=== PATIENT | female | born 1980 | race Caucasian/White ===

== ENCOUNTER 2016-07-02 14:26 | Emergency (ER) | payer OTHER ==
[~2016-07-02] VITALS: Ht 180.3 cm; Wt 61.8 kg
[~2016-07-02 14:26] MED LIST: DRV65 PO
[2016-07-02 14:28] VITALS: TEMP 36.8; Ht 180.3 cm; Wt 61.8 kg
--- NOTE | 2016-07-02 14:54 | EMERGENCY ROOM VISIT NOTE ---
ED Visit Note First contact with patient: 14:38 CHIEF COMPLAINT: Right foot laceration HISTORY OF PRESENT ILLNESS: This 35-year-old female patient presents to the emergency department ambulatory after cutting the bottom of the right foot around 2:30 AM on a broken wine glass. The bleeding has stopped. Denies weakness or numbness of the foot or toes. The patient rates her discomfort a 5/ 10. The patient denies any other injuries. The patient's Tetanus shot is up to date. REVIEW OF SYSTEMS: A 6 system review of systems was completed with positives and pertinent negatives listed in the HPI. ALLERGIES: No known drug allergies MEDICATIONS: See nursing notes PMH: Patient denies SOCIAL HISTORY: The patient is a smoker. She lives locally PHYSICAL EXAM: Vital Signs: Reviewed Nurse's notes, vital signs stable. GENERAL : This a 35-year-old female, in no acute distress, well-developed, well- nourished. SKIN: There is a 2 cm long laceration on the plantar aspect of the right foot. The edges gape apart with traction. There is no foreign material in the wound and it looks clean. There is minimal bleeding. No deep structures such as tendons, bones, or nerves are seen in the base of the wound. Normal strength and movement of the foot and toes. Capillary refill less than 2 seconds. Normal sensation to light and sharp touch. EMERGENCY DEPARTMENT COURSE: I examined the patient. An x-ray was obtained and was negative for obvious foreign body. Using sterile technique the wound was cleaned with Betadine. The area was sterilely draped. 3 ml of 1% buffered lidocaine was used to anesthetize the laceration on the foot. Once the patient was numb, the wound was copiously irrigated under pressure with sterile saline. The wound was explored and was as described above. The laceration was repaired using simple interrupted 5-0 nylon sutures with the wound edges being well approximated. The patient tolerated the procedure well. The bleeding stopped. The area was cleaned with sterile saline and dressed with bacitracin ointment and bandage.. The patient was discharged home in good condition. [~ rep ct add3]] RIGHT FOOT MIN 3 VIEWS ROUTINE CLINICAL HISTORY: Right foot pain. Stepped on glass. COMPARISON: None. DISCUSSION: No acute fractures are visualized. No radiopaque foreign bodies are delineated. There is calcaneal thickening in the region of the Achilles insertion. IMPRESSION: No fractures or foreign bodies are visualized. DIAGNOSIS: Foot laceration DISCHARGE INSTRUCTIONS & TREATMENT: Keep wound clean and dry. Do not allow any crusting or dried blood to accumulate on sutures. If this occurs, use a 1:1 solution of hydrogen peroxide/water on a Q-tip to clean the wound. Use an antibiotic ointment for 3-4 days, then let wound dry. Suture removal in 7-10 days. Return sooner for any signs of infection (increasing redness, swelling, drainage). Ice and elevate for swelling and pain. Ibuprofen 600 mg and Tylenol 1000 mg every 6 hrs for pain. Keep covered when in sun until sutures removed then SPF 50 or higher for one year. Vitamin E oil if desired two weeks after suture removal for reduction of scar. Wear the postop shoe when up and about Keflex every 8 hours for 5 days to help prevent infection Current/Historical Medications Scheduled Cephalexin Monohydrate (Keflex), 500 MG PO TID Cyanocobalamin (Vitamin B12), 1,000 MCG PO DAILY Multivitamin (Multivitamin), 1 TAB PO DAILY Sertraline (Zoloft), 100 MG PO DAILY Vortioxetine HBr (Trintellix), 5 MG PO DAILY Allergies Coded Allergies: No Known Allergies (Unverified Allergy, Mild, 09/02/07) Vital Signs Date Time Temp Pulse Resp B/P Pulse Ox O2 Delivery O2 Flow Rate FiO2 07/02/16 17:07 95 18 121/78 97 07/02/16 14:28 36.8 106 20 135/84 97 Room Air Departure Information Impression Primary Impression: Foot laceration Dispostion Home / Self-Care Condition GOOD Prescriptions Cephalexin Monohydrate (Keflex) 500 Mg Cap 500 MG PO TID for 5 Days, #15 CAP Prov: Mandie Ervin PA-C 07/02/16 Referrals No Doctor, Assigned (PCP) Patient Instructions [facility] Additional Instructions Keep wound clean and dry. Do not allow any crusting or dried blood to accumulate on sutures. If this occurs, use a 1:1 solution of hydrogen peroxide/ water on a Q-tip to clean the wound. Use an antibiotic ointment for 3-4 days, then let wound dry. Suture removal in 7-10 days. Return sooner for any signs of infection (increasing redness, swelling, drainage). Ice and elevate for swelling and pain. Ibuprofen 600 mg and Tylenol 1000 mg every 6 hrs for pain. Keep covered when in sun until sutures removed then SPF 50 or higher for one year. Vitamin E oil if desired two weeks after suture removal for reduction of scar. Wear the postop shoe when up and about Keflex every 8 hours for 5 days to help prevent infection
[2016-07-02] MEDS ORDERED: XYLOCAINE 1%/SOD BICARB 20 ML VIAL INFIL ONE (15:00)
[2016-07-02] MEDS ORDERED: VORT1TAB PO (15:24)
[2016-07-02] MEDS ORDERED: SERT-234 PO (15:24)
[2016-07-02] MEDS ORDERED: MULT-506 PO (15:24)
[2016-07-02] MEDS ORDERED: CYAN100020 PO (15:24)
--- NOTE | 2016-07-02 15:59 | DIAGNOSTIC IMAGING REPORT ---
RIGHT FOOT MIN 3 VIEWS ROUTINE CLINICAL HISTORY: Right foot pain. Stepped on glass. COMPARISON: None. DISCUSSION: No acute fractures are visualized. No radiopaque foreign bodies are delineated. There is calcaneal thickening in the region of the Achilles insertion. IMPRESSION: No fractures or foreign bodies are visualized. Electronically signed by: Don Beasley M.D. 07/02/2016 3:57 PM Dictated Date/Time: 07/02/2016 3:56 PM
[2016-07-02 17:07] VITALS: BP 121/78; PULSE 95; O2SAT 97
[2016-07-02] MEDS ORDERED: CEPH500C PO (17:10)
== END 2016-07-02 17:08 | disposition home or self-care (01) ==
LOC: C.EDB 14:27 → C.EDD 17:08
DX: S91.311A Laceration without foreign body, right foot, initial encounter (principal); W25.XXXA Contact with sharp glass, initial encounter; F17.210 Nicotine dependence, cigarettes, uncomplicated; Z79.899 Other long term (current) drug therapy

== ENCOUNTER 2016-12-07 12:03 | Emergency (ER) | payer OTHER ==
[~2016-12-07] VITALS: Ht 180.3 cm; Wt 67.0 kg
[~2016-12-07 12:03] MED LIST changes: +CYAN100020 PO; -DRV65 PO; +MULT-506 PO; +SERT-234 PO; +VORT1TAB PO
[2016-12-07 12:07] VITALS: TEMP 37.3; O2SAT 98; Ht 180.3 cm; Wt 67.0 kg
[2016-12-07] MEDS ORDERED: PROPARACAINE HCL 0.5% OP SOLN 15 ML BTL ONE (12:31)
[2016-12-07] MEDS ORDERED: ERYOPO OPR (13:45)
[2016-12-07] MEDS ORDERED: ARTIOIN OP (13:45)
[2016-12-07] MEDS ORDERED: OXYC1TAB3 PO (13:45)
[2016-12-07] MEDS ORDERED: QUET1TAB32 PO (13:53)
[2016-12-07 13:57] VITALS: BP 126/78; PULSE 82
--- NOTE | 2016-12-07 21:17 | EMERGENCY ROOM VISIT NOTE ---
History First contact with patient: 13:26 Chief Complaint: EYE PAIN Stated Complaint: SCRATCHED EYE,SWOLLEN CLOSED,PAIN IN EYE History of Present Illness The patient is a 36 year old female who presents to the Emergency Room with complaints of right eye irritation, swelling, white sensitivity and pain rated a 5 out of 10. The patient reports that she just moved, and reports tripping over a box last night and fell. She does not know how her eye was injured, but thinks that she scratched it. The patient does not wear contacts. Tetanus immunization is up-to-date. Review of Systems 10 system review was performed and was negative except for pertinent positives and negatives as indicated in history of present illness Past Medical/Surgical History Medical Problems: (1) Depression (2) Personal History Of Urinary Calculi (3) Tobacco Use Disorder Family History Unremarkable Social History Smoking Status: Current Every Day Smoker Alcohol Use: occasionally Marital Status: single Occupation Status: employed Current/Historical Medications Scheduled Erythromycin Opth (Erythromycin Opth), 1 CM OPR Q4 Multivitamin (Multivitamin), 1 TAB PO DAILY Quetiapine Fumarate (Seroquel), 50 MG PO DAILY Scheduled PRN Artificial Tears Oph Oint (Lacri-Lube Sop Oph Oint), 0.25-0.5 INCH OP QID PRN for eye irritation Oxycodone Ir (Roxicodone Ir), 1 TAB PO Q4H PRN for Pain Physical Exam Vital Signs Date Time Temp Pulse Resp B/P (MAP) Pulse Ox O2 Delivery O2 Flow Rate FiO2 12/07/16 13:57 82 126/78 12/07/16 12:07 37.3 87 16 129/84 98 Room Air Right Eye Acuity: 20/70 Left Eye Acuity: 20/20 Physical Exam CONSTITUTIONAL: Healthy and well nourished. Alert and oriented X 3 with positive affect. Patient is exhibiting notable photophobia, keeping her eyes closed. HEENT: Normocephalic, atraumatic. Pupils equal, round and reactive. Patient is photophobic, precluding funduscopic exam of the right eye. No mucopurulent or bloody drainage noted from the eye. NECK: Full active range of motion without discomfort. RESPIRATORY: Clear to auscultation bilaterally with no wheezing, crackles, rhonchi or stridor. CARDIOVASCULAR: Regular rate and rhythm with no murmurs, rubs or gallops. MUSCULOSKELETAL: Full range of motion of all joints without discomfort. INTEGUMENTARY: No rash or other significant dermatologic conditions noted. NEUROLOGIC: No focal neurologic deficits noted. Medical Decision & Procedures Medications Administered Medications (Trade) Dose Ordered Sig/[place]ana Route Start Time Stop Time Status Last Admin Dose Admin Proparacaine HCl (Alcaine 0.5% Oph Soln) 225 drops STK-MED ONCE .ROUTE 12/07/16 12:31 12/07/16 12:32 DC 12/07/16 12:31 2 DROPS Procedure Slit lamp and fluorescein exam were performed. 2 drops of Alcaine were instilled into the right eye with complete resolution of the patient's discomfort. Slit lamp exam does not show any obvious hyphema or foreign debris within the eye. Fluorescein exam shows an inferior corneal abrasion at 6:00. Negative Kim test. ED Course Patient history and physical exam were performed. Nurse's notes were reviewed. Vital signs were reviewed and were normal. Visual acuity was also performed, showing a 20/70 in the right eye, 20/20 in the left eye. Alcaine drops complete resolved the patient's discomfort. Slit lamp and fluorescein exam shows evidence for a corneal abrasion. The patient was provided prescriptions for erythromycin ophthalmic ointment, Lacri-Lube and OxyIR 5 mg. The patient was encouraged also intermittently apply a cool compress, and wear sunglasses as needed for additional relief. She may also alternate ibuprofen and Tylenol for baseline pain relief. She was provided contact information for ophthalmology should her symptoms not improve over the next 48 hours. She is also welcome to return to the emergency department as needed. The patient was happy with plan of care, voiced understanding of all discharge instructions, and denied any pain at the conclusion of my exam. Medical Decision [place] Drug Monitoring Program Search Results: patient reviewed within database, no issues identified Medication Reconcilliation Current Medication List: was personally reviewed by me Blood Pressure Screening Patient's blood pressure: Normal blood pressure Impression Primary Impression: Right corneal abrasion Departure Information Dispostion Home / Self-Care Prescriptions Artificial Tears Oph Oint (Lacri-Lube Sop Oph Oint) Oint 0.25-0.5 INCH OP QID Y for eye irritation, #1 TUBE TO THE AFFECTED EYE UP TO QID PRN Prov: Abdi Alvarado PA 12/07/16 Oxycodone Ir (Roxicodone Ir) 5 Mg Tab 1 TAB PO Q4H Y for Pain, #10 TAB For Initial Treatment Prov: Abdi Alvarado PA 12/07/16 Erythromycin Opth (ERYTHROMYCIN OPTH) 12 Appln/3.5 Gm Oint 1 CM OPR Q4 for 7 Days, #1 TUBE Apply 1 cm strip in lower conjunctival sac every 4 hrs (while awake) for 7 days. Prov: Abdi Alvarado PA 12/07/16 Referrals David Carpenter M.D. Forms HOME CARE DOCUMENTATION FORM, IMPORTANT VISIT INFORMATION Patient Instructions [facility], ED Eye Injury Corneal Abrasion Additional Instructions Apply erythromycin antibiotic ointment every 4-6 hrs (while awake) for 7 days. You may also use Lacri-Lube ointment for additional relief between times of antibiotic ointment use. Ibuprofen 800 mg and/or Tylenol 1000 mg every 8 hours. You may also alternate these medications for more effective pain relief: Ibuprofen --4 HRS--> Tylenol --4 HRS--> ibuprofen --4 HRS--> Tylenol .... OxyIR if needed for worse pain. Do not drink alcohol or drive while taking OxyIR. You may also intermittently apply a cool compress and wear sunglasses for additional relief. Follow-up with an motorcycle maker (Dr. Carpenter) if no improvement within 48 hrs, or if symptoms worsen. Problem Qualifiers Primary Impression: Right corneal abrasion Encounter type: initial encounter Qualified Codes: S05.01XA - Injury of conjunctiva and corneal abrasion without foreign body, right eye, initial encounter
== END 2016-12-07 13:58 | disposition home or self-care (01) ==
LOC: C.EDB 12:05 → C.EDD 13:58
DX: S05.01XA Injury of conjunctiva and corneal abrasion without foreign body, right eye, initial encounter (principal); W18.09XA Striking against other object with subsequent fall, initial encounter; F32.9 Major depressive disorder, single episode, unspecified; Z87.442 Personal history of urinary calculi; F17.210 Nicotine dependence, cigarettes, uncomplicated; Z79.899 Other long term (current) drug therapy

== ENCOUNTER → 2017-06-27 | Outpatient (CLI) | payer OTHER ==
[~2017-06-27] MED LIST changes: -CYAN100020 PO; +ERYOPO OPR; +QUET1TAB32 PO; -SERT-234 PO; -VORT1TAB PO
== END | disposition home or self-care (01) ==
LOC: C.LAB 23:42
DX: Z02.83 Encounter for blood-alcohol and blood-drug test (principal)

== ENCOUNTER 2022-06-05 00:27 | Inpatient (IN) ==
[2022-06-05] MEDS ORDERED: cefTRIAXone SODIUM 2,000 MG/70 ML BAG IV STA (01:05)
[2022-06-05] MEDS ORDERED: ACETAMINOPHEN 1,000 MG/100 ML VIAL IV STA (01:06)
--- NOTE | 2022-06-05 01:16 | Emergency Department Note ---
History of Present Illness General Chief complaint: Back Injury/Pain Stated complaint: PAIN IN BACK AND STOMACH,NAUSEA,VOMITING Time Seen by Provider: 06/05/22 01:02 History of Present Illness This 41-year-old female presents to the ER complaining of fever, chills, urinary symptoms, nausea, vomiting and flank pain for the past day. Patient denies chest pain, dyspnea, cough, congestion, diarrhea. She is concerned she has a urine infection. Home Medications Medication Instructions Recorded Confirmed Type trazodone 100 mg tablet 100 mg PO HS PRN Sleep 06/05/22 06/05/22 History Allergies Allergy/AdvReac Type Severity Reaction Status Date / Time No Known Allergies Allergy Mild Verified 06/05/22 00:52 Past Med/Surg History Social History Smoking Status: Current every day smoker Tobacco Type: Cigarettes Preferred Language: Czech Feels Safe at Home: Yes Review of Systems A total of 10 systems reviewed and were otherwise negative Physical Exam Vital Signs Vital Signs - 24 hr 06/05/22 00:34 06/05/22 02:33 06/05/22 02:32 Temperature 36.7 C 37.6 C H Temperature Source Oral Oral Pulse Rate 149 H 105 H Pulse Rate [Left Radial] 110 H Pulse Rhythm Pulse Rhythm [Left Radial] Regular Pulse Strength [Left Radial] Normal Respiratory Rate 20 15 Respiratory Effort / Characteristics Non-Labored Spontaneous Respiratory Depth Normal Respiratory Pattern Regular Blood Pressure 147/105 H Blood Pressure [Left Arm] 123/79 Blood Pressure Mean 119 Blood Pressure Mean [Left Arm] 93 Blood Pressure Position [Left Arm] Pulse Oximetry 98 95 Oxygen Delivery Method Room Air Room Air Sepsis Recent Fever Within 48 Hours No Sepsis New/Unexplained Change in Mental Status No Sepsis Action Taken by Nursing No Action Required 06/05/22 03:46 06/05/22 03:46 06/05/22 03:46 Temperature 36.7 C 36.7 C Temperature Source Oral Oral Pulse Rate 108 H Pulse Rate [Left Radial] 108 H Pulse Rhythm Regular Pulse Rhythm [Left Radial] Regular Pulse Strength [Left Radial] Normal Respiratory Rate 17 17 Respiratory Effort / Characteristics Non-Labored Respiratory Depth Normal Respiratory Pattern Regular Blood Pressure Blood Pressure [Left Arm] 127/91 Blood Pressure Mean Blood Pressure Mean [Left Arm] 103 Blood Pressure Position [Left Arm] Lying Pulse Oximetry 97 97 Oxygen Delivery Method Room Air Room Air Sepsis Recent Fever Within 48 Hours Sepsis New/Unexplained Change in Mental Status Sepsis Action Taken by Nursing VITALS: Vitals are noted on the nurse's note and reviewed by myself. Vital signs tachycardic. GENERAL: Pleasant female, in no acute distress, nondiaphoretic, well-developed well-nourished. SKIN: The skin was without rashes, erythema, edema, or bruising. There is no tenting of the skin. Capillary reflex less than 2 seconds. HEAD: Normocephalic atraumatic. EARS: External auditory canals clear, tympanic membranes pearly jensen without erythema or effusion bilaterally. EYES: Pupils equal round and reactive to light and accommodation. Conjunctivae without injection, sclerae without icterus. Extraocular movements intact. NOSE: Patent, turbinates without inflammation or discharge. MOUTH: Mucous membranes moist. Pharynx without erythema or exudate. Uvula midline. Airway patent. Tongue does not deviate. NECK: Supple without nuchal rigidity. No lymphadenopathy. No thyromegaly. Cervical spine is nontender. No JVD. HEART: Tachycardic rate and rhythm LUNGS: Clear to auscultation bilaterally without wheezes, rales or rhonchi. No retractions or accessory muscle use. ABDOMEN: Positive bowel sounds x 4. Normal tympanic percussion. Soft, lower abdomen tender to palpation, without masses or organomegaly. Barrientos sign negative. No guarding or rebound tenderness. Right CVA tenderness MUSCULOSKELETAL: No muscle atrophy, erythema, or edema noted. NEURO: Patient was alert and oriented to person place and time. Normal sensation to light and sharp touch. No focal neurological deficits. Course Administered Medications Magnesium Sulfate/Dextrose (Magnesium Sulfate / D5w) 1 gm in 100 mls @ 100 mls/hr IV Q1H OSMIN Stop: 06/05/22 04:19 Last Admin: 06/05/22 03:43 Dose: 100 mls/hr Documented By: JANELLE Potassium Chloride (K Charles / Wtr) 10 meq in 100 mls @ 100 mls/hr IV Q1H OSMIN; Protocol Stop: 06/05/22 04:29 Last Admin: 06/05/22 02:43 Dose: 100 mls/hr Documented By: SHARYN Discontinued Medications Sodium Chloride (Nss 1000ml) 1,000 mls @ 999 mls/hr IV .Q1H1M OSMIN Stop: 06/05/22 03:15 Last Admin: 06/05/22 03:37 Dose: 999 mls/hr Documented By: Infusion: 06/05/22 03:11 Dose: 0 mls/hr Documented By: Admin: 06/05/22 01:35 Dose: 999 mls/hr Documented By: SHARYN Ceftriaxone Sodium (Rocephin) 2,000 mg in 70 mls @ 140 mls/hr IV NOW STA Stop: 06/05/22 01:34 Last Infusion: 06/05/22 02:35 Dose: 140 mls/hr Documented By: Admin: 06/05/22 01:57 Dose: 140 mls/hr Documented By: SHARYN Acetaminophen (Ofirmev) 1,000 mg in 100 mls @ 400 mls/hr IV NOW STA Stop: 06/05/22 01:20 Last Infusion: 06/05/22 01:56 Dose: 400 mls/hr Documented By: Admin: 06/05/22 01:35 Dose: 400 mls/hr Documented By: SHARYN Ioversol (Optiray 350 100ml) 100 ml IV ONCE ONE Stop: 06/05/22 03:06 Last Admin: 06/05/22 03:05 Dose: 85 ml Documented By: BIMAL Potassium Chloride (Potassium Chloride 10 Meq Tabcr) 40 meq PO NOW STA Stop: 06/05/22 02:20 Last Admin: 06/05/22 02:43 Dose: 40 meq Documented By: SHARYN Critical Care Time Critical Care Time: Yes Total Critical Care Time: 35 I have personally spent 35 minutes of critical care time in the direct management of this patient. This includes bedside care, interpretation of diagnostic studies, and testing, discussion with consultants, patient, and family members, and other required patient management activities. This 35 minutes is in excess of all separately billable procedures. Medical Decision Making Medical Records Attestation: I reviewed the patient's medical records. Home Medications Current Medication List: was personally reviewed by me Laboratory Data Attestation: I reviewed the patient's lab results. 06/05/22 01:20 06/05/22 01:20 Lab Results 06/05/22 06/05/22 06/05/22 Range/Units 01:20 01:20 01:20 WBC 11.67 H (4.8-10.8) K/ul RBC 3.78 L (4.20-5.40) M/uL Hgb 14.4 (12.0-16.0) g/dl Hct 38.5 (37.0-47.0) % MCV 101.9 H (80.0-100.0) fL MCH 38.1 H (25.0-34.0) pg MCHC 37.4 H (32.0-36.0) g/dL RDW Std Deviation 48.3 H (36.4-46.3) fL RDW Coeff of Ralph 13.0 (11.5-14.5) % Plt Count 134 (130-400) K/uL MPV 11.7 (9.4-12.4) fL Immature Gran % (Auto) 0.6 % Neut % (Auto) 88.0 % Lymph % (Auto) 5.8 % [place] % (Auto) 4.7 % Eos % (Auto) 0.4 % Baso % (Auto) 0.5 % Neut # (Auto) 10.26 H (1.40-6.50) K/uL Lymph # (Auto) 0.68 L (1.2-3.4) K/uL [place] # (Auto) 0.55 (0.11-0.59) K/uL Eos # (Auto) 0.05 (0-0.50) K/uL Baso # (Auto) 0.06 (0-0.2) K/uL Immature Gran # (Auto) 0.07 (0.01-0.20) K/uL Sodium 133 L (136-145) mmol/L Potassium 2.4 L* (3.5-5.1) mmol/L Chloride 90 L (98-107) mmol/L Carbon Dioxide 21 (21-32) mmol/L Anion Gap 22 H (3-11) BUN 6 (6-23) mg/dl Creatinine 0.56 L (0.6-1.2) mg/dl Est Cr Clr Drug Dosing 146.3 ml/min Est GFR ( Amer) 133.3 ml/min Est GFR (Non-Af Amer) 115.0 ml/min BUN/Creatinine Ratio 10.7 (10-20) Glucose 114 H (70-99(Fasting)) mg/dl Lactate (0.4-2.0) mmol/L Calcium 8.2 L (8.6-10.3) mg/dl Magnesium 0.8 L* (1.7-2.4) mg/dl Total Bilirubin 1.3 H (0.2-1.0) mg/dl Direct Bilirubin 0.4 H (0-0.2) mg/dl AST 46 H (13-39) U/L ALT 25 (7-52) U/L Alkaline Phosphatase 107 H (34-104) U/L Troponin I High Sens 14.2 H (0-14) pg/ml Total Protein 8.1 (6.0-8.3) gm/dl Albumin 4.4 (3.4-5.0) gm/dl Procalcitonin 1.63 H (0-0.5) ng/ml HCG, Qual (Negative) Urine Color Urine Appearance (Clear) Urine pH (4.5-7.5) Ur Specific [place] (1.000-1.030) Urine Protein (Negative) Urine Glucose (UA) (Negative) Urine Ketones (Negative) Urine Blood (Negative) Urine Nitrite (Negative) Urine Bilirubin (Negative) Urine Urobilinogen (Negative) Ur Leukocyte Esterase (Negative) Urine WBC (Auto) (0-5) /hpf Urine RBC (Auto) (0-4) /hpf U Hyaline Cast (Auto) (0-5) /lpf U Epithel Cells (Auto) (0-5) /lpf Urine Bacteria (Auto) (Negative) 06/05/22 06/05/22 06/05/22 Range/Units 01:20 01:30 02:06 WBC (4.8-10.8) K/ul RBC (4.20-5.40) M/uL Hgb (12.0-16.0) g/dl Hct (37.0-47.0) % MCV (80.0-100.0) fL MCH (25.0-34.0) pg MCHC (32.0-36.0) g/dL RDW Std Deviation (36.4-46.3) fL RDW Coeff of Ralph (11.5-14.5) % Plt Count (130-400) K/uL MPV (9.4-12.4) fL Immature Gran % (Auto) % Neut % (Auto) % Lymph % (Auto) % [place] % (Auto) % Eos % (Auto) % Baso % (Auto) % Neut # (Auto) (1.40-6.50) K/uL Lymph # (Auto) (1.2-3.4) K/uL [place] # (Auto) (0.11-0.59) K/uL Eos # (Auto) (0-0.50) K/uL Baso # (Auto) (0-0.2) K/uL Immature Gran # (Auto) (0.01-0.20) K/uL Sodium (136-145) mmol/L Potassium (3.5-5.1) mmol/L Chloride (98-107) mmol/L Carbon Dioxide (21-32) mmol/L Anion Gap (3-11) BUN (6-23) mg/dl Creatinine (0.6-1.2) mg/dl Est Cr Clr Drug Dosing ml/min Est GFR ( Amer) ml/min Est GFR (Non-Af Amer) ml/min BUN/Creatinine Ratio (10-20) Glucose (70-99(Fasting)) mg/dl Lactate 4.4 H* (0.4-2.0) mmol/L Calcium (8.6-10.3) mg/dl Magnesium (1.7-2.4) mg/dl Total Bilirubin (0.2-1.0) mg/dl Direct Bilirubin (0-0.2) mg/dl AST (13-39) U/L ALT (7-52) U/L Alkaline Phosphatase (34-104) U/L Troponin I High Sens (0-14) pg/ml Total Protein (6.0-8.3) gm/dl Albumin (3.4-5.0) gm/dl Procalcitonin (0-0.5) ng/ml HCG, Qual Negative (Negative) Urine Color Yellow Urine Appearance Cloudy A (Clear) Urine pH 6.0 (4.5-7.5) Ur Specific [place] 1.005 (1.000-1.030) Urine Protein 1+ H (Negative) Urine Glucose (UA) Negative (Negative) Urine Ketones 1+ H (Negative) Urine Blood 2+ H (Negative) Urine Nitrite Positive A (Negative) Urine Bilirubin Negative (Negative) Urine Urobilinogen Negative (Negative) Ur Leukocyte Esterase 3+ H (Negative) Urine WBC (Auto) >30 H (0-5) /hpf Urine RBC (Auto) 0-4 (0-4) /hpf U Hyaline Cast (Auto) 1-5 (0-5) /lpf U Epithel Cells (Auto) >30 H (0-5) /lpf Urine Bacteria (Auto) 1+ H (Negative) Imaging Data Attestation: I personally reviewed and interpreted this imaging study as follows: Radiologist's Impression: Abdomen/Pelvis CT 06/05/22 01:01 Exam(s): CT ABDOMEN + PELVIS With Contrast IV Amt: 85 ML OPTIRAY 350 EXAM: CT Abdomen and Pelvis With Intravenous Contrast CLINICAL HISTORY: Abscess. TECHNIQUE: Axial computed tomography images of the abdomen and pelvis with intravenous contrast. CTDI is 6.01 mGy and DLP is 346.44 mGy-cm. Automated exposure control was utilized for the study. A dose lowering technique was utilized adhering to the principles of ALARA. CONTRAST: Patient received 85 ML OPTIRAY 350 of IV contrast COMPARISON: CT abdomen and pelvis 02/10/2021. FINDINGS: Lung bases: Unremarkable. No mass. No consolidation. ABDOMEN: Liver: Fatty infiltration of the liver. Gallbladder and bile ducts: Unremarkable. No calcified stones. No ductal dilation. Pancreas: Unremarkable. No mass. No ductal dilation. Spleen: Unremarkable. No splenomegaly. Adrenals: Unremarkable. No mass. Kidneys and ureters: Striated nephrograms of the right kidney in mild hydronephrosis are concerning for acute pyelonephritis. Question mild left hydronephrosis. No definitive left nephrograms. Stomach and bowel: Unremarkable. No obstruction. No mucosal thickening. PELVIS: Appendix: No findings to suggest acute appendicitis. Bladder: Unremarkable. No mass. Reproductive: Unremarkable as visualized. ABDOMEN and PELVIS: Intraperitoneal space: Unremarkable. No free air. No significant fluid collection. Bones/joints: No acute fracture. No dislocation. Soft tissues: Unremarkable. Vasculature: Unremarkable. No abdominal aortic aneurysm. Lymph nodes: Unremarkable. No enlarged lymph nodes. IMPRESSION: 1. Striated nephrograms of the right kidney in mild hydronephrosis are concerning for acute pyelonephritis. 2. Question mild left hydronephrosis. No definitive left nephrograms. 3. Fatty infiltration of the liver. Electronically signed by: Yolanda Marie MD 06/05/22 03:26 AM MDM Narrative Prior records/ancillary studies reviewed. Triage Nursing notes reviewed. Additional history obtained from nursing. The patient's history was concerning for abdominal pain. Differential diagnosis: Etiologies such as appendicitis, diverticulitis, PUD, biliary pathology, UTI, pancreatitis, obstruction, mesenteric ischemia, aortic pathology, infections, inflammatory bowel disease, renal colic, as well as others were entertained. Physical examination findings: As above. ER treatment provided: An order was placed for continuous cardiac monitoring. The monitor shows a rate of 60-1 60 with a sinus rhythm per my Independent interpretation. IV fluids, Rocephin, Tylenol were ordered On reassessment the patient felt better. Diagnostics interpreted by me: ECG: Ordered for tachycardia EKG: Normal sinus, poor baseline, normal intervals. Impression sinus tachycardia poor baseline interpreted by myself I think arrhythmia is unlikely. EKG shows normal sinus rhythm with no interval abnormalities such as QT prolongation or WPW. There are no findings to suggest Brugada syndrome. Cardiac monitoring in the emergency department reveals no tachycardic or bradycardic dysrhythmia. Hypertrophic cardiomyopathy was considered but there are no clear historical elements pointing toward this. EKG is not suggestive. The QRS voltage is not extremely large and there are no suggestive Q waves. The labs Independently Interpreted by myself revealed leukocytosis, low magnesium, low potassium, elevated infection markers Blood cultures pending Urine concerning for infection and prior urine culture was reviewed. Imaging studies: Chest x-ray with no acute consolidation, pneumothorax or free air per my independent interpretation Consultation: A consultation was placed with the hospitalist. The case was discussed and diagnostics were reviewed. The patient was evaluated in the ER for further treatment. Exam and history seem consistent with sepsis from pyelonephritis. Septic protocol was immediately initiated when I initially saw the patient. Antibiotics were written for prior urine culture was reviewed. Electrolyte abnormalities were noted and these were replaced. Patient was reassessed multiple times. CT was reviewed and concerning for pyelonephritis. Patient is agreeable to treatment plan of admission. Medicine was consulted and the case was discussed. Patient was admitted to the medical service. Vital signs did improve. By the evaluation outlined above emergent etiologies such as appendicitis, diverticulitis, PUD, biliary pathology, pancreatitis, obstruction, mesenteric ischemia, aortic pathology, inflammatory bowel disease, renal colic, as well as others were deemed relatively unlikely. The pt informed about the findings as listed above. All questions were answered and pleased with the treatment. The chart was completed utilizing [employer] Speech voice recognition software. Grammatical errors, random word insertions, pronoun errors, and incomplete sentences are an occassional consequence of this system due to software limitat ions, ambient noise, and hardware issues. Any formal questions or concerns about the content, text, or information contained within the body of this dictation should be directly addressed to the physician publisher assistant for clarification. Impression & Plan Sepsis, Pyelonephritis Discharge Plan Visit Data Chief Complaint: Back Injury/Pain Stated Complaint: PAIN IN BACK AND STOMACH,NAUSEA,VOMITING ED Provider: Pop Allison ED Midlevel Provider: Juju Munoz Discharge Problem: Sepsis, Pyelonephritis Patient Disposition: Admitted As Inpatient Condition: Fair Forms Stand Alone Forms: My [facility] [employer] Prescriptions Prescriptions: No Action trazodone 100 mg tablet 100 mg PO HS PRN (Reason: Sleep) Rx Instructions: PER PT "HAVEN'T REALLY USED IT YET". Referrals Referrals: PCP,NO [Primary Care Provider] -
[2022-06-05] MEDS: SODIUM CHLORIDE 0.9% 1000ML 1,000 ML IV SCH ×2 (01:35→03:37)
[2022-06-05 01:39] LABS: Basophils # (auto) 0.06 K/uL (0-0.2); Basophils % (auto) 0.5 %; Eosinophils # (auto) 0.05 K/uL (0-0.50); Eosinophils % (auto) 0.4 %; Hematocrit (blood only) 38.5 % (37.0-47.0); Hemoglobin 14.4 g/dl (12.0-16.0); Immature Granulocytes # (auto) 0.07 K/uL (0.01-0.20); Immature Granulocytes % (auto) 0.6 %; Lymphocytes # (auto) 0.68 K/uL (1.2-3.4); Lymphocytes % (auto) 5.8 %; Mean Corpuscular Hemoglobin 38.1 pg (25.0-34.0); Mean Corpuscular Hgb Conc 37.4 g/dL (32.0-36.0); Mean Corpuscular Volume 101.9 fL (80.0-100.0); Mean Platelet Volume 11.7 fL (9.4-12.4); Monocytes # (auto) 0.55 K/uL (0.11-0.59); Monocytes % (auto) 4.7 %; Neutrophils # (auto) 10.26 K/uL (1.40-6.50); Platelet Count 134 K/uL (130-400); RDW Standard Deviation 48.3 fL (36.4-46.3); Red Blood Count 3.78 M/uL (4.20-5.40); White Blood Count 11.67 K/ul (4.8-10.8)
[2022-06-05 01:53] LABS: Pregnancy Test, Serum Negative (Negative)
[2022-06-05 02:16] LABS: Albumin Level 4.4 gm/dl (3.4-5.0); BUN Creatinine Ratio 10.7 (10-20); Bilirubin Direct 0.4 mg/dl (0-0.2); Bilirubin,Total 1.3 mg/dl (0.2-1.0); Calcium 8.2 mg/dl (8.6-10.3); Creatinine Clr Calc Pharmacy 146.3 ml/min; Est GFR (African American) 133.3 ml/min; Magnesium 0.8 mg/dl (1.7-2.4); Potassium 2.4 mmol/L (3.5-5.1); Total Protein 8.1 gm/dl (6.0-8.3); Troponin I High Sensitivity 14.2 pg/ml (0-14)
[2022-06-05] MEDS ORDERED: POTASSIUM CHLORIDE 10 MEQ TABCR PO STA (02:19)
[2022-06-05 02:30] LABS: Appearance Urine Cloudy (Clear); Bacteria Urine Automated 1+ (Negative); Bilirubin Urine Negative (Negative); Blood Urine 2+ (Negative); Color Urine Yellow; Epithelial Cell Urine Auto >30 /lpf (0-5); Glucose Urine UA Negative (Negative); Ketones Urine 1+ (Negative); Leukocyte Esterase Urine 3+ (Negative); Nitrite Urine Positive (Negative); Protein Urine 1+ (Negative); RBC Urine Automated 0-4 /hpf (0-4); Specific Gravity Urine 1.005 (1.000-1.030); Urobilinogen Urine Negative (Negative); WBC Urine Automated >30 /hpf (0-5)
[2022-06-05] MEDS: POTASSIUM CHLORIDE / WTR 10 MEQ/100 ML PLCT IV SCH ×6 (02:43→09:34)
[2022-06-05] MEDS ORDERED: SODIUM CHLORIDE 0.9% 1000ML 1,000 ML IV SCH (03:00)
[2022-06-05] MEDS ORDERED: OPTIRAY 350 100ml IV ONE (03:05)
--- NOTE | 2022-06-05 03:27 | CT Scan Report ---
Exam(s): CT ABDOMEN + PELVIS With Contrast IV Amt: 85 ML OPTIRAY 350 EXAM: CT Abdomen and Pelvis With Intravenous Contrast CLINICAL HISTORY: Abscess. TECHNIQUE: Axial computed tomography images of the abdomen and pelvis with intravenous contrast. CTDI is 6.01 mGy and DLP is 346.44 mGy-cm. Automated exposure control was utilized for the study. A dose lowering technique was utilized adhering to the principles of ALARA. CONTRAST: Patient received 85 ML OPTIRAY 350 of IV contrast COMPARISON: CT abdomen and pelvis 02/10/2021. FINDINGS: Lung bases: Unremarkable. No mass. No consolidation. ABDOMEN: Liver: Fatty infiltration of the liver. Gallbladder and bile ducts: Unremarkable. No calcified stones. No ductal dilation. Pancreas: Unremarkable. No mass. No ductal dilation. Spleen: Unremarkable. No splenomegaly. Adrenals: Unremarkable. No mass. Kidneys and ureters: Striated nephrograms of the right kidney in mild hydronephrosis are concerning for acute pyelonephritis. Question mild left hydronephrosis. No definitive left nephrograms. Stomach and bowel: Unremarkable. No obstruction. No mucosal thickening. PELVIS: Appendix: No findings to suggest acute appendicitis. Bladder: Unremarkable. No mass. Reproductive: Unremarkable as visualized. ABDOMEN and PELVIS: Intraperitoneal space: Unremarkable. No free air. No significant fluid collection. Bones/joints: No acute fracture. No dislocation. Soft tissues: Unremarkable. Vasculature: Unremarkable. No abdominal aortic aneurysm. Lymph nodes: Unremarkable. No enlarged lymph nodes. IMPRESSION: 1. Striated nephrograms of the right kidney in mild hydronephrosis are concerning for acute pyelonephritis. 2. Question mild left hydronephrosis. No definitive left nephrograms. 3. Fatty infiltration of the liver. Electronically signed by: Yolanda Marie MD 06/05/22 03:26 AM
[2022-06-05] MEDS: MAGNESIUM SULFATE / D5W 1 GM/100 ML BAG IV SCH ×4 (03:43→08:41)
--- NOTE | 2022-06-05 05:40 | History and Physical Report ---
DATE OF ADMISSION: 06/05/2022. CHIEF COMPLAINT: Pyelonephritis, sepsis. HISTORY OF PRESENT ILLNESS: This is a 41-year-old female with no significant past medical history who presents with back pain radiating to the flank going on since last couple of days. She is also nauseous and had an episode of vomiting yesterday morning. Also has some frequent urination. Denies any burning micturition or hematuria. Denies any history of kidney stones in the past. She was having mild temperature spike in the ER. Her white count was 11. Lactic acid was 4.4, repeat is 1.6. Potassium is 2.4, sodium 133, magnesium 0.8, total bilirubin 1.3, procalcitonin 1.6, urine was positive for nitrite and leukocyte esterase, and +[address] abdomen and pelvis is showing bilateral pyelonephritis. The patient says the pain is in the back, both the flanks and more on the right side. Denies any chest pain, no shortness of breath, no cough, no headache, no blurred visions, no runny nose, no sore throat. Appetite is okay. No rash. Currently, resting comfortably and hemodynamically stable. ALLERGIES: No known drug allergies. PAST MEDICAL HISTORY: None. PAST SURGICAL HISTORY: Denies any surgical history. MEDICATIONS: Takes trazodone 100mg po as needed for insomnia. FAMILY HISTORY: Says mother had endometrial and colon cancer; sister has colon cancer. SOCIAL HISTORY: Smokes 10 cigarettes daily. Alcohol on the weekends. Denies any drug use. REVIEW OF SYSTEMS: As per HPI. Rest of the review of systems is negative. PHYSICAL EXAMINATION: GENERAL: The patient is of moderate build, not in acute distress. VITAL SIGNS: Temperature T-max 37.6, pulse 108, respiratory rate 17, blood pressure 127/91, oxygen 97% on room air. HEENT: Pupils equal, round and reactive to light. Oral mucosa moist. NECK: No JVD, no neck masses. CARDIOVASCULAR: S1 and S2 heard. Tachycardia. No murmurs. RESPIRATORY SYSTEM: Normal AP diameter. No accessory muscle use. No wheezing or crackles. ABDOMEN: Soft, bowel sounds present. Bilateral CVA tenderness present. No guarding, no rigidity, no distention. CENTRAL NERVOUS SYSTEM: Cranial nerves II-XII grossly intact, nonfocal. EXTREMITIES: No edema, no erythema. LABORATORY DATA: WBC 11.6, hemoglobin 14.4, hematocrit 38.5, platelets 134. Sodium 133, potassium 2.4, chloride 90, CO2 of 21, BUN 6, creatinine 0.5, serum glucose 114, lactate 4.4, repeat is 1.6, calcium 8.2, magnesium 0.8, total bilirubin 1.3, direct bilirubin 0.4, AST 46, ALT 25, alkaline phosphatase 107. Troponin I high sensitivity 14.2. Procalcitonin 1.6. HCG qualitative negative. Urinalysis positive for nitrite, +3 leukocyte esterase, +1 bacteria. SARS-CoV-2 PCR pending. IMAGING DATA: Chest x-ray, no acute findings. CT of the abdomen and pelvis with IV contrast: 1. Striated nephrograms of the right kidney in mild hydronephrosis are concerning for acute pyelonephritis. 2. Question mild left hydronephrosis. No definitive left nephrograms. 3. Fatty infiltration of the liver. EKG: Sinus tachycardia at a rate of 129. , nonspecific ST abnormalities, prolonged QTc of 588. ASSESSMENT AND PLAN: This is a 41-year-old female who presents with pyelonephritis and sepsis. 1. Pyelonephritis with sepsis: Bilateral pyelonephritis, more on the right side, urinary tract infection, sepsis with elevated lactic acid, elevated white count, temperature spike and elevated procalcitonin. Lactic acid improved to 1.6 currently. Currently, hemodynamically stable. ER gave her Rocephin, which will be continued. CT abdomen and pelvis with IV contrast is showing bilateral mild hydronephrosis with pyelonephritis. Will get an ultrasound to rule out any kidney stones. Continue fluids with IV normal saline with 20 of KCl at 125 mL per hour. Monitor the hemodynamics. Follow the cultures. Closely monitor in the tele floor. 2. Hypokalemia and hypomagnesemia: Potassium of 2.4, magnesium of 0.8, getting replaced. Will follow the repeat labs. 3.Prolonged QTc, most from electrolyte abnormalities. To avoid qt prolonging drugs. Will follow the repeat EKG. 4. Mild elevation of troponin, mostly likely from demand ischemia from sepsis. Will follow serial cardiac enzymes. 5 Mild elevation of LFTs, will follow the repeat labs, mostly from sepsis. If any concern, will get a hepatitis panel. 6. Deep venous thrombosis prophylaxis: Placed on Lovenox. DISPOSITION: Closely monitor in the tele floor. Level 1 full code. Expect to discharge home and follow with family doctor. Job ID: [id number] [facility] HOSPITALManpreet
[2022-06-05] MEDS ORDERED: KETOROLAC TROMETHAMINE 15 MG/ML VIAL IV ONE (05:58)
[2022-06-05] MEDS ORDERED: POTASSIUM CHLORIDE CRTAB 20 MEQ TABCR PO STA (06:21)
[2022-06-05] MEDS ORDERED: NITROGLYCERIN SL 0.4 MG/TAB TAB SL PRN (06:21)
[2022-06-05] MEDS ORDERED: POLYETHYLENE (MIRALAX) 17 GM PACK PO PRN (06:21)
--- NOTE | 2022-06-05 06:33 | Ultrasound Report ---
Exam(s): US RENAL EXAM: US Retroperitoneal Limited, Renal CLINICAL HISTORY: Flank pain. TECHNIQUE: Real-time limited ultrasound of the retroperitoneum with image documentation. COMPARISON: CT abdomen and pelvis from same day. FINDINGS: Right kidney: The right kidney measures 12.8 cm. No mass. No visualized nephrolithiasis. Mild hydronephrosis. There is mild right perinephric free fluid. Left kidney: The left kidney measures 12.9 cm. No mass or visualized nephrolithiasis. Mild hydronephrosis. IMPRESSION: 1. Mild bilateral hydronephrosis. 2. There is mild right perinephric free fluid. Electronically signed by: Yolanda Marie MD 06/05/22 06:31 AM
[2022-06-05] MEDS ORDERED: PROMETHAZINE HCL 12.5 MG in SODIUM CHLORIDE 0.9% 50 ML IV PRN (06:39)
[2022-06-05] MEDS: NSS + 20MEQ KCL 20 MEQ/1,000 ML BAG IV SCH ×2 (06:42→16:14)
[2022-06-05] MEDS: ACETAMINOPHEN 325 MG TAB PO PRN ×3 (06:42→23:17)
--- NOTE | 2022-06-05 08:02 | XRay Report ---
XR chest 1V portable HISTORY: 41 years-old Female Sepsis acute sepsis with nausea and vomiting COMPARISON: CT abdomen and pelvis of same day TECHNIQUE: AP view of the chest FINDINGS: Breast implants with nipple jewelry. Mild right hemidiaphragmatic elevation. Cardiomediastinal and hi lar silhouettes are within normal limits. No pneumothorax, pleural effusion, airspace consolidation o r pulmonary edema. Bones appear grossly intact. IMPRESSION: No acute process. ACT 112: Negative or not required by law. The above report was generated using voice recognition software. It may contain grammatical, syntax o r spelling errors. Electronically signed by: Master Caldera M.D. 06/05/2022 8:01 AM
[2022-06-05] MEDS: CEFEPIME 2,000 MG in SYRINGE 0 ML IV SCH ×2 (08:42→16:14)
[2022-06-05] MEDS: ENOXAPARIN INJ 40 MG/0.4 ML SYR SQ SCH (08:42)
[2022-06-05] MEDS: MoRPHine SULFATE 2 MG/ML CARP IV PRN ×4 (08:49→23:22)
--- NOTE | 2022-06-05 10:09 | Communication Note ---
Date of Service: June 05, 2022 Patient seen and examined at bedside. She continues to complain of right back pain and lower abdominal pain. She was febrile to 38.6 C, tachycardic. On examination Alert oriented x3, in moderate distress due to pain Chestbilateral vesicular breath sound CVSS1-S2, no murmur Abdomenright costovertebral angle tender on superficial palpation, lower a bdominal tender. Soft Neurogrossly intact Assessment/plan Sepsis secondary to right-sided pyelonephritis Complicated UTI Continue on antibiotic Continue supportive care with IV fluid Continue pain control. Severe hypokalemia Severe hypomagnesemia -Continue IV replacement. Repeat labs at 11 AM. Continue cardiac monitoring
[2022-06-05 12:07] LABS: BUN Creatinine Ratio 12.1 (10-20); Calcium 7.7 mg/dl (8.6-10.3); Creatinine Clr Calc Pharmacy 141.2 ml/min; Est GFR (African American) 131.8 ml/min; Est GFR (Non-African American) 113.7 ml/min; Magnesium 2.5 mg/dl (1.7-2.4); Phosphorus 2.5 mg/dl (2.5-4.9); Potassium 4.1 mmol/L (3.5-5.1); Troponin I High Sensitivity 8.7 pg/ml (0-14)
--- NOTE | 2022-06-05 14:43 | Electrocardiogram Report ---
Test Reason : Blood Pressure : / mmHG Vent. Rate : 129 BPM Atrial Rate : 129 BPM P-R Int : 112 ms QRS Dur : 118 ms QT Int : 402 ms P-R-T Axes : 000 076 038 degrees QTc Int : 588 ms Sinus tachycardia Non-specific intra-ventricular conduction delay Long QTc Nonspecific ST and T wave abnormality Abnormal ECG When compared with ECG of 11-FEB-2021 00:14, Vent. rate has increased BY 44 BPM QRS duration has increased ST no longer elevated in Inferior leads ST no longer depressed in Lateral leads Confirmed by Robert Haque ([id number]) on 06/05/2022 2:43:41 PM Referred By: REFERRED SELF Confirmed By:Robert Haque
--- NOTE | 2022-06-05 14:48 | Electrocardiogram Report ---
Test Reason : Blood Pressure : / mmHG Vent. Rate : 116 BPM Atrial Rate : 116 BPM P-R Int : 184 ms QRS Dur : 108 ms QT Int : 320 ms P-R-T Axes : 053 072 023 degrees QTc Int : 444 ms Sinus tachycardia Incomplete right bundle branch block Nonspecific T wave abnormality Abnormal ECG When compared with ECG of 05-JUN-2022 01:09, (unconfirmed) Incomplete right bundle branch block has replaced Non-specific intra-ventricular conduction delay Confirmed by Robert Haque ([id number]) on 06/05/2022 2:48:16 PM Referred By: REFERRED SELF Confirmed By:Robert Haque
--- NOTE | 2022-06-05 14:56 | Electrocardiogram Report ---
Test Reason : Blood Pressure : / mmHG Vent. Rate : 101 BPM Atrial Rate : 101 BPM P-R Int : 206 ms QRS Dur : 108 ms QT Int : 360 ms P-R-T Axes : 055 054 040 degrees QTc Int : 466 ms Sinus tachycardia Possible Left atrial enlargement Borderline ECG When compared with ECG of 05-JUN-2022 06:08, (unconfirmed) Incomplete right bundle branch block is no longer Present Confirmed by Robert Haque ([id number]) on 06/05/2022 2:56:23 PM Referred By: REFERRED SELF Confirmed By:Robert Haque
[2022-06-05 18:57] LABS: A calco-baum cmplx NotReported Not Detected (NotDetected); Bact fragilis Not Reported Not Detected (NotDetected); C auris Not Reported Not Detected (NotDetected); CTX-M Resistant Gene Not Detected (NotDetected); Calbicans Not Reported Not Detected (NotDetected); Candida glabrata Not Reported Not Detected (NotDetected); Candida krusei Not Reported Not Detected (NotDetected); Cneoformans/gatti Not Reported Not Detected (NotDetected); Cparapsilosis Not Reported Not Detected (NotDetected); Ctropicalis Not Reported Not Detected (NotDetected); E cloacae compx Not Reported Not Detected (NotDetected); Efaecalis Not Reported Not Detected (NotDetected); Efaecium Not Reported Not Detected (NotDetected); Enterobacterales DETECTED (NotDetected); Enterobacterales Not Reported DETECTED (NotDetected); Escherichia coli Not Reported DETECTED (NotDetected); H influenzae Not Reported Not Detected (NotDetected); IMP Resistant Gene Not Detected (NotDetected); K aerogenes Not Reported Not Detected (NotDetected); KPC Resistant Gene Not Detected (NotDetected); Koxytoca Not Reported Not Detected (NotDetected); Kpneumoniae grp Not Reported Not Detected (NotDetected); Lmonocyt Not Reported Not Detected (NotDetected); N meningitidis Not Reported Not Detected (NotDetected); NDM Resistant Gene Not Detected (NotDetected); OXA 48 Like Resistant Gene Not Detected (NotDetected); P aeruginosa Not Reported Not Detected (NotDetected); Proteus spp Not Reported Not Detected (NotDetected); Salmonella spp Not Reported Not Detected (NotDetected); Smarcescens Not Reported Not Detected (NotDetected); Staph lugdunensis Not Reported Not Detected (NotDetected); Staph spp. Not Reported Not Detected (NotDetected); Staphaureus Not Reported Not Detected (NotDetected); Staphepi Not Reported Not Detected (NotDetected); Stenmaltophilia Not Reported Not Detected (NotDetected); Strep agal(GrpB) Not Reported Not Detected (NotDetected); Strep pneum Not Reported Not Detected (NotDetected); Strep pyog (GrpA) Not Reported Not Detected (NotDetected); Strep spp Not Reported Not Detected (NotDetected); VIM Resistant Gene Not Detected (NotDetected); mcr-1 Colistin Resistant Gene Not Detected (NotDetected)
[2022-06-06] MEDS ORDERED: cefTRIAXone SODIUM 2,000 MG in DEXTROSE 5% 50 ML IV SCH
[2022-06-06] MEDS: NSS + 20MEQ KCL 20 MEQ/1,000 ML BAG IV SCH ×2 (00:24→08:41)
[2022-06-06] MEDS: CEFEPIME 2,000 MG in SYRINGE 0 ML IV SCH ×3 (02:05→17:47)
[2022-06-06] MEDS: MoRPHine SULFATE 2 MG/ML CARP IV PRN ×5 (03:25→21:51)
[2022-06-06 06:59] LABS: Hematocrit (blood only) 30.9 % (37.0-47.0); Hemoglobin 11.2 g/dl (12.0-16.0); Mean Corpuscular Hemoglobin 37.6 pg (25.0-34.0); Mean Corpuscular Hgb Conc 36.2 g/dL (32.0-36.0); Mean Corpuscular Volume 103.7 fL (80.0-100.0); Mean Platelet Volume 12.3 fL (9.4-12.4); Platelet Count 78 K/uL (130-400); RDW Coefficient of Variation 12.5 % (11.5-14.5); RDW Standard Deviation 47.3 fL (36.4-46.3); Red Blood Count 2.98 M/uL (4.20-5.40); White Blood Count 2.97 K/ul (4.8-10.8)
[2022-06-06 07:19] LABS: Albumin Level 3.2 gm/dl (3.4-5.0); BUN Creatinine Ratio 8.7 (10-20); Bilirubin Direct 0.2 mg/dl (0-0.2); Bilirubin,Total 0.7 mg/dl (0.2-1.0); Calcium 7.4 mg/dl (8.6-10.3); Creatinine Clr Calc Pharmacy 178.1 ml/min; Est GFR (African American) 142.2 ml/min; Est GFR (Non-African American) 122.7 ml/min; Magnesium 1.9 mg/dl (1.7-2.4); Phosphorus 1.5 mg/dl (2.5-4.9); Potassium 3.6 mmol/L (3.5-5.1); Total Protein 5.9 gm/dl (6.0-8.3)
[2022-06-06] MEDS ORDERED: POTASSIUM PHOS 3 MMOL/1 ML INFUSION IV STA (07:23)
[2022-06-06 07:32] LABS: Basophils # (auto) 0.02 K/uL (0-0.2); Basophils % (auto) 0.7 %; Eosinophils % (auto) 3.4 %; Immature Granulocytes # (auto) 0.02 K/uL (0.01-0.20); Immature Granulocytes % (auto) 0.7 %; Lymphocytes # (auto) 0.37 K/uL (1.2-3.4); Lymphocytes % (auto) 12.5 %; Monocytes % (auto) 6.7 %; Neutrophils # (auto) 2.26 K/uL (1.40-6.50); RBC Morphology Unremarkable
[2022-06-06] MEDS ORDERED: POTASSIUM PHOSPHATE 40 MMOL in SODIUM CHLORIDE 0.9% 1000ML 1,000 ML IV ONE (07:45)
[2022-06-06] MEDS: ENOXAPARIN INJ 40 MG/0.4 ML SYR SQ SCH (08:03)
[2022-06-06] MEDS: ACETAMINOPHEN 325 MG TAB PO PRN ×2 (08:06→17:58)
[2022-06-06 10:42] LABS: HBSAG NON-REACTIVE (NON-REACTIVE); Hepatitis A Antibody IgM NON-REACTIVE (NON-REACTIVE); Hepatitis B Core Antibody IgM NON-REACTIVE (NON-REACTIVE)
--- NOTE | 2022-06-06 11:28 | Hospitalist Progress Note ---
Date of Service June 06, 2022 Assessment & Plan (1) Pyelonephritis: (2) Gram negative sepsis: Plan: 41-year-old female with no significant past medical history presented to the ED with back pain radiating to flank for [address] abdomen personally reviewed; striated nephrograms of right kidney concerning for acute pyelonephritis Urinalysis suggestive of infection. Urine culture shows gram-negative bacilli Blood culture admission shows gram-negative bacilli. Continue on cefepime; continue IV fluids and supportive care. Await final culture results Tylenol and morphine for pain control. (3) Pancytopenia: Plan: Labs reviewed today; WBC of 2.97, hemoglobin of 11.2 and platelet count of 78 Likely secondary to sepsis Will monitor daily CBC (4) Hypomagnesemia: Plan: Admitting magnesium of 0.8; repleted (5) Hypokalemia: Plan: Admitting potassium of 2.4; repleted Plan Full code DVT prophylaxis Lovenox Dispocontinues to be hospitalized due to urosepsis requiring IV antibiotics. Admission and Anticipated Discharge Date Admission Date: June 05, 2022 Subjective Patient seen and examined at bedside. She reports generalized fatigue and chills. She continues to have significant back pain. Febrile overnight; other vital stable. Review of Systems Review of Systems: All systems reviewed & are unremarkable except as noted in Subjective Physical Exam Physical Exam: Constitutional: Awake, alert orient x3; appears tired. Respiratory: normal respiratory effort, lungs clear to auscultation, no wheeze, rales, rhonchi. Normal insp/exp effort, no accessory muscle use Cardiovascular: RRR, no murmur, no edema Vessels: no JVD or carotid bruit Chest: normal inspection of chest Abdomen: Tenderness present in the right costovertebral angle Musculoskeletal: no cyanosis or clubbing, extremities motor strength 5/5 Skin: no rashes, warm and dry normal turgor Neurologic: PERRL, EOMI, accommodation nl, no face palsy, no dysarthria CN's II- XI intact bilaterally and moves all extremities Psychiatric: A+Ox3, euthymic affect Lymphatic: no cervical or axillary lymphadenopathy : deferred Results & Data Results & Data Vital Signs (Past 12 Hours) Vital Signs Temp Pulse Pulse Resp BP Pulse Ox O2 Del Method 06/06/22 07:53 39.0 C H 111 H 18 151/97 H 99 Room Air 06/06/22 02:18 88 06/06/22 01:53 37.2 C 91 H 18 130/85 95 Room Air 06/06/22 00:29 37.8 C H 120/77 06/05/22 23:44 93 H 06/05/22 23:26 38.9 C H 98 H 18 142/100 H 96 Room Air Laboratory Results Laboratory Results WBC 2.97 K/ul (4.8-10.8) L 06/06/22 06:05 RBC 2.98 M/uL (4.20-5.40) L 06/06/22 06:05 Hgb 11.2 g/dl (12.0-16.0) L D 06/06/22 06:05 Hct 30.9 % (37.0-47.0) L 06/06/22 06:05 MCV 103.7 fL (80.0-100.0) H 06/06/22 06:05 MCH 37.6 pg (25.0-34.0) H 06/06/22 06:05 MCHC 36.2 g/dL (32.0-36.0) H 06/06/22 06:05 RDW Std Deviation 47.3 fL (36.4-46.3) H 06/06/22 06:05 RDW Coeff of Ralph 12.5 % (11.5-14.5) 06/06/22 06:05 Plt Count 78 K/uL (130-400) L 06/06/22 06:05 MPV 12.3 fL (9.4-12.4) 06/06/22 06:05 Immature Gran % (Auto) 0.7 % 06/06/22 06:05 Neut % (Auto) 76.0 % 06/06/22 06:05 Lymph % (Auto) 12.5 % 06/06/22 06:05 [place] % (Auto) 6.7 % 06/06/22 06:05 Eos % (Auto) 3.4 % 06/06/22 06:05 Baso % (Auto) 0.7 % 06/06/22 06:05 Neut # (Auto) 2.26 K/uL (1.40-6.50) 06/06/22 06:05 Lymph # (Auto) 0.37 K/uL (1.2-3.4) L 06/06/22 06:05 [place] # (Auto) 0.20 K/uL (0.11-0.59) 06/06/22 06:05 Eos # (Auto) 0.10 K/uL (0-0.50) 06/06/22 06:05 Baso # (Auto) 0.02 K/uL (0-0.2) 06/06/22 06:05 Immature Gran # (Auto) 0.02 K/uL (0.01-0.20) 06/06/22 06:05 RBC Morphology Unremarkable 06/06/22 06:05 Sodium 134 mmol/L (136-145) L 06/06/22 06:05 Potassium 3.6 mmol/L (3.5-5.1) 06/06/22 06:05 Chloride 102 mmol/L (98-107) 06/06/22 06:05 Carbon Dioxide 25 mmol/L (21-32) 06/06/22 06:05 Anion Gap 7 (3-11) 06/06/22 06:05 BUN 4 mg/dl (6-23) L 06/06/22 06:05 Creatinine 0.46 mg/dl (0.6-1.2) L 06/06/22 06:05 Est Cr Clr Drug Dosing 178.1 ml/min 06/06/22 06:05 Est GFR ( Amer) 142.2 ml/min 06/06/22 06:05 Est GFR (Non-Af Amer) 122.7 ml/min 06/06/22 06:05 BUN/Creatinine Ratio 8.7 (10-20) L 06/06/22 06:05 Glucose 92 mg/dl (70-99(Fasting)) 06/06/22 06:05 Lactate 1.6 mmol/L (0.4-2.0) 06/05/22 04:17 Calcium 7.4 mg/dl (8.6-10.3) L 06/06/22 06:05 Phosphorus 1.5 mg/dl (2.5-4.9) L* D 06/06/22 06:05 Magnesium 1.9 mg/dl (1.7-2.4) 06/06/22 06:05 Total Bilirubin 0.7 mg/dl (0.2-1.0) D 06/06/22 06:05 Direct Bilirubin 0.2 mg/dl (0-0.2) 06/06/22 06:05 AST 49 U/L (13-39) H 06/06/22 06:05 ALT 20 U/L (7-52) 06/06/22 06:05 Alkaline Phosphatase 75 U/L (34-104) 06/06/22 06:05 Troponin I High Sens 7.9 pg/ml (0-14) 06/05/22 16:29 Total Protein 5.9 gm/dl (6.0-8.3) L D 06/06/22 06:05 Albumin 3.2 gm/dl (3.4-5.0) L 06/06/22 06:05 Procalcitonin 1.63 ng/ml (0-0.5) H 06/05/22 01:20 HCG, Qual Negative (Negative) 06/05/22 01:20 Urine Color Yellow 06/05/22 01:30 Urine Appearance Cloudy (Clear) A 06/05/22 01:30 Urine pH 6.0 (4.5-7.5) 06/05/22 01:30 Ur Specific [place] 1.005 (1.000-1.030) 06/05/22 01:30 Urine Protein 1+ (Negative) H 06/05/22 01:30 Urine Glucose (UA) Negative (Negative) 06/05/22 01:30 Urine Ketones 1+ (Negative) H 06/05/22 01:30 Urine Blood 2+ (Negative) H 06/05/22 01:30 Urine Nitrite Positive (Negative) A 06/05/22 01:30 Urine Bilirubin Negative (Negative) 06/05/22 01:30 Urine Urobilinogen Negative (Negative) 06/05/22 01:30 Ur Leukocyte Esterase 3+ (Negative) H 06/05/22 01:30 Urine WBC (Auto) >30 /hpf (0-5) H 06/05/22 01:30 Urine RBC (Auto) 0-4 /hpf (0-4) 06/05/22 01:30 U Hyaline Cast (Auto) 1-5 /lpf (0-5) 06/05/22 01:30 U Epithel Cells (Auto) >30 /lpf (0-5) H 06/05/22 01:30 Urine Bacteria (Auto) 1+ (Negative) H 06/05/22 01:30 Nasal Screen MRSA (PCR) Negative (Negative) 06/05/22 06:25 SARS-CoV-2 (PCR) NEGATIVE (Negative) 06/05/22 03:53 Enterobacterales (PCR) DETECTED (NotDetected) A 06/05/22 01:20 E. coli (PCR) DETECTED (NotDetected) A 06/05/22 01:20 Hepatitis A IgM Ab NON-REACTIVE (NON-REACTIVE) 06/05/22 11:15 Hep Bs Antigen NON-REACTIVE (NON-REACTIVE) 06/05/22 11:15 Hep Bs Ag Confirmation TNP 06/05/22 11:15 Hep B Core IgM Ab NON-REACTIVE (NON-REACTIVE) 06/05/22 11:15 Hepatitis C Ab (EIA) NON-REACTIVE (NON-REACTIVE) 06/05/22 11:15 Hep C Ab Signal/Cutoff <0.02 (<1.00) 06/05/22 11:15 mcr-1 Colistin Res Gene PCR Not Detected (NotDetected) 06/05/22 01:20 blaIMP Car res Gene PCR Not Detected (NotDetected) 06/05/22 01:20 KPC-Carbap Res Gene PCR Not Detected (NotDetected) 06/05/22 01:20 blaNDM Car Res Gene PCR Not Detected (NotDetected) 06/05/22 01:20 OXA-48 Carbapenem Resis Gene (PCR) Not Detected (NotDetected) 06/05/22 01:20 blaVIM Car Res Gene PCR Not Detected (NotDetected) 06/05/22 01:20 CTX-M Gene Resistance (PCR) Not Detected (NotDetected) 06/05/22 01:20 Bld Cult ID Panel PCR See PCR Comment (NotDetected) 06/05/22 01:20 Impressions Abdomen/Pelvis CT 06/05/22 01:01 Exam(s): CT ABDOMEN + PELVIS With Contrast IV Amt: 85 ML OPTIRAY 350 EXAM: CT Abdomen and Pelvis With Intravenous Contrast CLINICAL HISTORY: Abscess. TECHNIQUE: Axial computed tomography images of the abdomen and pelvis with intravenous contrast. CTDI is 6.01 mGy and DLP is 346.44 mGy-cm. Automated exposure control was utilized for the study. A dose lowering technique was utilized adhering to the principles of ALARA. CONTRAST: Patient received 85 ML OPTIRAY 350 of IV contrast COMPARISON: CT abdomen and pelvis 02/10/2021. FINDINGS: Lung bases: Unremarkable. No mass. No consolidation. ABDOMEN: Liver: Fatty infiltration of the liver. Gallbladder and bile ducts: Unremarkable. No calcified stones. No ductal dilation. Pancreas: Unremarkable. No mass. No ductal dilation. Spleen: Unremarkable. No splenomegaly. Adrenals: Unremarkable. No mass. Kidneys and ureters: Striated nephrograms of the right kidney in mild hydronephrosis are concerning for acute pyelonephritis. Question mild left hydronephrosis. No definitive left nephrograms. Stomach and bowel: Unremarkable. No obstruction. No mucosal thickening. PELVIS: Appendix: No findings to suggest acute appendicitis. Bladder: Unremarkable. No mass. Reproductive: Unremarkable as visualized. ABDOMEN and PELVIS: Intraperitoneal space: Unremarkable. No free air. No significant fluid collection. Bones/joints: No acute fracture. No dislocation. Soft tissues: Unremarkable. Vasculature: Unremarkable. No abdominal aortic aneurysm. Lymph nodes: Unremarkable. No enlarged lymph nodes. IMPRESSION: 1. Striated nephrograms of the right kidney in mild hydronephrosis are concerning for acute pyelonephritis. 2. Question mild left hydronephrosis. No definitive left nephrograms. 3. Fatty infiltration of the liver. Electronically signed by: Yolanda Marie MD 06/05/22 03:26 AM Chest X-Ray 06/05/22 01:01 XR chest 1V portable HISTORY: 41 years-old Female Sepsis acute sepsis with nausea and vomiting COMPARISON: CT abdomen and pelvis of same day TECHNIQUE: AP view of the chest FINDINGS: Breast implants with nipple jewelry. Mild right hemidiaphragmatic elevation. Cardiomediastinal and hilar silhouettes are within normal limits. No pneumothorax, pleural effusion, airspace consolidation or pulmonary edema. Bones appear grossly intact. IMPRESSION: No acute process. ACT 112: Negative or not required by law. The above report was generated using voice recognition software. It may contain grammatical, syntax or spelling errors. Electronically signed by: Master Caldera M.D. 06/05/2022 8:01 AM Renal Ultrasound 06/05/22 04:19 Exam(s): US RENAL EXAM: US Retroperitoneal Limited, Renal CLINICAL HISTORY: Flank pain. TECHNIQUE: Real-time limited ultrasound of the retroperitoneum with image documentation. COMPARISON: CT abdomen and pelvis from same day. FINDINGS: Right kidney: The right kidney measures 12.8 cm. No mass. No visualized nephrolithiasis. Mild hydronephrosis. There is mild right perinephric free fluid. Left kidney: The left kidney measures 12.9 cm. No mass or visualized nephrolithiasis. Mild hydronephrosis. IMPRESSION: 1. Mild bilateral hydronephrosis. 2. There is mild right perinephric free fluid. Electronically signed by: Yolanda Marie MD 06/05/22 06:31 AM
[2022-06-06] MEDS: metroNIDAZOLE 500 MG/100 ML BAG IV SCH ×2 (15:48→21:51)
[2022-06-07] MEDS: CEFEPIME 2,000 MG in SYRINGE 0 ML IV SCH ×3 (02:02→17:30)
[2022-06-07] MEDS: MoRPHine SULFATE 2 MG/ML CARP IV PRN ×6 (02:02→22:54)
[2022-06-07] MEDS: metroNIDAZOLE 500 MG/100 ML BAG IV SCH ×3 (06:08→22:30)
[2022-06-07 08:05] LABS: Basophils # (auto) 0.03 K/uL (0-0.2); Basophils % (auto) 0.9 %; Eosinophils # (auto) 0.16 K/uL (0-0.50); Eosinophils % (auto) 4.8 %; Hematocrit (blood only) 33.4 % (37.0-47.0); Hemoglobin 12.1 g/dl (12.0-16.0); Immature Granulocytes # (auto) 0.01 K/uL (0.01-0.20); Immature Granulocytes % (auto) 0.3 %; Lymphocytes # (auto) 0.74 K/uL (1.2-3.4); Lymphocytes % (auto) 22.1 %; Mean Corpuscular Hemoglobin 37.6 pg (25.0-34.0); Mean Corpuscular Hgb Conc 36.2 g/dL (32.0-36.0); Mean Corpuscular Volume 103.7 fL (80.0-100.0); Mean Platelet Volume 11.6 fL (9.4-12.4); Monocytes # (auto) 0.32 K/uL (0.11-0.59); Monocytes % (auto) 9.6 %; Neutrophils # (auto) 2.09 K/uL (1.40-6.50); Neutrophils % (auto) 62.3 %; Platelet Count 116 K/uL (130-400); RDW Coefficient of Variation 12.5 % (11.5-14.5); RDW Standard Deviation 46.8 fL (36.4-46.3); Red Blood Count 3.22 M/uL (4.20-5.40); White Blood Count 3.35 K/ul (4.8-10.8)
[2022-06-07 08:10] LABS: Albumin Globulin Ratio 1.1 (0.9-2); Albumin Level 3.5 gm/dl (3.4-5.0); BUN Creatinine Ratio 6.7 (10-20); Bilirubin,Total 0.7 mg/dl (0.2-1.0); Calcium 8.1 mg/dl (8.6-10.3); Est GFR (African American) 143.2 ml/min; Est GFR (Non-African American) 123.6 ml/min; Globulin 3.2 gm/dl (2.5-4.0); Potassium 3.3 mmol/L (3.5-5.1); Total Protein 6.7 gm/dl (6.0-8.3)
[2022-06-07] MEDS: ENOXAPARIN INJ 40 MG/0.4 ML SYR SQ SCH (08:23)
[2022-06-07] MEDS ORDERED: POTASSIUM CHLORIDE CRTAB 20 MEQ TABCR PO STA (09:21)
--- NOTE | 2022-06-07 14:06 | Hospitalist Progress Note ---
Date of Service June 07, 2022 Assessment & Plan (1) Pyelonephritis: (2) Gram negative sepsis: Plan: 41-year-old female with no significant past medical history presented to the ED with back pain radiating to flank for [address] abdomen personally reviewed; striated nephrograms of right kidney concerning for acute pyelonephritis Urinalysis suggestive of infection. Urine culture shows Enterobacter cloacae; sensitive to ceftriaxone, cefepime and Cipro. It also grew Gardnerella like bacilli. Blood culture admission shows E. coli; sensitive to ceftriaxone, ciprofloxacin and cefepime. Repeat blood culture negative so far Plan to continue cefepime for now. She will need 14 days of antibiotics in total for urosepsis. Also started on Flagyl for Gardnerella like bacilli; provide 7-day course. Will need to be afebrile for at least 24 hours before considering discharge. (3) Pancytopenia: Plan: Labs reviewed today; WBC of 3.35. Platelets improved 216. Hemoglobin improved to 12.1. Likely secondary to sepsis Will obtain vitamin B12 level and folate level tomorrow AM. (4) Hypomagnesemia: Plan: Admitting magnesium of 0.8; repleted (5) Hypokalemia: Plan: Admitting potassium of 2.4; repleted Plan Full code DVT prophylaxis Lovenox Dispocontinues to be hospitalized due to urosepsis requiring IV antibiotics. Awaiting repeat blood culture results. Admission and Anticipated Discharge Date Admission Date: June 05, 2022 Subjective Patient seen and examined at bedside. She reports improvement in her fever. Reports that her back pain has slightly improved compared to admission. She is voiding well without any issues. Review of Systems Review of Systems: All systems reviewed & are unremarkable except as noted in Subjective Physical Exam Physical Exam: Constitutional: Awake, alert orient x3; appears tired. Respiratory: normal respiratory effort, lungs clear to auscultation, no wheeze, rales, rhonchi. Normal insp/exp effort, no accessory muscle use Cardiovascular: RRR, no murmur, no edema Vessels: no JVD or carotid bruit Chest: normal inspection of chest Abdomen: Tenderness present in the right costovertebral angle Musculoskeletal: no cyanosis or clubbing, extremities motor strength 5/5 Skin: no rashes, warm and dry normal turgor Neurologic: PERRL, EOMI, accommodation nl, no face palsy, no dysarthria CN's II- XI intact bilaterally and moves all extremities Psychiatric: A+Ox3, euthymic affect Lymphatic: no cervical or axillary lymphadenopathy : deferred Results & Data Results & Data Vital Signs (Past 12 Hours) Vital Signs Temp Pulse Pulse Resp BP Pulse Ox O2 Del Method 06/07/22 12:28 37.5 C 88 17 128/82 97 Room Air 06/07/22 07:56 37.9 C H 85 17 131/84 98 Room Air 06/07/22 07:07 74 06/07/22 02:03 37.5 C 81 20 137/95 98 Room Air Laboratory Results Laboratory Results WBC 3.35 K/ul (4.8-10.8) L 06/07/22 07:30 RBC 3.22 M/uL (4.20-5.40) L 06/07/22 07:30 Hgb 12.1 g/dl (12.0-16.0) 06/07/22 07:30 Hct 33.4 % (37.0-47.0) L 06/07/22 07:30 MCV 103.7 fL (80.0-100.0) H 06/07/22 07:30 MCH 37.6 pg (25.0-34.0) H 06/07/22 07:30 MCHC 36.2 g/dL (32.0-36.0) H 06/07/22 07:30 RDW Std Deviation 46.8 fL (36.4-46.3) H 06/07/22 07:30 RDW Coeff of Ralph 12.5 % (11.5-14.5) 06/07/22 07:30 Plt Count 116 K/uL (130-400) L 06/07/22 07:30 MPV 11.6 fL (9.4-12.4) 06/07/22 07:30 Immature Gran % (Auto) 0.3 % 06/07/22 07:30 Neut % (Auto) 62.3 % 06/07/22 07:30 Lymph % (Auto) 22.1 % 06/07/22 07:30 [place] % (Auto) 9.6 % 06/07/22 07:30 Eos % (Auto) 4.8 % 06/07/22 07:30 Baso % (Auto) 0.9 % 06/07/22 07:30 Neut # (Auto) 2.09 K/uL (1.40-6.50) 06/07/22 07:30 Lymph # (Auto) 0.74 K/uL (1.2-3.4) L 06/07/22 07:30 [place] # (Auto) 0.32 K/uL (0.11-0.59) 06/07/22 07:30 Eos # (Auto) 0.16 K/uL (0-0.50) 06/07/22 07:30 Baso # (Auto) 0.03 K/uL (0-0.2) 06/07/22 07:30 Immature Gran # (Auto) 0.01 K/uL (0.01-0.20) 06/07/22 07:30 RBC Morphology Unremarkable 06/06/22 06:05 Sodium 135 mmol/L (136-145) L 06/07/22 07:30 Potassium 3.3 mmol/L (3.5-5.1) L 06/07/22 07:30 Chloride 101 mmol/L (98-107) 06/07/22 07:30 Carbon Dioxide 26 mmol/L (21-32) 06/07/22 07:30 Anion Gap 8 (3-11) 06/07/22 07:30 BUN 3 mg/dl (6-23) L 06/07/22 07:30 Creatinine 0.45 mg/dl (0.6-1.2) L 06/07/22 07:30 Est Cr Clr Drug Dosing 182.0 ml/min 06/07/22 07:30 Est GFR ( Amer) 143.2 ml/min 06/07/22 07:30 Est GFR (Non-Af Amer) 123.6 ml/min 06/07/22 07:30 BUN/Creatinine Ratio 6.7 (10-20) L 06/07/22 07:30 Glucose 97 mg/dl (70-99(Fasting)) 06/07/22 07:30 Lactate 1.6 mmol/L (0.4-2.0) 06/05/22 04:17 Calcium 8.1 mg/dl (8.6-10.3) L 06/07/22 07:30 Phosphorus 1.5 mg/dl (2.5-4.9) L* D 06/06/22 06:05 Magnesium 1.9 mg/dl (1.7-2.4) 06/06/22 06:05 Total Bilirubin 0.7 mg/dl (0.2-1.0) 06/07/22 07:30 Direct Bilirubin 0.2 mg/dl (0-0.2) 06/06/22 06:05 AST 63 U/L (13-39) H 06/07/22 07:30 ALT 25 U/L (7-52) 06/07/22 07:30 Alkaline Phosphatase 107 U/L (34-104) H 06/07/22 07:30 Troponin I High Sens 7.9 pg/ml (0-14) 06/05/22 16:29 Total Protein 6.7 gm/dl (6.0-8.3) 06/07/22 07:30 Albumin 3.5 gm/dl (3.4-5.0) 06/07/22 07:30 Globulin 3.2 gm/dl (2.5-4.0) 06/07/22 07:30 Albumin/Globulin Ratio 1.1 (0.9-2) 06/07/22 07:30 Procalcitonin 1.63 ng/ml (0-0.5) H 06/05/22 01:20 HCG, Qual Negative (Negative) 06/05/22 01:20 Urine Color Yellow 06/05/22 01:30 Urine Appearance Cloudy (Clear) A 06/05/22 01:30 Urine pH 6.0 (4.5-7.5) 06/05/22 01:30 Ur Specific [place] 1.005 (1.000-1.030) 06/05/22 01:30 Urine Protein 1+ (Negative) H 06/05/22 01:30 Urine Glucose (UA) Negative (Negative) 06/05/22 01:30 Urine Ketones 1+ (Negative) H 06/05/22 01:30 Urine Blood 2+ (Negative) H 06/05/22 01:30 Urine Nitrite Positive (Negative) A 06/05/22 01:30 Urine Bilirubin Negative (Negative) 06/05/22 01:30 Urine Urobilinogen Negative (Negative) 06/05/22 01:30 Ur Leukocyte Esterase 3+ (Negative) H 06/05/22 01:30 Urine WBC (Auto) >30 /hpf (0-5) H 06/05/22 01:30 Urine RBC (Auto) 0-4 /hpf (0-4) 06/05/22 01:30 U Hyaline Cast (Auto) 1-5 /lpf (0-5) 06/05/22 01:30 U Epithel Cells (Auto) >30 /lpf (0-5) H 06/05/22 01:30 Urine Bacteria (Auto) 1+ (Negative) H 06/05/22 01:30 Nasal Screen MRSA (PCR) Negative (Negative) 06/05/22 06:25 SARS-CoV-2 (PCR) NEGATIVE (Negative) 06/05/22 03:53 Enterobacterales (PCR) DETECTED (NotDetected) A 06/05/22 01:20 E. coli (PCR) DETECTED (NotDetected) A 06/05/22 01:20 Hepatitis A IgM Ab NON-REACTIVE (NON-REACTIVE) 06/05/22 11:15 Hep Bs Antigen NON-REACTIVE (NON-REACTIVE) 06/05/22 11:15 Hep Bs Ag Confirmation TNP 06/05/22 11:15 Hep B Core IgM Ab NON-REACTIVE (NON-REACTIVE) 06/05/22 11:15 Hepatitis C Ab (EIA) NON-REACTIVE (NON-REACTIVE) 06/05/22 11:15 Hep C Ab Signal/Cutoff <0.02 (<1.00) 06/05/22 11:15 mcr-1 Colistin Res Gene PCR Not Detected (NotDetected) 06/05/22 01:20 blaIMP Car res Gene PCR Not Detected (NotDetected) 06/05/22 01:20 KPC-Carbap Res Gene PCR Not Detected (NotDetected) 06/05/22 01:20 blaNDM Car Res Gene PCR Not Detected (NotDetected) 06/05/22 01:20 OXA-48 Carbapenem Resis Gene (PCR) Not Detected (NotDetected) 06/05/22 01:20 blaVIM Car Res Gene PCR Not Detected (NotDetected) 06/05/22 01:20 CTX-M Gene Resistance (PCR) Not Detected (NotDetected) 06/05/22 01:20 Bld Cult ID Panel PCR See PCR Comment (NotDetected) 06/05/22 01:20 Impressions Abdomen/Pelvis CT 06/05/22 01:01 Exam(s): CT ABDOMEN + PELVIS With Contrast IV Amt: 85 ML OPTIRAY 350 EXAM: CT Abdomen and Pelvis With Intravenous Contrast CLINICAL HISTORY: Abscess. TECHNIQUE: Axial computed tomography images of the abdomen and pelvis with intravenous contrast. CTDI is 6.01 mGy and DLP is 346.44 mGy-cm. Automated exposure control was utilized for the study. A dose lowering technique was utilized adhering to the principles of ALARA. CONTRAST: Patient received 85 ML OPTIRAY 350 of IV contrast COMPARISON: CT abdomen and pelvis 02/10/2021. FINDINGS: Lung bases: Unremarkable. No mass. No consolidation. ABDOMEN: Liver: Fatty infiltration of the liver. Gallbladder and bile ducts: Unremarkable. No calcified stones. No ductal dilation. Pancreas: Unremarkable. No mass. No ductal dilation. Spleen: Unremarkable. No splenomegaly. Adrenals: Unremarkable. No mass. Kidneys and ureters: Striated nephrograms of the right kidney in mild hydronephrosis are concerning for acute pyelonephritis. Question mild left hydronephrosis. No definitive left nephrograms. Stomach and bowel: Unremarkable. No obstruction. No mucosal thickening. PELVIS: Appendix: No findings to suggest acute appendicitis. Bladder: Unremarkable. No mass. Reproductive: Unremarkable as visualized. ABDOMEN and PELVIS: Intraperitoneal space: Unremarkable. No free air. No significant fluid collection. Bones/joints: No acute fracture. No dislocation. Soft tissues: Unremarkable. Vasculature: Unremarkable. No abdominal aortic aneurysm. Lymph nodes: Unremarkable. No enlarged lymph nodes. IMPRESSION: 1. Striated nephrograms of the right kidney in mild hydronephrosis are concerning for acute pyelonephritis. 2. Question mild left hydronephrosis. No definitive left nephrograms. 3. Fatty infiltration of the liver. Electronically signed by: Yolanda Marie MD 06/05/22 03:26 AM Chest X-Ray 06/05/22 01:01 XR chest 1V portable HISTORY: 41 years-old Female Sepsis acute sepsis with nausea and vomiting COMPARISON: CT abdomen and pelvis of same day TECHNIQUE: AP view of the chest FINDINGS: Breast implants with nipple jewelry. Mild right hemidiaphragmatic elevation. Cardiomediastinal and hilar silhouettes are within normal limits. No pneumothorax, pleural effusion, airspace consolidation or pulmonary edema. Bones appear grossly intact. IMPRESSION: No acute process. ACT 112: Negative or not required by law. The above report was generated using voice recognition software. It may contain grammatical, syntax or spelling errors. Electronically signed by: Master Caldera M.D. 06/05/2022 8:01 AM Renal Ultrasound 06/05/22 04:19 Exam(s): US RENAL EXAM: US Retroperitoneal Limited, Renal CLINICAL HISTORY: Flank pain. TECHNIQUE: Real-time limited ultrasound of the retroperitoneum with image documentation. COMPARISON: CT abdomen and pelvis from same day. FINDINGS: Right kidney: The right kidney measures 12.8 cm. No mass. No visualized nephrolithiasis. Mild hydronephrosis. There is mild right perinephric free fluid. Left kidney: The left kidney measures 12.9 cm. No mass or visualized nephrolithiasis. Mild hydronephrosis. IMPRESSION: 1. Mild bilateral hydronephrosis. 2. There is mild right perinephric free fluid. Electronically signed by: Yolanda Marie MD 06/05/22 06:31 AM
[2022-06-08] MEDS: MoRPHine SULFATE 2 MG/ML CARP IV PRN ×5 (03:06→22:09)
[2022-06-08] MEDS: CEFEPIME 2,000 MG in SYRINGE 0 ML IV SCH ×3 (03:06→18:14)
[2022-06-08] MEDS: metroNIDAZOLE 500 MG/100 ML BAG IV SCH ×3 (06:29→22:05)
[2022-06-08 07:36] LABS: Basophils # (auto) 0.02 K/uL (0-0.2); Basophils % (auto) 0.6 %; Eosinophils # (auto) 0.18 K/uL (0-0.50); Eosinophils % (auto) 5.8 %; Hematocrit (blood only) 33.4 % (37.0-47.0); Hemoglobin 11.9 g/dl (12.0-16.0); Immature Granulocytes # (auto) 0.01 K/uL (0.01-0.20); Immature Granulocytes % (auto) 0.3 %; Lymphocytes # (auto) 0.83 K/uL (1.2-3.4); Lymphocytes % (auto) 26.5 %; Mean Corpuscular Hemoglobin 37.3 pg (25.0-34.0); Mean Corpuscular Hgb Conc 35.6 g/dL (32.0-36.0); Mean Corpuscular Volume 104.7 fL (80.0-100.0); Mean Platelet Volume 11.1 fL (9.4-12.4); Monocytes # (auto) 0.37 K/uL (0.11-0.59); Monocytes % (auto) 11.8 %; Neutrophils # (auto) 1.72 K/uL (1.40-6.50); Platelet Count 149 K/uL (130-400); RDW Coefficient of Variation 12.7 % (11.5-14.5); RDW Standard Deviation 49.1 fL (36.4-46.3); Red Blood Count 3.19 M/uL (4.20-5.40); White Blood Count 3.13 K/ul (4.8-10.8)
[2022-06-08] MEDS: ACETAMINOPHEN 325 MG TAB PO PRN (08:21)
[2022-06-08] MEDS: ENOXAPARIN INJ 40 MG/0.4 ML SYR SQ SCH (08:21)
[2022-06-08 09:06] LABS: Albumin Globulin Ratio 1.2 (0.9-2); Albumin Level 3.5 gm/dl (3.4-5.0); BUN Creatinine Ratio 6.3 (10-20); Bilirubin,Total 0.6 mg/dl (0.2-1.0); Calcium 8.4 mg/dl (8.6-10.3); Creatinine Clr Calc Pharmacy 170.6 ml/min; Est GFR (African American) 140.2 ml/min; Potassium 3.3 mmol/L (3.5-5.1); Total Protein 6.5 gm/dl (6.0-8.3)
[2022-06-08] MEDS: CYANOCOBALAMIN (B-12) 500 MCG TABLET PO SCH (09:36)
[2022-06-08] MEDS ORDERED: POTASSIUM CHLORIDE CRTAB 20 MEQ TABCR PO STA (13:32)
--- NOTE | 2022-06-08 13:33 | Hospitalist Progress Note ---
Date of Service June 08, 2022 Assessment & Plan (1) Pyelonephritis: (2) Gram negative sepsis: Plan: 41-year-old female with no significant past medical history presented to the ED with back pain radiating to flank for [address] abdomen personally reviewed; striated nephrograms of right kidney concerning for acute pyelonephritis Urinalysis suggestive of infection. Urine culture shows E.coli sensitive to ceftriaxone, cefepime and Cipro. It also grew Gardnerella like bacilli. Blood culture admission shows E. coli; sensitive to ceftriaxone, ciprofloxacin and cefepime. Repeat blood culture negative so far Plan to continue cefepime for now. She will need 14 days of antibiotics in total for urosepsis. Also started on Flagyl for Gardnerella like bacilli; provide 7-day course. Will need to be afebrile for at least 24 hours before considering discharge. (3) Vitamin B12 deficiency: (4) Pancytopenia: Plan: Labs reviewed today; WBC of 3.13. Platelets improved 149 Hemoglobin improved to 11.9 Likely secondary to sepsis Vitamin B12 found to be low. We will start vitamin B12 supplement (5) Hypomagnesemia: Plan: Admitting magnesium of 0.8; repleted (6) Hypokalemia: Plan: Labs reviewed today; potassium of 3.3 repleted Plan Full code DVT prophylaxis Lovenox Dispocontinues to be hospitalized due to urosepsis requiring IV antibiotics. Plan to discharge tomorrow a.m. if patient continues to be afebrile. Admission and Anticipated Discharge Date Admission Date: June 05, 2022 Subjective Patient continues to complain of tiredness and fatigue. Report continues back pain. Review of Systems Review of Systems: All systems reviewed & are unremarkable except as noted in Subjective Physical Exam Physical Exam: Constitutional: Awake, alert orient x3; appears tired. Respiratory: normal respiratory effort, lungs clear to auscultation, no wheeze, rales, rhonchi. Normal insp/exp effort, no accessory muscle use Cardiovascular: RRR, no murmur, no edema Vessels: no JVD or carotid bruit Chest: normal inspection of chest Abdomen: Tenderness present in the right costovertebral angle Musculoskeletal: no cyanosis or clubbing, extremities motor strength 5/5 Skin: no rashes, warm and dry normal turgor Neurologic: PERRL, EOMI, accommodation nl, no face palsy, no dysarthria CN's II- XI intact bilaterally and moves all extremities Psychiatric: A+Ox3, euthymic affect Lymphatic: no cervical or axillary lymphadenopathy : deferred Results & Data Results & Data Vital Signs (Past 12 Hours) Vital Signs Temp Pulse Pulse Resp BP Pulse Ox O2 Del Method 06/08/22 11:35 36.9 C 75 18 134/88 97 Room Air 06/08/22 08:33 70 06/08/22 07:51 36.7 C 73 18 135/86 95 Room Air 06/08/22 02:54 36.6 C 83 18 126/89 95 Room Air Laboratory Results Laboratory Results WBC 3.13 K/ul (4.8-10.8) L 06/08/22 06:56 RBC 3.19 M/uL (4.20-5.40) L 06/08/22 06:56 Hgb 11.9 g/dl (12.0-16.0) L 06/08/22 06:56 Hct 33.4 % (37.0-47.0) L 06/08/22 06:56 MCV 104.7 fL (80.0-100.0) H 06/08/22 06:56 MCH 37.3 pg (25.0-34.0) H 06/08/22 06:56 MCHC 35.6 g/dL (32.0-36.0) 06/08/22 06:56 RDW Std Deviation 49.1 fL (36.4-46.3) H 06/08/22 06:56 RDW Coeff of Ralph 12.7 % (11.5-14.5) 06/08/22 06:56 Plt Count 149 K/uL (130-400) 06/08/22 06:56 MPV 11.1 fL (9.4-12.4) 06/08/22 06:56 Immature Gran % (Auto) 0.3 % 06/08/22 06:56 Neut % (Auto) 55.0 % 06/08/22 06:56 Lymph % (Auto) 26.5 % 06/08/22 06:56 [place] % (Auto) 11.8 % 06/08/22 06:56 Eos % (Auto) 5.8 % 06/08/22 06:56 Baso % (Auto) 0.6 % 06/08/22 06:56 Neut # (Auto) 1.72 K/uL (1.40-6.50) 06/08/22 06:56 Lymph # (Auto) 0.83 K/uL (1.2-3.4) L 06/08/22 06:56 [place] # (Auto) 0.37 K/uL (0.11-0.59) 06/08/22 06:56 Eos # (Auto) 0.18 K/uL (0-0.50) 06/08/22 06:56 Baso # (Auto) 0.02 K/uL (0-0.2) 06/08/22 06:56 Immature Gran # (Auto) 0.01 K/uL (0.01-0.20) 06/08/22 06:56 RBC Morphology Unremarkable 06/06/22 06:05 Sodium 137 mmol/L (136-145) 06/08/22 06:56 Potassium 3.3 mmol/L (3.5-5.1) L 06/08/22 06:56 Chloride 101 mmol/L (98-107) 06/08/22 06:56 Carbon Dioxide 28 mmol/L (21-32) 06/08/22 06:56 Anion Gap 8 (3-11) 06/08/22 06:56 BUN 3 mg/dl (6-23) L 06/08/22 06:56 Creatinine 0.48 mg/dl (0.6-1.2) L 06/08/22 06:56 Est Cr Clr Drug Dosing 170.6 ml/min 06/08/22 06:56 Est GFR ( Amer) 140.2 ml/min 06/08/22 06:56 Est GFR (Non-Af Amer) 121.0 ml/min 06/08/22 06:56 BUN/Creatinine Ratio 6.3 (10-20) L 06/08/22 06:56 Glucose 96 mg/dl (70-99(Fasting)) 06/08/22 06:56 Lactate 1.6 mmol/L (0.4-2.0) 06/05/22 04:17 Calcium 8.4 mg/dl (8.6-10.3) L 06/08/22 06:56 Phosphorus 1.5 mg/dl (2.5-4.9) L* D 06/06/22 06:05 Magnesium 1.9 mg/dl (1.7-2.4) 06/06/22 06:05 Total Bilirubin 0.6 mg/dl (0.2-1.0) 06/08/22 06:56 Direct Bilirubin 0.2 mg/dl (0-0.2) 06/06/22 06:05 AST 65 U/L (13-39) H 06/08/22 06:56 ALT 26 U/L (7-52) 06/08/22 06:56 Alkaline Phosphatase 145 U/L (34-104) H 06/08/22 06:56 Troponin I High Sens 7.9 pg/ml (0-14) 06/05/22 16:29 Total Protein 6.5 gm/dl (6.0-8.3) 06/08/22 06:56 Albumin 3.5 gm/dl (3.4-5.0) 06/08/22 06:56 Globulin 3.0 gm/dl (2.5-4.0) 06/08/22 06:56 Albumin/Globulin Ratio 1.2 (0.9-2) 06/08/22 06:56 Vitamin B12 163 pg/ml (180-914) L 06/08/22 06:56 Folate 8.46 ng/ml (>5.38) 06/08/22 06:56 Procalcitonin 1.63 ng/ml (0-0.5) H 06/05/22 01:20 HCG, Qual Negative (Negative) 06/05/22 01:20 Urine Color Yellow 06/05/22 01:30 Urine Appearance Cloudy (Clear) A 06/05/22 01:30 Urine pH 6.0 (4.5-7.5) 06/05/22 01:30 Ur Specific [place] 1.005 (1.000-1.030) 06/05/22 01:30 Urine Protein 1+ (Negative) H 06/05/22 01:30 Urine Glucose (UA) Negative (Negative) 06/05/22 01:30 Urine Ketones 1+ (Negative) H 06/05/22 01:30 Urine Blood 2+ (Negative) H 06/05/22 01:30 Urine Nitrite Positive (Negative) A 06/05/22 01:30 Urine Bilirubin Negative (Negative) 06/05/22 01:30 Urine Urobilinogen Negative (Negative) 06/05/22 01:30 Ur Leukocyte Esterase 3+ (Negative) H 06/05/22 01:30 Urine WBC (Auto) >30 /hpf (0-5) H 06/05/22 01:30 Urine RBC (Auto) 0-4 /hpf (0-4) 06/05/22 01:30 U Hyaline Cast (Auto) 1-5 /lpf (0-5) 06/05/22 01:30 U Epithel Cells (Auto) >30 /lpf (0-5) H 06/05/22 01:30 Urine Bacteria (Auto) 1+ (Negative) H 06/05/22 01:30 Nasal Screen MRSA (PCR) Negative (Negative) 06/05/22 06:25 SARS-CoV-2 (PCR) NEGATIVE (Negative) 06/05/22 03:53 Enterobacterales (PCR) DETECTED (NotDetected) A 06/05/22 01:20 E. coli (PCR) DETECTED (NotDetected) A 06/05/22 01:20 Hepatitis A IgM Ab NON-REACTIVE (NON-REACTIVE) 06/05/22 11:15 Hep Bs Antigen NON-REACTIVE (NON-REACTIVE) 06/05/22 11:15 Hep Bs Ag Confirmation TNP 06/05/22 11:15 Hep B Core IgM Ab NON-REACTIVE (NON-REACTIVE) 06/05/22 11:15 Hepatitis C Ab (EIA) NON-REACTIVE (NON-REACTIVE) 06/05/22 11:15 Hep C Ab Signal/Cutoff <0.02 (<1.00) 06/05/22 11:15 mcr-1 [place] Res Gene PCR Not Detected (NotDetected) 06/05/22 01:20 blaIMP Car res Gene PCR Not Detected (NotDetected) 06/05/22 01:20 KPC-Carbap Res Gene PCR Not Detected (NotDetected) 06/05/22 01:20 blaNDM Car Res Gene PCR Not Detected (NotDetected) 06/05/22 01:20 OXA-48 Carbapenem Resis Gene (PCR) Not Detected (NotDetected) 06/05/22 01:20 blaVIM Car Res Gene PCR Not Detected (NotDetected) 03/31/23 01:20 CTX-M Gene Resistance (PCR) Not Detected (NotDetected) 06/05/22 01:20 Bld Cult ID Panel PCR See PCR Comment (NotDetected) 06/05/22 01:20 Impressions Abdomen/Pelvis CT 06/05/22 01:01 Exam(s): CT ABDOMEN + PELVIS With Contrast IV Amt: 85 ML OPTIRAY 350 EXAM: CT Abdomen and Pelvis With Intravenous Contrast CLINICAL HISTORY: Abscess. TECHNIQUE: Axial computed tomography images of the abdomen and pelvis with intravenous contrast. CTDI is 6.01 mGy and DLP is 346.44 mGy-cm. Automated exposure control was utilized for the study. A dose lowering technique was utilized adhering to the principles of ALARA. CONTRAST: Patient received 85 ML OPTIRAY 350 of IV contrast COMPARISON: CT abdomen and pelvis 02/10/2021. FINDINGS: Lung bases: Unremarkable. No mass. No consolidation. ABDOMEN: Liver: Fatty infiltration of the liver. Gallbladder and bile ducts: Unremarkable. No calcified stones. No ductal dilation. Pancreas: Unremarkable. No mass. No ductal dilation. Spleen: Unremarkable. No splenomegaly. Adrenals: Unremarkable. No mass. Kidneys and ureters: Striated nephrograms of the right kidney in mild hydronephrosis are concerning for acute pyelonephritis. Question mild left hydronephrosis. No definitive left nephrograms. Stomach and bowel: Unremarkable. No obstruction. No mucosal thickening. PELVIS: Appendix: No findings to suggest acute appendicitis. Bladder: Unremarkable. No mass. Reproductive: Unremarkable as visualized. ABDOMEN and PELVIS: Intraperitoneal space: Unremarkable. No free air. No significant fluid collection. Bones/joints: No acute fracture. No dislocation. Soft tissues: Unremarkable. Vasculature: Unremarkable. No abdominal aortic aneurysm. Lymph nodes: Unremarkable. No enlarged lymph nodes. IMPRESSION: 1. Striated nephrograms of the right kidney in mild hydronephrosis are concerning for acute pyelonephritis. 2. Question mild left hydronephrosis. No definitive left nephrograms. 3. Fatty infiltration of the liver. Electronically signed by: Yolanda Marie MD 06/05/22 03:26 AM Chest X-Ray 06/05/22 01:01 XR chest 1V portable HISTORY: 41 years-old Female Sepsis acute sepsis with nausea and vomiting COMPARISON: CT abdomen and pelvis of same day TECHNIQUE: AP view of the chest FINDINGS: Breast implants with nipple jewelry. Mild right hemidiaphragmatic elevation. Cardiomediastinal and hilar silhouettes are within normal limits. No pneumothorax, pleural effusion, airspace consolidation or pulmonary edema. Bones appear grossly intact. IMPRESSION: No acute process. ACT 112: Negative or not required by law. The above report was generated using voice recognition software. It may contain grammatical, syntax or spelling errors. Electronically signed by: Master Caldera M.D. 06/05/2022 8:01 AM Renal Ultrasound 06/05/22 04:19 Exam(s): US RENAL EXAM: US Retroperitoneal Limited, Renal CLINICAL HISTORY: Flank pain. TECHNIQUE: Real-time limited ultrasound of the retroperitoneum with image documentation. COMPARISON: CT abdomen and pelvis from same day. FINDINGS: Right kidney: The right kidney measures 12.8 cm. No mass. No visualized nephrolithiasis. Mild hydronephrosis. There is mild right perinephric free fluid. Left kidney: The left kidney measures 12.9 cm. No mass or visualized nephrolithiasis. Mild hydronephrosis. IMPRESSION: 1. Mild bilateral hydronephrosis. 2. There is mild right perinephric free fluid. Electronically signed by: Yolanda Marie MD 06/05/22 06:31 AM
[2022-06-09] MEDS: CEFEPIME 2,000 MG in SYRINGE 0 ML IV SCH ×2 (01:48→10:17)
[2022-06-09] MEDS: MoRPHine SULFATE 2 MG/ML CARP IV PRN ×2 (02:52→08:03)
[2022-06-09] MEDS: metroNIDAZOLE 500 MG/100 ML BAG IV SCH (05:39)
[2022-06-09 07:24] LABS: Basophils # (auto) 0.03 K/uL (0-0.2); Basophils % (auto) 0.8 %; Eosinophils % (auto) 8.5 %; Hematocrit (blood only) 34.8 % (37.0-47.0); Hemoglobin 12.7 g/dl (12.0-16.0); Immature Granulocytes # (auto) 0.02 K/uL (0.01-0.20); Immature Granulocytes % (auto) 0.6 %; Lymphocytes # (auto) 1.14 K/uL (1.2-3.4); Lymphocytes % (auto) 32.3 %; Mean Corpuscular Hemoglobin 37.7 pg (25.0-34.0); Mean Corpuscular Hgb Conc 36.5 g/dL (32.0-36.0); Mean Corpuscular Volume 103.3 fL (80.0-100.0); Mean Platelet Volume 11.6 fL (9.4-12.4); Monocytes # (auto) 0.39 K/uL (0.11-0.59); Neutrophils # (auto) 1.65 K/uL (1.40-6.50); Neutrophils % (auto) 46.8 %; Platelet Count 206 K/uL (130-400); RDW Coefficient of Variation 12.8 % (11.5-14.5); RDW Standard Deviation 48.9 fL (36.4-46.3); Red Blood Count 3.37 M/uL (4.20-5.40); White Blood Count 3.53 K/ul (4.8-10.8)
[2022-06-09 07:52] LABS: Albumin Globulin Ratio 1.1 (0.9-2); Albumin Level 3.6 gm/dl (3.4-5.0); BUN Creatinine Ratio 12.5 (10-20); Bilirubin,Total 0.5 mg/dl (0.2-1.0); Calcium 8.3 mg/dl (8.6-10.3); Creatinine Clr Calc Pharmacy 204.8 ml/min; Est GFR (African American) 148.9 ml/min; Est GFR (Non-African American) 128.5 ml/min; Globulin 3.2 gm/dl (2.5-4.0); Potassium 3.9 mmol/L (3.5-5.1); Total Protein 6.8 gm/dl (6.0-8.3)
[2022-06-09] MEDS: ENOXAPARIN INJ 40 MG/0.4 ML SYR SQ SCH (08:03)
[2022-06-09] MEDS: CYANOCOBALAMIN (B-12) 500 MCG TABLET PO SCH (08:03)
--- NOTE | 2022-06-09 15:18 | Discharge Summary ---
Date of Service June 09, 2022 Admission HPI Per Admitting Provider This is a 41-year-old female with no significant past medical history who presents with back pain radiating to the flank going on since last couple of days. She is also nauseous and had an episode of vomiting yesterday morning. Also has some frequent urination. Denies any burning micturition or hematuria. Denies any history of kidney stones in the past. She was having mild temperature spike in the ER. Her white count was 11. Lactic acid was 4.4, repeat is 1.6. Potassium is 2.4, sodium 133, magnesium 0.8, total bilirubin 1.3, procalcitonin 1.6, urine was positive for nitrite and leukocyte esterase, and +[address] abdomen and pelvis is showing bilateral pyelonephritis. The patient says the pain is in the back, both the flanks and more on the right side. Denies any chest pain, no shortness of breath, no cough, no headache, no blurred visions, no runny nose, no sore throat. Appetite is okay. No rash. Currently, resting comfortably and hemodynamically stable. Admission Exam Per Admitting Provider GENERAL: The patient is of moderate build, not in acute distress. VITAL SIGNS: Temperature T-max 37.6, pulse 108, respiratory rate 17, blood pressure 127/91, oxygen 97% on room air. HEENT: Pupils equal, round and reactive to light. Oral mucosa moist. NECK: No JVD, no neck masses. CARDIOVASCULAR: S1 and S2 heard. Tachycardia. No murmurs. RESPIRATORY SYSTEM: Normal AP diameter. No accessory muscle use. No wheezing or crackles. ABDOMEN: Soft, bowel sounds present. Bilateral CVA tenderness present. No guarding, no rigidity, no distention. CENTRAL NERVOUS SYSTEM: Cranial nerves II-XII grossly intact, nonfocal. EXTREMITIES: No edema, no erythema. Principal Diagnosis Acute pyelonephritis Gram-negative bacteremia Vitamin B12 deficiency Discharge Exam Constitutional: Awake, alert orient x3; appears tired. Respiratory: normal respiratory effort, lungs clear to auscultation, no wheeze, rales, rhonchi. Normal insp/exp effort, no accessory muscle use Cardiovascular: RRR, no murmur, no edema Vessels: no JVD or carotid bruit Chest: normal inspection of chest Abdomen: Tenderness present in the right costovertebral angle; improved from previous day. Musculoskeletal: no cyanosis or clubbing, extremities motor strength 5/5 Skin: no rashes, warm and dry normal turgor Neurologic: PERRL, EOMI, accommodation nl, no face palsy, no dysarthria CN's II- XI intact bilaterally and moves all extremities Psychiatric: A+Ox3, euthymic affect Lymphatic: no cervical or axillary lymphadenopathy : deferred Discharge Data Allergies Allergy/AdvReac Type Severity Reaction Status Date / Time No Known Allergies Allergy Mild Verified 06/05/22 00:52 Consultations 06/05/22 03:42 ED Decision to Admit Stat Ordered Studies 06/05/22 01:01 CT Abd and Pelvis [CT abd pelvis IV con only] Stat 06/05/22 04:19 US Renal Bladder [US renal/blad retro comp] Urgent Hospital Course (1) Pyelonephritis: (2) Gram negative sepsis: 41-year-old female with no significant past medical history presented to the ED with back pain radiating to flank for [address] abdomen personally reviewed; striated nephrograms of right kidney concerning for acute pyelonephritis Urinalysis suggestive of infection. Urine culture shows E.coli sensitive to ceftriaxone, cefepime and Cipro. It also grew Gardnerella like bacilli. Blood culture admission shows E. coli; sensitive to ceftriaxone, ciprofloxacin and cefepime. Repeat blood culture negative was negative. During the hospitalization, patient was treated with cefepime for urosepsis. Her repeat blood culture was found to be negative. Patient reported symptomatic improvement in her back pain. She was afebrile in last 48 hours of the hospitalization. She was discharged on 10 more days of Levaquin with in struction to follow-up with her primary care doctor. She was also given Tylenol and oxycodone for pain. (3) Vitamin B12 deficiency: (4) Pancytopenia: Patient developed pancytopenia during the hospitalization. Her blood count started to improve in last 2 days. Likely cause was thought secondary to sepsis. Vitamin B12 level was checked which was found to be 160 Patient was placed on vitamin B12 supplement at discharge Total Time Total Time Spent Total Time Spent (In Minutes): 40 Total Time Includes: Examination of the Patient, Discharge Planning, Medication Reconciliation, Communication With Other Providers and Other Discharge Plan Discharge Items Patient Disposition: Home - Self-Care Reason For Visit: BACK PAIN, SEPSIS Discharge Diagnosis: Acute pyelonephritis E. coli bacteremia Vitamin B12 deficiency Condition on Discharge: Fair Activity: Resume your previous activity Non-emergency contact: Primary Care Provider Call non-emergency contact if: you have any medication questions Follow-up/Referrals: Alyx Sosa MD [Outside Practitioners] - (Date & Time 06/12/2022 10:20 AM Provider Alyx Sosa MD Department General Internal Medicine [facility] ) Diet: Regular Addtl Attending Provider Instructions: You were admitted to to the hospital with acute right-sided pyelonephritis (infection in right kidney) and gram-negative sepsis. You were treated with IV antibiotics while you were here. You will be discharged on levofloxacin 750 mg once daily to be taken for 10 days. For the back pain, take Tylenol as needed every 6 hours. You are also prescribed oxycodone to be taken as needed for severe back pain. You were also found to have low vitamin B12 level. Vitamin B-12 supplement is prescribed to you as well. An appointment with a primary care doctor will be set up for you. Pending Studies at Discharge: No Stand-Alone Forms: [facility], Work/School Release, Smoking Cessation Medications and DC Order Prescriptions: New acetaminophen 325 mg Tablet 650 mg PO Q6H PRN (Reason: pain) Qty: 30 0RF cyanocobalamin (vitamin B-12) 500 mcg Tablet 1,000 mcg PO QAM Qty: 60 0RF levofloxacin 750 mg tablet 750 mg PO DAILY 10 Days Qty: 10 0RF oxycodone 5 mg tablet 5 mg PO BID PRN (Reason: pain) Qty: 10 0RF Continued trazodone 100 mg tablet 100 mg PO HS PRN (Reason: Sleep) Rx Instructions: PER PT "HAVEN'T REALLY USED IT YET". Discharge Orders: Discharge Order (Routine); Ordered 06/09/22 Ordered By: Hermelindo Gilbert Admission Data Admit Date/Time: 06/05/22 04:17 Attending Provider: Hermelindo Gilbert Admit Provider: Jack Gerber Primary Care Provider: PCP,NO Other Providers: Jack Gerber Other Interventions: Discharge Summary Assessment (RN) Last Done: 06/09/22 11:06
== END 2022-06-09 12:16 | disposition home or self-care (01) | DRG 872 ==
LOC: ED 00:27 → 1E 04:17 → 2S 06-06 01:27

== ENCOUNTER 2022-08-13 12:39 | Inpatient (IN) ==
[2022-08-13] MEDS ORDERED: SODIUM CHLORIDE 0.9% 1000ML 1,000 ML IV ONE (13:23)
[2022-08-13] MEDS ORDERED: KETOROLAC TROMETHAMINE 15 MG/ML VIAL IV STA (13:23)
[2022-08-13] MEDS ORDERED: ONDANSETRON INJ 2 MG/ML 2 ML VIAL IV STA (13:23)
[2022-08-13] MEDS ORDERED: SODIUM CHLORIDE 0.9% 1000ML 500 ML IV ONE (13:23)
[2022-08-13 13:24] LABS: Basophils # (auto) 0.04 K/uL (0-0.2); Basophils % (auto) 0.4 %; Eosinophils % (auto) 1.9 %; Hematocrit (blood only) 43.8 % (37.0-47.0); Hemoglobin 16.1 g/dl (12.0-16.0); Immature Granulocytes # (auto) 0.02 K/uL (0.01-0.20); Immature Granulocytes % (auto) 0.2 %; Lymphocytes # (auto) 1.24 K/uL (1.2-3.4); Mean Corpuscular Hemoglobin 36.3 pg (25.0-34.0); Mean Corpuscular Hgb Conc 36.8 g/dL (32.0-36.0); Mean Corpuscular Volume 98.9 fL (80.0-100.0); Mean Platelet Volume 11.1 fL (9.4-12.4); Monocytes # (auto) 0.33 K/uL (0.11-0.59); Monocytes % (auto) 3.2 %; Neutrophils # (auto) 8.48 K/uL (1.40-6.50); Neutrophils % (auto) 82.3 %; Platelet Count 217 K/uL (130-400); RDW Coefficient of Variation 13.6 % (11.5-14.5); RDW Standard Deviation 49.7 fL (36.4-46.3); Red Blood Count 4.43 M/uL (4.20-5.40); White Blood Count 10.31 K/ul (4.8-10.8)
[2022-08-13 13:37] LABS: Appearance Urine Cloudy (Clear); Bacteria Urine Automated 1+ (Negative); Bilirubin Urine 2+ (Negative); Blood Urine 1+ (Negative); Color Urine Orange; Epithelial Cell Urine Auto >30 /lpf (0-5); Glucose Urine UA Negative (Negative); Ketones Urine 4+ (Negative); Leukocyte Esterase Urine Trace (Negative); Nitrite Urine Positive (Negative); Protein Urine 3+ (Negative); Specific Gravity Urine 1.024 (1.000-1.030); Urobilinogen Urine Negative (Negative)
--- NOTE | 2022-08-13 13:41 | XRay Report ---
XR chest 1V portable HISTORY: 41 years-old Female Sepsis acute sepsis COMPARISON: 06/05/2022 TECHNIQUE: AP view the chest FINDINGS: Bilateral nipple jewelry with saline breast implants. Mild right hemidiaphragmatic elevation. There i s no pneumothorax, pleural effusion, airspace consolidation or pulmonary edema. Bones of the chest ap pear grossly intact. IMPRESSION: No acute process. ACT 112: Negative or not required by law. The above report was generated using voice recognition software. It may contain grammatical, syntax o r spelling errors. Electronically signed by: Master Caldera M.D. 08/13/2022 1:40 PM
[2022-08-13 13:42] LABS: INR 0.9 (0.9-1.1); Partial Thromboplastin Time 26.8 Seconds (21.0-31.0); Prothrombin Time 10.3 Seconds (9.0-12.0)
[2022-08-13 13:51] LABS: Mucus Urine Present (None Prsent)
[2022-08-13 13:54] LABS: iSTAT Blood Urea Nitrogen < 3 mg/dl (7-18); iSTAT Carbon Dioxide 18 mmol/L (24-31); iSTAT Chloride 99 mmol/L (101-112); iSTAT Creatinine 0.3 mg/dl (0.6-1.3); iSTAT Glucose 103 mg/dl (70-99); iSTAT Hematocrit 43 % (37-47); iSTAT Hemoglobin 14.6 g/dl (12.0-16.0); iSTAT Ionized Calcium 1.08 mmol/l (1.12-1.32); iSTAT Potassium 3.4 mmol/L (3.3-5.0); iSTAT Sodium 134 mmol/L (135-144)
[2022-08-13] MEDS ORDERED: OPTIRAY 320 100ml IV ONE (14:03)
[2022-08-13] MEDS ORDERED: cefTRIAXone SODIUM 1,000 MG in DEXTROSE 5% AD-VAN 50 ML IV STA (14:27)
--- NOTE | 2022-08-13 14:32 | CT Scan Report ---
CT SCAN OF THE ABDOMEN AND PELVIS WITH IV CONTRAST CLINICAL HISTORY: Epigastric pain. Left flank pain. COMPARISON STUDY: Abdominal CT dated 06/05/2022. TECHNIQUE: Following the IV administration of 95 cc of Optiray 320, CT scan of the abdomen and pelvi s is performed from the lung bases to the proximal femora. Images are reviewed in the axial, sagittal , and coronal planes. IV contrast was administered without complication. A dose lowering technique wa s utilized adhering to the principles of ALARA. CT DOSE: 792.21 mGy.cm FINDINGS: Lung bases: The heart is normal in size and without pericardial effusion. The lung bases are clear. B ilateral breast implants are partially imaged. Bilateral nipple piercings are noted on the editor daniel gram. Liver: The contrast-enhanced liver is enlarged, measuring 22 cm in length. The liver demonstrates dif fusely diminished attenuation indicating steatosis. Fatty sparing is seen adjacent to the gallbladder fossa. There is no intrahepatic biliary ductal dilatation. The hepatic veins and portal veins are pa tent. Gallbladder: The gallbladder is mildly distended but otherwise normal in appearance. Spleen: Normal in size and attenuation. Pancreas: There is peripancreatic inflammation and fluid. The pancreas is edematous, and the appearan ce is consistent with acute pancreatitis. The gland enhances throughout. The duct is normal in calibe r. The splenic vein is patent. No organized peripancreatic fluid collection is seen. Adrenal glands: Unremarkable. Kidneys: The contrast enhanced kidneys are normal in size and without hydronephrosis. The kidneys enh ance symmetrically. Abdominal vasculature: The abdominal aorta is normal in course and caliber. Bowel: There is no bowel obstruction. Mild wall thickening is seen throughout the colon with mild fuentes rounding infiltration. The appearance suggests a nonspecific colitis. The appendix is well-visualize d and normal. Peritoneum: There is no intraperitoneal free air or abdominal ascites. There is a fat-containing umbi lical hernia. A navel piercing is in place. Lymphadenopathy: None. Pelvic viscera: The bladder is decompressed and not well assessed. The uterus and adnexa are normal a s visualized noted small ovarian follicles. Skeletal structures: No lytic or blastic lesions are seen. IMPRESSION: 1. Acute pancreatitis. Correlate with clinical and laboratory findings. 2. The gland enhances throughout. No organized peripancreatic fluid collection is identified. 3. Hepatomegaly and severe hepatic steatosis. 4. Findings suggest a mild nonspecific colitis. Correlate clinically. 5. Additional findings as above. ACT 112: Negative or not required by law. Electronically signed by: Michael Jeffrey M.D. 08/13/2022 2:31 PM
[2022-08-13] MEDS ORDERED: MoRPHine SULFATE 4 MG/ML 1 ML CARP\\VIAL IV STA ×2 (14:40→16:58)
[2022-08-13 15:05] LABS: Albumin Level 5.3 gm/dl (3.4-5.0); Bilirubin,Total 1.5 mg/dl (0.2-1.0); Magnesium 1.6 mg/dl (1.7-2.4); Potassium 3.3 mmol/L (3.5-5.1)
[2022-08-13 15:11] LABS: Albumin Globulin Ratio 1.3 (0.9-2); BUN Creatinine Ratio 7.7 (10-20); Creatinine Clr Calc Pharmacy 118.7 ml/min; Est GFR (African American) 126.9 ml/min; Est GFR (Non-African American) 109.5 ml/min; Total Protein 9.3 gm/dl (6.0-8.3)
--- NOTE | 2022-08-13 15:13 | History & Physical Report ---
Date of Service August 13, 2022 Assessment & Plan (1) Pancreatitis: (2) Hypokalemia: (3) Hypomagnesemia: Plan: -Admit to [facility] tele -CT of the abdomen pelvis reviewed showing acute pancreatitis, lipase is pending, hepatomegaly also - results were explained to the patient at bedside -Continue NSS at 125 mL x 2 more liters -N.p.o. for acute pancreatitis, allow sips and chips of ice, advance diet pending pain improvement -Replaced magnesium for mag level of 1.6 on admission, hypokalemia with K = 3.2 -Lactic acid was initially elevated at 3.0, improved to 1.5 on recheck -Tachycardic with HF in 100s, continue fluids, afebrile here, - Cr. 0.65 (4) UTI (urinary tract infection): Plan: -Trend urine culture, blood cultures x2-continue IV ceftriaxone -Good hygiene practices discussed at bedside including urinating after sexual intercourse, wiping from front to back, frequent changes of pads/pantiliner when in use, breathable underware like cotton vs nylon, etc, staying well hydrated with water. (5) Alcohol abuse: Plan: -History of alcohol use, patient reports drinking all day the day prior to her symptoms of epigastric abdominal pain, nausea, vomiting and diarrhea -CIWA's protocol for alcohol withdrawal ordered, thiamine, folic acid, MVI ordered daily-discussion regarding alcohol reduction was held at bedside -Check urine tox and test -will check Hepatitis panel w/ hx of drug use and multiple tattoos (6) Tobacco use: Plan: -Cessation encouraged at bedside, nicotine patch 14 mcg ordered DVT PPx: - teds, scds CODE: Full code Dispo: From home, likely to remain in the hospital x 1-2 days A total of 77 minutes were spent with greater than 50% of that time face to face with the patient, personally reviewing all current laboratories, imaging studies, past medication reconciliation, outpatient chart review, and discussion with specialists to collaborate care for the patient with attending. Please see attending documentation for corrections and/or additions. History of Present Illness Chief Complaint: Abdominal pain Primary Care Provider: NO PCP This is a 41 yo F with PMHx of remote drug abuse, current tobacco abuse smoking half pack cigarette per day for past 20 years. She had a recent hospitalization from 06/05-06/09 2022 for UTI, sepsis, hypomagnesemia, hypokalemia who presents with worsening abdominal pain over the past 2 days and states that this feels similar. She notes that she had been drinking fairly heavily all day long 3 days ago, sitting out by the pool. Since then she developed epigastric pain which radiates into her back. Patient has not been able to tolerate p.o. intake, has only been able to drink a few sips of water due to abdominal pain a nd nausea. Denies vomiting. Reports 1 day of diarrhea. Patient denies any urinary symptoms including dysuria, hematuria, increased frequency. She is sexually active and reports that she does urinate after sexual intercourse, wipes from front to back, and utilizes mechanisms to help prevent UTI since this past hospital stay except she admits to not staying well-hydrated. Patient is employed at [employer] and reports that she has a cocktail whenever her shift is over at the end of the night most days. She reports previously drinking much higher quantities of alcohol in her 20s. She admits to drug abuse 20 years ago but denies any intravenous drug use, only used mechanisms such as snorting cocaine. Smoking hx with ~7-8 cigs daily and more on the weekends when she is out drinking with friends. Patient lives at home by herself, she is single, previously without children. Allergies Allergy/AdvReac Type Severity Reaction Status Date / Time No Known Allergies Allergy Mild Verified 06/05/22 00:52 Home Medications Medication Instructions Recorded Confirmed Type cyanocobalamin (vitamin B-12) 500 1,000 mcg PO QAM #60 tabs 06/09/22 08/13/22 Rx mcg tablet lactobacillus combination no.4 3 0 mmu cells PO DAILY 08/13/22 08/13/22 History billion cell capsule (Probiotic) omeprazole 40 mg capsule,delayed 40 mg PO DAILY PRN Heartburn 08/13/22 08/13/22 History release Past Med/Surg History Medical History (Updated 08/13/22 @ 16:01 by Randi Maldonado PA-C) Depression Hx of drug abuse Hypokalemia Hypomagnesemia Pyelonephritis Sepsis Surgical History (Updated 08/13/22 @ 15:48 by Randi Maldonado PA-C) No pertinent past surgical history Family History (Updated 08/13/22 @ 15:25 by Randi Maldonado PA-C) Mother Hypertension Cancer Sister Cancer Social History (Updated 08/13/22 @ 15:32 by Darien Chacko MD) Smoking Status: Current every day smoker Tobacco Type: Cigarettes Cigarettes Per Day: 10; Hx Alcohol Use: Yes Alcohol Intake Frequency Comment: 2-3 drinks/day Hx Substance Use: No Preferred Language: Portuguese Communication Ability: Effective Bench Loom Weaver Required: No Beliefs That Will Affect Care: None Current Living Situation: Alone Feels Safe at Home: Yes Assistive Devices: None Review of Systems Review of Systems: Constitutional: No fever, + sweats or chills Eyes: No diplopia, no worsening or blurred vision ENT: normal hearing, no trouble swallowing Respiratory: No cough, sputum, dyspnea at rest or on exertion Cardiovascular: No chest pain, tightness or palpitations Abdomen: As per HPI. + epigastric pain radiating to back, +nausea, + vomiting, + diarrhea or constipation : denies dysuria, hematuria, increased frequency Musculoskeletal: No joint pain, calf pain, swelling Neurologic: No weakness, numbness/tingling, or balance problems Psychiatric: No anxiety or depression Skin: No rash or itch Physical Exam Physical Exam: General: awake, alert, no apparent distress, + anxious Head: Normocephalic, atraumatic ENT: PERRL, EOMI, no pharyngeal exudate, mucous membranes moist Chest: Clear to auscultation, on room air, no adventitious breath sounds Cardiac: Regular rate and rhythm, no murmur, no JVD, normal peripheral pulses, good capillary refill Abdominal: NABS x 4 quadrants, soft, nondistended, + diffusely tender to palpation but increased tenderness in the epigastric region, no rebound or guarding Extremities: Normal inspection, no peripheral edema or erythema, calfs nontender to palpation Psych: Normal mood and affect Skin: multiple tattoos Neuro: AAO x 3, strength intact bilaterally and rated 5/5, no motor deficits, speech is clear, no peripheral sensory deficits Results & Data Results & Data Vital Signs (Past 12 Hours) Vital Signs Temp Pulse Resp BP Pulse Ox O2 Del Method 08/13/22 14:49 154/102 H 08/13/22 14:49 119 H 13 98 08/13/22 14:48 119 H 14 97 08/13/22 13:30 129 H 17 97 08/13/22 13:30 135/100 08/13/22 13:19 121 H 18 96 08/13/22 13:19 134/106 H 08/13/22 13:06 133 H 19 99 08/13/22 13:00 130 H 18 99 08/13/22 12:59 133 H 17 99 08/13/22 13:12 98 Room Air 08/13/22 13:10 141 H 08/13/22 12:43 37.1 C 152 H 18 149/92 H 99 Room Air Laboratory Results 08/13/22 12:58 Urine Culture - Pending Urine,Clean Catch 08/13/22 13:02 Aerobic Blood Culture - Pending Blood Anaerobic Blood Culture - Pending 08/13/22 12:58 Aerobic Blood Culture - Pending Blood Anaerobic Blood Culture - Pending 08/13/22 08/13/22 08/13/22 14:52 13:42 12:58 WBC RBC Hgb POC Hgb 14.6 Hct POC Hct 43 MCV MCH MCHC RDW Std Deviation RDW Coeff of Ralph Plt Count MPV Immature Gran % (Auto) Neut % (Auto) Lymph % (Auto) Bartholomew % (Auto) Eos % (Auto) Baso % (Auto) Neut # (Auto) Lymph # (Auto) Bartholomew # (Auto) Eos # (Auto) Baso # (Auto) Immature Gran # (Auto) PT INR APTT PTT Ratio POC Sodium 134 L Sodium POC Potassium 3.4 Potassium POC Chloride 99 L Chloride Carbon Dioxide POC Total CO2 18 L Anion Gap POC Anion Gap 21.0 POC BUN < 3 L BUN Creatinine POC Creatinine 0.3 L Est Cr Clr Drug Dosing Est GFR ( Amer) Est GFR (Non-Af Amer) BUN/Creatinine Ratio Glucose POC Glucose (other) 103 H Lactate Calcium POC Ioniz Calcium Sabi 1.08 L Magnesium Total Bilirubin AST ALT Alkaline Phosphatase Total Protein Albumin Globulin Albumin/Globulin Ratio Procalcitonin Urine Color [place] Urine Appearance Cloudy A Urine pH 6.0 Ur Specific Muir 1.024 Urine Protein 3+ H Urine Glucose (UA) Negative Urine Ketones 4+ H Urine Blood 1+ H Urine Nitrite Positive A Urine Bilirubin 2+ H Urine Urobilinogen Negative Ur Leukocyte Esterase Trace H Urine WBC (Auto) 1-5 Urine RBC (Auto) 5-10 H U Hyaline Cast (Auto) 5-10 H U Epithel Cells (Auto) >30 H Urine Bacteria (Auto) 1+ H Ur Renal Epithelial Cell Not Reportable Urine Mucus Present A SARS-CoV-2, RNA, NAAT NEGATIVE 08/13/22 08/13/22 08/13/22 12:58 12:58 12:58 WBC RBC Hgb POC Hgb Hct POC Hct MCV MCH MCHC RDW Std Deviation RDW Coeff of Ralph Plt Count MPV Immature Gran % (Auto) Neut % (Auto) Lymph % (Auto) Bartholomew % (Auto) Eos % (Auto) Baso % (Auto) Neut # (Auto) Lymph # (Auto) Bartholomew # (Auto) Eos # (Auto) Baso # (Auto) Immature Gran # (Auto) PT 10.3 INR 0.9 APTT 26.8 PTT Ratio 1.0 POC Sodium Sodium 133 L POC Potassium Potassium 3.3 L POC Chloride Chloride 96 L Carbon Dioxide 18 L POC Total CO2 Anion Gap 19 H POC Anion Gap POC BUN BUN 5 L Creatinine 0.65 POC Creatinine Est Cr Clr Drug Dosing 118.7 Est GFR ( Amer) 126.9 Est GFR (Non-Af Amer) 109.5 BUN/Creatinine Ratio 7.7 L Glucose 135 H POC Glucose (other) Lactate Calcium 10.0 POC Ioniz Calcium Sabi Magnesium 1.6 L Total Bilirubin 1.5 H AST 94 H ALT 36 Alkaline Phosphatase 165 H Total Protein 9.3 H Albumin 5.3 H Globulin 4.0 Albumin/Globulin Ratio 1.3 Procalcitonin 0.08 Urine Color Urine Appearance Urine pH Ur Specific Muir Urine Protein Urine Glucose (UA) Urine Ketones Urine Blood Urine Nitrite Urine Bilirubin Urine Urobilinogen Ur Leukocyte Esterase Urine WBC (Auto) Urine RBC (Auto) U Hyaline Cast (Auto) U Epithel Cells (Auto) Urine Bacteria (Auto) Ur Renal Epithelial Cell Urine Mucus SARS-CoV-2, RNA, NAAT 08/13/22 08/13/22 12:58 12:38 WBC 10.31 RBC 4.43 Hgb 16.1 H POC Hgb Hct 43.8 POC Hct MCV 98.9 MCH 36.3 H MCHC 36.8 H RDW Std Deviation 49.7 H RDW Coeff of Ralph 13.6 Plt Count 217 MPV 11.1 Immature Gran % (Auto) 0.2 Neut % (Auto) 82.3 Lymph % (Auto) 12.0 Bartholomew % (Auto) 3.2 Eos % (Auto) 1.9 Baso % (Auto) 0.4 Neut # (Auto) 8.48 H Lymph # (Auto) 1.24 Bartholomew # (Auto) 0.33 Eos # (Auto) 0.20 Baso # (Auto) 0.04 Immature Gran # (Auto) 0.02 PT INR APTT PTT Ratio POC Sodium Sodium POC Potassium Potassium POC Chloride Chloride Carbon Dioxide POC Total CO2 Anion Gap POC Anion Gap POC BUN BUN Creatinine POC Creatinine Est Cr Clr Drug Dosing Est GFR ( Amer) Est GFR (Non-Af Amer) BUN/Creatinine Ratio Glucose POC Glucose (other) Lactate 3.0 H* Calcium POC Ioniz Calcium Sabi Magnesium Total Bilirubin AST ALT Alkaline Phosphatase Total Protein Albumin Globulin Albumin/Globulin Ratio Procalcitonin Urine Color Urine Appearance Urine pH Ur Specific Muir Urine Protein Urine Glucose (UA) Urine Ketones Urine Blood Urine Nitrite Urine Bilirubin Urine Urobilinogen Ur Leukocyte Esterase Urine WBC (Auto) Urine RBC (Auto) U Hyaline Cast (Auto) U Epithel Cells (Auto) Urine Bacteria (Auto) Ur Renal Epithelial Cell Urine Mucus SARS-CoV-2, RNA, NAAT Diagnostic Findings Chest X-Ray 08/13/22 13:10 XR chest 1V portable HISTORY: 41 years-old Female Sepsis acute sepsis COMPARISON: 06/05/2022 TECHNIQUE: AP view the chest FINDINGS: Bilateral nipple jewelry with saline breast implants. Mild right hemidiaphragmatic elevation. There is no pneumothorax, pleural effusion, airspace consolidation or pulmonary edema. Bones of the chest appear grossly intact. IMPRESSION: No acute process. ACT 112: Negative or not required by law. The above report was generated using voice recognition software. It may contain grammatical, syntax or spelling errors. Electronically signed by: Master Caldera M.D. 08/13/2022 1:40 PM Abdomen/Pelvis CT 08/13/22 13:23 CT SCAN OF THE ABDOMEN AND PELVIS WITH IV CONTRAST CLINICAL HISTORY: Epigastric pain. Left flank pain. COMPARISON STUDY: Abdominal CT dated 06/05/2022. TECHNIQUE: Following the IV administration of 95 cc of Optiray 320, CT scan of the abdomen and pelvis is performed from the lung bases to the proximal femora. Images are reviewed in the axial, sagittal, and coronal planes. IV contrast was administered without complication. A dose lowering technique was utilized adhering to the principles of ALARA. CT DOSE: 792.21 mGy.cm FINDINGS: Lung bases: The heart is normal in size and without pericardial effusion. The lung bases are clear. Bilateral breast implants are partially imaged. Bilateral nipple piercings are noted on the oxide furnace tender tomogram. Liver: The contrast-enhanced liver is enlarged, measuring 22 cm in length. The liver demonstrates diffusely diminished attenuation indicating steatosis. Fatty sparing is seen adjacent to the gallbladder fossa. There is no intrahepatic biliary ductal dilatation. The hepatic veins and portal veins are patent. Gallbladder: The gallbladder is mildly distended but otherwise normal in appearance. Spleen: Normal in size and attenuation. Pancreas: There is peripancreatic inflammation and fluid. The pancreas is edematous, and the appearance is consistent with acute pancreatitis. The gland enhances throughout. The duct is normal in caliber. The splenic vein is patent. No organized peripancreatic fluid collection is seen. Adrenal glands: Unremarkable. Kidneys: The contrast enhanced kidneys are normal in size and without hydronephrosis. The kidneys enhance symmetrically. Abdominal vasculature: The abdominal aorta is normal in course and caliber. Bowel: There is no bowel obstruction. Mild wall thickening is seen throughout the colon with mild surrounding infiltration. The appearance suggests a nonspecific colitis. The appendix is well-visualized and normal. Peritoneum: There is no intraperitoneal free air or abdominal ascites. There is a fat-containing umbilical hernia. A navel piercing is in place. Lymphadenopathy: None. Pelvic viscera: The bladder is decompressed and not well assessed. The uterus and adnexa are normal as visualized noted small ovarian follicles. Skeletal structures: No lytic or blastic lesions are seen. IMPRESSION: 1. Acute pancreatitis. Correlate with clinical and laboratory findings. 2. The gland enhances throughout. No organized peripancreatic fluid collection is identified. 3. Hepatomegaly and severe hepatic steatosis. 4. Findings suggest a mild nonspecific colitis. Correlate clinically. 5. Additional findings as above. ACT 112: Negative or not required by law. Electronically signed by: Michael Jeffrey M.D. 08/13/2022 2:31 PM ECG Additional Comments: 13-AUG-2022 13:04:01 [facility]-EDSTAT ROUTINE RETRIEVAL Sinus tachycardia Otherwise normal ECG When compared with ECG of 05-JUN-2022 13:00, No significant change was found 25mm/s10mm/[id number] 243CID: 23Unconfirmed Vent. rate 127 BPM AK interval 136 ms QRS duration 104 ms QT/QTc 392/569 ms Code Status & VTE Plan Code Status Full code - discussed with the patient at bedside Supervising Physician Co-Signing Physician Notes HEENT:No JVD , Normocephalic , atraumatic CV: S1/S2+ , no murmurs Resp: Air entry present bilaterally.no crackles, no wheeze . GI: tenderness + in the epigastric area . Musculoskeletal: examined for joint tenderness. Skin: no rashes Psych: Normal affect Neuro: Patient is awake alert not in distress , No focal neuro deficits noted Ext: no edema. 41 yo F with PMHx of remote drug abuse, current tobacco abuse smoking half pack cigarette per day for past 20 years. She had a recent hospitalization from 06/05-06/09 2022 for UTI, sepsis, hypomagnesemia, hypokalemia who presents with wor sening abdominal pain over the past 2 days and states that this feels similar. She notes that she had been drinking fairly heavily all day long 3 days ago, sitting out by the pool. Since then she developed epigastric pain which radiates into her back. Reviewed labs recommend npo for now wa protocol for risk of dvts Toradol, tylenol prn for pain thiamine folic acid and nicoderm patch Continue ceftriaxone for uti (1) Pancreatitis Acute pancreatitis complication: unspecified Chronicity: acute Pancreatitis type: unspecified pancreatitis type Qualified Code(s): K85.90 - Acute pancreatitis without necrosis or infection, unspecified (4) UTI (urinary tract infection) Hematuria presence: without hematuria Urinary tract infection type: site unspecified Qualified Code(s): N39.0 - Urinary tract infection, site not specified
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
[2022-08-13 16:25] LABS: Pregnancy Test, Urine Negative (Negative)
[2022-08-13 17:06] LABS: Amphetamines+Metham, Urine Neg (Neg); Barbiturates, Urine Neg (Neg); Benzodiazepine, Urine Neg (Neg); Cocaine, Urine Neg (Neg); MDMA (Ecstacy), Urine Neg (Neg); Methadone, Urine Neg (Neg); Opiate, Urine Neg (Neg); Phencyclidine, Urine Neg (Neg)
[2022-08-13] MEDS ORDERED: MoRPHine SULFATE 4 MG/ML 1 ML CARP\\VIAL IV PRN (18:39)
[2022-08-13] MEDS ORDERED: PANTOprazole 40 MG TAB PO PRN (18:49)
[2022-08-13] MEDS ORDERED: MAGNESIUM SULFATE / D5W 1 GM/100 ML BAG IV ONE (19:00)
[2022-08-13] MEDS: SODIUM CHLORIDE 0.9% 1000ML 1,000 ML IV SCH (19:22)
[2022-08-13] MEDS: POTASSIUM CHLORIDE / WTR 10 MEQ/100 ML PLCT IV SCH ×2 (19:25→20:59)
[2022-08-13] MEDS ORDERED: Ativan IV Alcohol Withdrawal--Active Protocol IV PRN (20:54)
[2022-08-13] MEDS ORDERED: GABAPENTIN 1200MG ALCOHOL WITHDRAWAL LOAD PO STA (20:54)
[2022-08-13] MEDS ORDERED: LORazepam 2 MG/1 ML VIAL IV PRN (20:54)
[2022-08-13] MEDS ORDERED: GABAPENTIN 600 MG TAB PO ONE (20:54)
[2022-08-13] MEDS: KETOROLAC TROMETHAMINE 15 MG/ML VIAL IV PRN (20:56)
[2022-08-13] MEDS: ONDANSETRON INJ 2 MG/ML 2 ML VIAL IV PRN (20:56)
[2022-08-13] MEDS: NICOTINE 14 MG/24 HR PATCH TD SCH (21:17)
[2022-08-13] MEDS: FOLIC ACID 400 MCG TAB PO SCH (21:18)
[2022-08-13] MEDS: LORazepam 2 MG/1 ML VIAL IV PRN (21:18)
[2022-08-13] MEDS: THIAMINE HCL 100 MG TAB PO SCH (21:19)
[2022-08-13] MEDS: MULTIVITAMIN TAB PO SCH (21:19)
[2022-08-14] MEDS: ONDANSETRON INJ 2 MG/ML 2 ML VIAL IV PRN ×2 (02:15→06:15)
[2022-08-14] MEDS: SODIUM CHLORIDE 0.9% 1000ML 1,000 ML IV SCH ×3 (02:15→19:24)
[2022-08-14] MEDS: LORazepam 2 MG/1 ML VIAL IV PRN ×3 (02:29→20:19)
[2022-08-14] MEDS ORDERED: GABAPENTIN 600 MG TAB PO SCH ×2 (06:00→22:00)
[2022-08-14] MEDS: KETOROLAC TROMETHAMINE 15 MG/ML VIAL IV PRN ×2 (06:12→16:33)
[2022-08-14 08:17] LABS: Anion Gap 12 (3-11); BUN Creatinine Ratio 11.1 (10-20); Blood Urea Nitrogen 4 mg/dl (6-23); Calcium 8.2 mg/dl (8.6-10.3); Carbon Dioxide 20 mmol/L (21-32); Chloride 103 mmol/L (98-107); Creatinine Clr Calc Pharmacy 214.4 ml/min; Est GFR (African American) > 150.0 ml/min; Glucose 72 mg/dl (70-99(Fasting)); Magnesium 1.5 mg/dl (1.7-2.4); Potassium 2.8 mmol/L (3.5-5.1); Sodium 135 mmol/L (136-145)
[2022-08-14 08:25] LABS: Albumin Level 3.7 gm/dl (3.4-5.0); Bilirubin Direct 0.3 mg/dl (0-0.2); Hematocrit (blood only) 29.3 % (37.0-47.0); Hemoglobin 10.6 g/dl (12.0-16.0); Mean Corpuscular Hemoglobin 36.2 pg (25.0-34.0); Mean Corpuscular Hgb Conc 36.2 g/dL (32.0-36.0); Mean Platelet Volume 11.1 fL (9.4-12.4); Phosphorus 1.5 mg/dl (2.5-4.9); Platelet Count 108 K/uL (130-400); RDW Coefficient of Variation 13.6 % (11.5-14.5); RDW Standard Deviation 49.8 fL (36.4-46.3); Red Blood Count 2.93 M/uL (4.20-5.40); Total Protein 6.2 gm/dl (6.0-8.3); White Blood Count 4.53 K/ul (4.8-10.8)
[2022-08-14] MEDS: FOLIC ACID 400 MCG TAB PO SCH (08:27)
[2022-08-14] MEDS: THIAMINE HCL 100 MG TAB PO SCH (08:27)
[2022-08-14] MEDS: MULTIVITAMIN TAB PO SCH (08:28)
[2022-08-14] MEDS ORDERED: POTASSIUM PHOS 3 MMOL/1 ML INFUSION IV STA (08:55)
[2022-08-14] MEDS ORDERED: diazePAM 5 MG TABLET PO SCH (09:00)
[2022-08-14] MEDS: MoRPHine SULFATE 2 MG/ML CARP IV PRN ×3 (09:24→23:04)
[2022-08-14] MEDS ORDERED: POTASSIUM PHOSPHATE 30 MMOL in SODIUM CHLORIDE 0.9% 500 ML IV ONE (09:30)
[2022-08-14] MEDS: MAGNESIUM SULFATE / D5W 1 GM/100 ML BAG IV SCH ×4 (09:31→16:32)
--- NOTE | 2022-08-14 13:26 | Hospitalist Progress Note ---
Date of Service August 14, 2022 Assessment & Plan (1) Alcoholic pancreatitis: (2) Hypokalemia: (3) Hypomagnesemia: Plan: Patient is a 41-year-old female with history of alcohol use disorder presents to the hospital with nausea vomiting and epigastric pain CT of the abdomen pelvis from admission reviewed;acute pancreatitis, hepatomegaly Lipase elevated Lactate elevated to 3; down trended to 1.5 after fluid resuscitation Labs reviewed from today; decrease in hematocrit and platelet count Potassium of 2.8, phosphorus of 1.5 and magnesium of 1.5. EKG reviewed personally; sinus tachycardia; QTc elevated. Continue IV fluids with normal saline Start clear liquid diet and advance as tolerated Ordered electrolytes replacement Pain control Input and output monitoring (4) UTI (urinary tract infection): Plan: History of E. coli sepsis in May - June 2022 Urinalysis suggestive of infection Currently on empiric treatment. will follow-up on urine culture and blood culture results (5) Alcohol withdrawal: Plan: History of alcohol use disorder. Reports tremors and occasional hallucination Currently on alcohol withdrawal protocol. Will start scheduled Valium 5 mg every 6 hours. Needs to be held if patient is lethargic. (6) Tobacco use: Plan: -Cessation encouraged at bedside, nicotine patch 14 mcg ordered DVT PPx: - teds, scds CODE: Full code Dispo: Continues to be hospitalized due to acute pancreatitis and ongoing alcohol withdrawal Time spent evaluating patient, direct bedside care, chart review, placing orders, interpretation of diagnostic studies, discussion with consultants, patient, and family members, as well as other required patient management activities is 60 minutes Please note the above document was generated using voice recognition software. It may contain grammatical, syntax or spelling errors. Any formal questions or concerns about the content, text or information contained within the body of this dictation should be directly addressed to the provider for clarification Admission and Anticipated Discharge Date Admission Date: August 13, 2022 Subjective Patient seen and examined at bedside. She continues to report severe epigastric pain. Also reports tremors and hallucinations. Review of Systems Review of Systems: All systems reviewed & are unremarkable except as noted in Subjective Physical Exam Physical Exam: Constitutional: Awake, alert orient x3. Appears lethargic Respiratory: normal respiratory effort, lungs clear to auscultation, no wheeze, rales, rhonchi. Normal insp/exp effort, no accessory muscle use Cardiovascular: RRR, no murmur, no edema Vessels: no JVD or carotid bruit Chest: normal inspection of chest Abdomen: Tenderness present in epigastric region. Musculoskeletal: no cyanosis or clubbing, extremities motor strength 5/5 Skin: no rashes, warm and dry normal turgor Neurologic: PERRL, EOMI, accommodation nl, no face palsy, no dysarthria CN's II- XI intact bilaterally and moves all extremities Psychiatric: A+Ox3, euthymic affect Results & Data Results & Data Vital Signs (Past 12 Hours) Vital Signs Temp Pulse Pulse Resp BP BP Pulse Ox 08/14/22 12:01 37.1 C 102 H 16 118/84 93 08/14/22 07:00 120 H 08/14/22 09:50 36.7 C 124 H 18 134/90 96 08/14/22 07:50 37.6 C H 107 H 20 121/86 96 08/14/22 03:05 36.5 C 110 H 18 136/94 97 O2 Del Method 08/14/22 12:01 Room Air 08/14/22 07:00 08/14/22 09:50 Room Air 08/14/22 07:50 Room Air 08/14/22 03:05 Room Air Laboratory Results Laboratory Results WBC 4.53 K/ul (4.8-10.8) L D 08/14/22 07:32 RBC 2.93 M/uL (4.20-5.40) L 08/14/22 07:32 Hgb 10.6 g/dl (12.0-16.0) L D 08/14/22 07:32 POC Hgb 14.6 g/dl (12.0-16.0) 08/13/22 13:42 Hct 29.3 % (37.0-47.0) L 08/14/22 07:32 POC Hct 43 % (37-47) 08/13/22 13:42 MCV 100.0 fL (80.0-100.0) 08/14/22 07:32 MCH 36.2 pg (25.0-34.0) H 08/14/22 07:32 MCHC 36.2 g/dL (32.0-36.0) H 08/14/22 07:32 RDW Std Deviation 49.8 fL (36.4-46.3) H 08/14/22 07:32 RDW Coeff of Ralph 13.6 % (11.5-14.5) 08/14/22 07:32 Plt Count 108 K/uL (130-400) L D 08/14/22 07:32 MPV 11.1 fL (9.4-12.4) 08/14/22 07:32 Immature Gran % (Auto) 0.2 % 08/13/22 12:58 Neut % (Auto) 82.3 % 08/13/22 12:58 Lymph % (Auto) 12.0 % 08/13/22 12:58 [place] % (Auto) 3.2 % 08/13/22 12:58 Eos % (Auto) 1.9 % 08/13/22 12:58 Baso % (Auto) 0.4 % 08/13/22 12:58 Neut # (Auto) 8.48 K/uL (1.40-6.50) H 08/13/22 12:58 Lymph # (Auto) 1.24 K/uL (1.2-3.4) 08/13/22 12:58 [place] # (Auto) 0.33 K/uL (0.11-0.59) 08/13/22 12:58 Eos # (Auto) 0.20 K/uL (0-0.50) 08/13/22 12:58 Baso # (Auto) 0.04 K/uL (0-0.2) 08/13/22 12:58 Immature Gran # (Auto) 0.02 K/uL (0.01-0.20) 08/13/22 12:58 PT 10.3 Seconds (9.0-12.0) 08/13/22 12:58 INR 0.9 (0.9-1.1) 08/13/22 12:58 APTT 26.8 Seconds (21.0-31.0) 08/13/22 12:58 PTT Ratio 1.0 08/13/22 12:58 POC Sodium 134 mmol/L (135-144) L 08/13/22 13:42 Sodium 135 mmol/L (136-145) L 08/14/22 07:32 POC Potassium 3.4 mmol/L (3.3-5.0) 08/13/22 13:42 Potassium 2.8 mmol/L (3.5-5.1) L 08/14/22 07:32 POC Chloride 99 mmol/L (101-112) L 08/13/22 13:42 Chloride 103 mmol/L (98-107) 08/14/22 07:32 Carbon Dioxide 20 mmol/L (21-32) L 08/14/22 07:32 POC Total CO2 18 mmol/L (24-31) L 08/13/22 13:42 Anion Gap 12 (3-11) H 08/14/22 07:32 POC Anion Gap 21.0 mmol/L (16-25) 08/13/22 13:42 POC BUN < 3 mg/dl (7-18) L 08/13/22 13:42 BUN 4 mg/dl (6-23) L 08/14/22 07:32 Creatinine 0.36 mg/dl (0.6-1.2) L 08/14/22 07:32 POC Creatinine 0.3 mg/dl (0.6-1.3) L 08/13/22 13:42 Est Cr Clr Drug Dosing 214.4 ml/min 08/14/22 07:32 Est GFR ( Amer) > 150.0 ml/min 08/14/22 07:32 Est GFR (Non-Af Amer) 133.0 ml/min 08/14/22 07:32 BUN/Creatinine Ratio 11.1 (10-20) 08/14/22 07:32 Glucose 72 mg/dl (70-99(Fasting)) 08/14/22 07:32 POC Glucose (other) 103 mg/dl (70-99) H 08/13/22 13:42 Lactate 1.5 mmol/L (0.4-2.0) 08/13/22 15:23 Calcium 8.2 mg/dl (8.6-10.3) L 08/14/22 07:32 POC Ioniz Calcium [place] 1.08 mmol/l (1.12-1.32) L 08/13/22 13:42 Phosphorus 1.5 mg/dl (2.5-4.9) L* 08/14/22 07:32 Magnesium 1.5 mg/dl (1.7-2.4) L 08/14/22 07:32 Total Bilirubin 1.0 mg/dl (0.2-1.0) D 08/14/22 07:32 Direct Bilirubin 0.3 mg/dl (0-0.2) H 08/14/22 07:32 AST 65 U/L (13-39) H 08/14/22 07:32 ALT 22 U/L (7-52) 08/14/22 07:32 Alkaline Phosphatase 110 U/L (34-104) H 08/14/22 07:32 Total Protein 6.2 gm/dl (6.0-8.3) D 08/14/22 07:32 Albumin 3.7 gm/dl (3.4-5.0) 08/14/22 07:32 Globulin 4.0 gm/dl (2.5-4.0) 08/13/22 12:58 Albumin/Globulin Ratio 1.3 (0.9-2) 08/13/22 12:58 Lipase 1189 U/L (11-82) H 08/13/22 12:58 Procalcitonin 0.08 ng/ml (0-0.5) 08/13/22 12:58 Urine Color [place] 08/13/22 12:58 Urine Appearance Cloudy (Clear) A 08/13/22 12:58 Urine pH 6.0 (4.5-7.5) 08/13/22 12:58 Ur Specific [place] 1.024 (1.000-1.030) 08/13/22 12:58 Urine Protein 3+ (Negative) H 08/13/22 12:58 Urine Glucose (UA) Negative (Negative) 08/13/22 12:58 Urine Ketones 4+ (Negative) H 08/13/22 12:58 Urine Blood 1+ (Negative) H 08/13/22 12:58 Urine Nitrite Positive (Negative) A 08/13/22 12:58 Urine Bilirubin 2+ (Negative) H 08/13/22 12:58 Urine Urobilinogen Negative (Negative) 08/13/22 12:58 Ur Leukocyte Esterase Trace (Negative) H 08/13/22 12:58 Urine WBC (Auto) 1-5 /hpf (0-5) 08/13/22 12:58 Urine RBC (Auto) 5-10 /hpf (0-4) H 08/13/22 12:58 U Hyaline Cast (Auto) 5-10 /lpf (0-5) H 08/13/22 12:58 U Epithel Cells (Auto) >30 /lpf (0-5) H 08/13/22 12:58 Urine Bacteria (Auto) 1+ (Negative) H 08/13/22 12:58 Ur Renal Epithelial Cell Not Reportable 08/13/22 12:58 Urine Mucus Present (None Prsent) A 08/13/22 12:58 Urine Test Negative (Negative) 08/13/22 12:58 Urine Opiates Screen Neg (Neg) 08/13/22 12:58 Ur Methadone, Qual Neg (Neg) 08/13/22 12:58 Urine Barbiturates Neg (Neg) 08/13/22 12:58 Ur Phencyclidine (PCP) Neg (Neg) 08/13/22 12:58 U Amphetamin/Meth Scrn Neg (Neg) 08/13/22 12:58 MDMA (Ecstasy) Screen Neg (Neg) 08/13/22 12:58 U Benzodiazepines Scrn Neg (Neg) 08/13/22 12:58 Ur Cocaine Metabolite Neg (Neg) 08/13/22 12:58 U Marijuana (THC) Screen Pos (Neg) H 08/13/22 12:58 SARS-CoV-2, RNA, NAAT NEGATIVE (NEGATIVE) 08/13/22 14:52 Impressions Chest X-Ray 08/13/22 13:10 XR chest 1V portable HISTORY: 41 years-old Female Sepsis acute sepsis COMPARISON: 06/05/2022 TECHNIQUE: AP view the chest FINDINGS: Bilateral nipple jewelry with saline breast implants. Mild right hemidiaphragmatic elevation. There is no pneumothorax, pleural effusion, airspace consolidation or pulmonary edema. Bones of the chest appear grossly intact. IMPRESSION: No acute process. ACT 112: Negative or not required by law. The above report was generated using voice recognition software. It may contain grammatical, syntax or spelling errors. Electronically signed by: Master Caldera M.D. 08/13/2022 1:40 PM Abdomen/Pelvis CT 08/13/22 13:23 CT SCAN OF THE ABDOMEN AND PELVIS WITH IV CONTRAST CLINICAL HISTORY: Epigastric pain. Left flank pain. COMPARISON STUDY: Abdominal CT dated 06/05/2022. TECHNIQUE: Following the IV administration of 95 cc of Optiray 320, CT scan of the abdomen and pelvis is performed from the lung bases to the proximal femora. Images are reviewed in the axial, sagittal, and coronal planes. IV contrast was administered without complication. A dose lowering technique was utilized adhering to the principles of ALARA. CT DOSE: 792.21 mGy.cm FINDINGS: Lung bases: The heart is normal in size and without pericardial effusion. The lung bases are clear. Bilateral breast implants are partially imaged. Bilateral nipple piercings are noted on the pan washer tomogram. Liver: The contrast-enhanced liver is enlarged, measuring 22 cm in length. The liver demonstrates diffusely diminished attenuation indicating steatosis. Fatty sparing is seen adjacent to the gallbladder fossa. There is no intrahepatic biliary ductal dilatation. The hepatic veins and portal veins are patent. Gallbladder: The gallbladder is mildly distended but otherwise normal in appearance. Spleen: Normal in size and attenuation. Pancreas: There is peripancreatic inflammation and fluid. The pancreas is edematous, and the appearance is consistent with acute pancreatitis. The gland enhances throughout. The duct is normal in caliber. The splenic vein is patent. No organized peripancreatic fluid collection is seen. Adrenal glands: Unremarkable. Kidneys: The contrast enhanced kidneys are normal in size and without hydronephrosis. The kidneys enhance symmetrically. Abdominal vasculature: The abdominal aorta is normal in course and caliber. Bowel: There is no bowel obstruction. Mild wall thickening is seen throughout the colon with mild surrounding infiltration. The appearance suggests a nonspecific colitis. The appendix is well-visualized and normal. Peritoneum: There is no intraperitoneal free air or abdominal ascites. There is a fat-containing umbilical hernia. A navel piercing is in place. Lymphadenopathy: None. Pelvic viscera: The bladder is decompressed and not well assessed. The uterus and adnexa are normal as visualized noted small ovarian follicles. Skeletal structures: No lytic or blastic lesions are seen. IMPRESSION: 1. Acute pancreatitis. Correlate with clinical and laboratory findings. 2. The gland enhances throughout. No organized peripancreatic fluid collection is identified. 3. Hepatomegaly and severe hepatic steatosis. 4. Findings suggest a mild nonspecific colitis. Correlate clinically. 5. Additional findings as above. ACT 112: Negative or not required by law. Electronically signed by: Michael Jeffrey M.D. 08/13/2022 2:31 PM (4) UTI (urinary tract infection) Hematuria presence: without hematuria Urinary tract infection type: site unspecified Qualified Code(s): N39.0 - Urinary tract infection, site not specified
[2022-08-14] MEDS: oxyCODONE HCL IR 5 MG TAB (IMMEDIATE RELEASE) PO PRN ×2 (13:27→20:19)
[2022-08-14] MEDS ORDERED: Nursing to Pharmacy Communication SCH (13:45)
[2022-08-14] MEDS: cefTRIAXone SODIUM 1,000 MG in DEXTROSE 5% AD-VAN 50 ML IV SCH (14:26)
[2022-08-14] MEDS ORDERED: POTASSIUM CHLORIDE CRTAB 20 MEQ TABCR PO ONE (15:00)
[2022-08-14] MEDS: diazePAM 5 MG TABLET PO SCH ×2 (18:35→23:04)
[2022-08-14] MEDS: NICOTINE 14 MG/24 HR PATCH TD SCH (18:37)
[2022-08-15] MEDS: LORazepam 2 MG/1 ML VIAL IV PRN ×6 (00:02→18:11)
[2022-08-15] MEDS: ACETAMINOPHEN 325 MG TAB PO PRN ×4 (00:02→13:54)
[2022-08-15] MEDS: SODIUM CHLORIDE 0.9% 1000ML 1,000 ML IV SCH ×3 (02:47→19:19)
[2022-08-15] MEDS: KETOROLAC TROMETHAMINE 15 MG/ML VIAL IV PRN ×3 (02:47→17:39)
[2022-08-15] MEDS: diazePAM 5 MG TABLET PO SCH ×5 (05:19→23:01)
[2022-08-15 06:58] LABS: Anion Gap 6 (3-11); BUN Creatinine Ratio 5.6 (10-20); Blood Urea Nitrogen 2 mg/dl (6-23); Calcium 7.9 mg/dl (8.6-10.3); Carbon Dioxide 25 mmol/L (21-32); Chloride 108 mmol/L (98-107); Creatinine Clr Calc Pharmacy 214.4 ml/min; Est GFR (African American) > 150.0 ml/min; Glucose 111 mg/dl (70-99(Fasting)); Magnesium 1.8 mg/dl (1.7-2.4); Phosphorus 2.5 mg/dl (2.5-4.9); Sodium 139 mmol/L (136-145)
[2022-08-15 07:02] LABS: Basophils # (auto) 0.02 K/uL (0-0.2); Basophils % (auto) 0.6 %; Eosinophils # (auto) 0.36 K/uL (0-0.50); Eosinophils % (auto) 10.5 %; Hematocrit (blood only) 28.7 % (37.0-47.0); Hemoglobin 10.4 g/dl (12.0-16.0); Immature Granulocytes # (auto) 0.01 K/uL (0.01-0.20); Immature Granulocytes % (auto) 0.3 %; Lymphocytes # (auto) 1.07 K/uL (1.2-3.4); Lymphocytes % (auto) 31.2 %; Mean Corpuscular Hemoglobin 36.6 pg (25.0-34.0); Mean Corpuscular Hgb Conc 36.2 g/dL (32.0-36.0); Mean Corpuscular Volume 101.1 fL (80.0-100.0); Mean Platelet Volume 11.3 fL (9.4-12.4); Monocytes # (auto) 0.16 K/uL (0.11-0.59); Monocytes % (auto) 4.7 %; Neutrophils # (auto) 1.81 K/uL (1.40-6.50); Neutrophils % (auto) 52.7 %; Platelet Count 119 K/uL (130-400); RDW Standard Deviation 51.1 fL (36.4-46.3); Red Blood Count 2.84 M/uL (4.20-5.40); White Blood Count 3.43 K/ul (4.8-10.8)
[2022-08-15] MEDS: POTASSIUM CHLORIDE / WTR 10 MEQ/100 ML PLCT IV SCH ×4 (07:52→11:28)
[2022-08-15] MEDS: oxyCODONE HCL IR 5 MG TAB (IMMEDIATE RELEASE) PO PRN ×3 (07:56→22:27)
[2022-08-15] MEDS: MoRPHine SULFATE 2 MG/ML CARP IV PRN ×3 (08:45→19:25)
[2022-08-15] MEDS: THIAMINE HCL 100 MG TAB PO SCH (10:04)
[2022-08-15] MEDS: FOLIC ACID 400 MCG TAB PO SCH (10:04)
[2022-08-15] MEDS: MULTIVITAMIN TAB PO SCH (10:04)
--- NOTE | 2022-08-15 11:31 | Hospitalist Progress Note ---
Date of Service August 15, 2022 Assessment & Plan (1) Alcoholic pancreatitis: (2) Hypokalemia: (3) Hypomagnesemia: Plan: Patient is a 41-year-old female with history of alcohol use disorder presents to the hospital with nausea vomiting and epigastric pain CT of the abdomen pelvis from admission reviewed;acute pancreatitis, hepatomegaly Lipase elevated Lactate elevated to 3; down trended to 1.5 after fluid resuscitation Labs reviewed from today; hemoglobin is stabilized after initial drop. Potassium of 3.0. Phosphorus and magnesium within normal limits. EKG reviewed personally; sinus tachycardia; QTc elevated. Continue IV fluids with normal saline Advance diet as tolerated Ordered electrolytes replacement Pain control Input and output monitoring (4) UTI (urinary tract infection): Plan: History of E. coli sepsis in May - June 2022 Urinalysis suggestive of infection Currently on empiric treatment. Blood culture no growth till date Urine culture to be repeated again (5) Alcohol withdrawal: Plan: History of alcohol use disorder. Reports tremors and occasional hallucination Currently on alcohol withdrawal protocol. Continue on scheduled Valium 5 mg every 6 hours. Needs to be held if patient is lethargic. (6) Tobacco use: Plan: -Cessation encouraged at bedside, nicotine patch 14 mcg ordered DVT PPx: Lovenox CODE: Full code Dispo: Continues to be hospitalized due to acute pancreatitis and ongoing alcohol withdrawal Time spent evaluating patient, direct bedside care, chart review, placing orders, interpretation of diagnostic studies, discussion with consultants, patient, and family members, as well as other required patient management activities is 60 minutes Please note the above document was generated using voice recognition software. It may contain grammatical, syntax or spelling errors. Any formal questions or concerns about the content, text or information contained within the body of this dictation should be directly addressed to the provider for clarification Admission and Anticipated Discharge Date Admission Date: August 13, 2022 Subjective Patient seen and examined at bedside. She is lying in the bed comfortably; reports abdominal pain. Reports symptoms of withdrawal with tremors and increased sweating. Reports that Valium and Ativan is helping her. Review of Systems Review of Systems: All systems reviewed & are unremarkable except as noted in Subjective Physical Exam Physical Exam: Constitutional: Awake, alert orient x3. Appears lethargic Respiratory: normal respiratory effort, lungs clear to auscultation, no wheeze, rales, rhonchi. Normal insp/exp effort, no accessory muscle use Cardiovascular: RRR, no murmur, no edema Vessels: no JVD or carotid bruit Chest: normal inspection of chest Abdomen: Tenderness present in epigastric region. Musculoskeletal: no cyanosis or clubbing, extremities motor strength 5/5 Skin: no rashes, warm and dry normal turgor Neurologic: PERRL, EOMI, accommodation nl, no face palsy, no dysarthria CN's II- XI intact bilaterally and moves all extremities Psychiatric: A+Ox3, euthymic affect Results & Data Results & Data Vital Signs (Past 12 Hours) Vital Signs Temp Pulse Pulse Resp BP Pulse Ox O2 Del Method 08/15/22 11:15 37.5 C 99 H 18 124/89 97 Room Air 08/15/22 06:00 109 H 08/15/22 07:27 37.3 C 97 H 20 116/81 97 Room Air 08/15/22 03:00 38 C H 103 H 18 123/83 96 Room Air 08/15/22 00:56 37.0 C 111 H 18 137/87 95 Room Air Laboratory Results Laboratory Results WBC 3.43 K/ul (4.8-10.8) L 08/15/22 06: RBC 2.84 M/uL (4.20-5.40) L 08/15/22 06: Hgb 10.4 g/dl (12.0-16.0) L 08/15/22: POC Hgb 14.6 g/dl (12.0-16.0) 08/13/22 13:42 Hct 28.7 % (37.0-47.0) L 08/15/22: POC Hct 43 % (37-47) 08/13/22 13:42 MCV 101.1 fL (80.0-100.0) H 08/15/22: MCH 36.6 pg (25.0-34.0) H 08/15/22: MCHC 36.2 g/dL (32.0-36.0) H 08/15/22: RDW Std Deviation 51.1 fL (36.4-46.3) H 08/15/22: RDW Coeff of Ralph 14.0 % (11.5-14.5) 08/15/22: Plt Count 119 K/uL (130-400) L 08/15/22 06: MPV 11.3 fL (9.4-12.4) 08/15/22 06: Immature Gran % (Auto) 0.3 % 08/15/22: Neut % (Auto) 52.7 % 08/15/22 06: Lymph % (Auto) 31.2 % 08/15/22: [place] % (Auto) 4.7 % 08/15/22: Eos % (Auto) 10.5 % 08/15/22: Baso % (Auto) 0.6 % 08/15/22: Neut # (Auto) 1.81 K/uL (1.40-6.50) 08/15/22: Lymph # (Auto) 1.07 K/uL (1.2-3.4) L 08/15/22: [place] # (Auto) 0.16 K/uL (0.11-0.59) 08/15/22: Eos # (Auto) 0.36 K/uL (0-0.50) 08/15/22: Baso # (Auto) 0.02 K/uL (0-0.2) 08/15/22: Immature Gran # (Auto) 0.01 K/uL (0.01-0.20) 08/15/22: PT 10.3 Seconds (9.0-12.0) 08/13/22 12:58 INR 0.9 (0.9-1.1) 08/13/22 12:58 APTT 26.8 Seconds (21.0-31.0) 08/13/22 12:58 PTT Ratio 1.0 08/13/22 12:58 POC Sodium 134 mmol/L (135-144) L 08/13/22 13:42 Sodium 139 mmol/L (136-145) 08/15/22 06: POC Potassium 3.4 mmol/L (3.3-5.0) 08/13/22 13:42 Potassium 3.0 mmol/L (3.5-5.1) L 08/15/22 06: POC Chloride 99 mmol/L (101-112) L 08/13/22 13:42 Chloride 108 mmol/L (98-107) H 08/15/22 06:23 Carbon Dioxide 25 mmol/L (21-32) 08/15/22 06:23 POC Total CO2 18 mmol/L (24-31) L 08/13/22 13:42 Anion Gap 6 (3-11) 08/15/22 06:23 POC Anion Gap 21.0 mmol/L (16-25) 08/13/22 13:42 POC BUN < 3 mg/dl (7-18) L 08/13/22 13:42 BUN 2 mg/dl (6-23) L 08/15/22 06:23 Creatinine 0.36 mg/dl (0.6-1.2) L 08/15/22 06: POC Creatinine 0.3 mg/dl (0.6-1.3) L 08/13/22 13:42 Est Cr Clr Drug Dosing 214.4 ml/min 08/15/22 06:23 Est GFR ( Amer) > 150.0 ml/min 08/15/22 06:23 Est GFR (Non-Af Amer) 133.0 ml/min 08/15/22 06:23 BUN/Creatinine Ratio 5.6 (10-20) L 08/15/22 06:23 Glucose 111 mg/dl (70-99(Fasting)) H 08/15/22 06:23 POC Glucose (other) 103 mg/dl (70-99) H 08/13/22 13:42 Lactate 1.5 mmol/L (0.4-2.0) 08/13/22 15:23 Calcium 7.9 mg/dl (8.6-10.3) L 08/15/22 06:23 POC Ioniz Calcium [place]i 1.08 mmol/l (1.12-1.32) L 08/13/22 13:42 Phosphorus 2.5 mg/dl (2.5-4.9) D 08/15/22 06:23 Magnesium 1.8 mg/dl (1.7-2.4) 08/15/22 06:23 Total Bilirubin 1.0 mg/dl (0.2-1.0) D 08/14/22 07:32 Direct Bilirubin 0.3 mg/dl (0-0.2) H 08/14/22 07:32 AST 65 U/L (13-39) H 08/14/22 07:32 ALT 22 U/L (7-52) 08/14/22 07:32 Alkaline Phosphatase 110 U/L (34-104) H 08/14/22 07:32 Total Protein 6.2 gm/dl (6.0-8.3) D 08/14/22 07:32 Albumin 3.7 gm/dl (3.4-5.0) 08/14/22 07:32 Globulin 4.0 gm/dl (2.5-4.0) 08/13/22 12:58 Albumin/Globulin Ratio 1.3 (0.9-2) 08/13/22 12:58 Lipase 1189 U/L (11-82) H 08/13/22 12:58 Procalcitonin 0.08 ng/ml (0-0.5) 08/13/22 12:58 Urine Color [place] 08/13/22 12:58 Urine Appearance Cloudy (Clear) A 08/13/22 12:58 Urine pH 6.0 (4.5-7.5) 08/13/22 12:58 Ur Specific [place] 1.024 (1.000-1.030) 08/13/22 12:58 Urine Protein 3+ (Negative) H 08/13/22 12:58 Urine Glucose (UA) Negative (Negative) 08/13/22 12:58 Urine Ketones 4+ (Negative) H 08/13/22 12:58 Urine Blood 1+ (Negative) H 08/13/22 12:58 Urine Nitrite Positive (Negative) A 08/13/22 12:58 Urine Bilirubin 2+ (Negative) H 08/13/22 12:58 Urine Urobilinogen Negative (Negative) 08/13/22 12:58 Ur Leukocyte Esterase Trace (Negative) H 08/13/22 12:58 Urine WBC (Auto) 1-5 /hpf (0-5) 08/13/22 12:58 Urine RBC (Auto) 5-10 /hpf (0-4) H 08/13/22 12:58 U Hyaline Cast (Auto) 5-10 /lpf (0-5) H 08/13/22 12:58 U Epithel Cells (Auto) >30 /lpf (0-5) H 08/13/22 12:58 Urine Bacteria (Auto) 1+ (Negative) H 08/13/22 12:58 Ur Renal Epithelial Cell Not Reportable 08/13/22 12:58 Urine Mucus Present (None Prsent) A 08/13/22 12:58 Urine Test Negative (Negative) 08/13/22 12:58 Urine Opiates Screen Neg (Neg) 08/13/22 12:58 Ur Methadone, Qual Neg (Neg) 08/13/22 12:58 Urine Barbiturates Neg (Neg) 08/13/22 12:58 Ur Phencyclidine (PCP) Neg (Neg) 08/13/22 12:58 U Amphetamin/Meth Scrn Neg (Neg) 08/13/22 12:58 MDMA (Ecstasy) Screen Neg (Neg) 08/13/22 12:58 U Benzodiazepines Scrn Neg (Neg) 08/13/22 12:58 Ur Cocaine Metabolite Neg (Neg) 08/13/22 12:58 U Marijuana (THC) Screen Pos (Neg) H 08/13/22 12:58 SARS-CoV-2, RNA, NAAT NEGATIVE (NEGATIVE) 08/13/22 14:52 Impressions Chest X-Ray 08/13/22 13:10 XR chest 1V portable HISTORY: 41 years-old Female Sepsis acute sepsis COMPARISON: 06/05/2022 TECHNIQUE: AP view the chest FINDINGS: Bilateral nipple jewelry with saline breast implants. Mild right hemidiaphragmatic elevation. There is no pneumothorax, pleural effusion, airspace consolidation or pulmonary edema. Bones of the chest appear grossly intact. IMPRESSION: No acute process. ACT 112: Negative or not required by law. The above report was generated using voice recognition software. It may contain grammatical, syntax or spelling errors. Electronically signed by: Master Caldera M.D. 08/13/2022 1:40 PM Abdomen/Pelvis CT 08/13/22 13:23 CT SCAN OF THE ABDOMEN AND PELVIS WITH IV CONTRAST CLINICAL HISTORY: Epigastric pain. Left flank pain. COMPARISON STUDY: Abdominal CT dated 06/05/2022. TECHNIQUE: Following the IV administration of 95 cc of Optiray 320, CT scan of the abdomen and pelvis is performed from the lung bases to the proximal femora. Images are reviewed in the axial, sagittal, and coronal planes. IV contrast was administered without complication. A dose lowering technique was utilized adhering to the principles of ALARA. CT DOSE: 792.21 mGy.cm FINDINGS: Lung bases: The heart is normal in size and without pericardial effusion. The lung bases are clear. Bilateral breast implants are partially imaged. Bilateral nipple piercings are noted on the immigration case manager tomogram. Liver: The contrast-enhanced liver is enlarged, measuring 22 cm in length. The liver demonstrates diffusely diminished attenuation indicating steatosis. Fatty sparing is seen adjacent to the gallbladder fossa. There is no intrahepatic biliary ductal dilatation. The hepatic veins and portal veins are patent. Gallbladder: The gallbladder is mildly distended but otherwise normal in appearance. Spleen: Normal in size and attenuation. Pancreas: There is peripancreatic inflammation and fluid. The pancreas is edematous, and the appearance is consistent with acute pancreatitis. The gland enhances throughout. The duct is normal in caliber. The splenic vein is patent. No organized peripancreatic fluid collection is seen. Adrenal glands: Unremarkable. Kidneys: The contrast enhanced kidneys are normal in size and without hydronephrosis. The kidneys enhance symmetrically. Abdominal vasculature: The abdominal aorta is normal in course and caliber. Bowel: There is no bowel obstruction. Mild wall thickening is seen throughout the colon with mild surrounding infiltration. The appearance suggests a nonspecific colitis. The appendix is well-visualized and normal. Peritoneum: There is no intraperitoneal free air or abdominal ascites. There is a fat-containing umbilical hernia. A navel piercing is in place. Lymphadenopathy: None. Pelvic viscera: The bladder is decompressed and not well assessed. The uterus and adnexa are normal as visualized noted small ovarian follicles. Skeletal structures: No lytic or blastic lesions are seen. IMPRESSION: 1. Acute pancreatitis. Correlate with clinical and laboratory findings. 2. The gland enhances throughout. No organized peripancreatic fluid collection is identified. 3. Hepatomegaly and severe hepatic steatosis. 4. Findings suggest a mild nonspecific colitis. Correlate clinically. 5. Additional findings as above. ACT 112: Negative or not required by law. Electronically signed by: Michael Jeffrey M.D. 08/13/2022 2:31 PM (4) UTI (urinary tract infection) Hematuria presence: without hematuria Urinary tract infection type: site unspecified Qualified Code(s): N39.0 - Urinary tract infection, site not specified
[2022-08-15 12:23] LABS: HBSAG NON-REACTIVE (NON-REACTIVE); Hepatitis A Antibody IgM NON-REACTIVE (NON-REACTIVE); Hepatitis B Core Antibody IgM NON-REACTIVE (NON-REACTIVE)
[2022-08-15] MEDS: ENOXAPARIN INJ 40 MG/0.4 ML SYR SQ SCH (12:24)
[2022-08-15] MEDS: cefTRIAXone SODIUM 1,000 MG in DEXTROSE 5% AD-VAN 50 ML IV SCH (13:57)
[2022-08-15] MEDS: NICOTINE 14 MG/24 HR PATCH TD SCH (19:16)
--- NOTE | 2022-08-15 22:12 | Electrocardiogram Report ---
Test Reason : Blood Pressure : / mmHG Vent. Rate : 127 BPM Atrial Rate : 127 BPM P-R Int : 136 ms QRS Dur : 104 ms QT Int : 314 ms P-R-T Axes : 000 076 062 degrees QTc Int : 457 ms Sinus tachycardia T wave abnormality, consider anterior ischemia When compared with ECG of 05-JUN-2022 13:00, T wave inversion now evident in Anterior leads Confirmed by Victor Manuel Amaya ([id number]) on 08/15/2022 10:11:53 PM Referred By: Confirmed By:Victor Manuel Amaya
[2022-08-16] MEDS ORDERED: GABAPENTIN 600 MG TAB PO SCH
[2022-08-16] MEDS: LORazepam 2 MG/1 ML VIAL IV PRN ×3 (00:05→20:34)
[2022-08-16] MEDS: MoRPHine SULFATE 2 MG/ML CARP IV PRN ×4 (00:10→19:10)
[2022-08-16] MEDS: SODIUM CHLORIDE 0.9% 1000ML 1,000 ML IV SCH ×2 (02:17→11:29)
[2022-08-16] MEDS: KETOROLAC TROMETHAMINE 15 MG/ML VIAL IV PRN ×3 (03:57→22:56)
[2022-08-16] MEDS: diazePAM 5 MG TABLET PO SCH ×4 (05:28→23:01)
[2022-08-16 07:17] LABS: Hematocrit (blood only) 28.5 % (37.0-47.0); Hemoglobin 10.3 g/dl (12.0-16.0); Mean Corpuscular Hemoglobin 36.4 pg (25.0-34.0); Mean Corpuscular Hgb Conc 36.1 g/dL (32.0-36.0); Mean Corpuscular Volume 100.7 fL (80.0-100.0); Mean Platelet Volume 10.6 fL (9.4-12.4); Platelet Count 132 K/uL (130-400); RDW Coefficient of Variation 14.1 % (11.5-14.5); RDW Standard Deviation 51.5 fL (36.4-46.3); Red Blood Count 2.83 M/uL (4.20-5.40); White Blood Count 2.35 K/ul (4.8-10.8)
[2022-08-16 07:34] LABS: Anion Gap 6 (3-11); Blood Urea Nitrogen < 2 mg/dl (6-23); Calcium 7.8 mg/dl (8.6-10.3); Carbon Dioxide 27 mmol/L (21-32); Chloride 108 mmol/L (98-107); Creatinine Clr Calc Pharmacy 257.2 ml/min; Est GFR (African American) > 150.0 ml/min; Est GFR (Non-African American) 141.2 ml/min; Glucose 96 mg/dl (70-99(Fasting)); Magnesium 1.5 mg/dl (1.7-2.4); Phosphorus 3.9 mg/dl (2.5-4.9); Potassium 2.7 mmol/L (3.5-5.1); Sodium 141 mmol/L (136-145)
[2022-08-16 07:43] LABS: Anisocytosis Present; Hypochromasia Present
[2022-08-16 07:57] LABS: Basophils # (auto) 0.01 K/uL (0-0.2); Basophils % (auto) 0.4 %; Eosinophils # (auto) 0.24 K/uL (0-0.50); Eosinophils % (auto) 10.2 %; Lymphocytes # (auto) 0.99 K/uL (1.2-3.4); Lymphocytes % (auto) 42.1 %; Monocytes # (auto) 0.12 K/uL (0.11-0.59); Monocytes % (auto) 5.1 %; Neutrophils # (auto) 0.99 K/uL (1.40-6.50); Neutrophils % (auto) 42.2 %
[2022-08-16] MEDS ORDERED: POTASSIUM CHLORIDE 20 MEQ/15 ML UDC PO ONE (08:53)
[2022-08-16] MEDS: PROMETHAZINE HCL 6.25 MG in SODIUM CHLORIDE 0.9% 50 ML IV PRN (09:08)
[2022-08-16] MEDS: ENOXAPARIN INJ 40 MG/0.4 ML SYR SQ SCH (09:43)
[2022-08-16] MEDS: FOLIC ACID 400 MCG TAB PO SCH (09:44)
[2022-08-16] MEDS: MULTIVITAMIN TAB PO SCH (09:45)
[2022-08-16] MEDS: THIAMINE HCL 100 MG TAB PO SCH (09:45)
[2022-08-16] MEDS: oxyCODONE HCL IR 5 MG TAB (IMMEDIATE RELEASE) PO PRN ×2 (09:45→17:16)
[2022-08-16] MEDS: MAGNESIUM SULFATE / D5W 1 GM/100 ML BAG IV SCH ×2 (09:51→11:30)
[2022-08-16] MEDS: POTASSIUM CHLORIDE / WTR 10 MEQ/100 ML PLCT IV SCH ×4 (09:51→14:17)
--- NOTE | 2022-08-16 11:06 | Hospitalist Progress Note ---
Date of Service August 16, 2022 Assessment & Plan (1) Alcoholic pancreatitis: (2) Hypokalemia: (3) Hypomagnesemia: Plan: Patient is a 41-year-old female with history of alcohol use disorder presents to the hospital with nausea vomiting and epigastric pain CT of the abdomen pelvis from admission reviewed;acute pancreatitis, hepatomegaly Lipase elevated Lactate elevated to 3; down trended to 1.5 after fluid resuscitation Labs reviewed from today; hemoglobin is stabilized after initial drop. Potassium of 2.7 phosphorus and magnesium within normal limits. EKG reviewed personally; sinus tachycardia; QTc elevated. Continue IV fluids with normal saline Unable to tolerate normal diet; changed to full liquid. Ordered electrolytes replacement Pain control Input and output monitoring (4) UTI (urinary tract infection): Plan: History of E. coli sepsis in May - June 2022 Urinalysis suggestive of infection Currently on empiric treatment. Blood culture no growth till date Urine culture repeated again (5) Alcohol withdrawal: Plan: History of alcohol use disorder. Reports tremors and occasional hallucination Currently on alcohol withdrawal protocol. Continue on scheduled Valium 5 mg every 6 hours. Needs to be held if patient is lethargic. Will taper down after patient shows signs of improvement. (6) Pancytopenia: Plan: Labs reviewed; consistent with pancytopenia. History of vitamin B12 deficiency. Was given supplement last admission. Repeat vitamin B12 levels Monitor counts daily (7) Tobacco use: Plan: -Cessation encouraged at bedside, nicotine patch 14 mcg ordered DVT PPx: Lovenox CODE: Full code Dispo: Continues to be hospitalized due to acute pancreatitis and ongoing alcohol withdrawal Time spent evaluating patient, direct bedside care, chart review, placing orders, interpretation of diagnostic studies, discussion with consultants, patient, and family members, as well as other required patient management activities is 60 minutes Please note the above document was generated using voice recognition software. It may contain grammatical, syntax or spelling errors. Any formal questions or concerns about the content, text or information contained within the body of this dictation should be directly addressed to the provider for clarification Admission and Anticipated Discharge Date Admission Date: August 13, 2022 Subjective Patient seen and examined at bedside. She reports that her abdominal pain has improved compared to previous days. Reports that her hallucination has improved as well and has no longer tremors. Review of Systems Review of Systems: All systems reviewed & are unremarkable except as noted in Subjective Physical Exam Physical Exam: Constitutional: Awake, alert orient x3. Comfortable. Not in distress. Respiratory: normal respiratory effort, lungs clear to auscultation, no wheeze, rales, rhonchi. Normal insp/exp effort, no accessory muscle use Cardiovascular: RRR, no murmur, no edema Vessels: no JVD or carotid bruit Chest: normal inspection of chest Abdomen: Tenderness present in epigastric region. Musculoskeletal: no cyanosis or clubbing, extremities motor strength 5/5 Skin: no rashes, warm and dry normal turgor Neurologic: PERRL, EOMI, accommodation nl, no face palsy, no dysarthria CN's II- XI intact bilaterally and moves all extremities Psychiatric: A+Ox3, euthymic affect Results & Data Results & Data Vital Signs (Past 12 Hours) Vital Signs Temp Pulse Pulse Resp BP Pulse Ox O2 Del Method 08/16/22 10:58 36.7 C 78 18 124/88 97 Room Air 08/16/22 07:21 36.6 C 73 18 132/92 98 Room Air 08/16/22 06:00 75 08/16/22 05:56 36.9 C 79 16 130/91 99 Room Air 08/16/22 04:00 37.1 C 114 H 18 147/88 H 95 Room Air 08/16/22 03:00 37 C 84 18 133/84 98 Room Air Laboratory Results Laboratory Results WBC 2.35 K/ul (4.8-10.8) L 08/16/22 06:59 RBC 2.83 M/uL (4.20-5.40) L 08/16/22 06:59 Hgb 10.3 g/dl (12.0-16.0) L 08/16/22 06:59 POC Hgb 14.6 g/dl (12.0-16.0) 08/13/22 13:42 Hct 28.5 % (37.0-47.0) L 08/16/22 06:59 POC Hct 43 % (37-47) 08/13/22 13:42 MCV 100.7 fL (80.0-100.0) H 08/16/22 06:59 MCH 36.4 pg (25.0-34.0) H 08/16/22 06:59 MCHC 36.1 g/dL (32.0-36.0) H 08/16/22 06:59 RDW Std Deviation 51.5 fL (36.4-46.3) H 08/16/22 06:59 RDW Coeff of Ralph 14.1 % (11.5-14.5) 08/16/22 06:59 Plt Count 132 K/uL (130-400) 08/16/22 06:59 MPV 10.6 fL (9.4-12.4) 08/16/22 06:59 Immature Gran % (Auto) 0.0 % 08/16/22 06:59 Neut % (Auto) 42.2 % 08/16/22 06:59 Lymph % (Auto) 42.1 % 08/16/22 06:59 Mcnairy % (Auto) 5.1 % 08/16/22 06:59 Eos % (Auto) 10.2 % 08/16/22 06:59 Baso % (Auto) 0.4 % 08/16/22 06:59 Neut # (Auto) 0.99 K/uL (1.40-6.50) L* 08/16/22 06:59 Lymph # (Auto) 0.99 K/uL (1.2-3.4) L 08/16/22 06:59 Mcnairy # (Auto) 0.12 K/uL (0.11-0.59) 08/16/22 06:59 Eos # (Auto) 0.24 K/uL (0-0.50) 08/16/22 06:59 Baso # (Auto) 0.01 K/uL (0-0.2) 08/16/22 06:59 Immature Gran # (Auto) 0.00 K/uL (0.01-0.20) L 08/16/22 06:59 Hypochromasia Present 08/16/22 06:59 Anisocytosis Present 08/16/22 06:59 PT 10.3 Seconds (9.0-12.0) 08/13/22 12:58 INR 0.9 (0.9-1.1) 08/13/22 12:58 APTT 26.8 Seconds (21.0-31.0) 08/13/22 12:58 PTT Ratio 1.0 08/13/22 12:58 POC Sodium 134 mmol/L (135-144) L 08/13/22 13:42 Sodium 141 mmol/L (136-145) 08/16/22 06:59 POC Potassium 3.4 mmol/L (3.3-5.0) 08/13/22 13:42 Potassium 2.7 mmol/L (3.5-5.1) L 08/16/22 06:59 POC Chloride 99 mmol/L (101-112) L 08/13/22 13:42 Chloride 108 mmol/L (98-107) H 08/16/22 06:59 Carbon Dioxide 27 mmol/L (21-32) 08/16/22 06:59 POC Total CO2 18 mmol/L (24-31) L 08/13/22 13:42 Anion Gap 6 (3-11) 08/16/22 06:59 POC Anion Gap 21.0 mmol/L (16-25) 08/13/22 13:42 POC BUN < 3 mg/dl (7-18) L 08/13/22 13:42 BUN < 2 mg/dl (6-23) L 08/16/22 06:59 Creatinine 0.30 mg/dl (0.6-1.2) L 08/16/22 06:59 POC Creatinine 0.3 mg/dl (0.6-1.3) L 08/13/22 13:42 Est Cr Clr Drug Dosing 257.2 ml/min 08/16/22 06:59 Est GFR ( Amer) > 150.0 ml/min 08/16/22 06:59 Est GFR (Non-Af Amer) 141.2 ml/min 08/16/22 06:59 BUN/Creatinine Ratio TNP 08/16/22 06:59 Glucose 96 mg/dl (70-99(Fasting)) 08/16/22 06:59 POC Glucose (other) 103 mg/dl (70-99) H 08/13/22 13:42 Lactate 1.5 mmol/L (0.4-2.0) 08/13/22 15:23 Calcium 7.8 mg/dl (8.6-10.3) L 08/16/22 06:59 POC Ioniz Calcium Sabi 1.08 mmol/l (1.12-1.32) L 08/13/22 13:42 Phosphorus 3.9 mg/dl (2.5-4.9) D 08/16/22 06:59 Magnesium 1.5 mg/dl (1.7-2.4) L 08/16/22 06:59 Total Bilirubin 1.0 mg/dl (0.2-1.0) D 08/14/22 07:32 Direct Bilirubin 0.3 mg/dl (0-0.2) H 08/14/22 07:32 AST 65 U/L (13-39) H 08/14/22 07:32 ALT 22 U/L (7-52) 08/14/22 07:32 Alkaline Phosphatase 110 U/L (34-104) H 08/14/22 07:32 Total Protein 6.2 gm/dl (6.0-8.3) D 08/14/22 07:32 Albumin 3.7 gm/dl (3.4-5.0) 08/14/22 07:32 Globulin 4.0 gm/dl (2.5-4.0) 08/13/22 12:58 Albumin/Globulin Ratio 1.3 (0.9-2) 08/13/22 12:58 Lipase 1189 U/L (11-82) H 08/13/22 12:58 Procalcitonin 0.08 ng/ml (0-0.5) 08/13/22 12:58 Urine Color [place] 08/13/22 12:58 Urine Appearance Cloudy (Clear) A 08/13/22 12:58 Urine pH 6.0 (4.5-7.5) 08/13/22 12:58 Ur Specific Greene 1.024 (1.000-1.030) 08/13/22 12:58 Urine Protein 3+ (Negative) H 08/13/22 12:58 Urine Glucose (UA) Negative (Negative) 08/13/22 12:58 Urine Ketones 4+ (Negative) H 08/13/22 12:58 Urine Blood 1+ (Negative) H 08/13/22 12:58 Urine Nitrite Positive (Negative) A 08/13/22 12:58 Urine Bilirubin 2+ (Negative) H 08/13/22 12:58 Urine Urobilinogen Negative (Negative) 08/13/22 12:58 Ur Leukocyte Esterase Trace (Negative) H 08/13/22 12:58 Urine WBC (Auto) 1-5 /hpf (0-5) 08/13/22 12:58 Urine RBC (Auto) 5-10 /hpf (0-4) H 08/13/22 12:58 U Hyaline Cast (Auto) 5-10 /lpf (0-5) H 08/13/22 12:58 U Epithel Cells (Auto) >30 /lpf (0-5) H 08/13/22 12:58 Urine Bacteria (Auto) 1+ (Negative) H 08/13/22 12:58 Ur Renal Epithelial Cell Not Reportable 08/13/22 12:58 Urine Mucus Present (None Prsent) A 08/13/22 12:58 Urine Test Negative (Negative) 08/13/22 12:58 Urine Opiates Screen Neg (Neg) 08/13/22 12:58 Ur Methadone, Qual Neg (Neg) 08/13/22 12:58 Urine Barbiturates Neg (Neg) 08/13/22 12:58 Ur Phencyclidine (PCP) Neg (Neg) 08/13/22 12:58 U Amphetamin/Meth Scrn Neg (Neg) 08/13/22 12:58 MDMA (Ecstasy) Screen Neg (Neg) 08/13/22 12:58 U Benzodiazepines Scrn Neg (Neg) 08/13/22 12:58 Ur Cocaine Metabolite Neg (Neg) 08/13/22 12:58 U Marijuana (THC) Screen Pos (Neg) H 08/13/22 12:58 Hepatitis A IgM Ab NON-REACTIVE (NON-REACTIVE) 08/13/22 19:46 Hep Bs Antigen NON-REACTIVE (NON-REACTIVE) 08/13/22 19:46 Hep Bs Ag Confirmation TNP 08/13/22 19:46 Hep B Core IgM Ab NON-REACTIVE (NON-REACTIVE) 08/13/22 19:46 Hepatitis C Ab (EIA) NON-REACTIVE (NON-REACTIVE) 08/13/22 19:46 Hep C Ab Signal/Cutoff <0.02 (<1.00) 08/13/22 19:46 SARS-CoV-2, RNA, NAAT NEGATIVE (NEGATIVE) 08/13/22 14:52 Impressions Chest X-Ray 08/13/22 13:10 XR chest 1V portable HISTORY: 41 years-old Female Sepsis acute sepsis COMPARISON: 06/05/2022 TECHNIQUE: AP view the chest FINDINGS: Bilateral nipple jewelry with saline breast implants. Mild right hemidiaphragmatic elevation. There is no pneumothorax, pleural effusion, airspace consolidation or pulmonary edema. Bones of the chest appear grossly intact. IMPRESSION: No acute process. ACT 112: Negative or not required by law. The above report was generated using voice recognition software. It may contain grammatical, syntax or spelling errors. Electronically signed by: Master Caldera M.D. 08/13/2022 1:40 PM Abdomen/Pelvis CT 08/13/22 13:23 CT SCAN OF THE ABDOMEN AND PELVIS WITH IV CONTRAST CLINICAL HISTORY: Epigastric pain. Left flank pain. COMPARISON STUDY: Abdominal CT dated 06/05/2022. TECHNIQUE: Following the IV administration of 95 cc of Optiray 320, CT scan of the abdomen and pelvis is performed from the lung bases to the proximal femora. Images are reviewed in the axial, sagittal, and coronal planes. IV contrast was administered without complication. A dose lowering technique was utilized adhering to the principles of ALARA. CT DOSE: 792.21 mGy.cm FINDINGS: Lung bases: The heart is normal in size and without pericardial effusion. The lung bases are clear. Bilateral breast implants are partially imaged. Bilateral nipple piercings are noted on the public accountant tomogram. Liver: The contrast-enhanced liver is enlarged, measuring 22 cm in length. The liver demonstrates diffusely diminished attenuation indicating steatosis. Fatty sparing is seen adjacent to the gallbladder fossa. There is no intrahepatic biliary ductal dilatation. The hepatic veins and portal veins are patent. Gallbladder: The gallbladder is mildly distended but otherwise normal in appearance. Spleen: Normal in size and attenuation. Pancreas: There is peripancreatic inflammation and fluid. The pancreas is edematous, and the appearance is consistent with acute pancreatitis. The gland enhances throughout. The duct is normal in caliber. The splenic vein is patent. No organized peripancreatic fluid collection is seen. Adrenal glands: Unremarkable. Kidneys: The contrast enhanced kidneys are normal in size and without hydronephrosis. The kidneys enhance symmetrically. Abdominal vasculature: The abdominal aorta is normal in course and caliber. Bowel: There is no bowel obstruction. Mild wall thickening is seen throughout the colon with mild surrounding infiltration. The appearance suggests a nonspecific colitis. The appendix is well-visualized and normal. Peritoneum: There is no intraperitoneal free air or abdominal ascites. There is a fat-containing umbilical hernia. A navel piercing is in place. Lymphadenopathy: None. Pelvic viscera: The bladder is decompressed and not well assessed. The uterus and adnexa are normal as visualized noted small ovarian follicles. Skeletal structures: No lytic or blastic lesions are seen. IMPRESSION: 1. Acute pancreatitis. Correlate with clinical and laboratory findings. 2. The gland enhances throughout. No organized peripancreatic fluid collection is identified. 3. Hepatomegaly and severe hepatic steatosis. 4. Findings suggest a mild nonspecific colitis. Correlate clinically. 5. Additional findings as above. ACT 112: Negative or not required by law. Electronically signed by: Michael Jeffrey M.D. 08/13/2022 2:31 PM (4) UTI (urinary tract infection) Hematuria presence: without hematuria Urinary tract infection type: site unspecified Qualified Code(s): N39.0 - Urinary tract infection, site not specified
[2022-08-16] MEDS: cefTRIAXone SODIUM 1,000 MG in DEXTROSE 5% AD-VAN 50 ML IV SCH (14:53)
[2022-08-16] MEDS: NICOTINE 14 MG/24 HR PATCH TD SCH (19:30)
[2022-08-16] MEDS: ACETAMINOPHEN 325 MG TAB PO PRN (23:01)
[2022-08-17] MEDS: oxyCODONE HCL IR 5 MG TAB (IMMEDIATE RELEASE) PO PRN ×2 (01:40→08:46)
[2022-08-17] MEDS: LORazepam 2 MG/1 ML VIAL IV PRN (03:10)
[2022-08-17] MEDS: MoRPHine SULFATE 2 MG/ML CARP IV PRN ×3 (03:12→14:15)
[2022-08-17] MEDS: diazePAM 5 MG TABLET PO SCH (05:34)
[2022-08-17 06:58] LABS: Basophils # (auto) 0.02 K/uL (0-0.2); Basophils % (auto) 0.7 %; Eosinophils # (auto) 0.22 K/uL (0-0.50); Hematocrit (blood only) 31.6 % (37.0-47.0); Hemoglobin 11.4 g/dl (12.0-16.0); Lymphocytes # (auto) 1.02 K/uL (1.2-3.4); Lymphocytes % (auto) 37.1 %; Mean Corpuscular Hgb Conc 36.1 g/dL (32.0-36.0); Mean Corpuscular Volume 99.7 fL (80.0-100.0); Mean Platelet Volume 11.4 fL (9.4-12.4); Monocytes # (auto) 0.19 K/uL (0.11-0.59); Monocytes % (auto) 6.9 %; Neutrophils % (auto) 47.3 %; Platelet Count 178 K/uL (130-400); RDW Coefficient of Variation 14.1 % (11.5-14.5); RDW Standard Deviation 51.3 fL (36.4-46.3); Red Blood Count 3.17 M/uL (4.20-5.40); White Blood Count 2.75 K/ul (4.8-10.8)
[2022-08-17 07:26] LABS: Anion Gap 6 (3-11); BUN Creatinine Ratio 5.1 (10-20); Blood Urea Nitrogen 2 mg/dl (6-23); Calcium 8.4 mg/dl (8.6-10.3); Carbon Dioxide 29 mmol/L (21-32); Chloride 104 mmol/L (98-107); Creatinine Clr Calc Pharmacy 197.9 ml/min; Est GFR (African American) > 150.0 ml/min; Est GFR (Non-African American) 129.5 ml/min; Glucose 103 mg/dl (70-99(Fasting)); Magnesium 1.6 mg/dl (1.7-2.4); Phosphorus 4.2 mg/dl (2.5-4.9); Potassium 3.3 mmol/L (3.5-5.1); Sodium 139 mmol/L (136-145)
[2022-08-17] MEDS: PROMETHAZINE HCL 6.25 MG in SODIUM CHLORIDE 0.9% 50 ML IV PRN (08:39)
[2022-08-17] MEDS: FOLIC ACID 400 MCG TAB PO SCH (08:46)
[2022-08-17] MEDS: MULTIVITAMIN TAB PO SCH (08:46)
[2022-08-17] MEDS: ENOXAPARIN INJ 40 MG/0.4 ML SYR SQ SCH (08:47)
[2022-08-17] MEDS: THIAMINE HCL 100 MG TAB PO SCH (08:47)
[2022-08-17] MEDS: KETOROLAC TROMETHAMINE 15 MG/ML VIAL IV PRN (11:15)
--- NOTE | 2022-08-17 11:55 | Discharge Summary ---
Date of Service August 17, 2022 Admission HPI Per Admitting Provider This is a 41 yo F with PMHx of remote drug abuse, current tobacco abuse smoking half pack cigarette per day for past 20 years. She had a recent hospitalization from 06/05-06/09 2022 for UTI, sepsis, hypomagnesemia, hypokalemia who presents with worsening abdominal pain over the past 2 days and states that this feels similar. She notes that she had been drinking fairly heavily all day long 3 days ago, sitting out by the pool. Since then she developed epigastric pain which radiates into her back. Patient has not been able to tolerate p.o. intake, has only been able to drink a few sips of water due to abdominal pain and nausea. Denies vomiting. Reports 1 day of diarrhea. Patient denies any urinary symptoms including dysuria, hematuria, increased frequency. She is sexually active and reports that she does urinate after sexual intercourse, wipes from front to back, and utilizes mechanisms to help prevent UTI since this past hospital stay except she admits to not staying well-hydrated. Patient is employed at [employer] and reports that she has a cocktail whenever her shift is over at the end of the night most days. She reports previously drinking much higher quantities of alcohol in her 20s. She admits to drug abuse 20 years ago but denies any intravenous drug use, only used mechanisms such as snorting cocaine. Smoking hx with ~7-8 cigs daily and more on the weekends when she is out drinking with friends. Patient lives at home by herself, she is single, previously without children. Admission Exam Per Admitting Provider General: awake, alert, no apparent distress, + anxious Head: Normocephalic, atraumatic ENT: PERRL, EOMI, no pharyngeal exudate, mucous membranes moist Chest: Clear to auscultation, on room air, no adventitious breath sounds Cardiac: Regular rate and rhythm, no murmur, no JVD, normal peripheral pulses, good capillary refill Abdominal: NABS x 4 quadrants, soft, nondistended, + diffusely tender to palpation but increased tenderness in the epigastric region, no rebound or guarding Extremities: Normal inspection, no peripheral edema or erythema, calfs nontender to palpation Psych: Normal mood and affect Skin: multiple tattoos Neuro: AAO x 3, strength intact bilaterally and rated 5/5, no motor deficits, speech is clear, no peripheral sensory deficits Principal Diagnosis Alcoholic pancreatitis Alcohol withdrawal Discharge Exam Constitutional: Awake, alert orient x3; appears tired. Respiratory: normal respiratory effort, lungs clear to auscultation, no wheeze, rales, rhonchi. Normal insp/exp effort, no accessory muscle use Cardiovascular: RRR, no murmur, no edema Vessels: no JVD or carotid bruit Chest: normal inspection of chest Abdomen:tenderness in epigastric region Musculoskeletal: no cyanosis or clubbing, extremities motor strength 5/5 Skin: no rashes, warm and dry normal turgor Neurologic: PERRL, EOMI, accommodation nl, no face palsy, no dysarthria CN's II- XI intact bilaterally and moves all extremities Psychiatric: A+Ox3, euthymic affect Lymphatic: no cervical or axillary lymphadenopathy : deferred Discharge Data Allergies Allergy/AdvReac Type Severity Reaction Status Date / Time No Known Allergies Allergy Mild Verified 06/05/22 00:52 Consultations 08/13/22 14:41 ED Decision to Admit Stat Ordered Studies 08/13/22 13:23 CT abd pelvis IV con only Stat Hospital Course (1) Alcoholic pancreatitis: (2) Hypokalemia: (3) Hypomagnesemia: Patient is a 41-year-old female with history of alcohol use disorder presents to the hospital with nausea vomiting and epigastric pain CT of the abdomen pelvis from admission reviewed;acute pancreatitis, hepatomegaly Lipase elevated Lactate elevated to 3; down trended to 1.5 after fluid resuscitation Labs reviewed from today; hemoglobin is stabilized after initial drop. EKG reviewed personally; sinus tachycardia; QTc elevated. During the hospitalization, patient was treated with IV hydration, analgesics and supportive care. Patient gradually improved throughout the course of the hospitalization. At the day of the discharge, patient reported significant improvement in her epigastric pain. She was discharged home on oral analgesics. Extensive discussion was done with her regarding maintaining abstinence from alcohol use. (4) UTI (urinary tract infection): History of E. coli sepsis in May - June 2022 Urinalysis suggestive of infection Currently on empiric treatment. Blood culture no growth till date Urine culture repeated again, no growth. Antibiotic was later stopped (5) Alcohol withdrawal: History of alcohol use disorder. Reports tremors and occasional hallucination Currently on alcohol withdrawal protocol. During the hospitalization, patient was treated with alcohol withdrawal protocol. Was placed on Valium as well as Ativan as needed. At discharge, patient's Valium was tapered down gradually. (6) Pancytopenia: Labs reviewed; consistent with pancytopenia. History of vitamin B12 deficiency. Was given supplement last admission. Repeat vitamin B12 levels Her counts improved at the day of the discharge. (7) Tobacco use: Please note the above document was generated using voice recognition software. It may contain grammatical, syntax or spelling errors. Any formal questions or concerns about the content, text or information contained within the body of this dictation should be directly addressed to the provider for clarification Total Time Total Time Spent Total Time Spent (In Minutes): 45 Total Time Includes: Examination of the Patient, Discharge Planning, Medication Reconciliation, Communication With Other Providers and Other Discharge Plan Discharge Items Patient Disposition: Home - Self-Care Reason For Visit: PANCREATITIS, UTI Discharge Diagnosis: Acute alcoholic pancreatitis Alcohol withdrawal Activity: Resume your previous activity Non-emergency contact: Primary Care Provider Call non-emergency contact if: you have any medication questions and your symptoms worsen Follow-up/Referrals: Alyx Sosa MD [Outside Practitioners] - (Date & Time 08/19/2022 4:00 PM Provider Alyx Sosa MD Department General Internal Medicine [facility] ) Diet: Low Fat Addtl Attending Provider Instructions: You were admitted to the hospital with acute pancreatitis. You are prescribed Tylenol and naproxen as needed for pain control. If pain is very severe, take oxycodone as needed. For nausea, you are prescribed Zofran as needed. Please eat low-fat diet. For alcohol withdrawal; you are prescribed Valium 5 mg. Please take 5 mg every 8 hours for 1 day, take 5 mg twice daily on day 2 and 5 mg once a day on Day 3. Please do not combine Valium with any alcohol. You are prescribed vitamin supplement thiamine and folic acid. Please continue to take that along with vitamin B12 supplement. Follow-up with your primary care doctor as scheduled. Pending Studies at Discharge: No Stand-Alone Forms: [employer], Smoking Cessation Medications and DC Order Prescriptions: New acetaminophen 325 mg Tablet 650 mg PO Q6H PRN (Reason: fever or pain) Qty: 30 0RF diazepam 5 mg tablet See Taper PO Q8 Qty: 6 0RF Taper: Taper, Blank 5 mg Q8H for 1 Day 5 mg EVERY TWELVE HOURS for 1 Day 5 mg DAILY for 1 Day thiamine HCl (vitamin B1) 100 mg Tablet 100 mg PO QAM 30 Days Qty: 30 0RF folic acid 400 mcg Tablet 400 mcg PO QAM 30 Days Qty: 30 0RF oxycodone 5 mg Tablet 5 mg PO Q6H PRN (Reason: pain) Qty: 10 0RF naproxen 500 mg tablet 500 mg PO BID PRN (Reason: pain) Qty: 20 0RF ondansetron 4 mg tablet,disintegrating 4 mg PO Q8H PRN (Reason: nausea and vomiting) 4 Days Qty: 14 0RF Continued cyanocobalamin (vitamin B-12) 500 mcg Tablet 1,000 mcg PO QAM Qty: 60 0RF omeprazole 40 mg capsule,delayed release(DR/EC) 40 mg PO DAILY PRN (Reason: Heartburn) Probiotic 3 billion cell Capsule 0 mmu cells PO DAILY Rx Instructions: Pt unsure of stregnth administer with a meal Discharge Orders: Discharge Order (Routine); Ordered 08/17/22 Ordered By: Hermelindo Gilbert Admission Data Admit Date/Time: 08/13/22 15:24 Attending Provider: Hermelindo Gilbert Admit Provider: Darien Granda Primary Care Provider: PCP,NO Other Providers: Darien Granda ; Arianne Kaba I. Other Interventions: Discharge Summary Assessment (RN) Last Done: 08/17/22 12:36
[2022-08-17] MEDS ORDERED: GABAPENTIN 600 MG TAB PO SCH (12:00)
[2022-08-17 12:11] LABS: Marijuana Quant, GCMS Urine 34 ng/mL (<5)
[2022-08-17] MEDS ORDERED: diazePAM 5 MG TABLET PO SCH (14:00)
== END 2022-08-17 14:50 | disposition home or self-care (01) | DRG 439 ==
LOC: ED 12:39 → SUATTDRO 15:24 → EDINP 15:24 → 2N 18:39

== ENCOUNTER 2023-05-09 19:57 | Inpatient (IN) ==
--- OUTSIDE RECORDS SUMMARY | 2023-05-09 20:02 | External Medical Summary | Summary of Care ---
Author Name Unknown Organization [facility] Address [address] [place] [address] Phone [phone] Care Team Providers Care Automatic Print Developer Name Role Phone Alyx Sosa MD Primary Care Provider [phone] Reason for Visit * Reason Comments Breast Lump left Encounter Details Date Type Department Care Team ([facility] st Contact Info) Description 04/01/2023 9:40 AM EST Office Visit Family Practice [facility] [address] [place] [address] Kathryn Nuñez MD [address] [place] [address] Mass of left breast, unspecified quadrant*; Pain of left breast; History of bilateral breast implants; Capsular contracture of breast implant, sequela; Family history of colon cancer Allergies No known active allergiesdocumented as of this encounter (statuses as of 04/01/2023) Medications Medication Sig Dispensed Refills Start Date End Date Status Buprenorphine HCl-Naloxone HCl 8-2 MG Sublingual Tablet Sublingual (Suboxone) Place 1 Tablet under the tongue in the morning. 0 3 Active Gabapentin 600 MG Oral Tablet (Neurontin) Take 1 Tablet by mouth 4 times a day. 0 3 Active hydrOXYzine HCl 50 MG Oral Tablet Take 1 Tablet by mouth 2 times a day as needed for Anxiety. 0 4 Active LORazepam 0.5 MG Oral Tablet (Ativan) Take 1 Tablet by mouth 2 times a day as needed for Anxiety. 0 4 Active Desvenlafaxine Succinate ER 50 MG Oral Tablet Extended Release 24 Hour (Pristiq) Take 1 Tablet by mouth in the morning. 0 4 Active Omeprazole 40 MG Oral Capsule Delayed Release (PriLOSEC) Take 1 Capsule by mouth in the morning. 0 3 Active oxyCODONE HCl 5 MG Oral Tablet (Oxy IR) 1 Tablet. 0 3 04/01/19 24 Discontinued(Med ication List Clean Up) traZODone HCl 100 MG Oral Tablet (Desyrel) 1 Tablet. 0 3 04/01/19 24 Discontinued(Med ication List Clean Up) levoFLOXacin 750 MG Oral Tablet (Levaquin)Indicatio ns:Acute pyelonephritis due to bacteria,History of gram negative sepsis,Hospital discharge follow-up Take 1 Tablet by mouth in the morning. At [facility] 06/09/22. 10 Tablet 0 3 04/01/19 24 Discontinued(Med ication List Clean Up) B-12 1000 MCG Oral TabletIndications:M acrocytic anemia with vitamin B12 deficiency,B12 deficiency,Hospital discharge follow-up 1 tab daily, start 06/12/2022 1 Tablet 0 3 04/01/19 24 Discontinued(Med ication List Clean Up) Acetaminophen 325 MG Oral Tablet (Tylenol)Indication s:History of gram negative sepsis Take 2 Tablets by mouth every 6 hours as needed for Fever >38C(100.5F) . 100 Tablet 1 3 04/01/19 24 Discontinued documented as of this encounter (statuses as of 04/01/2023) Active Problems Problem Noted Date Diagnosed Date Alcohol ingestion of more than 4 drinks/week 09/2022 Tobacco use disorder 06/12/2022 Macrocytic anemia with vitamin B12 deficiency Abnormal LFTs 06/12/2022 Alcoholic fatty liver 06/12/2022 Odynophagia 11/23/2017 documented as of this encounter (statuses as of 04/01/2023) Social History Tobacco Use Types Packs/Day Years Used Date Smoking Tobacco: Every Day Cigarettes 0.5 17 Smokeless Tobacco: Never Tobacco Cessation:Ready to Q uit: Not Asked; Counseling Given: Not Answered Comments:1/2 ppd now Alcohol Use Standard Drinks/Week Comments Yes 4 (1 standard drink = 0.6 oz pur e alcohol) Sex and Gender Information Value Date Recorded Sex Assigned at Not on file Gender Identity Not on file Sexual Orientation Not on file Job Start Date Occupation Industry Not on file Not on file Not on file documented as of this encounter Last Filed Vital Signs Vital Sign Reading Time Taken Comments Blood Pressure 116/90 04/01/2023 9:54 AM EST Pulse 114 04/01/2023 9:54 AM EST Temperature 35.6 C (96.1 F) 04/01/2023 9:54 AM ES T Respiratory Rate 20 04/01/2023 9:54 AM EST Oxygen Saturation 96% 04/01/2023 9:54 AM EST Inhaled Oxygen Concentration - - Weight 73.5 kg (162 lb) 04/01/2023 9:54 AM EST Height - - Body Mass Index 23.24 06/12/2022 10:32 AM EDT documented in this encounter Progress Notes * Kathryn Nuñez MD - 04/01/2023 9:53 AM EST Subjective Chief Complaint Patient presents with Breast Lump left HPI: Tangela Juan is a 42 year old female. The following issues were addressed today: Patient has had area of left breast pain for several months. Feels a hard lump. Pain has progressively been getting worse. Has silicone breast implants, done at age 26 by surgeon in [place]. Had capsular contracture in left breast and needed a revision surgery. States she has not had feeling in her left nipple since revision. Has never had breast imaging. She denies skin changes or nipple discharge. Denies family history of breast cancer but sister had colon cancer diagnosed at age 15 and mom had endometrial and colon cancer diagnosed in her 70s. She states she has had colon cancer screenings inthe past for her family history. Review of Systems: See HPI Objective BP 116/90 | Pulse 114 | Temp 35.6 C (96.1 F) (Tympanic) | Resp 20 | Wt 73.5 kg (162 lb) | SpO2 96% | BMI 23.24 kg/m | BSA 1.91 m Wt Readings from Last 3 Encounters: 04/01/23 73.5 kg (162 lb) 06/12/22 71.3 kg (157 lb 1.6 oz) 11/23/17 65.7 kg (144 lb 14.4 oz) BP Readings from Last 3 Encounters: 04/01/23 116/90 06/12/22 106/88 11/23/17 118/82 General: Well-appearing, no acute distress Psychiatric: Appropriate mood and affect Breasts: Symmetrical, no axillary or chest wall lymphadenopathy, no skin changes, erythema, rash, or nipple discharge bilaterally, no right-sided tenderness or mass, firm mass tender to palpation at 6:00 position adjacent to areola on left breast Assessment & Plan 1. Mass of left breast, unspecified quadrant 2. Pain of left breast 3. History of bilateral breast implants 4. Capsular contracture of breast implant, sequela - MAMMOGRAM DIAGNOSTIC LEFT; Future - US BREAST LIMITED LEFT; Future Will check diagnostic mammogram and breast ultrasound. Plan pending results. Ensured imaging scheduled, has appointment on 04/15/23. 5. Family history of colon cancer Will follow-up with PCP to determine when repeat screening needed. No previous records of colonoscopy. Follow-up: Return if symptoms worsen or fail to improve. | Check-out note: Mammogram and ultrasoundordered This note was electronically signed by Kathryn Nuñez MD documented in this encounter Nursing Notes * Radha Retana LPN - 04/01/2023 9:53 AM EST Patient states she felt a hard spot in her left breast. She has breast implants that she's had since she was 26. The spot in her left breast is painful to the touch, and painful when she coughs and even moves. She first noted it a few months ago. Hasn't really changed size or shape but it is becoming more painful. documented in this encounter Plan of Treatment Upcoming Encounters Date Type Department Care Team (Late st Contact Info) Description 04/15/2023 1:00 PM EST Imaging Radiology [facility] [address] [place] [address] 04/15/2023 1:30 PM EST Imaging Radiology [address] [place] [address] Scheduled Orders Name Type Priority Associated Diagnoses Orde r Schedule MAMMOGRAM DIAGNOSTIC LEFT Medical Imaging Routine Mass of left breast, unspecified quadrant Pain of left breast Expected: 04/01/2023, Expires: 05/02/2024 US BREAST LIMITED LEFT Medical Imaging Routine Mass of left breast, unspecified quadrant Pain of left breast Expected: 04/01/2023, Expires: 05/02/2024 Health Maintenance Due Date Last Done Comments Hepatitis B (1 of 3 - 3-dose series) 1979 Lipid Panel 1979 COVID-19 Vaccine (#1) 05/20/1980 Pneumococcal Vaccine: Pediat rics (0 to 5 Years) and At-Risk Patients (6 to 64 Years) (1 - PCV) 11/20/1985 Depression Screening 1991 HIV Screening 11/20/1994 Hepatitis C Screening 11/20/1997 DTaP,Tdap,and Td Vaccines (1 - Tdap) 11/20/1998 Pap Smear 11/20/2000 Cervical Cancer Screening 11/20/2009 HPV/Co-Test 11/20/2009 Mammogram 2019 Influenza Vaccine (FLU shot) (#1) 2022 GARDASIL-HPV IMMUNIZATION SERIES Aged Out No longer eligible based on patient's age to complete this topic MENINGOCOCCAL (MENACTRA/MENVEO) Aged Out No longer eligible based on patient's age to complete this topic documented as of this encounter Medical Devices Not on filedocumented as of this encounter Visit Diagnoses Diagnosis Mass of left breast, unspecified quadrant- Primary Pain of left breast Mastodynia History of bilateral breast implants Breast replaced by other means Capsular contracture of breast implant, sequela Family history of colon cancer Family history of malignant neoplasm of gastrointestinal tract documented in this encounter Care Teams Automatic Print Developer Relationship Specialty Start Date End Date Alyx Sosa MD [address] [facility] [place] [address] PCP - General Internal Medicine 06/12/22 documented as of this encounter"
--- OUTSIDE RECORDS SUMMARY | 2023-05-09 20:02 | External Medical Summary | Summary of Care ---
Author Name Unknown Organization [facility] Address [address] [place] [address] Phone [phone] Care Team Providers Care Filter Press Tender Name Role Phone Alyx Sosa MD Primary Care Provider [phone] Encounter Details Date Type Department Care Team ([facility] Contact Info) Description 01/26/2023 Population Health External Data Unspecified Department Allergies No known active allergiesdocumented as of this encounter (statuses as of 01/26/2023) Medications Medication Sig Dispensed Refills Start Date End Date Status oxyCODONE HCl 5 MG Oral Tablet (Oxy IR) 1 Tablet. 0 06/09/2022 Acti ve traZODone HCl 100 MG Oral Tablet (Desyrel) 1 Tablet. 0 06/05/2022 Act sugar levoFLOXacin 750 MG Oral Tablet (Levaquin)Indications: Acute pyelonephritis due to bacteria,History of gram negative sepsis,Hospital discharge follow-up Take 1 Tablet by mouth in the morning. At [facility] 06/09/22. 10 Tablet 0 06/12/2022 Active B-12 1000 MCG Oral TabletIndications:Macr ocytic anemia with vitamin B12 deficiency,B12 deficiency,Hospital discharge follow-up 1 tab daily, start 06/12/2022 1 Tablet 0 06/12/2022 Active Acetaminophen 325 MG Oral Tablet (Tylenol)Indications:H istory of gram negative sepsis Take 2 Tablets by mouth every 6 hours as needed for Fever >38C(100.5F). 100 Tablet 1 06/12/2022 Active documented as of this encounter (statuses as of 01/26/2023) Active Problems Problem Noted Date Diagnosed Date Alcohol ingestion of more than 4 drinks/week 09/2022 Tobacco use disorder 06/12/2022 Macrocytic anemia with vitamin B12 deficiency Abnormal LFTs 06/12/2022 Alcoholic fatty liver 06/12/2022 Odynophagia 11/23/2017 documented as of this encounter (statuses as of 01/26/2023) Social History Tobacco Use Types Packs/Day Years Used Date Smoking Tobacco: Every Day Cigarettes 1 17 Smokeless Tobacco: Never Comments:1/2 ppd now Alcohol Use Standard Drinks/Week Comments Yes 4 (1 standard drink = 0.6 oz pur e alcohol) Sex and Gender Information Value Date Recorded Sex Assigned at Not on file Gender Identity Not on file Sexual Orientation Not on file Job Start Date Occupation Industry Not on file Not on file Not on file documented as of this encounter Plan of Treatment Health Maintenance Due Date Last Done Comments [...] Not on filedocumented as of this encounter Care Teams Filter Press Tender Relationship Specialty Start Date End Date Alyx Sosa MD [address] [place] [address] PCP - General Internal Medicine 06/12/22 documented as of this encounter
--- OUTSIDE RECORDS SUMMARY | 2023-05-09 20:02 | External Medical Summary | Summary of Care ---
Author Name Unknown Organization [facility] Address [address] [place] [address] Phone [phone] Care Team Providers Care Computer Support Specialist Name Role Phone Alyx Sosa MD Primary Care Provider [phone] Reason for Visit * Reason Onset Date Comments Health Maintenance 12/18/2022 Encounter Details Date Type Department Care Team Description 12/18/2022 Telephone General Internal Medicine [facility] [address] [place], [place] [id number] Alyx Sosa MD [address] [place] [address] Health Maintenance Allergies No known active allergiesdocumented as of this encounter (statuses as of 12/18/2022) Medications Medication Sig Dispensed Refills Start Date End Date Status oxyCODONE HCl 5 MG Oral Tablet (Oxy IR) 1 Tablet. 0 06/09/2022 Acti ve traZODone HCl 100 MG Oral Tablet (Desyrel) 1 Tablet. 0 06/05/2022 Act sugar levoFLOXacin 750 MG Oral Tablet (Levaquin)Indications: Acute pyelonephritis due to bacteria,History of gram negative sepsis,Hospital discharge follow-up Take 1 Tablet by mouth in the morning. At [facility] 06/09/22. 10 Tablet 0 06/12/2022 Active B-12 [...] as of this encounter (statuses as of 12/18/2022) Active Problems Problem Noted Date Alcohol ingestion of more than 4 drinks/ week 06/12/2022 Tobacco use disorder 06/12/2022 Macrocytic anemia with vitamin B12 defic iency 06/12/2022 Abnormal LFTs 06/12/2022 Alcoholic fatty liver 06/12/2022 Odynophagia 11/23/2017 documented as of this encounter (statuses as of 12/18/2022) Social History Tobacco Use Types Packs/Day Years Used Date Smoking Tobacco: Every Day Cigarettes 1 17 Smokeless Tobacco: Never Comments:1/ ppd now Alcohol Use Standard Drinks/Week Comments Yes 4 (1 standard drink = 0.6 oz pur e alcohol) Sex Assigned at Date Recorded Not on file Job Start Date Occupation Industry Not on file Not on file Not on file documented as of this encounter Miscellaneous Notes * Telephone Encounter - Linn Medina LPN - 12/18/2022 10:52 AM EDT Care Gaps Comprehensive Care Outreach Last Office/Telemedicine Visit: 06/12/2022 (in office), Visit date not found (telemedicine) Next Office Visit: Visit date not found Hemoglobin AIC Results: No results found for: HEMOGLOBIN A1C Reviewed Health Maintenance below: Health Maintenance Topic Date Due Hepatitis B (1 of 3 - 3-dose series) Never done Lipid Panel Never done COVID-19 Vaccine (1) Never done Pneumococcal Vaccine: Pediatrics (0 to 5 Years) and At-Risk Patients (6 to 64 Years) (1 - PCV) Never done Depression Screening Never done HIV Screening Never done Hepatitis C Screening Never done DTaP,Tdap,and Td Vaccines (1 - Tdap) Never done Cervical Cancer Screening Never done Mammogram Never done Ov Pap Mamm labs Care Gap Outreach Action Taken: Left message documented in this encounter Plan of Treatment Health Maintenance [...] filedocumented as of this encounter Care Teams Computer Support Specialist Relationship Specialty Start Date End Date Alyx Sosa MD [address] [facility] [place] [address] PCP - General Internal Medicine 06/12/22 documented as of this encounter
--- OUTSIDE RECORDS SUMMARY | 2023-05-09 20:02 | External Medical Summary | Summary of Care ---
Author Name Unknown Organization [facility] Address [address] [place] [address] Phone [phone] Care Team Providers Care Unit Educator Name Role Phone Alyx Sosa MD Primary Care Provider [phone] Reason for Visit * Reason Comments Breast Lump left Encounter Details Date Type Department Care Team ([facility] st Contact Info) Description 04/01/2023 9:40 AM EST Office Visit Family Practice [facility] [address] [place] [address] Kathryn Nuñez MD [address] [place] [address] Mass of left breast, unspecified quadrant*; Pain [...] Tablet by mouth in the morning. At [facility] 06/09/22. 10 Tablet 0 3 04/01/19 24 [...] done at age 26 by surgeon in [place]. Had capsular contracture in left breast and [...] Description 04/15/2023 1:00 PM EST Imaging Radiology [facility] [address] [place] [address] 04/15/2023 1:30 PM EST Imaging Radiology [address] [place] [address] Scheduled Orders Name Type Priority Associated Diagnoses [...] tract documented in this encounter Care Teams Unit Educator Relationship Specialty Start Date End Date Alyx Sosa MD [address] [facility] [place] [address] PCP - General Internal Medicine 06/12/22 documented as of this encounter"
[2023-05-09] MEDS: SODIUM CHLORIDE 0.9% 1,000 ML IV STA (20:23)
[2023-05-09] MEDS: ONDANSETRON INJ 2 MG/ML 2 ML VIAL IV STA (20:24)
[2023-05-09 20:36] LABS: Basophils # (auto) 0.04 K/uL (0.00-0.20); Basophils % (auto) 0.8 %; Eosinophils # (auto) 0.18 K/uL (0.00-0.50); Eosinophils % (auto) 3.4 %; Hematocrit (blood only) 37.7 % (37.0-47.0); Hemoglobin 13.2 g/dl (12.0-16.0); Immature Granulocytes # (auto) 0.02 K/uL (0.01-0.20); Immature Granulocytes % (auto) 0.4 %; Lymphocytes # (auto) 1.45 K/uL (1.20-3.40); Lymphocytes % (auto) 27.4 %; Mean Corpuscular Hemoglobin 35.9 pg (25.0-34.0); Mean Corpuscular Volume 102.4 fL (80.0-100.0); Mean Platelet Volume 10.7 fL (9.4-12.4); Monocytes # (auto) 0.29 K/uL (0.11-0.59); Monocytes % (auto) 5.5 %; Neutrophils # (auto) 3.31 K/uL (1.40-6.50); Neutrophils % (auto) 62.5 %; Platelet Count 143 K/uL (130-400); RDW Coefficient of Variation 10.7 % (11.5-14.5); RDW Standard Deviation 40.6 fL (36.4-46.3); Red Blood Count 3.68 M/uL (4.20-5.40); White Blood Count 5.29 K/ul (4.8-10.8)
[2023-05-09] MEDS: KETOROLAC TROMETHAMINE 15 MG/ML VIAL IV ONE (20:45)
[2023-05-09 20:48] LABS: Pregnancy Test, Serum Negative (Negative)
[2023-05-09 20:52] LABS: Albumin Globulin Ratio 1.4 (0.9-2); Albumin Level 4.6 gm/dl (3.4-5.0); BUN Creatinine Ratio 11.5 (10-20); Bilirubin,Total 1.6 mg/dl (0.2-1.0); Calcium 9.2 mg/dl (8.6-10.3); Creatinine Clr Calc Pharmacy 149.3 ml/min; Est GFR (African American) 135.6 ml/min; Globulin 3.4 gm/dl (2.5-4.0); Potassium 3.4 mmol/L (3.5-5.1)
[2023-05-09] MEDS: SODIUM CHLORIDE 0.9% 1,000 ML IV ONE ×2 (20:58→23:09)
[2023-05-09 20:59] LABS: Troponin I High Sensitivity 3.2 pg/ml (0-14)
[2023-05-09 21:24] LABS: Appearance Urine Clear (Clear); Bacteria Urine Automated Negative (Negative); Bilirubin Urine Negative (Negative); Blood Urine Negative (Negative); Color Urine Yellow; Epithelial Cell Urine Auto >30 /lpf (0-5); Glucose Urine UA Negative (Negative); Ketones Urine 3+ (Negative); Leukocyte Esterase Urine Negative (Negative); Nitrite Urine Negative (Negative); Protein Urine Trace (Negative); RBC Urine Automated 0-4 /hpf (0-4); Specific Gravity Urine 1.011 (1.000-1.030); Urobilinogen Urine Negative (Negative)
[2023-05-09] MEDS: HYDROmorphone INJ 0.5 MG/0.5 ML SYR IV STA (21:51)
--- NOTE | 2023-05-09 22:00 | Emergency Department Note ---
Impression & Plan Acute pancreatitis ED Provider Note NAME: ROSALIND JULES AGE: 42 SEX: F : 1980 ARRIVES VIA: Walk-In INFORMANT: Patient, ED PROVIDER(S): Radha Lemons MD CHIEF COMPLAINT: Abdominal pain HPI: This is a 42-year-old female presenting for midepigastric abdominal pain. Patient states that she was here last summer with pancreatitis and this feels very similar. Patient does mention that last year she had not been taking injury excessively causing her pancreatitis. This year given doing better but over the weekend she did have a binge episode with alcohol. She drank 5-6 alcoholic drinks per night for 3+ days. She states that when she woke up on the fourth day she began having epigastric abdominal pain. The pain progressively worsened in her mid epigastrium similar to her previous pancreatitis episode. She states that it is a increasing sharp pain in her midepigastrium, she is unable to eat or drink because of the pain is worse when eating. She notes feels dehydrated. Otherwise she notes no other illicit drug use such as marijuana. ROS: See above HPI for pertinent positives & negatives. A total of 10 systems reviewed and were otherwise negative. PAST MEDICAL HISTORY: See Below PAST SURGICAL HISTORY: See Below FAMILY HISTORY: See Below SOCIAL HISTORY: See Below HOME MEDICATIONS: See Below ALLERGIES: See Below VITALS: See Below PHYSICAL EXAMINATION: General: resting comfortably in no acute distress Head: Normocephalic and atraumatic Eyes: Normal inspection, extraocular muscles intact Ear, nose, throat: Normal external exam Neck: Normal range of motion Respiratory: lungs clear to auscultation bilaterally Cardiovascular: Regular rate/rhythm, no murmur GI: Soft, midepigastric tenderness, negative Barrientos, hepatomegaly Extremities: nontender, moves all extremities Neuro: The patient awake and alert, appropriately conversive, no focal deficits, symmetric faces Skin: Warm, dry, and intact MEDICAL DECISION MAKING: A 42-year-old female presenting for med gastric abdominal pain. Patient had blood work in a triage which does reveal elevated lipase up to 274. Otherwise patient has a transaminitis with increase in AST over ALT, bilirubin is 1.6. Patient electrolytes are slightly abnormal concerning for dehydration versus alcoholic ketosis. Will give fluids at this time for resuscitation. -Will do right upper quadrant ultrasound to rule out cholecystitis/choledocholithiasis however this is unlikely the patient's current symptoms. -Will give Toradol and further pain control as necessary -Patient minimal improvement Toradol, will give Dilaudid -Patient ultrasound reveals no cholecystitis but does reveal a slightly dilated CBD. Clinically patient does not fit choledocholithiasis as patient has no leukocytosis, fever. However patient will require admission for MRCP, further workup and treatment of abnormal pancreatitis. Discussed this with inpatient hospitalist who accepts the patient to his service. Differential diagnosis: Cholecystitis, pancreatitis, alcoholic hepatitis, choledocholithiasis ER treatment provided: See below Diagnostics interpreted by me: ECG: ECG independently interpreted by me with normal sinus rhythm, rate of 89, normal axis, normal NV, normal QRS, normal QTc, no ST segment elevations consistent with STEMI criteria Cardiac Monitoring: An order was placed for continuous cardiac monitoring. The monitor shows a rate of 80 with sinus rhythm. Laboratory studies: As stated above and show below. Imaging studies: See below. Past Med/Surg History Medical History (Updated 05/10/23 @ 00:05 by Radha Lemons MD) Alcohol withdrawal Hx of drug abuse Sepsis Hypokalemia Hypomagnesemia Pyelonephritis Depression Surgical History (Updated 08/13/22 @ 15:48 by Randi Maldonado PA-C) No pertinent past surgical history Family History (Updated 08/13/22 @ 15:25 by Randi Maldonado PA-C) Mother Hypertension Cancer Sister Cancer Social History (Updated 08/13/22 @ 15:32 by Darien Chacko MD) Smoking Status: Current every day smoker Tobacco Type: Cigarettes Cigarettes Per Day: pack a day; Hx Alcohol Use: Yes Alcohol type: beer, wine and hard liquor Alcohol Intake Frequency Comment: 2-3 drinks/day Hx Substance Use: No (denies) Preferred Language: Mohawk Communication Ability: Effective 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 Beliefs That Will Affect Care: None Current Living Situation: Alone Feels Safe at Home: Yes Assistive Devices: None Allergies Allergies Allergy/AdvReac Type Severity Reaction Status Date / Time No Known Allergies Allergy Mild Verified 05/09/23 20:34 Home Meds Home Medications Medication Instructions Recorded Confirmed omeprazole 40 mg capsule,delayed 80 mg PO HS 08/13/22 05/09/23 release buprenorphine 8 mg-naloxone 2 mg 2.5 tab sublingual DAILY 05/09/23 05/09/23 sublingual tablet desvenlafaxine succinate 25 mg 25 mg PO QAM 05/09/23 05/09/23 tablet,extended release 24 hr desvenlafaxine succinate 50 mg 50 mg PO QAM 05/09/23 05/09/23 tablet,extended release 24 hr gabapentin 600 mg tablet 600 mg PO QID 05/09/23 05/09/23 hydroxyzine HCl 50 mg tablet 50 mg PO BID PRN ANXIETY OR SLEEP 05/09/23 05/09/23 lorazepam 0.5 mg tablet 0.5 mg PO BID PRN Anxiety 05/09/23 05/09/23 Previous Rx's Medication Instructions Recorded naproxen 500 mg tablet 500 mg PO BID PRN pain #20 tabs 08/17/22 Results & Data (ED) Vital Signs Vital Signs - 24 hr 05/09/23 20:01 05/09/23 22:00 05/09/23 23:00 Temperature 36.3 C L Temperature Source Temporal Artery Scan Pulse Rate 129 H 80 Pulse Rate [Apical] 83 Pulse Rhythm [Apical] Regular Pulse Strength [Apical] Normal Respiratory Rate 18 13 Respiratory Effort / Characteristics Non-Labored Spontaneous Respiratory Depth Normal Respiratory Pattern Regular Blood Pressure 140/81 Blood Pressure [Right Arm] 114/79 Blood Pressure Mean 100 Blood Pressure Mean [Right Arm] 90 Blood Pressure Position [Right Arm] Lying Pulse Oximetry 100 97 Oxygen Delivery Method Room Air Room Air Sepsis Recent Fever Within 48 Hours No Sepsis New/Unexplained Change in Mental Status No Sepsis Action Taken by Nursing No Action Required Laboratory Data 05/09/23 20:20 05/09/23 20:20 Lab Results 05/09/23 05/09/23 Range/Units 20:20 21:13 WBC 5.29 (4.8-10.8) K/ul RBC 3.68 L (4.20-5.40) M/uL Hgb 13.2 (12.0-16.0) g/dl Hct 37.7 (37.0-47.0) % MCV 102.4 H (80.0-100.0) fL MCH 35.9 H (25.0-34.0) pg MCHC 35.0 (32.0-36.0) g/dL RDW Std Deviation 40.6 (36.4-46.3) fL RDW Coeff of Ralph 10.7 L (11.5-14.5) % Plt Count 143 (130-400) K/uL MPV 10.7 (9.4-12.4) fL Immature Gran % (Auto) 0.4 % Neut % (Auto) 62.5 % Lymph % (Auto) 27.4 % [place] % (Auto) 5.5 % Eos % (Auto) 3.4 % Baso % (Auto) 0.8 % Neut # (Auto) 3.31 (1.40-6.50) K/uL Lymph # (Auto) 1.45 (1.20-3.40) K/uL [place] # (Auto) 0.29 (0.11-0.59) K/uL Eos # (Auto) 0.18 (0.00-0.50) K/uL Baso # (Auto) 0.04 (0.00-0.20) K/uL Immature Gran # (Auto) 0.02 (0.01-0.20) K/uL Sodium 130 L (136-145) mmol/L Potassium 3.4 L (3.5-5.1) mmol/L Chloride 97 L (98-107) mmol/L Carbon Dioxide 18 L (21-32) mmol/L Anion Gap 15 H (3-11) BUN 6 (6-23) mg/dl Creatinine 0.52 L (0.6-1.2) mg/dl Est Cr Clr Drug Dosing 149.3 ml/min Est GFR ( Amer) 135.6 ml/min Est GFR (Non-Af Amer) 117.0 ml/min BUN/Creatinine Ratio 11.5 (10-20) Glucose 137 H (70-99(Fasting)) mg/dl Calcium 9.2 (8.6-10.3) mg/dl Total Bilirubin 1.6 H (0.2-1.0) mg/dl AST 91 H (13-39) U/L ALT 59 H (7-52) U/L Alkaline Phosphatase 157 H (34-104) U/L Troponin I High Sens 3.2 (0-14) pg/ml Total Protein 8.0 (6.0-8.3) gm/dl Albumin 4.6 (3.4-5.0) gm/dl Globulin 3.4 (2.5-4.0) gm/dl Albumin/Globulin Ratio 1.4 (0.9-2) Lipase 274 H (11-82) U/L HCG, Qual Negative (Negative) Urine Color Yellow Urine Appearance Clear (Clear) Urine pH 6.0 (4.5-7.5) Ur Specific [place] 1.011 (1.000-1.030) Urine Protein Trace H (Negative) Urine Glucose (UA) Negative (Negative) Urine Ketones 3+ H (Negative) Urine Blood Negative (Negative) Urine Nitrite Negative (Negative) Urine Bilirubin Negative (Negative) Urine Urobilinogen Negative (Negative) Ur Leukocyte Esterase Negative (Negative) Urine WBC (Auto) 1-5 (0-5) /hpf Urine RBC (Auto) 0-4 (0-4) /hpf U Hyaline Cast (Auto) 1-5 (0-5) /lpf U Epithel Cells (Auto) >30 H (0-5) /lpf Urine Bacteria (Auto) Negative (Negative) Administered Medications Sodium Chloride (Nss) 1,000 mls @ 999 mls/hr IV .Q1H1M ONE Stop: 05/10/23 00:01 Last Admin: 05/09/23 23:09 Dose: 999 mls/hr Documented By: PRITI Discontinued Medications Hydromorphone HCl (Hydromorphone Inj 0.5 Mg/0.5 Ml Syr) 0.5 mg IV NOW STA Stop: 05/09/23 21:49 Last Admin: 05/09/23 21:51 Dose: 0.5 mg Documented By: KEITH Sodium Chloride (Nss) 1,000 mls @ 999 mls/hr IV .Q1H1M STA Stop: 05/09/23 21:07 Last Infusion: 05/09/23 21:24 Dose: Infused Documented By: Admin: 05/09/23 20:23 Dose: 999 mls/hr Documented By: KEITH Sodium Chloride (Nss) 1,000 mls @ 999 mls/hr IV .Q1H1M ONE Stop: 05/09/23 21:41 Last Admin: 05/09/23 20:58 Dose: Not Given Documented By: KEITH Ketorolac Tromethamine (Ketorolac Tromethamine 15 Mg/Ml Vial) 15 mg IV NOW ONE Stop: 05/09/23 20:42 Last Admin: 05/09/23 20:45 Dose: 15 mg Documented By: KEITH Ondansetron HCl (Ondansetron Inj 2 Mg/Ml 2 Ml Vial) 4 mg IV NOW STA Stop: 05/09/23 20:08 Last Admin: 05/09/23 20:24 Dose: 4 mg Documented By: KEITH Imaging Data Radiologist's Impression: Liver Ultrasound 05/09/23 21:27 Exam(s): US LIVER EXAM: US Abdomen Limited CLINICAL HISTORY: Reason for exam: Cholecystitis?. TECHNIQUE: Real-time ultrasound of the abdomen with image documentation. COMPARISON: No relevant prior studies available. FINDINGS: Liver: Echogenic liver measures 17 cm. No focal lesion. Patent, normally directed portal vein. Gallbladder: Unremarkable. No cholelithiasis, gallbladder wall thickening, or pericholecystic fluid. Common bile duct: Enlarged common bile duct measuring 9 mm. Pancreas: Pancreas suboptimally characterized. Kidneys: Right kidney measures 11.4 cm. Mild pelviectasis without gera hydronephrosis. IMPRESSION: 1. No cholelithiasis. No evidence of cholecystitis. 2. Dilated common bile duct measuring 9 mm. If there is laboratory evidence of biliary obstruction, consider MRCP to exclude choledocholithiasis. 3. Echogenic liver suggesting steatosis. 4. Mild pelviectasis of the right kidney without gera hydronephrosis. Electronically signed by: Chaitanya Putnam M.D. 05/09/23 22:46 PM Discharge Plan Visit Data Chief Complaint: Abdominal Pain Stated Complaint: PANCREATITIS, ABDOMINAL PAIN ED Provider: Radha Lemons Discharge Problem: Acute pancreatitis Forms Stand Alone Forms: [facility] Prescriptions Prescriptions: No Action omeprazole 40 mg capsule,delayed release(DR/EC) 80 mg PO HS naproxen 500 mg tablet 500 mg PO BID PRN (Reason: pain) Qty: 20 0RF lorazepam 0.5 mg tablet 0.5 mg PO BID PRN (Reason: Anxiety) buprenorphine-naloxone 8-2 mg tablet, sublingual 2.5 tab SUBLINGUAL DAILY gabapentin 600 mg tablet 600 mg PO QID hydroxyzine HCl 50 mg tablet 50 mg PO BID PRN (Reason: ANXIETY OR SLEEP) desvenlafaxine succinate 50 mg tablet extended release 24 hr 50 mg PO QAM desvenlafaxine succinate 25 mg tablet extended release 24 hr 25 mg PO QAM Referrals Referrals: PCP,NO [Primary Care Provider] -
--- NOTE | 2023-05-09 22:47 | Ultrasound Report ---
Exam(s): US LIVER EXAM: US Abdomen Limited CLINICAL HISTORY: Reason for exam: Cholecystitis?. TECHNIQUE: Real-time ultrasound of the abdomen with image documentation. COMPARISON: No relevant prior studies available. FINDINGS: Liver: Echogenic liver measures 17 cm. No focal lesion. Patent, normally directed portal vein. Gallbladder: Unremarkable. No cholelithiasis, gallbladder wall thickening, or pericholecystic fluid. Common bile duct: Enlarged common bile duct measuring 9 mm. Pancreas: Pancreas suboptimally characterized. Kidneys: Right kidney measures 11.4 cm. Mild pelviectasis without gera hydronephrosis. IMPRESSION: 1. No cholelithiasis. No evidence of cholecystitis. 2. Dilated common bile duct measuring 9 mm. If there is laboratory evidence of biliary obstruction, consider MRCP to exclude choledocholithiasis. 3. Echogenic liver suggesting steatosis. 4. Mild pelviectasis of the right kidney without gera hydronephrosis. Electronically signed by: Chaitanya Putnam M.D. 05/09/23 22:46 PM
--- NOTE | 2023-05-09 23:54 | History & Physical Report ---
Date of Service May 09, 2023 Assessment & Plan (1) Alcoholic pancreatitis: Plan: 42-year-old female with past medical history significant for pancreatitis, sepsis from UTI as per patient comes with abdominal pain going on for last 2 3 days. Patient states she drinks on and off alcohol and she does binge drinking. Last few days she has been binge drinking and she noticed abdominal pain last couple of days and it has been progressively worsened. Since today morning pain was very severe associate with nausea and dry heaving. Denies any diarrhea or constipation.. Normal micturition. No fevers. When pain is severe she feeling short of breath. No chest pains. Pain is located in the epigastric region radiating to the right side. No headaches. No blurred vision. Some runny nose. Has some cough. Mild sore throat. Could not able to eat anything for last couple of days because of nausea. Hemodynamics okay Abdominal pain Lipase mildly elevated Binge drinking of alcohol Mostly alcoholic pancreatitis Will keep her n.p.o. IV LR@of 200 mill per hour IV Dilaudid as needed IV Protonix 40 mg twice daily CBD dilatation on ultrasound will do MRCP GI consult in a.m. Elevated LFTs Mostly alcoholic hepatitis Will follow MRCP Follow repeat labs Alcoholism Patient likes to be on withdrawal medication Will do banana bag IV thiamine and IV folic acid Will continue home gabapentin Will place on Librium protocol with IV Ativan as needed Close monitor Anion gap metabolic acidosis Could be from alcoholism and starvation ketosis Follow repeat labs Abnormal EKG Will follow echo DVT prophylaxis Lovenox Disposition Medical floor History of Present Illness Chief Complaint: Abdominal pain Primary Care Provider: NO PCP 42-year-old female with past medical history significant for pancreatitis, sepsis from UTI as per patient comes with abdominal pain going on for last 2 3 days. Patient states she drinks on and off alcohol and she does binge drinking. Last few days she has been binge drinking and she noticed abdominal pain last couple of days and it has been progressively worsened. Since today morning pain was very severe associate with nausea and dry heaving. Denies any diarrhea or constipation.. Normal micturition. No fevers. When pain is severe she feeling short of breath. No chest pains. Pain is located in the epigastric region radiating to the right side. No headaches. No blurred vision. Some runny nose. Has some cough. Mild sore throat. Could not able to eat anything for last couple of days because of nausea. Hemodynamics okay Past medical history. As mentioned above Past surgical history none Social history. Smokes half pack to 1 pack a day for last 15 years on and off. Alcohol states does not drink regularly but she does do binge drinking. Used to do drugs in her 20s Family history. Mother had endometrial cancer and colon cancer. Sister had colon cancer. Allergies Allergy/AdvReac Type Severity Reaction Status Date / Time No Known Allergies Allergy Mild Verified 05/09/23 20:34 Home Medications Medication Instructions Recorded Confirmed Type omeprazole 40 mg capsule,delayed 80 mg PO HS 08/13/22 05/09/23 History release naproxen 500 mg tablet 500 mg PO BID PRN pain #20 tabs 08/17/22 05/09/23 Rx buprenorphine 8 mg-naloxone 2 mg 2.5 tab sublingual DAILY 05/09/23 05/09/23 History sublingual tablet desvenlafaxine succinate 25 mg 25 mg PO QAM 05/09/23 05/09/23 History tablet,extended release 24 hr desvenlafaxine succinate 50 mg 50 mg PO QAM 05/09/23 05/09/23 History tablet,extended release 24 hr gabapentin 600 mg tablet 600 mg PO QID 05/09/23 05/09/23 History hydroxyzine HCl 50 mg tablet 50 mg PO BID PRN ANXIETY OR SLEEP 05/09/23 05/09/23 History lorazepam 0.5 mg tablet 0.5 mg PO BID PRN Anxiety 05/09/23 05/09/23 History Past Med/Surg History Medical History (Updated 05/10/23 @ 00:05 by Radha Lemons MD) Alcohol withdrawal Hx of drug abuse Sepsis Hypokalemia Hypomagnesemia Pyelonephritis Depression Surgical History (Updated 08/13/22 @ 15:48 by Randi Maldonado PA-C) No pertinent past surgical history Family History (Updated 08/13/22 @ 15:25 by Randi Maldonado PA-C) Mother Hypertension Cancer Sister Cancer Social History (Updated 08/13/22 @ 15:32 by Darien Chacko MD) Smoking Status: Current every day smoker Tobacco Type: Cigarettes Cigarettes Per Day: 1/2 PPD; Second Hand Exposure: Yes; Do You Dip or Chew Tobacco: No; Tobacco Cessation Education Requested by Patient: No Hx Alcohol Use: Yes Alcohol type: wine and hard liquor Alcohol Intake Frequency Comment: 2-3 drinks/day Hx Substance Use: Yes (history, not currently using) Last Used Substance: Unknown Last Used Substance Other:: "its been years" Preferred Language: Divehi Communication Ability: Effective 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 ENT- oropharynx clear Neck- supple, no JVD. Lungs- clear to auscultation no wheezing or crackles Heart- regular rhythm; no murmur, no gallop. Abdomen- normal bowel sounds, soft, tenderness in epigastric region, guarding present no distension. Extremities- no pretibial edema, no erythema seen. Neuro- alert, oriented PERRL, no facial palsy; no dysarthria; moves extremities Results & Data Results & Data Vital Signs (Past 12 Hours) Vital Signs Temp Pulse Pulse Resp BP BP Pulse Ox 05/09/23 23:00 80 05/09/23 22:00 83 13 114/79 97 05/09/23 20:01 36.3 C L 129 H 18 140/81 100 O2 Del Method 05/09/23 23:00 05/09/23 22:00 Room Air 05/09/23 20:01 Room Air Diagnostic Findings Laboratory Results WBC 5.29 K/ul (4.8-10.8) 05/09/23 20:20 RBC 3.68 M/uL (4.20-5.40) L 05/09/23 20:20 Hgb 13.2 g/dl (12.0-16.0) 05/09/23 20:20 Hct 37.7 % (37.0-47.0) 05/09/23 20:20 MCV 102.4 fL (80.0-100.0) H 05/09/23 20:20 MCH 35.9 pg (25.0-34.0) H 05/09/23 20:20 MCHC 35.0 g/dL (32.0-36.0) 05/09/23 20:20 RDW Std Deviation 40.6 fL (36.4-46.3) 05/09/23 20:20 RDW Coeff of [place] 10.7 % (11.5-14.5) L 05/09/23 20:20 Plt Count 143 K/uL (130-400) 05/09/23 20:20 MPV 10.7 fL (9.4-12.4) 05/09/23 20:20 Immature Gran % (Auto) 0.4 % 05/09/23 20:20 Neut % (Auto) 62.5 % 05/09/23 20:20 Lymph % (Auto) 27.4 % 05/09/23 20:20 [place] % (Auto) 5.5 % 05/09/23 20:20 Eos % (Auto) 3.4 % 05/09/23 20:20 Baso % (Auto) 0.8 % 05/09/23 20:20 Neut # (Auto) 3.31 K/uL (1.40-6.50) 05/09/23 20:20 Lymph # (Auto) 1.45 K/uL (1.20-3.40) 05/09/23 20:20 [place] # (Auto) 0.29 K/uL (0.11-0.59) 05/09/23 20:20 Eos # (Auto) 0.18 K/uL (0.00-0.50) 05/09/23 20:20 Baso # (Auto) 0.04 K/uL (0.00-0.20) 05/09/23 20:20 Immature Gran # (Auto) 0.02 K/uL (0.01-0.20) 05/09/23 20:20 Sodium 130 mmol/L (136-145) L 05/09/23 20:20 Potassium 3.4 mmol/L (3.5-5.1) L 05/09/23 20:20 Chloride 97 mmol/L (98-107) L 05/09/23 20:20 Carbon Dioxide 18 mmol/L (21-32) L 05/09/23 20:20 Anion Gap 15 (3-11) H 05/09/23 20:20 BUN 6 mg/dl (6-23) 05/09/23 20:20 Creatinine 0.52 mg/dl (0.6-1.2) L 05/09/23 20:20 Est Cr Clr Drug Dosing 149.3 ml/min 05/09/23 20:20 Est GFR ( Amer) 135.6 ml/min 05/09/23 20:20 Est GFR (Non-Af Amer) 117.0 ml/min 05/09/23 20:20 BUN/Creatinine Ratio 11.5 (10-20) 05/09/23 20:20 Glucose 137 mg/dl (70-99(Fasting)) H 05/09/23 20:20 Calcium 9.2 mg/dl (8.6-10.3) 05/09/23 20:20 Total Bilirubin 1.6 mg/dl (0.2-1.0) H 05/09/23 20:20 AST 91 U/L (13-39) H 05/09/23 20:20 ALT 59 U/L (7-52) H 05/09/23 20:20 Alkaline Phosphatase 157 U/L (34-104) H 05/09/23 20:20 Troponin I High Sens 3.2 pg/ml (0-14) 05/09/23 20:20 Total Protein 8.0 gm/dl (6.0-8.3) 05/09/23 20:20 Albumin 4.6 gm/dl (3.4-5.0) 05/09/23 20:20 Globulin 3.4 gm/dl (2.5-4.0) 05/09/23 20:20 Albumin/Globulin Ratio 1.4 (0.9-2) 05/09/23 20:20 Lipase 274 U/L (11-82) H 05/09/23 20:20 HCG, Qual Negative (Negative) 05/09/23 20:20 Urine Color Yellow 05/09/23 21:13 Urine Appearance Clear (Clear) 05/09/23 21:13 Urine pH 6.0 (4.5-7.5) 05/09/23 21:13 Ur Specific [place] 1.011 (1.000-1.030) 05/09/23 21:13 Urine Protein Trace (Negative) H 05/09/23 21:13 Urine Glucose (UA) Negative (Negative) 05/09/23 21:13 Urine Ketones 3+ (Negative) H 05/09/23 21:13 Urine Blood Negative (Negative) 05/09/23 21:13 Urine Nitrite Negative (Negative) 05/09/23 21:13 Urine Bilirubin Negative (Negative) 05/09/23 21:13 Urine Urobilinogen Negative (Negative) 05/09/23 21:13 Ur Leukocyte Esterase Negative (Negative) 05/09/23 21:13 Urine WBC (Auto) 1-5 /hpf (0-5) 05/09/23 21:13 Urine RBC (Auto) 0-4 /hpf (0-4) 05/09/23 21:13 U Hyaline Cast (Auto) 1-5 /lpf (0-5) 05/09/23 21:13 U Epithel Cells (Auto) >30 /lpf (0-5) H 05/09/23 21:13 Urine Bacteria (Auto) Negative (Negative) 05/09/23 21:13 Impressions Liver Ultrasound 05/09/23 21:27 Exam(s): US LIVER EXAM: US Abdomen Limited CLINICAL HISTORY: Reason for exam: Cholecystitis?. TECHNIQUE: Real-time ultrasound of the abdomen with image documentation. COMPARISON: No relevant prior studies available. FINDINGS: Liver: Echogenic liver measures 17 cm. No focal lesion. Patent, normally directed portal vein. Gallbladder: Unremarkable. No cholelithiasis, gallbladder wall thickening, or pericholecystic fluid. Common bile duct: Enlarged common bile duct measuring 9 mm. Pancreas: Pancreas suboptimally characterized. Kidneys: Right kidney measures 11.4 cm. Mild pelviectasis without gera hydronephrosis. IMPRESSION: 1. No cholelithiasis. No evidence of cholecystitis. 2. Dilated common bile duct measuring 9 mm. If there is laboratory evidence of biliary obstruction, consider MRCP to exclude choledocholithiasis. 3. Echogenic liver suggesting steatosis. 4. Mild pelviectasis of the right kidney without gera hydronephrosis. Electronically signed by: Chaitanya Putnam M.D. 05/09/23 22:46 PM ECG Additional Comments: ECG. Sinus rhythm with fusion complexes rate of 89. Nonspecific intra ventricular conduction delay. Code Status & VTE Plan VTE Prophylaxis Plan VTE Prophylaxis will be ordered: Yes
[2023-05-10] MEDS ORDERED: LORazepam 3 MG in SYRINGE 1.5 ML IV PRN (01:25)
[2023-05-10] MEDS ORDERED: LORazepam 2 MG in SYRINGE 1 ML IV PRN (01:25)
[2023-05-10] MEDS ORDERED: chlordiazePOXIDE ALCOHOL WITHDRAWL 25MG PO STA (01:25)
[2023-05-10] MEDS ORDERED: LORazepam 1 MG in SYRINGE 0.5 ML IV PRN (01:25)
[2023-05-10] MEDS ORDERED: Ativan IV Alcohol Withdrawal--Active Protocol IV PRN (01:25)
[2023-05-10] MEDS: LACTATED RINGER'S 1,000 ML IV SCH ×2 (01:33→04:47)
[2023-05-10] MEDS: HYDROmorphone INJ 0.5 MG/0.5 ML SYR IV PRN (01:45)
[2023-05-10] MEDS: chlordiazePOXIDE HCl 25 MG CAP PO SCH (02:39)
[2023-05-10] MEDS: LORazepam 0.5 MG TAB PO PRN (02:39)
[2023-05-10] MEDS: MULTI-VITAMIN INFUSION 10 ML, THIAMINE HCL 100 MG, FOLIC ACID 1 MG in SODIUM CHLORIDE 0... IV ONE (02:41)
--- NOTE | 2023-05-10 02:50 | Magnetic Resonance Report ---
Exam(s): MRI MRCP EXAM: MR Abdomen Without Intravenous Contrast, MRCP Protocol CLINICAL HISTORY: Reason for exam: dilated common bile duct, abd pain, elevated lft. TECHNIQUE: Multiplanar magnetic resonance images of the abdomen without intravenous contrast using MRCP protocol. COMPARISON: CT examination 08/13/22 FINDINGS: Bile ducts: There is mild, fusiform, bile duct dilatation measuring up to 10 mm in width, however, no evidence for anatomically obstructing mass or choledocholithiasis. Findings likely represent sequela from prior inflammation. Gallbladder: Unremarkable. No stones. Liver: Unremarkable. Pancreas: Mild acute pancreatitis from prior examination has resolved. No ductal dilation. Spleen: Unremarkable. No splenomegaly. Adrenals: Unremarkable. No mass. Kidneys and ureters: Unremarkable. No hydronephrosis. Stomach and bowel: Unremarkable. No obstruction. IMPRESSION: 1. Mild acute pancreatitis from prior examination has resolved. 2. There is mild, fusiform, bile duct dilatation measuring up to 10 mm in width, however, no evidence for anatomically obstructing mass or choledocholithiasis. Findings likely represent sequela from prior inflammation. Electronically signed by: Isaiah Jones MD 05/10/23 02:49 AM
[2023-05-10 06:16] LABS: Basophils # (auto) 0.02 K/uL (0.00-0.20); Basophils % (auto) 0.6 %; Eosinophils # (auto) 0.16 K/uL (0.00-0.50); Eosinophils % (auto) 4.6 %; Hematocrit (blood only) 30.7 % (37.0-47.0); Hemoglobin 10.5 g/dl (12.0-16.0); Immature Granulocytes # (auto) 0.01 K/uL (0.01-0.20); Immature Granulocytes % (auto) 0.3 %; Lymphocytes # (auto) 1.15 K/uL (1.20-3.40); Lymphocytes % (auto) 32.8 %; Mean Corpuscular Hemoglobin 35.2 pg (25.0-34.0); Mean Corpuscular Hgb Conc 34.2 g/dL (32.0-36.0); Mean Platelet Volume 11.1 fL (9.4-12.4); Monocytes # (auto) 0.19 K/uL (0.11-0.59); Monocytes % (auto) 5.4 %; Neutrophils # (auto) 1.98 K/uL (1.40-6.50); Neutrophils % (auto) 56.3 %; Platelet Count 95 K/uL (130-400); RDW Coefficient of Variation 10.6 % (11.5-14.5); RDW Standard Deviation 39.5 fL (36.4-46.3); Red Blood Count 2.98 M/uL (4.20-5.40); White Blood Count 3.51 K/ul (4.8-10.8)
[2023-05-10 06:33] LABS: Albumin Level 3.4 gm/dl (3.4-5.0); BUN Creatinine Ratio 12.8 (10-20); Bilirubin Direct 0.4 mg/dl (0-0.2); Calcium 7.7 mg/dl (8.6-10.3); Creatinine Clr Calc Pharmacy 205.2 ml/min; Est GFR (African American) 149.1 ml/min; Est GFR (Non-African American) 128.6 ml/min; Magnesium 1.3 mg/dl (1.7-2.4); Potassium 3.2 mmol/L (3.5-5.1); Total Protein 5.7 gm/dl (6.0-8.3)
[2023-05-10] MEDS: POTASSIUM CHLORIDE CRTAB 20 MEQ TABCR PO STA (07:36)
[2023-05-10] MEDS: MAGNESIUM SULFATE / D5W 1 GM/100 ML BAG IV SCH (07:36)
[2023-05-10] MEDS: POTASSIUM CHLORIDE / WTR 10 MEQ/100 ML PLCT IV SCH (07:37)
[2023-05-10] MEDS: DESVENLAFAXINE~ORDER AWAITING ACTION SCH ×2 (07:50)
[2023-05-10 08:04] LABS: Troponin I High Sensitivity 3.6 pg/ml (0-14)
--- NOTE | 2023-05-10 08:10 | Electrocardiogram Report ---
Test Reason : Blood Pressure : / mmHG Vent. Rate : 089 BPM Atrial Rate : 089 BPM P-R Int : 200 ms QRS Dur : 122 ms QT Int : 404 ms P-R-T Axes : 045 070 054 degrees QTc Int : 491 ms Sinus rhythm Incomplete right bundle branch block Borderline ECG When compared with ECG of 13-AUG-2022 13:04, T-wave inversion in Anterior leads no longer present HR has decreased by 38 bpm Confirmed by Michael Rae ([id number]) on 05/10/2023 8:09:50 AM Referred By: REFERRED SELF Confirmed By:Michael Rae
[2023-05-10] MEDS: GABAPENTIN 600 MG TAB PO SCH (09:11)
[2023-05-10] MEDS: PANTOprazole 40 MG in SYRINGE 0 ML IV SCH (09:11)
[2023-05-10] MEDS: FOLIC ACID 1 MG in SYRINGE 9.8 ML IV SCH (09:11)
[2023-05-10] MEDS: THIAMINE HCL 100 MG in SYRINGE 9 ML IV SCH (09:11)
[2023-05-10] MEDS: ENOXAPARIN INJ 40 MG/0.4 ML SYR SQ SCH (09:12)
[2023-05-10] MEDS: BUPRENORPHINE/NALOXONE 8/2 MG TAB SL SCH (09:18)
[2023-05-10 10:14] LABS: Phosphorus 2.7 mg/dl (2.5-4.9)
[2023-05-10] MEDS ORDERED: POTASSIUM CHLORIDE / WTR 10 MEQ/100 ML PLCT IV SCH (11:15)
--- NOTE | 2023-05-10 12:45 | Gastrointestinal Consultation ---
Date of Consultation May 10, 2023 Assessment & Plan (1) Alcoholic pancreatitis: (2) Alcohol abuse: Plan 42-year-old female with history of alcohol use, previous history of pancreatitis in 2022, presents with abdominal pain, nausea vomiting, after episode of binge alcohol drinking, found to have elevated lipase and imaging suggestive of acute pancreatitis, this appears to be mild. Though she does have a mildly dilated CBD, there is no evidence for choledocholithiasis, and her LFTs do not show a significantly obstructed pattern. Her abdominal pain is somewhat improved though discontinue today. - Continue supportive care with IVF Analgesia PRN. Antiemetics PRN. - OOB as tolerated Can try to chew on some ice chips if tolerated Would not advance diet past this as she is still having abdominal pain Watch for alcohol withdrawal Would recommend strict EtOH abstention and referral to alcohol counseling if not already done Recommended tobacco cessation as well Recommend outpatient EUS in approximately 6 to 8 weeks to further evaluate her pancreas after this acute episode resolves and we will arrange this When ready for diet advancement, would advance to low-fat Thank you for allowing us to participate in the care of this patient. Please call with any acute changes, questions or concerns. Please see addendum below with additional recommendation from my supervising physician. Supervising Physician Co-Signing Physician Notes I agree with pe and plan as documented. Suspect alcohohlic pancreatitis. thought slightly dilated cbd on imaging - no obstruction noted on imaging and tb over 1. Would continue supportive care for pancreatitis. Likely outpt eus would be recommended for evaluation of cbd dilation. History of Present Illness Reason for Consultation: alcoholism. pancreatitis Requesting Physician: Dr. Gerber Attending Physician: Clayton Simons MD History of Present Illness This a 42-year-old female with history of drug abuse, opiate abuse, tobacco use, alcohol use, anemia, intermittent thrombocytopenia, previous history of pancreatitis in 2022, admitted with abdominal pain that began after a period of binge drinking. Associated symptoms including nausea and vomiting Upon arrival, workup revealed elevated lipase, 274, transaminitis with AST greater than ALT, bilirubin of 1.6, along with hyponatremia, hypokalemia. US ABD shows slightly dilated CBD of 9 mm. MRCP w/ mild acute pancreatitis, CBD 10 mm, no evidence for obstructing mass or choledocholithiasis. Today patient feels somewhat improved, though does continue with abdominal pain. She states she does want to try some ice chips if she could. No further vomiting. Has not moved her bowels but is passing gas. Denies fever or chills, jaundice, icterus, melena, dark urine or jensen stools, diarrhea, melena or hematochezia. VSS. She is afebrile. HGB diminished appropriately with IVF. She states she does not drink ETOH daily, but does have episodes of drinking several drinks per day for several days in a row, every now and then, the last time was this last weekend. She does use tobacco. Allergies Allergy/AdvReac Type Severity Reaction Status Date / Time No Known Allergies Allergy Mild Verified 05/09/23 20:34 Home Medications Medication Instructions Recorded Confirmed Type omeprazole 40 mg capsule,delayed 80 mg PO HS 08/13/22 05/09/23 History release naproxen 500 mg tablet 500 mg PO BID PRN pain #20 tabs 08/17/22 05/09/23 Rx buprenorphine 8 mg-naloxone 2 mg 2.5 tab sublingual DAILY 05/09/23 05/09/23 History sublingual tablet desvenlafaxine succinate 25 mg 25 mg PO QAM 05/09/23 05/09/23 History tablet,extended release 24 hr desvenlafaxine succinate 50 mg 50 mg PO QAM 05/09/23 05/09/23 History tablet,extended release 24 hr gabapentin 600 mg tablet 600 mg PO QID 05/09/23 05/09/23 History hydroxyzine HCl 50 mg tablet 50 mg PO BID PRN ANXIETY OR SLEEP 05/09/23 05/09/23 History lorazepam 0.5 mg tablet 0.5 mg PO BID PRN Anxiety 05/09/23 05/09/23 History Patient History Medical History (Updated 05/10/23 @ 00:05 by Radha Lemons MD) Alcohol withdrawal Hx of drug abuse Sepsis Hypokalemia Hypomagnesemia Pyelonephritis Depression Surgical History (Updated 08/13/22 @ 15:48 by Randi Maldonado PA-C) No pertinent past surgical history Family History (Updated 08/13/22 @ 15:25 by Randi Maldonado PA-C) Mother Hypertension Cancer Sister Cancer Social History (Updated 08/13/22 @ 15:32 by Darien Chacko MD) Smoking Status: Current every day smoker Tobacco Type: Cigarettes Cigarettes Per Day: 1/2 PPD; Second Hand Exposure: Yes; Do You Dip or Chew Tobacco: No; Tobacco Cessation Education Requested by Patient: No Hx Alcohol Use: Yes Alcohol type: wine and hard liquor Alcohol Intake Frequency Comment: 2-3 drinks/day Hx Substance Use: Yes (history, not currently using) Last Used Substance: Unknown Last Used Substance Other:: "its been years" Preferred Language: French Communication Ability: Effective Automatic Glove Turner And Former Required: No Beliefs That Will Affect Care: None Current Living Situation: Alone Current Living Situation Comment: lives in an apartment, alone Other Information That Helps Us Care for You: No Feels Safe at Home: Yes Safety Concerns: Feels Safe At This Time Assistive Devices: None Review of Systems Review of Systems: All systems reviewed & are unremarkable except as noted in HPI & below Physical Exam Constitutional: well developed, well nourished and comfortable; no acute distress Eyes: Sclera anicteric, no conjunctival injection ENMT: moist mucous membranes, no pallor Neck: trachea midline supple Respiratory: normal respiratory effort, lungs clear to auscultation Cardiovascular: RRR, no murmur, no edema Gastrointestinal (Abdomen): Inspection/Auscultation: abdomen not distended (TTP in the epigastrium, no rebound, guarding, BS x 4 quads ) Skin: no rashes, warm and dry Neurologic: alert and oriented x 3, no obvious focal neuro deficit Psychiatric: normal mood and affect Results & Data Vital Signs (Past 12 Hours) Vital Signs Temp Pulse Pulse Resp BP BP Pulse Ox 05/10/23 11:43 36.6 C 83 18 126/78 96 05/10/23 07:34 37.1 C 83 18 116/78 96 05/10/23 01:30 36.7 C 77 18 125/85 100 05/10/23 01:25 36.7 C 77 18 125/85 100 05/10/23 01:00 78 20 108/82 97 O2 Del Method 05/10/23 11:43 Room Air 05/10/23 07:34 Room Air 05/10/23 01:30 Room Air 05/10/23 01:25 Room Air 05/10/23 01:00 Room Air Laboratory Results US ABD: Liver: Echogenic liver measures 17 cm. No focal lesion. Patent, normally directed portal vein. Gallbladder: Unremarkable. No cholelithiasis, gallbladder wall thickening, or pericholecystic fluid. Common bile duct: Enlarged common bile duct measuring 9 mm. Pancreas: Pancreas suboptimally characterized. Kidneys: Right kidney measures 11.4 cm. Mild pelviectasis without gera hydronephrosis. 1. No cholelithiasis. No evidence of cholecystitis.2. Dilated common bile duct measuring 9 mm. If there is laboratory evidence of biliary obstruction, consider MRCP to exclude choledocholithiasis. 3. Echogenic liver suggesting steatosis.4. Mild pelviectasis of the right kidney without gera hydronephrosis. MRCP: FINDINGS: Bile ducts: There is mild, fusiform, bile duct dilatation measuring up to 10 mm in width, however, no evidence for anatomically obstructing mass or choledocholithiasis. Findings likely represent sequela from prior inflammation. Gallbladder: Unremarkable. No stones. Liver: Unremarkable. Pancreas: Mild acute pancreatitis from prior examination has resolved. No ductal dilation. Spleen: Unremarkable. No splenomegaly. Adrenals: Unremarkable. No mass. Kidneys and ureters: Unremarkable. No hydronephrosis. Stomach and bowel: Unremarkable. No obstruction. IMPRESSION: 1. Mild acute pancreatitis from prior examination has resolved. 2. There is mild, fusiform, bile duct dilatation measuring up to 10 mm in width, however, no evidence for anatomically obstructing mass or choledocholithiasis. Findings likely represent sequela from prior inflammation. Diagnostic Findings 05/10/23 05/10/23 05/09/23 Range/Units 07:26 05:35 21:13 WBC 3.51 L (4.8-10.8) K/ul RBC 2.98 L (4.20-5.40) M/uL Hgb 10.5 L (12.0-16.0) g/dl Hct 30.7 L (37.0-47.0) % MCV 103.0 H (80.0-100.0) fL MCH 35.2 H (25.0-34.0) pg MCHC 34.2 (32.0-36.0) g/dL RDW Std Deviation 39.5 (36.4-46.3) fL RDW Coeff of Ralph 10.6 L (11.5-14.5) % Plt Count 95 L (130-400) K/uL MPV 11.1 (9.4-12.4) fL Immature Gran % (Auto) 0.3 % Neut % (Auto) 56.3 % Lymph % (Auto) 32.8 % [place] % (Auto) 5.4 % Eos % (Auto) 4.6 % Baso % (Auto) 0.6 % Neut # (Auto) 1.98 (1.40-6.50) K/uL Lymph # (Auto) 1.15 L (1.20-3.40) K/uL [place] # (Auto) 0.19 (0.11-0.59) K/uL Eos # (Auto) 0.16 (0.00-0.50) K/uL Baso # (Auto) 0.02 (0.00-0.20) K/uL Immature Gran # (Auto) 0.01 (0.01-0.20) K/uL Sodium 133 L (136-145) mmol/L Potassium 3.2 L (3.5-5.1) mmol/L Chloride 106 (98-107) mmol/L Carbon Dioxide 18 L (21-32) mmol/L Anion Gap 9 (3-11) BUN 5 L (6-23) mg/dl Creatinine 0.39 L (0.6-1.2) mg/dl Est Cr Clr Drug Dosing 205.2 ml/min Est GFR ( Amer) 149.1 ml/min Est GFR (Non-Af Amer) 128.6 ml/min BUN/Creatinine Ratio 12.8 (10-20) Glucose 77 (70-99(Fasting)) mg/dl Calcium 7.7 L (8.6-10.3) mg/dl Phosphorus 2.7 (2.5-4.9) mg/dl Magnesium 1.3 L (1.7-2.4) mg/dl Total Bilirubin 1.0 D (0.2-1.0) mg/dl Direct Bilirubin 0.4 H (0-0.2) mg/dl AST 58 H (13-39) U/L ALT 38 (7-52) U/L Alkaline Phosphatase 105 H (34-104) U/L Troponin I High Sens 3.6 (0-14) pg/ml Total Protein 5.7 L D (6.0-8.3) gm/dl Albumin 3.4 (3.4-5.0) gm/dl Globulin (2.5-4.0) gm/dl Albumin/Globulin Ratio (0.9-2) Lipase (11-82) U/L Vitamin B12 434 (180-914) pg/ml HCG, Qual (Negative) Urine Color Yellow Urine Appearance Clear (Clear) Urine pH 6.0 (4.5-7.5) Ur Specific [place] 1.011 (1.000-1.030) Urine Protein Trace H (Negative) Urine Glucose (UA) Negative (Negative) Urine Ketones 3+ H (Negative) Urine Blood Negative (Negative) Urine Nitrite Negative (Negative) Urine Bilirubin Negative (Negative) Urine Urobilinogen Negative (Negative) Ur Leukocyte Esterase Negative (Negative) Urine WBC (Auto) 1-5 (0-5) /hpf Urine RBC (Auto) 0-4 (0-4) /hpf U Hyaline Cast (Auto) 1-5 (0-5) /lpf U Epithel Cells (Auto) >30 H (0-5) /lpf Urine Bacteria (Auto) Negative (Negative) 05/09/23 Range/Units 20:20 WBC 5.29 (4.8-10.8) K/ul RBC 3.68 L (4.20-5.40) M/uL Hgb 13.2 (12.0-16.0) g/dl Hct 37.7 (37.0-47.0) % MCV 102.4 H (80.0-100.0) fL MCH 35.9 H (25.0-34.0) pg MCHC 35.0 (32.0-36.0) g/dL RDW Std Deviation 40.6 (36.4-46.3) fL RDW Coeff of [place] 10.7 L (11.5-14.5) % Plt Count 143 (130-400) K/uL MPV 10.7 (9.4-12.4) fL Immature Gran % (Auto) 0.4 % Neut % (Auto) 62.5 % Lymph % (Auto) 27.4 % [place] % (Auto) 5.5 % Eos % (Auto) 3.4 % Baso % (Auto) 0.8 % Neut # (Auto) 3.31 (1.40-6.50) K/uL Lymph # (Auto) 1.45 (1.20-3.40) K/uL [place] # (Auto) 0.29 (0.11-0.59) K/uL Eos # (Auto) 0.18 (0.00-0.50) K/uL Baso # (Auto) 0.04 (0.00-0.20) K/uL Immature Gran # (Auto) 0.02 (0.01-0.20) K/uL Sodium 130 L (136-145) mmol/L Potassium 3.4 L (3.5-5.1) mmol/L Chloride 97 L (98-107) mmol/L Carbon Dioxide 18 L (21-32) mmol/L Anion Gap 15 H (3-11) BUN 6 (6-23) mg/dl Creatinine 0.52 L (0.6-1.2) mg/dl Est Cr Clr Drug Dosing 149.3 ml/min Est GFR ( Amer) 135.6 ml/min Est GFR (Non-Af Amer) 117.0 ml/min BUN/Creatinine Ratio 11.5 (10-20) Glucose 137 H (70-99(Fasting)) mg/dl Calcium 9.2 (8.6-10.3) mg/dl Phosphorus (2.5-4.9) mg/dl Magnesium (1.7-2.4) mg/dl Total Bilirubin 1.6 H (0.2-1.0) mg/dl Direct Bilirubin (0-0.2) mg/dl AST 91 H (13-39) U/L ALT 59 H (7-52) U/L Alkaline Phosphatase 157 H (34-104) U/L Troponin I High Sens 3.2 (0-14) pg/ml Total Protein 8.0 (6.0-8.3) gm/dl Albumin 4.6 (3.4-5.0) gm/dl Globulin 3.4 (2.5-4.0) gm/dl Albumin/Globulin Ratio 1.4 (0.9-2) Lipase 274 H (11-82) U/L Vitamin B12 (180-914) pg/ml HCG, Qual Negative (Negative) Urine Color Urine Appearance (Clear) Urine pH (4.5-7.5) Ur Specific [place] (1.000-1.030) Urine Protein (Negative) Urine Glucose (UA) (Negative) Urine Ketones (Negative) Urine Blood (Negative) Urine Nitrite (Negative) Urine Bilirubin (Negative) Urine Urobilinogen (Negative) Ur Leukocyte Esterase (Negative) Urine WBC (Auto) (0-5) /hpf Urine RBC (Auto) (0-4) /hpf U Hyaline Cast (Auto) (0-5) /lpf U Epithel Cells (Auto) (0-5) /lpf Urine Bacteria (Auto) (Negative)
[2023-05-10 14:05] LABS: Prothrombin Time 10.8 Seconds (9.0-12.0)
--- NOTE | 2023-05-10 16:23 | Hospitalist Progress Note ---
Date of Service May 10, 2023 Assessment & Plan (1) Alcoholic pancreatitis: Plan: 42-year-old female with past medical history significant for pancreatitis, sepsis from UTI as per patient comes with abdominal pain going on for last 2 3 days. Patient states she drinks on and off alcohol and she does binge drinking. Last few days she has been binge drinking and she noticed abdominal pain last couple of days and it has been progressively worsened. Since today morning pain was very severe associate with nausea and dry heaving. Denies any diarrhea or constipation.. Normal micturition. No fevers. When pain is severe she feeling short of breath. No chest pains. Pain is located in the epigastric region radiating to the right side. No headaches. No blurred vision. Some runny nose. Has some cough. Mild sore throat. Could not able to eat anything for last couple of days because of nausea. Hemodynamics okay Acute alcoholic pancreatitis Lipase mildly elevated Binge drinking of alcohol Has pain on n.p.o. IV LR@of 200 mill per hour IV Dilaudid as needed IV Protonix 40 mg twice daily CBD dilatation on ultrasound will do MRCP MRI MRCP showed mild acute pancreatitis resolved since prior examination, mild fusiform bile duct dilatation measuring up to 10 mm in width however no evidence of anatomically obstructive mass or choledocholithiasis. Findings suggest sequelae from prior inflammation Appreciate GI input and recommendation Clinically better and will start clears orally Electrolytes abnormality Has hypokalemia, hypomagnesemia Getting replacement and will monitor Elevated LFTs Likely secondary to alcoholic hepatitis Will follow MRCP-as above Monitor LFTs Alcoholism Patient likes to be on withdrawal medication Received banana bag Has been on IV thiamine and IV folic acid Will continue home gabapentin Will place on Librium protocol with IV Ativan as needed No evidence of withdrawal symptoms as of now Anion gap metabolic acidosis Could be from alcoholism and starvation ketosis Follow repeat labs Abnormal EKG Will follow echo DVT prophylaxis Lovenox Disposition Medical floor Admission and Anticipated Discharge Date Admission Date: May 09, 2023 Subjective 05/10/2023 The patient was seen and examined in medical floor She still complains to epigastric pain but does not have any nausea and or vomiting or any diarrhea No tremors involving the outstretched hands Denies any fever and or chills but remains weak Review of Systems Review of Systems: All systems reviewed and are unremarkable except as noted below Physical Exam Physical Exam: Lying in bed without any acute distress Constitutional: well developed, well nourished, + ill appearing and average body habitus Eyes: PERRL, conjunctivae normal, anicteric sclerae ENMT: external ear and nose normal, oropharynx normal Neck: trachea midline, no thyromegaly Respiratory: no respiratory distress Auscultation: lungs clear to auscultation bilaterally Cardiovascular: Rate/Rhythm: regular rate and regular rhythm; not tachycardic Heart Sounds: normal S1 and normal S2; no murmur Extremities: no edema Gastrointestinal (Abdomen): Inspection/Auscultation: normal bowel sounds; abdo men not distended Percussion/Palpation: + abdomen tender and abdomen soft Musculoskeletal: No acute arthritis involving any of the joint Neurologic: normal touch/pain/proprioception and moves all extremities; no focal motor deficits Psychiatric: A+Ox3, euthymic affect Lymphatic: no cervical or axillary lymphadenopathy Results & Data Results & Data Vital Signs (Past 12 Hours) Vital Signs Temp Pulse Pulse Resp BP BP Pulse Ox 05/10/23 15:49 37.2 C 82 16 99/65 L 97 05/10/23 11:43 36.6 C 83 18 126/78 96 05/10/23 07:34 37.1 C 83 18 116/78 96 O2 Del Method 05/10/23 15:49 Room Air 05/10/23 11:43 Room Air 05/10/23 07:34 Room Air Laboratory Results Short CBC 05/09/23 05/10/23 Range/Units 20:20 05:35 WBC 5.29 3.51 L (4.8-10.8) K/ul Hgb 13.2 10.5 L (12.0-16.0) g/dl Hct 37.7 30.7 L (37.0-47.0) % Plt Count 143 95 L (130-400) K/uL BMP 05/09/23 05/10/23 20:20 05:35 Sodium 130 L 133 L Potassium 3.4 L 3.2 L Chloride 97 L 106 Carbon Dioxide 18 L 18 L BUN 6 5 L Creatinine 0.52 L 0.39 L Glucose 137 H 77 Calcium 9.2 7.7 L Liver Function 05/09/23 05/10/23 Range/Units 20:20 05:35 Total Bilirubin 1.6 H 1.0 D (0.2-1.0) mg/dl Direct Bilirubin 0.4 H (0-0.2) mg/dl AST 91 H 58 H (13-39) U/L ALT 59 H 38 (7-52) U/L Alkaline Phosphatase 157 H 105 H (34-104) U/L Albumin 4.6 3.4 (3.4-5.0) gm/dl Urine 05/09/23 Range/Units 21:13 Urine Color Yellow Urine Appearance Clear (Clear) Urine pH 6.0 (4.5-7.5) Ur Specific [place] 1.011 (1.000-1.030) Urine Protein Trace H (Negative) Urine Glucose (UA) Negative (Negative) Medications Administered Current Inpatient Medications Buprenorphine/Naloxone (Buprenorphine/Naloxone 8/2 Mg Tab) 2.5 tab SL DAILY OSMIN Stop: 06/09/23 08:59 Last Admin: 05/10/23 09:18 Dose: 2.5 tab Chlordiazepoxide HCl (Chlordiazepoxide Hcl 25 Mg Cap) 25 mg PO Q8H OSMIN Stop: 05/11/23 17:46 Chlordiazepoxide HCl (Chlordiazepoxide Hcl 25 Mg Cap) 25 mg PO Q6H OSMIN Stop: 05/10/23 19:26 Last Admin: 05/10/23 13:54 Dose: 25 mg Chlordiazepoxide HCl (Chlordiazepoxide Hcl 10 Mg Cap) 10 mg PO Q8H OSMIN Stop: 05/12/23 17:46 Chlordiazepoxide HCl (Chlordiazepoxide Hcl 5 Mg Cap) 5 mg PO Q12H OSMIN Stop: 05/13/23 17:46 Enoxaparin Sodium (Enoxaparin Inj 40 Mg/0.4 Ml Syr) 40 mg SQ Q24H OSMIN Stop: 06/09/23 08:59 Last Admin: 05/10/23 09:12 Dose: 40 mg Gabapentin (Gabapentin 600 Mg Tab) 600 mg PO QID OSMIN Stop: 06/09/23 08:59 Last Admin: 05/10/23 13:50 Dose: 600 mg Hydromorphone HCl (Hydromorphone Inj 0.5 Mg/0.5 Ml Syr) 0.5 mg IV Q3H PRN PRN Reason: Mod-Sev Pain (Scale 4-10) Stop: 05/24/23 01:24 Last Admin: 05/10/23 13:54 Dose: 0.5 mg Hydroxyzine HCl (Hydroxyzine Hcl 25 Mg Tab) 50 mg PO BID PRN PRN Reason: ANXIETY OR SLEEP Stop: 06/09/23 01:24 Thiamine HCl 100 mg/ Syringe 10 mls @ 2 mls/min IV QAM OSMIN Stop: 06/09/23 08:59 Last Admin: 05/10/23 09:11 Dose: 2 mls/min Folic Acid 1 mg/ Syringe 10 mls @ 5 mls/min IV QAM OSMIN Stop: 06/09/23 08:59 Last Admin: 05/10/23 09:11 Dose: 5 mls/min Lorazepam 1 mg/ Syringe 1 mls @ 2 mls/min IV UD PRN; Protocol PRN Reason: EtOH Withdrawal AWSS Score 6,7 Stop: 06/09/23 01:24 Lorazepam 2 mg/ Syringe 2 mls @ 2 mls/min IV UD PRN; Protocol PRN Reason: EtOH Withdrawal AWSS Score 8,9 Stop: 06/09/23 01:24 Lorazepam 3 mg/ Syringe 3 mls @ 2 mls/min IV ONCE PRN; Protocol PRN Reason: EtOH Withdrawal AWSS Score 10+ Pantoprazole Sodium 40 mg/ (Syringe) 10 mls @ 5 mls/min IV BID OSMIN Stop: 06/09/23 08:59 Last Admin: 05/10/23 09:11 Dose: 5 mls/min Lactated Ringer's (Lr) 1,000 mls @ 200 mls/hr IV .Q5H ON LICENSE OF [facility] Stop: 06/09/23 03:59 Last Admin: 05/10/23 15:53 Dose: 200 mls/hr Lorazepam (Lorazepam 0.5 Mg Tab) 0.5 mg PO BID PRN PRN Reason: Anxiety Stop: 06/09/23 01:24 Last Admin: 05/10/23 11:01 Dose: 0.5 mg Ondansetron HCl (Ondansetron Inj 2 Mg/Ml 2 Ml Vial) 4 mg IV Q6H PRN PRN Reason: Nausea Stop: 06/09/23 01:24 Venlafaxine HCl (Venlafaxine Hcl Xr 37.5 Mg Capxr) 37.5 mg PO DAILY ON LICENSE OF [facility] Stop: 06/10/23 08:59
[2023-05-11] MEDS: chlordiazePOXIDE HCl 25 MG CAP PO SCH (01:00)
[2023-05-11] MEDS: NICOTINE 7 MG/24 HR TDSY TD SCH (02:28)
[2023-05-11 07:46] LABS: Hematocrit (blood only) 28.1 % (37.0-47.0); Mean Corpuscular Hemoglobin 35.7 pg (25.0-34.0); Mean Corpuscular Hgb Conc 35.6 g/dL (32.0-36.0); Mean Corpuscular Volume 100.4 fL (80.0-100.0); Mean Platelet Volume 11.5 fL (9.4-12.4); Platelet Count 97 K/uL (130-400); RDW Coefficient of Variation 10.8 % (11.5-14.5); RDW Standard Deviation 40.1 fL (36.4-46.3); White Blood Count 2.22 K/ul (4.8-10.8)
[2023-05-11 07:54] LABS: Alanine Aminotransferase 32 U/L (7-52); Albumin Globulin Ratio 1.5 (0.9-2); Albumin Level 3.2 gm/dl (3.4-5.0); Alkaline Phosphatase 100 U/L (34-104); Anion Gap 5 (3-11); Aspartate Aminotransferase 53 U/L (13-39); Bilirubin,Total 0.7 mg/dl (0.2-1.0); Blood Urea Nitrogen < 2 mg/dl (6-23); Calcium 7.7 mg/dl (8.6-10.3); Carbon Dioxide 25 mmol/L (21-32); Chloride 107 mmol/L (98-107); Creatinine Clr Calc Pharmacy 222.3 ml/min; Est GFR (African American) > 150.0 ml/min; Est GFR (Non-African American) 132.1 ml/min; Globulin 2.2 gm/dl (2.5-4.0); Glucose 89 mg/dl (70-99(Fasting)); Magnesium 1.4 mg/dl (1.7-2.4); Phosphorus 2.8 mg/dl (2.5-4.9); Potassium 3.1 mmol/L (3.5-5.1); Sodium 137 mmol/L (136-145); Total Protein 5.4 gm/dl (6.0-8.3)
[2023-05-11 08:04] LABS: Basophils # (auto) 0.01 K/uL (0.00-0.20); Basophils % (auto) 0.5 %; Eosinophils # (auto) 0.13 K/uL (0.00-0.50); Eosinophils % (auto) 5.9 %; Immature Granulocytes # (auto) 0.01 K/uL (0.01-0.20); Immature Granulocytes % (auto) 0.5 %; Monocytes # (auto) 0.11 K/uL (0.11-0.59); Neutrophils # (auto) 0.96 K/uL (1.40-6.50); Neutrophils % (auto) 43.1 %
[2023-05-11] MEDS: VENLAFAXINE HCL XR 37.5 MG CAPXR PO SCH (08:27)
[2023-05-11] MEDS: MAGNESIUM SULFATE / D5W 1 GM/100 ML BAG IV SCH (09:31)
[2023-05-11] MEDS: POTASSIUM CHLORIDE / WTR 10 MEQ/100 ML PLCT IV SCH (09:31)
--- NOTE | 2023-05-11 11:32 | Gastroenterology Progress Note ---
Date of Service May 11, 2023 Assessment & Plan (1) Alcoholic pancreatitis: (2) Alcohol abuse: Plan 42-year-old female with history of alcohol use, previous history of pancreatitis in 2022, presents with abdominal pain, nausea vomiting, after episode of binge alcohol drinking, found to have elevated lipase and imaging suggestive of acute pancreatitis, this appears to be mild. Though she does have a mildly dilated CBD, there is no evidence for choledocholithiasis, and her LFTs do not show a significantly obstructed pattern. Her abdominal pain is somewhat improved though does continue today. - Has pancytopenia with exact etiology unclear however in the setting of mac rocytosis which is likely based upon her alcohol use - Consider checking VitB12 and Folate - Continue supportive care with IVF - Clears as tolerated for now - If further diarrhea, consider checking stool for C. diff, GI pathogen Analgesia PRN. Antiemetics PRN. - OOB as tolerated Would not advance diet past this as she is still having abdominal pain requiring frequent analgesia Watch for alcohol withdrawal Would recommend strict EtOH abstention and referral to alcohol counseling if not already done Recommended tobacco cessation as well Recommend outpatient EUS in approximately 6 to 8 weeks to further evaluate her pancreas after this acute episode resolves and we will arrange this When ready for diet advancement, would advance to low-fat Thank you for allowing us to participate in the care of this patient. Please call with any acute changes, questions or concerns. Please see addendum below with additional recommendation from my supervising physician. Admission and Anticipated Discharge Date Admission Date: May 09, 2023 Supervising Physician Co-Signing Physician Notes Agree with pe and plan as documented. Improving alcoholic pancreatitits. She is stating she needs to find a new hobby other than alcohol use. Outpt eus. Subjective Overnight pt noted to be neutropenic, actually has pancytopenia, and macrocytosis. She has had in the past upon review of her chart; last year in 08/2022 she had pancytopenia when she was admitted for pancreatitis. Currently feels somewhat improved though continues with abd pain, intermittent nausea. No vomiting. Had clears yesterday and immediately had large diarrhea. None since. VSS. Afebrile. Denies melena, hematochezia, hematemesis. Review of Systems 2 Review of Systems: All systems reviewed & are unremarkable except as noted in HPI & below Physical Exam Constitutional: well developed, well nourished and comfortable; no acute distress Neck: trachea midline Respiratory: normal respiratory effort, lungs clear to auscultation Cardiovascular: RRR, no murmur, no edema Gastrointestinal (Abdomen): Inspection/Auscultation: abdomen not distended (TTP in the epigastrium, no rebound, guarding, BS x 4 quads ) Skin: no rashes, warm and dry Results & Data Vital Signs (Past 12 Hours) Vital Signs Temp Pulse Resp BP Pulse Ox O2 Del Method 05/11/23 06:51 36.8 C 71 18 114/81 97 Room Air Laboratory Results 05/11/23 05/10/23 Range/Units 07:00 13:03 WBC 2.22 L (4.8-10.8) K/ul RBC 2.80 L (4.20-5.40) M/uL Hgb 10.0 L (12.0-16.0) g/dl Hct 28.1 L (37.0-47.0) % MCV 100.4 H (80.0-100.0) fL MCH 35.7 H (25.0-34.0) pg MCHC 35.6 (32.0-36.0) g/dL RDW Std Deviation 40.1 (36.4-46.3) fL RDW Coeff of Ralph 10.8 L (11.5-14.5) % Plt Count 97 L (130-400) K/uL MPV 11.5 (9.4-12.4) fL Immature Gran % (Auto) 0.5 % Neut % (Auto) 43.1 % Lymph % (Auto) 45.0 % Mariposa % (Auto) 5.0 % Eos % (Auto) 5.9 % Baso % (Auto) 0.5 % Neut # (Auto) 0.96 L* (1.40-6.50) K/uL Lymph # (Auto) 1.00 L (1.20-3.40) K/uL Mariposa # (Auto) 0.11 (0.11-0.59) K/uL Eos # (Auto) 0.13 (0.00-0.50) K/uL Baso # (Auto) 0.01 (0.00-0.20) K/uL Immature Gran # (Auto) 0.01 (0.01-0.20) K/uL PT 10.8 (9.0-12.0) Seconds INR 1.0 (0.9-1.1) Sodium 137 (136-145) mmol/L Potassium 3.1 L (3.5-5.1) mmol/L Chloride 107 (98-107) mmol/L Carbon Dioxide 25 (21-32) mmol/L Anion Gap 5 (3-11) BUN < 2 L (6-23) mg/dl Creatinine 0.36 L (0.6-1.2) mg/dl Est Cr Clr Drug Dosing 222.3 ml/min Est GFR ( Amer) > 150.0 ml/min Est GFR (Non-Af Amer) 132.1 ml/min BUN/Creatinine Ratio TNP Glucose 89 (70-99(Fasting)) mg/dl Calcium 7.7 L (8.6-10.3) mg/dl Phosphorus 2.8 (2.5-4.9) mg/dl Magnesium 1.4 L (1.7-2.4) mg/dl Total Bilirubin 0.7 (0.2-1.0) mg/dl AST 53 H (13-39) U/L ALT 32 (7-52) U/L Alkaline Phosphatase 100 (34-104) U/L Total Protein 5.4 L (6.0-8.3) gm/dl Albumin 3.2 L (3.4-5.0) gm/dl Globulin 2.2 L (2.5-4.0) gm/dl Albumin/Globulin Ratio 1.5 (0.9-2) Ethyl Alcohol mg/dL < 10.0 (<10.0) mg/dl
[2023-05-11 13:16] LABS: Cdiff Toxin B Gene (2yr or >) Positive Cdiff Gene (Neg)
[2023-05-11 13:52] LABS: Cdiff Antigen Positive; Cdiff Toxin A+B Negative Cdiff Toxin (Negative)
--- NOTE | 2023-05-11 15:59 | Hospitalist Progress Note ---
Date of Service May 11, 2023 Assessment & Plan (1) Alcoholic pancreatitis: Plan: 42-year-old female with past medical history significant for pancreatitis, sepsis from UTI as per patient comes with abdominal pain going on for last 2 3 days. Patient states she drinks on and off alcohol and she does binge drinking. Last few days she has been binge drinking and she noticed abdominal pain last couple of days and it has been progressively worsened. Since today morning pain was very severe associate with nausea and dry heaving. Denies any diarrhea or constipation.. Normal micturition. No fevers. When pain is severe she feeling short of breath. No chest pains. Pain is located in the epigastric region radiating to the right side. No headaches. No blurred vision. Some runny nose. Has some cough. Mild sore throat. Could not able to eat anything for last couple of days because of nausea. Hemodynamics okay Acute alcoholic pancreatitis Lipase mildly elevated Binge drinking of alcohol Has pain med and on n.p.o. IV LR@of 200 mill per hour and has been decreased to 100 mL/h with potassium supplement in it IV Dilaudid as needed IV Protonix 40 mg twice daily MRI MRCP showed mild acute pancreatitis resolved since prior examination, mild fusiform bile duct dilatation measuring up to 10 mm in width however no evidence of anatomically obstructive mass or choledocholithiasis. Findings suggest sequelae from prior inflammation Appreciate GI input and recommendation Clinically better and will start clears orally C. difficile be gene has been positive but toxin is negative-doubt any need for isolate Abdominal pain seems to be improved Has been tolerating clears Electrolytes abnormality Has hypokalemia, hypomagnesemia Getting replacement and will monitor Electrolytes remains low with hypomagnesemia and hypokalemia Getting replacement through the vein and will monitor Pancytopenia Hemoglobin 10, white count 2.22 and platelet 97 Secondary to alcoholism and use of alcohol Neutrophil count is 0.96 B12 level has been normal Will monitor CBC Elevated LFTs Likely secondary to alcoholic hepatitis Will follow MRCP-as above Monitor LFTs-are getting better secondary to use of alcohol Alcoholism Patient likes to be on withdrawal medication Received banana bag Has been on IV thiamine and IV folic acid Will continue home gabapentin Will place on Librium protocol with IV Ativan as needed No evidence of withdrawal symptoms as of now Anion gap metabolic acidosis Could be from alcoholism and starvation ketosis Follow repeat labs Abnormal EKG Will follow echo DVT prophylaxis Lovenox Disposition Medical floor Admission and Anticipated Discharge Date Admission Date: May 09, 2023 Subjective 05/10/2023 The patient was seen and examined in medical floor She still complains to epigastric pain but does not have any nausea and or vomiting or any diarrhea No tremors involving the outstretched hands Denies any fever and or chills but remains weak 05/11/2023 The patient was seen and examined in medical floor She still has some abdominal pain and nausea Denies any tremors, shortness of breath or palpitation No fever and no chills Review of Systems Review of Systems: All systems reviewed and are unremarkable except as noted below Physical Exam Physical Exam: Lying in bed without any acute distress Constitutional: well developed, well nourished, + ill appearing and average body habitus Eyes: PERRL, conjunctivae normal, anicteric sclerae ENMT: external ear and nose normal, oropharynx normal Neck: trachea midline, no thyromegaly Respiratory: no respiratory distress Auscultation: lungs clear to auscultation bilaterally Cardiovascular: Rate/Rhythm: regular rate and regular rhythm; not tachycardic Heart Sounds: normal S1 and normal S2; no murmur Extremities: no edema Gastrointestinal (Abdomen): Inspection/Auscultation: normal bowel sounds; abdomen not distended Percussion/Palpation: + abdomen tender and abdomen soft Musculoskeletal: No acute arthritis involving any of the joint Neurologic: normal touch/pain/proprioception and moves all extremities; no focal motor deficits Psychiatric: A+Ox3, euthymic affect Lymphatic: no cervical or axillary lymphadenopathy Results & Data Results & Data Vital Signs (Past 12 Hours) Vital Signs Temp Pulse Resp BP Pulse Ox O2 Del Method 05/11/23 15:18 36.5 C 82 16 113/71 96 Room Air 05/11/23 06:51 36.8 C 71 18 114/81 97 Room Air Laboratory Results Short CBC 05/11/23 Range/Units 07:00 WBC 2.22 L (4.8-10.8) K/ul Hgb 10.0 L (12.0-16.0) g/dl Hct 28.1 L (37.0-47.0) % Plt Count 97 L (130-400) K/uL BMP 05/11/23 07:00 Sodium 137 Potassium 3.1 L Chloride 107 Carbon Dioxide 25 BUN < 2 L Creatinine 0.36 L Glucose 89 Calcium 7.7 L Liver Function 05/11/23 Range/Units 07:00 Total Bilirubin 0.7 (0.2-1.0) mg/dl AST 53 H (13-39) U/L ALT 32 (7-52) U/L Alkaline Phosphatase 100 (34-104) U/L Albumin 3.2 L (3.4-5.0) gm/dl Medications Administered Current Inpatient Medications Buprenorphine/Naloxone (Buprenorphine/Naloxone 8/2 Mg Tab) 2.5 tab SL DAILY OSMNI Stop: 06/09/23 08:59 Last Admin: 05/11/23 08:35 Dose: 2.5 tab Chlordiazepoxide HCl (Chlordiazepoxide Hcl 25 Mg Cap) 25 mg PO Q8H OSMIN Stop: 05/11/23 17:46 Last Admin: 05/11/23 10:53 Dose: 25 mg Chlordiazepoxide HCl (Chlordiazepoxide Hcl 10 Mg Cap) 10 mg PO Q8H OSMIN Stop: 05/12/23 17:46 Chlordiazepoxide HCl (Chlordiazepoxide Hcl 5 Mg Cap) 5 mg PO Q12H OSMIN Stop: 05/13/23 17:46 Enoxaparin Sodium (Enoxaparin Inj 40 Mg/0.4 Ml Syr) 40 mg SQ Q24H OSMIN Stop: 06/09/23 08:59 Last Admin: 05/11/23 08:28 Dose: 40 mg Gabapentin (Gabapentin 600 Mg Tab) 600 mg PO QID OSMIN Stop: 06/09/23 08:59 Last Admin: 05/11/23 12:35 Dose: 600 mg Hydromorphone HCl (Hydromorphone Inj 0.5 Mg/0.5 Ml Syr) 0.5 mg IV Q3H PRN PRN Reason: Mod-Sev Pain (Scale 4-10) Stop: 05/24/23 01:24 Last Admin: 05/11/23 12:36 Dose: 0.5 mg Hydroxyzine HCl (Hydroxyzine Hcl 25 Mg Tab) 50 mg PO BID PRN PRN Reason: ANXIETY OR SLEEP Stop: 06/09/23 01:24 Thiamine HCl 100 mg/ Syringe 10 mls @ 2 mls/min IV QAM OSMIN Stop: 06/09/23 08:59 Last Admin: 05/11/23 10:21 Dose: 2 mls/min Folic Acid 1 mg/ Syringe 10 mls @ 5 mls/min IV QAM [facility] Stop: 06/09/23 08:59 Last Admin: 05/11/23 08:28 Dose: 5 mls/min Lorazepam 1 mg/ Syringe 1 mls @ 2 mls/min IV UD PRN; Protocol PRN Reason: EtOH Withdrawal AWSS Score 6,7 Stop: 06/09/23 01:24 Lorazepam 2 mg/ Syringe 2 mls @ 2 mls/min IV UD PRN; Protocol PRN Reason: EtOH Withdrawal AWSS Score 8,9 Stop: 06/09/23 01:24 Lorazepam 3 mg/ Syringe 3 mls @ 2 mls/min IV ONCE PRN; Protocol PRN Reason: EtOH Withdrawal AWSS Score 10+ Pantoprazole Sodium 40 mg/ (Syringe) 10 mls @ 5 mls/min IV BID [facility] Stop: 06/09/23 08:59 Last Admin: 05/11/23 08:29 Dose: 5 mls/min Lactated Ringer's (Lr) 1,000 mls @ 100 mls/hr IV .Q10H [facility] Stop: 06/09/23 03:59 Last Infusion: 05/11/23 13:29 Dose: 100 mls/hr Lorazepam (Lorazepam 0.5 Mg Tab) 0.5 mg PO BID PRN PRN Reason: Anxiety Stop: 06/09/23 01:24 Last Admin: 05/11/23 09:31 Dose: 0.5 mg Miscellaneous (Remove Nicoderm Patch) 1 each N/A DAILY@0859 [facility] Stop: 06/10/23 08:58 Last Admin: 05/11/23 08:29 Dose: 1 each Naproxen (Naproxen 250 Mg Tab) 500 mg PO BID PRN PRN Reason: pain Stop: 06/10/23 09:01 Nicotine (Nicotine 7 Mg/24 Hr Tdsy) 7 mg TD DAILY [facility] Stop: 06/10/23 01:09 Last Admin: 05/11/23 08:26 Dose: 7 mg Ondansetron HCl (Ondansetron Inj 2 Mg/Ml 2 Ml Vial) 4 mg IV Q6H PRN PRN Reason: Nausea Stop: 06/09/23 01:24 Venlafaxine HCl (Venlafaxine Hcl Xr 37.5 Mg Capxr) 37.5 mg PO DAILY [facility] Stop: 06/10/23 08:59 Last Admin: 05/11/23 08:27 Dose: 37.5 mg
[2023-05-11] MEDS: hydrOXYzine HCl 25 MG TAB PO PRN (20:45)
[2023-05-12 06:38] LABS: Basophils # (auto) 0.01 K/uL (0.00-0.20); Basophils % (auto) 0.4 %; Eosinophils # (auto) 0.14 K/uL (0.00-0.50); Eosinophils % (auto) 5.9 %; Hematocrit (blood only) 28.9 % (37.0-47.0); Hemoglobin 10.1 g/dl (12.0-16.0); Lymphocytes % (auto) 42.4 %; Mean Corpuscular Hemoglobin 35.9 pg (25.0-34.0); Mean Corpuscular Hgb Conc 34.9 g/dL (32.0-36.0); Mean Corpuscular Volume 102.8 fL (80.0-100.0); Mean Platelet Volume 11.5 fL (9.4-12.4); Monocytes # (auto) 0.11 K/uL (0.11-0.59); Monocytes % (auto) 4.7 %; Neutrophils % (auto) 46.6 %; Platelet Count 105 K/uL (130-400); RDW Coefficient of Variation 10.9 % (11.5-14.5); Red Blood Count 2.81 M/uL (4.20-5.40); White Blood Count 2.36 K/ul (4.8-10.8)
[2023-05-12 07:31] LABS: Alanine Aminotransferase 28 U/L (7-52); Albumin Level 3.1 gm/dl (3.4-5.0); Alkaline Phosphatase 97 U/L (34-104); Anion Gap 6 (3-11); Aspartate Aminotransferase 42 U/L (13-39); Bilirubin Direct 0.1 mg/dl (0-0.2); Bilirubin,Total 0.5 mg/dl (0.2-1.0); Blood Urea Nitrogen < 2 mg/dl (6-23); Calcium 7.7 mg/dl (8.6-10.3); Carbon Dioxide 27 mmol/L (21-32); Chloride 107 mmol/L (98-107); Creatinine Clr Calc Pharmacy 258.2 ml/min; Est GFR (African American) > 150.0 ml/min; Est GFR (Non-African American) 138.7 ml/min; Glucose 94 mg/dl (70-99(Fasting)); Magnesium 1.6 mg/dl (1.7-2.4); Phosphorus 3.6 mg/dl (2.5-4.9); Potassium 3.2 mmol/L (3.5-5.1); Sodium 140 mmol/L (136-145); Total Protein 5.3 gm/dl (6.0-8.3)
[2023-05-12] MEDS: POTASSIUM CHLORIDE CRTAB 20 MEQ TABCR PO ONE (08:45)
[2023-05-12] MEDS: MAGNESIUM SULFATE / D5W 1 GM/100 ML BAG IV SCH (08:45)
[2023-05-12] MEDS: oxyCODONE/ACETAMINOPHEN 5mg/325mg TAB PO PRN (13:23)
[2023-05-12 14:34] LABS: Cdiff Toxin B Gene (2yr or >) Positive Cdiff Gene (Neg)
[2023-05-12 15:42] LABS: Cdiff Antigen Positive; Cdiff Toxin A+B Negative Cdiff Toxin (Negative)
[2023-05-12] MEDS: HYDROmorphone INJ 0.5 MG/0.5 ML SYR IV PRN (16:18)
--- NOTE | 2023-05-12 17:24 | Hospitalist Progress Note ---
Date of Service May 12, 2023 Assessment & Plan (1) Alcoholic pancreatitis: Plan: 42-year-old female with past medical history significant for pancreatitis, sepsis from UTI as per patient comes with abdominal pain going on for last 2 3 days. Patient states she drinks on and off alcohol and she does binge drinking. Last few days she has been binge drinking and she noticed abdominal pain last couple of days and it has been progressively worsened. Since today morning pain was very severe associate with nausea and dry heaving. Denies any diarrhea or constipation.. Normal micturition. No fevers. When pain is severe she feeling short of breath. No chest pains. Pain is located in the epigastric region radiating to the right side. No headaches. No blurred vision. Some runny nose. Has some cough. Mild sore throat. Could not able to eat anything for last couple of days because of nausea. Hemodynamics okay Acute alcoholic pancreatitis Colitis Hepatic steatosis --CT ABD: Acute pancreatitis. Correlate with clinical and laboratory findings.The gland enhances throughout. No organized peripancreatic fluid collection is identified. Hepatomegaly and severe hepatic steatosis.Findings suggest a mild nonspecific colitis. Correlate clinically. --MRCP:Mild acute pancreatitis from prior examination has resolved. There is mild, fusiform, bile duct dilatation measuring up to 10 mm in width, however, no evidence for anatomically obstructing mass or choledocholithiasis. Findings likely represent sequela from prior inflammation. --Liver USD:No cholelithiasis. No evidence of cholecystitis. Dilated common bile duct measuring 9 mm. If there is laboratory evidence of biliary obstruction, consider MRCP to exclude choledocholithiasis. Echogenic liver suggesting steatosis. Mild pelviectasis of the right kidney without gera hydronephrosis. -- Lipase levels improved Continue IV fluids Pain control Advised to quit alcohol use Appreciate GI input Advance diet as tolerated Needs outpatient endoscopic ultrasound in 6 to 8 weeks Electrolytes abnormality Hypokalemia, hypomagnesemia Secondary to GI losses Replete electrolytes as needed Monitor Alcohol use disorder On Librium protocol Currently no signs of withdrawal Monitor Diarrhea Likely multifactorial Stool for C. difficile gene positive, toxin negative Given persistent diarrhea, started on p.o. vancomycin Pancytopenia Hemoglobin 10, white count 2.22 and platelet 97 Likely secondary to myelosuppression from alcohol use Neutropenia resolved Normal B12 levels Monitor CBC Elevated LFTs Likely secondary to alcoholic hepatitis LFTs improved Monitor Anion gap metabolic acidosis Could be from alcoholism and starvation ketosis, diarrhea Monitor BMP Chronic pain On Suboxone Cautious use of pain medications Abnormal EKG No wall motion abnormality on echo Borderline aortic root dilatation Follow-up as outpatient DVT Px: Lovenox SQ CODE STATUS Full code Admission and Anticipated Discharge Date Admission Date: May 09, 2023 Subjective Patient is seen and examined at bedside Abdominal pain slowly improving Still has persistent diarrhea Denies any chest pain, dyspnea No other complaints Feels abdominal is bloated Review of Systems Review of Systems: All systems reviewed & are unremarkable except as noted in Subjective Physical Exam Physical Exam: Physical Exam: Vitals signs as noted above General Appearance:Moderately built and nourished, no apparent distress Head: normocephalic, Atraumatic Eyes: normal inspection, EOMI Neck: supple, Trachea midline Respiratory/Chest: Normal breath sounds, CTA, No accessory muscle use Cardiovascular: S1, S2, No murmur Abdomen/GI:Soft, mild tender, Bowel sounds present Extremities/Musculoskeletal:normal inspection, no edema Neurologic/Psych:AAOX3, grossly no focal neurological deficits Skin: normal color, warm,+Multiple Tattoos Results & Data Results & Data Vital Signs (Past 12 Hours) Vital Signs Temp Pulse Resp BP Pulse Ox O2 Del Method 05/12/23 16:17 112/76 05/12/23 15:14 36.5 C 75 14 95/63 L 95 Room Air 05/12/23 07:08 36.5 C 71 16 115/78 97 Room Air Laboratory Results Short CBC 05/12/23 Range/Units 06:01 WBC 2.36 L (4.8-10.8) K/ul Hgb 10.1 L (12.0-16.0) g/dl Hct 28.9 L (37.0-47.0) % Plt Count 105 L (130-400) K/uL BMP 05/12/23 06:01 Sodium 140 Potassium 3.2 L Chloride 107 Carbon Dioxide 27 BUN < 2 L Creatinine 0.31 L Glucose 94 Calcium 7.7 L Liver Function 05/12/23 Range/Units 06:01 Total Bilirubin 0.5 (0.2-1.0) mg/dl Direct Bilirubin 0.1 (0-0.2) mg/dl AST 42 H (13-39) U/L ALT 28 (7-52) U/L Alkaline Phosphatase 97 (34-104) U/L Albumin 3.1 L (3.4-5.0) gm/dl
[2023-05-12] MEDS: VANCOMYCIN HCL 125 MG/2.5ML SOLN PO SCH (17:43)
[2023-05-12] MEDS: CHERRY SYRUP 5 ML UDP PO SCH (17:44)
[2023-05-12] MEDS: MAGNESIUM CHLORIDE W/CALCIUM 64MG DELAYED REL TAB PO SCH (20:03)
[2023-05-12] MEDS: PANTOprazole 40 MG TAB PO SCH (20:03)
[2023-05-13] MEDS ORDERED: Nursing to Pharmacy Communication SCH (02:00)
[2023-05-13] MEDS: chlordiazePOXIDE HCl 5 MG CAP PO SCH (05:19)
[2023-05-13 07:40] LABS: Hematocrit (blood only) 30.2 % (37.0-47.0); Hemoglobin 10.5 g/dl (12.0-16.0); Mean Corpuscular Hemoglobin 35.7 pg (25.0-34.0); Mean Corpuscular Hgb Conc 34.8 g/dL (32.0-36.0); Mean Corpuscular Volume 102.7 fL (80.0-100.0); Mean Platelet Volume 11.7 fL (9.4-12.4); Platelet Count 119 K/uL (130-400); RDW Coefficient of Variation 11.2 % (11.5-14.5); Red Blood Count 2.94 M/uL (4.20-5.40); White Blood Count 2.84 K/ul (4.8-10.8)
[2023-05-13 07:57] LABS: Anion Gap 5 (3-11); Blood Urea Nitrogen < 2 mg/dl (6-23); Calcium 7.9 mg/dl (8.6-10.3); Carbon Dioxide 30 mmol/L (21-32); Chloride 105 mmol/L (98-107); Creatinine Clr Calc Pharmacy 190.6 ml/min; Est GFR (African American) 145.5 ml/min; Est GFR (Non-African American) 125.5 ml/min; Glucose 102 mg/dl (70-99(Fasting)); Magnesium 1.6 mg/dl (1.7-2.4); Potassium 3.1 mmol/L (3.5-5.1); Sodium 140 mmol/L (136-145)
[2023-05-13] MEDS: MAGNESIUM SULFATE / D5W 1 GM/100 ML BAG IV ONE (10:08)
[2023-05-13] MEDS: POTASSIUM CHLORIDE CRTAB 20 MEQ TABCR PO ONE (10:08)
--- NOTE | 2023-05-13 16:45 | Hospitalist Progress Note ---
Date of Service May 13, 2023 Assessment & Plan (1) Alcoholic pancreatitis: Plan: 42-year-old female with past medical history significant for pancreatitis, sepsis from UTI as per patient comes with abdominal pain going on for last 2 3 days. Patient states she drinks on and off alcohol and she does binge drinking. Last few days she has been binge drinking and she noticed abdominal pain last couple of days and it has been progressively worsened. Since today morning pain was very severe associate with nausea and dry heaving. Denies any diarrhea or constipation.. Normal micturition. No fevers. When pain is severe she feeling short of breath. No chest pains. Pain is located in the epigastric region radiating to the right side. No headaches. No blurred vision. Some runny nose. Has some cough. Mild sore throat. Could not able to eat anything for last couple of days because of nausea. Hemodynamics okay Acute alcoholic pancreatitis Colitis Hepatic steatosis --CT ABD: Acute pancreatitis. Correlate with clinical and laboratory findings.The gland enhances throughout. No organized peripancreatic fluid collection is identified. Hepatomegaly and severe hepatic steatosis.Findings suggest a mild nonspecific colitis. Correlate clinically. --MRCP:Mild acute pancreatitis from prior examination has resolved. There is mild, fusiform, bile duct dilatation measuring up to 10 mm in width, however, no evidence for anatomically obstructing mass or choledocholithiasis. Findings likely represent sequela from prior inflammation. --Liver USD:No cholelithiasis. No evidence of cholecystitis. Dilated common bile duct measuring 9 mm. If there is laboratory evidence of biliary obstruction, consider MRCP to exclude choledocholithiasis. Echogenic liver suggesting steatosis. Mild pelviectasis of the right kidney without gera hydronephrosis. -- Lipase levels improved Continue IV fluids Pain control Appreciate GI input Needs outpatient endoscopic ultrasound in 6 to 8 weeks Advance to low-fat diet today Counseled to quit alcohol use on multiple occasions Electrolytes abnormality Hypokalemia, hypomagnesemia Secondary to GI losses Replete electrolytes as needed Monitor Alcohol use disorder On Librium protocol Currently no signs of withdrawal Monitor Diarrhea Likely multifactorial Stool for C. difficile gene positive, toxin negative Given persistent diarrhea, started on p.o. vancomycin Slowly improving Pancytopenia Hemoglobin 10, white count 2.22 and platelet 97 Likely secondary to myelosuppression from alcohol use Neutropenia resolved Normal B12 levels Monitor CBC Elevated LFTs Likely secondary to alcoholic hepatitis LFTs improved Monitor Anion gap metabolic acidosis Could be from alcoholism and starvation ketosis, diarrhea Monitor BMP Chronic pain On Suboxone Cautious use of pain medications Abnormal EKG No wall motion abnormality on echo Borderline aortic root dilatation Follow-up as outpatient DVT Px: Stephanienox SQ CODE STATUS Full code Admission and Anticipated Discharge Date Admission Date: May 09, 2023 Subjective Patient is seen and examined at bedside Abdominal pain, diarrhea slowly improving Reports nausea but no vomiting Tolerating current diet No new complaints Denies any chest pain, dyspnea Review of Systems Review of Systems: All systems reviewed & are unremarkable except as noted in Subjective Physical Exam Physical Exam: Physical Exam: Vitals signs as noted above General Appearance:Moderately built and nourished, no apparent distress Head: normocephalic, Atraumatic Eyes: normal inspection, EOMI Neck: supple, Trachea midline Respiratory/Chest: Normal breath sounds, CTA, No accessory muscle use Cardiovascular: S1, S2, No murmur Abdomen/GI:Soft, mild tender, Bowel sounds present Extremities/Musculoskeletal:normal inspection, no edema Neurologic/Psych:AAOX3, grossly no focal neurological deficits Skin: normal color, warm,+Multiple Tattoos Results & Data Results & Data Vital Signs (Past 12 Hours) Vital Signs Temp Pulse Resp BP BP Pulse Ox O2 Del Method 05/13/23 14:47 36.6 C 76 16 104/73 93 Room Air 05/13/23 06:56 36.6 C 76 16 128/88 96 Room Air Laboratory Results Short CBC 05/13/23 Range/Units 07:09 WBC 2.84 L (4.8-10.8) K/ul Hgb 10.5 L (12.0-16.0) g/dl Hct 30.2 L (37.0-47.0) % Plt Count 119 L (130-400) K/uL BMP 05/13/23 07:09 Sodium 140 Potassium 3.1 L Chloride 105 Carbon Dioxide 30 BUN < 2 L Creatinine 0.42 L Glucose 102 H Calcium 7.9 L
[2023-05-13] MEDS: MAGNESIUM CHLORIDE W/CALCIUM 64MG DELAYED REL TAB PO SCH (19:23)
[2023-05-13] MEDS: POTASSIUM CHLORIDE 10 MEQ TABCR PO SCH (19:24)
[2023-05-13] MEDS: NAPROXEN 250 MG TAB PO PRN (20:09)
[2023-05-14] MEDS: ONDANSETRON INJ 2 MG/ML 2 ML VIAL IV PRN (04:56)
[2023-05-14 07:04] LABS: Hematocrit (blood only) 32.9 % (37.0-47.0); Hemoglobin 11.5 g/dl (12.0-16.0); Mean Corpuscular Hemoglobin 35.7 pg (25.0-34.0); Mean Corpuscular Volume 102.2 fL (80.0-100.0); Mean Platelet Volume 11.8 fL (9.4-12.4); Platelet Count 142 K/uL (130-400); RDW Coefficient of Variation 11.1 % (11.5-14.5); RDW Standard Deviation 41.7 fL (36.4-46.3); Red Blood Count 3.22 M/uL (4.20-5.40); White Blood Count 2.43 K/ul (4.8-10.8)
[2023-05-14 07:41] LABS: Anion Gap 5 (3-11); Blood Urea Nitrogen < 2 mg/dl (6-23); Calcium 8.3 mg/dl (8.6-10.3); Carbon Dioxide 29 mmol/L (21-32); Chloride 105 mmol/L (98-107); Creatinine Clr Calc Pharmacy 195.2 ml/min; Est GFR (African American) 146.7 ml/min; Est GFR (Non-African American) 126.5 ml/min; Glucose 105 mg/dl (70-99(Fasting)); Magnesium 1.7 mg/dl (1.7-2.4); Potassium 3.5 mmol/L (3.5-5.1); Sodium 139 mmol/L (136-145)
--- NOTE | 2023-05-14 11:55 | Hospitalist Progress Note ---
Date of Service May 14, 2023 Assessment & Plan (1) Alcoholic pancreatitis: Plan: 42-year-old female with past medical history significant for pancreatitis, sepsis from UTI as per patient comes with abdominal pain going on for last 2 3 days. Patient states she drinks on and off alcohol and she does binge drinking. Last few days she has been binge drinking and she noticed abdominal pain last couple of days and it has been progressively worsened. Since today morning pain was very severe associate with nausea and dry heaving. Denies any diarrhea or constipation.. Normal micturition. No fevers. When pain is severe she feeling short of breath. No chest pains. Pain is located in the epigastric region radiating to the right side. No headaches. No blurred vision. Some runny nose. Has some cough. Mild sore throat. Could not able to eat anything for last couple of days because of nausea. Hemodynamics okay Acute alcoholic pancreatitis Colitis Hepatic steatosis --CT ABD: Acute pancreatitis. Correlate with clinical and laboratory findings.The gland enhances throughout. No organized peripancreatic fluid collection is identified. Hepatomegaly and severe hepatic steatosis.Findings suggest a mild nonspecific colitis. Correlate clinically. --MRCP:Mild acute pancreatitis from prior examination has resolved. There is mild, fusiform, bile duct dilatation measuring up to 10 mm in width, however, no evidence for anatomically obstructing mass or choledocholithiasis. Findings likely represent sequela from prior inflammation. --Liver USD:No cholelithiasis. No evidence of cholecystitis. Dilated common bile duct measuring 9 mm. If there is laboratory evidence of biliary obstruction, consider MRCP to exclude choledocholithiasis. Echogenic liver suggesting steatosis. Mild pelviectasis of the right kidney without gera hydronephrosis. -- Lipase levels improved Continue IV fluids Pain control Appreciate GI input Needs outpatient endoscopic ultrasound in 6 to 8 weeks Counseled to quit alcohol use on multiple occasions Tolerating low-fat diet Advised to follow-up with GI on discharge Electrolytes abnormality Hypokalemia, hypomagnesemia Secondary to GI losses Replete electrolytes as needed Monitor Alcohol use disorder On Librium protocol Currently no signs of withdrawal Monitor Advised to quit drinking on multiple occasions Diarrhea Likely multifactorial Stool for C. difficile gene positive, toxin negative Given persistent diarrhea, started on p.o. vancomycin Diarrhea much improved Pancytopenia Hemoglobin 10, white count 2.22 and platelet 97 Likely secondary to myelosuppression from alcohol use Neutropenia resolved Normal B12 levels Monitor CBC Elevated LFTs Likely secondary to alcoholic hepatitis LFTs improved Monitor Anion gap metabolic acidosis Could be from alcoholism and starvation ketosis, diarrhea Monitor BMP Chronic pain On Suboxone Cautious use of pain medications Abnormal EKG No wall motion abnormality on echo Borderline aortic root dilatation Follow-up as outpatient DVT Px: Stephanienox SQ CODE STATUS Full code (2) Acute pancreatitis: Admission and Anticipated Discharge Date Admission Date: May 09, 2023 Subjective Patient is seen and examined at bedside States feeling a lot better today Tolerating low-fat diet Diarrhea much improved Denies any other complaints today Review of Systems Review of Systems: All systems reviewed & are unremarkable except as noted in Subjective Physical Exam Physical Exam: Physical Exam: Vitals signs as noted above General Appearance:Moderately built and nourished, no apparent distress Head: normocephalic, Atraumatic Eyes: normal inspection, EOMI Neck: supple, Trachea midline Respiratory/Chest: Normal breath sounds, CTA, No accessory muscle use Cardiovascular: S1, S2, No murmur Abdomen/GI:Soft, non tender, Bowel sounds present Extremities/Musculoskeletal:normal inspection, no edema Neurologic/Psych:AAOX3, grossly no focal neurological deficits Skin: normal color, warm,+Multiple Tattoos Results & Data Results & Data Vital Signs (Past 12 Hours) Vital Signs Temp Pulse Resp BP Pulse Ox O2 Del Method 05/14/23 07:43 36.6 C 65 18 134/95 97 Room Air Laboratory Results Short CBC 05/14/23 Range/Units 06:40 WBC 2.43 L (4.8-10.8) K/ul Hgb 11.5 L (12.0-16.0) g/dl Hct 32.9 L (37.0-47.0) % Plt Count 142 (130-400) K/uL BMP 05/14/23 06:40 Sodium 139 Potassium 3.5 Chloride 105 Carbon Dioxide 29 BUN < 2 L Creatinine 0.41 L Glucose 105 H Calcium 8.3 L
--- NOTE | 2023-05-14 12:09 | Discharge Summary ---
Date of Service May 14, 2023 Admission HPI Per Admitting Provider 42-year-old female with past medical history significant for pancreatitis, sepsis from UTI as per patient comes with abdominal pain going on for last 2 3 days. Patient states she drinks on and off alcohol and she does binge drinking. Last few days she has been binge drinking and she noticed abdominal pain last couple of days and it has been progressively worsened. Since today morning pain was very severe associate with nausea and dry heaving. Denies any diarrhea or constipation.. Normal micturition. No fevers. When pain is severe she feeling short of breath. No chest pains. Pain is located in the epigastric region radiating to the right side. No headaches. No blurred vision. Some runny nose. Has some cough. Mild sore throat. Could not able to eat anything for last couple of days because of nausea. Hemodynamics okay Past medical history. As mentioned above Past surgical history none Social history. Smokes half pack to 1 pack a day for last 15 years on and off. Alcohol states does not drink regularly but she does do binge drinking. Used to do drugs in her 20s Family history. Mother had endometrial cancer and colon cancer. Sister had colon cancer. Admission Exam Per Admitting Provider General-Not in distress Head- atraumatic Eyes- PERRL. ENT- oropharynx clear Neck- supple, no JVD. Lungs- clear to auscultation no wheezing or crackles Heart- regular rhythm; no murmur, no gallop. Abdomen- normal bowel sounds, soft, tenderness in epigastric region, guarding present no distension. Extremities- no pretibial edema, no erythema seen. Neuro- alert, oriented PERRL, no facial palsy; no dysarthria; moves extremities Principal Diagnosis Acute alcoholic pancreatitis Colitis Hepatic steatosis Hypokalemia Hypomagnesemia Pancytopenia Discharge Data Allergies Allergy/AdvReac Type Severity Reaction Status Date / Time No Known Allergies Allergy Mild Verified 05/09/23 20:34 Consultations 05/09/23 23:00 ED Decision to Admit Stat 05/10/23 08:00 Consult Gastroenterology Routine Procedures Performed Short CBC 05/14/23 Range/Units 06:40 WBC 2.43 L (4.8-10.8) K/ul Hgb 11.5 L (12.0-16.0) g/dl Hct 32.9 L (37.0-47.0) % Plt Count 142 (130-400) K/uL BMP 05/14/23 06:40 Sodium 139 Potassium 3.5 Chloride 105 Carbon Dioxide 29 BUN < 2 L Creatinine 0.41 L Glucose 105 H Calcium 8.3 L Ordered Studies 05/09/23 21:27 US RUQ [US liver] Stat 05/10/23 01:25 MR MRCP Urgent Laboratory Results WBC 2.43 K/ul (4.8-10.8) L 05/14/23 06:40 RBC 3.22 M/uL (4.20-5.40) L 05/14/23 06:40 Hgb 11.5 g/dl (12.0-16.0) L 05/14/23 06:40 Hct 32.9 % (37.0-47.0) L 05/14/23 06:40 MCV 102.2 fL (80.0-100.0) H 05/14/23 06:40 MCH 35.7 pg (25.0-34.0) H 05/14/23 06:40 MCHC 35.0 g/dL (32.0-36.0) 05/14/23 06:40 RDW Std Deviation 41.7 fL (36.4-46.3) 05/14/23 06:40 RDW Coeff of Ralph 11.1 % (11.5-14.5) L 05/14/23 06:40 Plt Count 142 K/uL (130-400) 05/14/23 06:40 MPV 11.8 fL (9.4-12.4) 05/14/23 06:40 Immature Gran % (Auto) 0.0 % 05/12/23 06:01 Neut % (Auto) 46.6 % 05/12/23 06:01 Lymph % (Auto) 42.4 % 05/12/23 06:01 [place]ila % (Auto) 4.7 % 05/12/23 06:01 Eos % (Auto) 5.9 % 05/12/23 06:01 Baso % (Auto) 0.4 % 05/12/23 06:01 Neut # (Auto) 1.10 K/uL (1.40-6.50) L 05/12/23 06:01 Lymph # (Auto) 1.00 K/uL (1.20-3.40) L 05/12/23 06:01 [place]ila # (Auto) 0.11 K/uL (0.11-0.59) 05/12/23 06:01 Eos # (Auto) 0.14 K/uL (0.00-0.50) 05/12/23 06:01 Baso # (Auto) 0.01 K/uL (0.00-0.20) 05/12/23 06:01 Immature Gran # (Auto) 0.00 K/uL (0.01-0.20) L 05/12/23 06:01 PT 10.8 Seconds (9.0-12.0) 05/10/23 13:03 INR 1.0 (0.9-1.1) 05/10/23 13:03 Sodium 139 mmol/L (136-145) 05/14/23 06:40 Potassium 3.5 mmol/L (3.5-5.1) 05/14/23 06:40 Chloride 105 mmol/L (98-107) 05/14/23 06:40 Carbon Dioxide 29 mmol/L (21-32) 05/14/23 06:40 Anion Gap 5 (3-11) 05/14/23 06:40 BUN < 2 mg/dl (6-23) L 05/14/23 06:40 Creatinine 0.41 mg/dl (0.6-1.2) L 05/14/23 06:40 Est Cr Clr Drug Dosing 195.2 ml/min 05/14/23 06:40 Est GFR ( Amer) 146.7 ml/min 05/14/23 06:40 Est GFR (Non-Af Amer) 126.5 ml/min 05/14/23 06:40 BUN/Creatinine Ratio TNP 05/14/23 06:40 Glucose 105 mg/dl (70-99(Fasting)) H 05/14/23 06:40 Calcium 8.3 mg/dl (8.6-10.3) L 05/14/23 06:40 Phosphorus 3.6 mg/dl (2.5-4.9) 05/12/23 06:01 Magnesium 1.7 mg/dl (1.7-2.4) 05/14/23 06:40 Total Bilirubin 0.5 mg/dl (0.2-1.0) 05/12/23 06:01 Direct Bilirubin 0.1 mg/dl (0-0.2) 05/12/23 06:01 AST 42 U/L (13-39) H 05/12/23 06:01 ALT 28 U/L (7-52) 05/12/23 06:01 Alkaline Phosphatase 97 U/L (34-104) 05/12/23 06:01 Troponin I High Sens 3.6 pg/ml (0-14) 05/10/23 07:26 Total Protein 5.3 gm/dl (6.0-8.3) L 05/12/23 06:01 Albumin 3.1 gm/dl (3.4-5.0) L 05/12/23 06:01 Globulin 2.2 gm/dl (2.5-4.0) L 05/11/23 07:00 Albumin/Globulin Ratio 1.5 (0.9-2) 05/11/23 07:00 Lipase 274 U/L (11-82) H 05/09/23 20:20 Vitamin B12 434 pg/ml (180-914) 05/10/23 05:35 HCG, Qual Negative (Negative) 05/09/23 20:20 Urine Color Yellow 05/09/23 21:13 Urine Appearance Clear (Clear) 05/09/23 21:13 Urine pH 6.0 (4.5-7.5) 05/09/23 21:13 Ur Specific [place] 1.011 (1.000-1.030) 05/09/23 21:13 Urine Protein Trace (Negative) H 05/09/23 21:13 Urine Glucose (UA) Negative (Negative) 05/09/23 21:13 Urine Ketones 3+ (Negative) H 05/09/23 21:13 Urine Blood Negative (Negative) 05/09/23 21:13 Urine Nitrite Negative (Negative) 05/09/23 21:13 Urine Bilirubin Negative (Negative) 05/09/23 21:13 Urine Urobilinogen Negative (Negative) 05/09/23 21:13 Ur Leukocyte Esterase Negative (Negative) 05/09/23 21:13 Urine WBC (Auto) 1-5 /hpf (0-5) 05/09/23 21:13 Urine RBC (Auto) 0-4 /hpf (0-4) 05/09/23 21:13 U Hyaline Cast (Auto) 1-5 /lpf (0-5) 05/09/23 21:13 U Epithel Cells (Auto) >30 /lpf (0-5) H 05/09/23 21:13 Urine Bacteria (Auto) Negative (Negative) 05/09/23 21:13 Stl C. diff Tox B Gene Positive Cdiff Gene (Neg) H 05/12/23 Unknown Stl C.difficile Tox A&B Negative Cdiff Toxin (Negative) 05/12/23 Unknown Ethyl Alcohol mg/dL < 10.0 mg/dl (<10.0) 05/10/23 13:03 Impressions Liver Ultrasound 05/09/23 21:27 Exam(s): US LIVER EXAM: US Abdomen Limited CLINICAL HISTORY: Reason for exam: Cholecystitis?. TECHNIQUE: Real-time ultrasound of the abdomen with image documentation. COMPARISON: No relevant prior studies available. FINDINGS: Liver: Echogenic liver measures 17 cm. No focal lesion. Patent, normally directed portal vein. Gallbladder: Unremarkable. No cholelithiasis, gallbladder wall thickening, or pericholecystic fluid. Common bile duct: Enlarged common bile duct measuring 9 mm. Pancreas: Pancreas suboptimally characterized. Kidneys: Right kidney measures 11.4 cm. Mild pelviectasis without gera hydronephrosis. IMPRESSION: 1. No cholelithiasis. No evidence of cholecystitis. 2. Dilated common bile duct measuring 9 mm. If there is laboratory evidence of biliary obstruction, consider MRCP to exclude choledocholithiasis. 3. Echogenic liver suggesting steatosis. 4. Mild pelviectasis of the right kidney without gera hydronephrosis. Electronically signed by: Chaitanya Putnam M.D. 05/09/23 22:46 PM Cholangiopancreatography MRI 05/10/23 01:25 Exam(s): MRI MRCP EXAM: MR Abdomen Without Intravenous Contrast, MRCP Protocol CLINICAL HISTORY: Reason for exam: dilated common bile duct, abd pain, elevated lft. TECHNIQUE: Multiplanar magnetic resonance images of the abdomen without intravenous contrast using MRCP protocol. COMPARISON: CT examination 08/13/22 FINDINGS: Bile ducts: There is mild, fusiform, bile duct dilatation measuring up to 10 mm in width, however, no evidence for anatomically obstructing mass or choledocholithiasis. Findings likely represent sequela from prior inflammation. Gallbladder: Unremarkable. No stones. Liver: Unremarkable. Pancreas: Mild acute pancreatitis from prior examination has resolved. No ductal dilation. Spleen: Unremarkable. No splenomegaly. Adrenals: Unremarkable. No mass. Kidneys and ureters: Unremarkable. No hydronephrosis. Stomach and bowel: Unremarkable. No obstruction. IMPRESSION: 1. Mild acute pancreatitis from prior examination has resolved. 2. There is mild, fusiform, bile duct dilatation measuring up to 10 mm in width, however, no evidence for anatomically obstructing mass or choledocholithiasis. Findings likely represent sequela from prior inflammation. Electronically signed by: Isaiah Jonse MD 05/10/23 02:49 AM Hospital Course (1) Alcoholic pancreatitis: 42-year-old female with past medical history significant for pancreatitis, sepsis from UTI as per patient comes with abdominal pain going on for last 2 3 days. Patient states she drinks on and off alcohol and she does binge drinking. Last few days she has been binge drinking and she noticed abdominal pain last couple of days and it has been progressively worsened. Since today morning pain was very severe associate with nausea and dry heaving. Denies any diarrhea or constipation.. Normal micturition. No fevers. When pain is severe she feeling short of breath. No chest pains. Pain is located in the epigastric region radiating to the right side. No headaches. No blurred vision. Some run ny nose. Has some cough. Mild sore throat. Could not able to eat anything for last couple of days because of nausea. Hemodynamics okay Acute alcoholic pancreatitis Colitis Hepatic steatosis --CT ABD: Acute pancreatitis. Correlate with clinical and laboratory findings.The gland enhances throughout. No organized peripancreatic fluid collection is identified. Hepatomegaly and severe hepatic steatosis.Findings suggest a mild nonspecific colitis. Correlate clinically. --MRCP:Mild acute pancreatitis from prior examination has resolved. There is mild, fusiform, bile duct dilatation measuring up to 10 mm in width, however, no evidence for anatomically obstructing mass or choledocholithiasis. Findings likely represent sequela from prior inflammation. --Liver USD:No cholelithiasis. No evidence of cholecystitis. Dilated common bile duct measuring 9 mm. If there is laboratory evidence of biliary obstruction, consider MRCP to exclude choledocholithiasis. Echogenic liver suggesting steatosis. Mild pelviectasis of the right kidney without gera hydronephrosis. -- Lipase levels improved Continue IV fluids Pain control Appreciate GI input Needs outpatient endoscopic ultrasound in 6 to 8 weeks Advance to low-fat diet today Counseled to quit alcohol use on multiple occasions Electrolytes abnormality Hypokalemia, hypomagnesemia Secondary to GI losses Replete electrolytes as needed Monitor Alcohol use disorder On Librium protocol Currently no signs of withdrawal Monitor Diarrhea Likely multifactorial Stool for C. difficile gene positive, toxin negative Given persistent diarrhea, started on p.o. vancomycin Slowly improving Pancytopenia Hemoglobin 10, white count 2.22 and platelet 97 Likely secondary to myelosuppression from alcohol use Neutropenia resolved Normal B12 levels Monitor CBC Elevated LFTs Likely secondary to alcoholic hepatitis LFTs improved Monitor Anion gap metabolic acidosis Could be from alcoholism and starvation ketosis, diarrhea Monitor BMP Chronic pain On Suboxone Cautious use of pain medications Abnormal EKG No wall motion abnormality on echo Borderline aortic root dilatation Follow-up as outpatient DVT Px: Lovenox SQ CODE STATUS Full code Total Time Total Time Spent Total Time Spent (In Minutes): 59 minutes Discharge Plan Discharge Items Patient Disposition: Home - Self-Care Reason For Visit: PANCREATITIS, ABDOMINAL PAIN Discharge Diagnosis: Acute alcoholic pancreatitis Colitis Hepatic steatosis Hypokalemia Hypomagnesemia Pancytopenia Activity: Per Instructions section Exercise/Sports: Wait until after follow-up appointment Non-emergency contact: Primary Care Provider and Pipe Coverer Call non-emergency contact if: you have any medication questions Follow-up/Referrals: Alyx Sosa MD [Outside Practitioners] - 05/20/23 10:20 am (Date & Time 05/20/2023 10:20 AM Provider Alyx Sosa MD Department General Internal Medicine [facility] ) Diet: Low Fat and Lactose Intolerant Addtl Attending Provider Instructions: Follow up with your Primary care physician in 1 week Follow-up with the gastroenterology in 6 to 8 weeks for outpatient endoscopic ultrasound --- Complete p.o. vancomycin course as prescribed -- Avoid alcohol use as advised next -- Obtain blood test (complete blood count with differential) , Basic metabolic panel, magnesium in 1 week and follow-up with your primary care physician Seek immediate medical attention if your symptoms reoccur or worsen Please take all medications as instructed on discharge list below. Please call if you have any questions or problems. You can reach a [facility] hospitalist on duty at [facility] 24 hours a day by calling [phone] Pending Studies at Discharge: No Stand-Alone Forms: My [facility], Smoking Cessation Medications and DC Order Prescriptions: New vancomycin 125 mg capsule 125 mg PO Q6 8 Days Qty: 32 0RF oxycodone-acetaminophen [Percocet] 5-325 mg Tablet 1 tab PO Q8H PRN (Reason: pain) Qty: 10 0RF potassium chloride 10 mEq Tablet,Er Particles/Crystals 10 meq PO BID 6 Days Qty: 12 0RF Mag 64 64 mg Tablet,Delayed Release (Dr/Ec) 128 mg PO BID 40 Days Qty: 10 0RF Continued omeprazole 40 mg capsule,delayed release(DR/EC) 80 mg PO HS naproxen 500 mg tablet 500 mg PO BID PRN (Reason: pain) Qty: 20 0RF lorazepam 0.5 mg tablet 0.5 mg PO BID PRN (Reason: Anxiety) buprenorphine-naloxone 8-2 mg tablet, sublingual 2.5 tab SUBLINGUAL DAILY gabapentin 600 mg tablet 600 mg PO QID hydroxyzine HCl 50 mg tablet 50 mg PO BID PRN (Reason: ANXIETY OR SLEEP) desvenlafaxine succinate 50 mg tablet extended release 24 hr 50 mg PO QAM desvenlafaxine succinate 25 mg tablet extended release 24 hr 25 mg PO QAM Discharge Orders: Discharge Order (Routine); Ordered 05/14/23 Ordered By: Len Toscano/Other Patient Handouts: Pancreatitis Acute Dc, What Is C. Diff?, ED Diet, Low Fat Admission Data Admit Date/Time: 05/09/23 23:47 Attending Provider: Len Alves Admit Provider: Jack Gerber Primary Care Provider: PCP,NO Other Providers: Jack Gerbre; Polina Gonzales; Sachin Kyle; Jayda Cunningham; Sandra Greer; Vianey Morrow; Shannan Perdomo; Lsiandro Corbett; Oswaldo Bernstein; August Cabrera; Doris Kumar; Jenny Contreras S; Ginny Herron; Palma Catalan; Naye Carreno; Ariana Yap; Aleida Encarnacion; Livan Birch; Domenico Ignacio; Zuly Cheng; Gunnar Montoya Jr Other Interventions: Discharge Summary Assessment (RN) Last Done: 05/14/23 12:17
== END 2023-05-14 14:14 | disposition home or self-care (01) | DRG 439 ==
LOC: ED 19:57 → SUATTDRO 23:47 → 3N 23:47

== ENCOUNTER 2025-01-09 21:18 | Inpatient (IN) ==
[2025-01-09 21:48] LABS: Hematocrit (blood only) 38.0 % (37.0-47.0); Hemoglobin 13.4 g/dl (12.0-16.0); Immature Granulocytes # (auto) 0.00 K/uL (0.01-0.20); Immature Granulocytes % (auto) 0.0 %; Mean Corpuscular Hemoglobin 35.0 pg (25.0-34.0); Mean Corpuscular Volume 99.2 fL (80.0-100.0); Platelet Count 169 K/uL (130-400); RDW Standard Deviation 53.6 fL (36.4-46.3); Red Blood Count 3.83 M/uL (4.20-5.40); White Blood Count 8.57 K/ul (4.8-10.8)
[2025-01-09 21:52] LABS: Appearance Urine Clear (Clear); Glucose Urine UA Negative (Negative)
[2025-01-09 22:04] LABS: Pregnancy Test, Serum Negative (Negative)
--- NOTE | 2025-01-09 22:05 | Emergency Department Note ---
Impression & Plan Abdominal pain Admission ED Provider Note HPI: History obtained from patient. The patient is a 44-year-old female with history of alcohol abuse, presents the emergency department with a chief complaint of mid abdominal pain as well as nausea and vomiting. Patient states that her symptoms began several days ago with some bilateral flank pain and then today she developed mid abdominal pain that felt similar to episodes of pancreatitis that she has had in the past. Patient states she does drink daily. Patient states that her last drink was about 4 hours ago. On arrival here to the ED the patient is mildly tachycardic but otherwise hemodynamically stable, she is alert and oriented x 3 on arrival. ROS: - Per HPI Differential Diagnosis: Acute pancreatitis, acute gastritis, acute cholecystitis, viral gastroenteritis, alcohol-induced gastritis, acute appendicitis, amongst other potential pathologies. *Outpatient medications and allergy history reviewed. PE: General: Alert HEENT: Normocephalic, trachea midline Eyes: Extraocular eye movement is intact, no scleral erythema Pulmonary: Clear to auscultation bilaterally, no wheezing Cardio: Regular rate and rhythm GI: Abdomen is soft to palpation, moderate tenderness over the upper abdomen to palpation without guarding or rigidity : No suprapubic tenderness MSK: No evidence of trauma or malformation of the extremities, no edema Skin: No evidence of rash Neuro: Alert, no focal deficits Psychiatric: Cooperative INDEPENDENT INTERPRETATIONS: quality assurance monitor: (As interpreted by myself): - An order was placed for continuous cardiac monitoring - Patient was noted to be in sinus rhythm with a rate of 100 EKG: (As interpreted by myself): Rate: 111 Rhythm: Sinus tachycardia Intervals: [place] interval 204 ms, otherwise within normal limits ST changes: No ST elevation Time: 2135 Interventions provided in ED: - IV fluid bolus, IV morphine, IV Zofran, IV cefepime Medical Decision Making: IV was established and lab work obtained, patient was placed on engine monitor. Lab work shows no leukocytosis, hemoglobin is normal, platelet count is normal, CMP shows transaminitis with AST of 286 and ALT of 80, bilirubin is mildly elevated at 1.3, lipase is normal at 21, testing is negative. Urinalysis does not show any evidence of infection, alcohol level is elevated at 283, patient does admit to heavy daily drinking. CT imaging of the abdomen pelvis shows a distended gallbladder with some surrounding fluid with dilated common bile duct. Ultrasound imaging of the gallbladder was therefore obtained that redemonstrates distention with a torturous appearing neck of the gallbladder and dilation of the common bile duct. Recommendation was made for MRCP to be obtained. On my reassessment the patient remains hemodynamically stable, she states her pain is improved following the above interventions but she still does have some discomfort. She does not appear to be going through any type of acute alcohol withdrawal at this time. blood cultures were ordered and the patient was given a dose of IV cefepime given concern for possible biliary pathology for her upper abdominal pain. General surgery was consulted, case was discussed with the on- call midlevel provider, Enrike Riley PA-C. He did evaluate the patient at the bedside. Case was also discussed with the on-call hospitalist, Dr. Oakes, and the patient will be admitted for further workup to include MRCP and subspecialty consultation. Patient was in agreement to this plan and she was placed for admission in stable condition. Consultants/Discussions held with other healthcare providers: - General Surgery, Dr. Lugo/Enrike Riley PA-C. - Hospitalist, Dr. Oakes Disposition discussion held by myself with: - Patient Diagnosis: 1. Upper abdominal pain, acute 2. Distended gallbladder on CT imaging and ultrasound imaging, acute 3. Alcohol intoxication, acute Disposition: Admission Sky Whitney DO Emergency Medicine Past Med/Surg History Problem List (Updated 01/10/25 @ 02:38 by Sky Whitney DO) Abdominal pain (Acute) Acute pancreatitis (Acute) Alcoholic pancreatitis Hypomagnesemia Hypokalemia Alcohol abuse Tobacco use Pancreatitis (Acute) UTI (urinary tract infection) (Acute) Vitamin B12 deficiency Pancytopenia Gram negative sepsis Sepsis (Acute) Right corneal abrasion (Acute) Medical History (Updated 01/10/25 @ 02:38 by Sky Whitney DO) Alcohol withdrawal Hx of drug abuse Sepsis Pyelonephritis Depression Surgical History (Updated 08/13/22 @ 15:48 by Randi Maldonado PA-C) No pertinent past surgical history Family History (Updated 08/13/22 @ 15:25 by Randi Maldonado PA-C) Mother Hypertension Cancer Sister Cancer Social History (Updated 08/13/22 @ 15:32 by Darien Chacko MD) Smoking Status: Current every day smoker Tobacco Type: Cigarettes Cigarettes Per Day: 1/2 PPD; Second Hand Exposure: Yes; Do You Dip or Chew Tobacco: No; Hx Alcohol Use: Yes Alcohol type: wine and hard liquor Alcohol Intake Frequency Comment: 2-3 drinks/day Hx Substance Use: Yes (history, not currently using) Last Used Substance: Unknown Last Used Substance Other:: "its been years" Preferred Language: [place] Communication Ability: Effective Department Secretary Required: No Beliefs That Will Affect Care: None Current Living Situation: Alone Current Living Situation Comment: lives in an apartment, alone Feels Safe at Home: Yes Assistive Devices: None Allergies Allergies Allergy/AdvReac Type Severity Reaction Status Date / Time No Known Allergies Allergy Mild Verified 01/10/25 00:56 Home Meds Home Medications Medication Instructions Recorded Confirmed omeprazole 40 mg capsule,delayed 40 mg PO HS 08/13/22 01/10/25 release gabapentin 600 mg tablet 600 mg PO .2-4 X DAILY 05/09/23 01/10/25 clonazepam 1 mg tablet 0.5 - 1 mg PO BID PRN Anxiety 01/10/25 01/10/25 doxepin 100 mg capsule 100 mg PO HS PRN Sleep 01/10/25 01/10/25 lamotrigine 25 mg tablet 25 mg PO HS 01/10/25 01/10/25 vilazodone 40 mg tablet 40 mg PO DAILY 01/10/25 01/10/25 Results & Data (ED) Vital Signs Vital Signs - 24 hr 01/09/25 21:23 01/09/25 21:58 01/10/25 00:56 Temperature 36.6 C Temperature Source Temporal Artery Scan Pulse Rate 118 H 107 H Pulse Rate [Finger] 89 Respiratory Rate 18 17 Respiratory Effort / Characteristics Non-Labored Spontaneous Respiratory Depth Normal Respiratory Pattern Regular Blood Pressure 136/91 Blood Pressure [Left Arm] 105/78 Blood Pressure Mean 106 Blood Pressure Mean [Left Arm] 87 Blood Pressure Position Sitting Pulse Oximetry 95 92 Oxygen Delivery Method Room Air Room Air Sepsis Recent Fever Within 48 Hours No Sepsis New/Unexplained Change in Mental Status N/A Sepsis Action Taken by Nursing No Action Required Laboratory Data 01/09/25 21:32 01/09/25 22:42 Lab Results 01/09/25 01/09/25 Range/Units 21:32 22:42 WBC 8.57 (4.8-10.8) K/ul RBC 3.83 L (4.20-5.40) M/uL Hgb 13.4 (12.0-16.0) g/dl Hct 38.0 (37.0-47.0) % MCV 99.2 (80.0-100.0) fL MCH 35.0 H (25.0-34.0) pg MCHC 35.3 (32.0-36.0) g/dL RDW Std Deviation 53.6 H (36.4-46.3) fL RDW Coeff of [place] 14.6 H (11.5-14.5) % Plt Count 169 (130-400) K/uL MPV 11.0 (9.4-12.4) fL Immature Gran % (Auto) 0.0 % Neut % (Auto) 61.0 % Lymph % (Auto) 31.2 % [place] % (Auto) 4.8 % Eos % (Auto) 2.2 % Baso % (Auto) 0.8 % Neut # (Auto) 5.23 (1.40-6.50) K/uL Lymph # (Auto) 2.67 (1.20-3.40) K/uL [place] # (Auto) 0.41 (0.11-0.59) K/uL Eos # (Auto) 0.19 (0.00-0.50) K/uL Baso # (Auto) 0.07 (0.00-0.20) K/uL Immature Gran # (Auto) 0.00 L (0.01-0.20) K/uL Sodium 135 L (136-145) mmol/L Potassium TNP 3.1 L Chloride 96 L (98-107) mmol/L Carbon Dioxide 27 (21-32) mmol/L Anion Gap 12 H (3-11) BUN 4 L (6-23) mg/dl Creatinine 0.38 L (0.6-1.2) mg/dl Est Cr Clr Drug Dosing 209.0 ml/min eGFR 125.85 BUN/Creatinine Ratio 10.5 (10-20) Glucose 101 H (70-99(Fasting)) mg/dl Calcium 8.7 (8.6-10.3) mg/dl Total Bilirubin 1.3 H (0.2-1.0) mg/dl AST TNP 286 H ALT 80 H (7-52) U/L Alkaline Phosphatase 291 H (34-104) U/L Total Protein 9.0 H (6.0-8.3) gm/dl Albumin 4.4 (3.4-5.0) gm/dl Globulin 4.6 H (2.5-4.0) gm/dl Albumin/Globulin Ratio 1.0 (0.9-2) Lipase 21 (11-82) U/L HCG, Qual Negative (Negative) Urine Color Yellow Urine Appearance Clear (Clear) Urine pH 6.5 (4.5-7.5) Ur Specific [place] 1.003 (1.000-1.030) Urine Protein Negative (Negative) Urine Glucose (UA) Negative (Negative) Urine Ketones Negative (Negative) Urine Blood Negative (Negative) Urine Nitrite Negative (Negative) Urine Bilirubin Negative (Negative) Urine Urobilinogen Negative (Negative) Ur Leukocyte Esterase Negative (Negative) Urine Comment Ethyl Alcohol mg/dL 283.3 H (<10.0) mg/dl Administered Medications Discontinued Medications Sodium Chloride (Nss) 1,000 mls @ 999 mls/hr IV .Q1H1M ONE Stop: 01/09/25 23:01 Last Infusion: 01/09/25 23:38 Dose: Infused Documented By: Admin: 01/09/25 22:36 Dose: 999 mls/hr Documented By: ROCIO Ioversol (Optiray 320 100ml) 100 ml IV ONCE ONE Stop: 01/09/25 22:58 Last Admin: 01/09/25 22:57 Dose: 93 ml Documented By: BIMAL Morphine Sulfate (Morphine Sulfate 4 Mg/Ml 1 Ml Carp\\Vial) 4 mg IV NOW STA Stop: 01/09/25 22:02 Last Admin: 01/09/25 22:35 Dose: 4 mg Documented By: ROCIO Morphine Sulfate (Morphine Sulfate 4 Mg/Ml 1 Ml Carp\\Vial) 4 mg IV NOW STA Stop: 01/09/25 23:54 Last Admin: 01/10/25 00:52 Dose: 4 mg Documented By: MIMI Ondansetron HCl (Ondansetron Inj 2 Mg/Ml 2 Ml Vial) 4 mg IV NOW STA Stop: 01/09/25 22:02 Last Admin: 01/09/25 22:35 Dose: 4 mg Documented By: ROCIO Imaging Data Radiologist's Impression: Abdomen/Pelvis CT 01/09/25 22:01 Exam(s): CT ABDOMEN + PELVIS With Contrast IV Amt: 93 ML OPTIRAY 320 EXAM: CT Abdomen and Pelvis With Intravenous Contrast CLINICAL HISTORY: Reason for exam: mid abd pain. TECHNIQUE: Axial computed tomography images of the abdomen and pelvis with intravenous contrast. CTDI is 14.688 mGy and DLP is 856.12 mGy-cm. Automated exposure control was utilized for the study. A dose lowering technique was utilized adhering to the principles of ALARA. CONTRAST: Patient received 93 ML OPTIRAY 320 of IV contrast COMPARISON: 08/13/2022 FINDINGS: Lung bases: There is elevation of the right hemidiaphragm with scarring or atelectasis in the right lung base.. ABDOMEN: Liver: The liver is enlarged and of decreased attenuation.. Gallbladder and bile ducts: Gallbladder is distended. There appears to be fluid around the gallbladder. No calcified stones. The common bile duct is dilated at 11 mm.. Pancreas: No mass. No ductal dilation. Spleen: The spleen is enlarged.. Adrenals: No mass. Kidneys and ureters: No solid mass. No hydronephrosis. Stomach and bowel: There is air and fluid within the stomach. There is air and stool noted in the colon. There is thickening of the juarez of the ascending colon, transverse colon and descending colon. There are distended loops of small bowel containing fluid and air. Some of these demonstrate wall thickening.. PELVIS: Appendix: No findings to suggest acute appendicitis. Bladder: No calculi are noted within the bladder.. Reproductive: Unremarkable as visualized. ABDOMEN and PELVIS: Intraperitoneal space: No free air. No significant fluid collection. Bones/joints: There are mild degenerative changes in the spine.. Soft tissues: There are bilateral breast implants noted.. Vasculature: No abdominal aortic aneurysm. Lymph nodes: No enlarged lymph nodes. IMPRESSION: There is thickening of the juarez of the ascending colon, transverse colon and descending colon. This most likely represents a nonspecific colitis. There are distended loops of small bowel containing fluid and air. Some of these demonstrate wall thickening. This may be related to an ileus. Cannot exclude a nonspecific enteritis. Gallbladder is distended. There appears to be fluid around the gallbladder. There is dilatation of the common bile duct. The liver is enlarged and of diffuse decreased attenuation which may be due to fatty infiltration. Splenomegaly Electronically signed by: Ludwin Zhou MD 01/09/25 23:44 PM Gallbladder Ultrasound 01/10/25 00:00 EXAM: US gallbladder CLINICAL HISTORY: upper abd pain, abnormal CT,eval for cholecystitis TECHNIQUE: Static ultrasound images with grayscale and Doppler of the right upper quadrant were submitted for review. COMPARISON: 06/05/2022 FINDINGS: The liver is enlarged in size, measuring approximately 22.7 cm. It appears echogenic and shows coarse texture. The examination is limited by coarse echotexture of the liver, reducing the depth of penetration. There is evidence of a hypoechoic region near the gallbladder?could be focal fatty sparing. The gallbladder is distended, with a tortuous and distended appearance of the neck of the gallbladder. No obvious calculi are detected. There is no abnormal wall thickening, with the wall measuring approximately 1.4 mm in thickness. There is evidence of echogenic sludge within. The common bile duct is dilated, measuring up to 9.7 mm. The pancreas is suboptimally visualized due to overlying bowel gas shadows. The aorta is normal in caliber. The right kidney is normal in size and echogenicity without evidence of nephrolithiasis or focal mass lesions. There is a prominent renal pelvis and collecting system in the lower pole. IMPRESSION: Hepatomegaly with altered liver echotexture?suggest laboratory correlation for possible chronic liver parenchymal disease and further evaluation with MRI for possible focal lesions. Evidence of a hyperechoic lesion in the liver near the gallbladder?could be focal fatty sparing. Gallbladder sludge and tortuous and distended appearance of the neck of the gallbladder. Dilated common bile duct. Advised MRCP for further evaluation. Prominent renal pelvis and collecting system in the lower pole of the right kidney?unchanged. Electronically signed by Jamar Maloney 01-10-2025 01:59 AM Discharge Plan Visit Data Chief Complaint: Abdominal Pain Stated Complaint: MID CHESK/BACK/KIDNEY/URINATION PAIN ED Provider: Sky Whitney Discharge Problem: Abdominal pain Patient Disposition: Admitted As Inpatient Condition: Fair Forms Stand Alone Forms: [facility] Prescriptions Prescriptions: No Action omeprazole 40 mg capsule,delayed release(DR/EC) 40 mg PO HS gabapentin 600 mg tablet 600 mg PO .2-4 X DAILY clonazepam 1 mg tablet 0.5 - 1 mg PO BID PRN (Reason: Anxiety) lamotrigine 25 mg tablet 25 mg PO HS doxepin 100 mg capsule 100 mg PO HS PRN (Reason: Sleep) vilazodone 40 mg tablet 40 mg PO DAILY Referrals Referrals: PCP,NO [Physician] -
[2025-01-09 22:17] LABS: Alanine Aminotransferase 80 U/L (7-52); Albumin Globulin Ratio 1.0 (0.9-2); Albumin Level 4.4 gm/dl (3.4-5.0); Alkaline Phosphatase 291 U/L (34-104); Anion Gap 12 (3-11); Bilirubin,Total 1.3 mg/dl (0.2-1.0); Blood Urea Nitrogen 4 mg/dl (6-23); Calcium 8.7 mg/dl (8.6-10.3); Carbon Dioxide 27 mmol/L (21-32); Chloride 96 mmol/L (98-107); Creatinine Clr Calc Pharmacy 209.0 ml/min; Globulin 4.6 gm/dl (2.5-4.0); Glucose 101 mg/dl (70-99(Fasting)); Lipase 21 U/L (11-82); Sodium 135 mmol/L (136-145); Total Protein 9.0 gm/dl (6.0-8.3)
[2025-01-09] MEDS: MoRPHine SULFATE 4 MG/ML 1 ML CARP\\VIAL IV STA (22:35)
[2025-01-09] MEDS: ONDANSETRON INJ 2 MG/ML 2 ML VIAL IV STA (22:35)
[2025-01-09] MEDS: SODIUM CHLORIDE 0.9% 1,000 ML IV ONE (22:36)
[2025-01-09] MEDS: OPTIRAY 320 100ml IV ONE (22:57)
[2025-01-09 23:21] LABS: Potassium 3.1 mmol/L (3.5-5.1)
--- NOTE | 2025-01-09 23:45 | CT Scan Report ---
Exam(s): CT ABDOMEN + PELVIS With Contrast IV Amt: 93 ML OPTIRAY 320 EXAM: CT Abdomen and Pelvis With Intravenous Contrast CLINICAL HISTORY: Reason for exam: mid abd pain. TECHNIQUE: Axial computed tomography images of the abdomen and pelvis with intravenous contrast. CTDI is 14.688 mGy and DLP is 856.12 mGy-cm. Automated exposure control was utilized for the study. A dose lowering technique was utilized adhering to the principles of ALARA. CONTRAST: Patient received 93 ML OPTIRAY 320 of IV contrast COMPARISON: 08/13/2022 FINDINGS: Lung bases: There is elevation of the right hemidiaphragm with scarring or atelectasis in the right lung base.. ABDOMEN: Liver: The liver is enlarged and of decreased attenuation.. Gallbladder and bile ducts: Gallbladder is distended. There appears to be fluid around the gallbladder. No calcified stones. The common bile duct is dilated at 11 mm.. Pancreas: No mass. No ductal dilation. Spleen: The spleen is enlarged.. Adrenals: No mass. Kidneys and ureters: No solid mass. No hydronephrosis. Stomach and bowel: There is air and fluid within the stomach. There is air and stool noted in the colon. There is thickening of the juarez of the ascending colon, transverse colon and descending colon. There are distended loops of small bowel containing fluid and air. Some of these demonstrate wall thickening.. PELVIS: Appendix: No findings to suggest acute appendicitis. Bladder: No calculi are noted within the bladder.. Reproductive: Unremarkable as visualized. ABDOMEN and PELVIS: Intraperitoneal space: No free air. No significant fluid collection. Bones/joints: There are mild degenerative changes in the spine.. Soft tissues: There are bilateral breast implants noted.. Vasculature: No abdominal aortic aneurysm. Lymph nodes: No enlarged lymph nodes. IMPRESSION: There is thickening of the juarez of the ascending colon, transverse colon and descending colon. This most likely represents a nonspecific colitis. There are distended loops of small bowel containing fluid and air. Some of these demonstrate wall thickening. This may be related to an ileus. Cannot exclude a nonspecific enteritis. Gallbladder is distended. There appears to be fluid around the gallbladder. There is dilatation of the common bile duct. The liver is enlarged and of diffuse decreased attenuation which may be due to fatty infiltration. Splenomegaly Electronically signed by: Ludwin Zhou MD 01/09/25 23:44 PM
[2025-01-10] MEDS: MoRPHine SULFATE 4 MG/ML 1 ML CARP\\VIAL IV STA ×2 (00:52→02:33)
--- NOTE | 2025-01-10 01:59 | Ultrasound Report ---
EXAM: US gallbladder CLINICAL HISTORY: upper abd pain, abnormal CT,eval for cholecystitis TECHNIQUE: Static ultrasound images with grayscale and Doppler of the right upper quadrant were submitted for review. COMPARISON: 06/05/2022 FINDINGS: The liver is enlarged in size, measuring approximately 22.7 cm. It appears echogenic and shows coarse texture. The examination is limited by coarse echotexture of the liver, reducing the depth of penetration. There is evidence of a hypoechoic region near the gallbladder?could be focal fatty sparing. The gallbladder is distended, with a tortuous and distended appearance of the neck of the gallbladder. No obvious calculi are detected. There is no abnormal wall thickening, with the wall measuring approximately 1.4 mm in thickness. There is evidence of echogenic sludge within. The common bile duct is dilated, measuring up to 9.7 mm. The pancreas is suboptimally visualized due to overlying bowel gas shadows. The aorta is normal in caliber. The right kidney is normal in size and echogenicity without evidence of nephrolithiasis or focal mass lesions. There is a prominent renal pelvis and collecting system in the lower pole. IMPRESSION: Hepatomegaly with altered liver echotexture?suggest laboratory correlation for possible chronic liver parenchymal disease and further evaluation with MRI for possible focal lesions. Evidence of a hyperechoic lesion in the liver near the gallbladder?could be focal fatty sparing. Gallbladder sludge and tortuous and distended appearance of the neck of the gallbladder. Dilated common bile duct. Advised MRCP for further evaluation. Prominent renal pelvis and collecting system in the lower pole of the right kidney?unchanged. Electronically signed by Jamar Maloney 01-10-2025 01:59 AM
--- NOTE | 2025-01-10 02:28 | History & Physical Report ---
Date of Service January 10, 2025 Assessment & Plan (1) Abdominal pain: Plan: Assessment and plan below following discussion of case with ED provider and reviewing patient history/pertinent normal/abnormal diagnostic test results. Biliary colic rule out choledocholithiasis given CBD obstruction No sepsis for now Hypomagnesemia alcoholic liver disease as per records chronic anemia, hemoglobin better than baseline secondary to hemoconcentration Traumatic right humeral fracture, patient follows with [facility] Orthopedics ongoing tobacco/alcohol abuse Admit to med/tele given propensity for alcohol withdrawal Replace electrolytes GI consult re: biliary colic (ED provider already in touch with AD[facility] who recommends MRCP.) N.p.o. in anticipation of procedure GRETTA S at risk protocol, DT precautions Nicotine patch DVT prophylaxis. SCDs re: possible procedure Full code Text document was generated using [employer] voice recognition software. It may contain grammatical or spelling errors. Kindly contact undersigned for clarification of any documentation item in question. History of Present Illness Chief Complaint: Abdominal pain Primary Care Provider: Dr. Nuñez History obtained from patient, family, and records. Medical history significant for alcoholic liver disease as per records, chronic anemia (baseline hemoglobin 10-11), chronic pain, traumatic right humeral fracture, ongoing tobacco/alcohol abuse. Last confinement 2023 for alcoholic pancreatitis. Few days history of mid abdominal pain somewhat worse on eating. Abdominal pain going to the back. Some nausea, no emesis. No fever, no chills. Denies chest pain, SOB. IV cefepime administered at the ER. 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 Allergies Allergy/AdvReac Type Severity Reaction Status Date / Time No Known Allergies Allergy Mild Verified 01/10/25 00:56 Home Medications Medication Instructions Recorded Confirmed Type omeprazole 40 mg capsule,delayed 40 mg PO HS 08/13/22 01/10/25 History release gabapentin 600 mg tablet 600 mg PO .2-4 X DAILY 05/09/23 01/10/25 History clonazepam 1 mg tablet 0.5 - 1 mg PO BID PRN Anxiety 01/10/25 01/10/25 History doxepin 100 mg capsule 100 mg PO HS PRN Sleep 01/10/25 01/10/25 History lamotrigine 25 mg tablet 25 mg PO HS 01/10/25 01/10/25 History vilazodone 40 mg tablet 40 mg PO DAILY 01/10/25 01/10/25 History Past Med/Surg History Problem List Abdominal pain (Acute) Acute pancreatitis (Acute) Alcoholic pancreatitis Hypomagnesemia Hypokalemia Alcohol abuse Tobacco use Pancreatitis (Acute) UTI (urinary tract infection) (Acute) Vitamin B12 deficiency Pancytopenia Gram negative sepsis Sepsis (Acute) Right corneal abrasion (Acute) Medical History Alcohol withdrawal Hx of drug abuse Sepsis Pyelonephritis Depression Surgical History No pertinent past surgical history Family History Mother Hypertension Cancer Sister Cancer Social History Smoking Status: Current every day smoker Tobacco Type: Cigarettes Cigarettes Per Day: 1/2 PPD; Second Hand Exposure: No; Do You Dip or Chew Tobacco: No; Tobacco Cessation Education Requested by Patient: No Hx Alcohol Use: Yes Alcohol type: hard liquor Alcohol Intake Frequency Comment: 2-3 drinks/day Hx Substance Use: No Preferred Language: Ethiopian Communication Ability: Effective [employer] Required: No Beliefs That Will Affect Care: None Current Living Situation: Alone Current Living Situation Comment: lives in an apartment, alone Other Information That Helps Us Care for You: No Feels Safe at Home: Yes Safety Concerns: Feels Safe At This Time Assistive Devices: Glasses Review of Systems Review of Systems: As per HPI, all other systems reviewed and negative Physical Exam Physical Exam: GENERAL: uncomfortable, tearful, looks older than stated age, alcoholic fetor, no respiratory distress SKIN: Pallor, warm HEENT: Pale palpebral conjunctivae, no ptosis, dry buccal mucosa NECK : Supple, no tenderness CHEST : CTA, no tenderness HEART : RRR, no obvious murmurs ABDOMEN: Some distention, epigastric tenderness EXTREMITIES : No LE swelling/tenderness, palpable pulses, no other conspicuous deformities noted NEUROLOGIC : Coherent, no facial asymmetry, no other gross focality Results & Data Results & Data Vital Signs (Past 12 Hours) Vital Signs Temp Pulse Pulse Resp BP BP Pulse Ox 01/10/25 00:56 89 17 105/78 92 01/09/25 21:58 107 H 01/09/25 21:23 36.6 C 118 H 18 136/91 95 O2 Del Method 01/10/25 00:56 Room Air 01/09/25 21:58 01/09/25 21:23 Room Air Laboratory Results Laboratory Results WBC 8.57 K/ul (4.8-10.8) 01/09/25 21: RBC 3.83 M/uL (4.20-5.40) L 01/09/25 21: Hgb 13.4 g/dl (12.0-16.0) 01/09/25 21: Hct 38.0 % (37.0-47.0) 01/09/25 21: MCV 99.2 fL (80.0-100.0) 01/09/25 21: MCH 35.0 pg (25.0-34.0) H 01/09/25: MCHC 35.3 g/dL (32.0-36.0) 01/09/25 21: RDW Std Deviation 53.6 fL (36.4-46.3) H 01/09/25: RDW Coeff of Ralph 14.6 % (11.5-14.5) H 01/09/25 21: Plt Count 169 K/uL (130-400) 01/09/25 21: MPV 11.0 fL (9.4-12.4) 01/09/25: Immature Gran % (Auto) 0.0 % 01/09/25: Neut % (Auto) 61.0 % 01/09/25: Lymph % (Auto) 31.2 % 01/09/25: [place] % (Auto) 4.8 % 01/09/25: Eos % (Auto) 2.2 % 01/09/25: Baso % (Auto) 0.8 % 01/09/25: Neut # (Auto) 5.23 K/uL (1.40-6.50) 01/09/25: Lymph # (Auto) 2.67 K/uL (1.20-3.40) 01/09/25 21:32 [place] # (Auto) 0.41 K/uL (0.11-0.59) 01/09/25 21:32 Eos # (Auto) 0.19 K/uL (0.00-0.50) 01/09/25 21:32 Baso # (Auto) 0.07 K/uL (0.00-0.20) 01/09/25 21: Immature Gran # (Auto) 0.00 K/uL (0.01-0.20) L 01/09/25 21:32 Sodium 135 mmol/L (136-145) L 01/09/25 21:32 Potassium 3.1 mmol/L (3.5-5.1) L 01/09/25 22:42 Chloride 96 mmol/L (98-107) L 01/09/25 21:32 Carbon Dioxide 27 mmol/L (21-32) 01/09/25 21:32 Anion Gap 12 (3-11) H 01/09/25 21:32 BUN 4 mg/dl (6-23) L 01/09/25 21:32 Creatinine 0.38 mg/dl (0.6-1.2) L 01/09/25 21:32 Est Cr Clr Drug Dosing 209.0 ml/min 01/09/25 21: eGFR 125.85 01/09/25 21:32 BUN/Creatinine Ratio 10.5 (10-20) 01/09/25 21:32 Glucose 101 mg/dl (70-99(Fasting)) H 01/09/25 21:32 Calcium 8.7 mg/dl (8.6-10.3) 01/09/25 21:32 Total Bilirubin 1.3 mg/dl (0.2-1.0) H 01/09/25 21:32 AST 286 U/L (13-39) H 01/09/25 22:42 ALT 80 U/L (7-52) H 01/09/25 21:32 Alkaline Phosphatase 291 U/L (34-104) H 01/09/25 21:32 Total Protein 9.0 gm/dl (6.0-8.3) H 01/09/25 21:32 Albumin 4.4 gm/dl (3.4-5.0) 01/09/25 21:32 Globulin 4.6 gm/dl (2.5-4.0) H 01/09/25: Albumin/Globulin Ratio 1.0 (0.9-2) 01/09/25 21: Lipase 21 U/L (11-82) 01/09/25 21: HCG, Qual Negative (Negative) 01/09/25 21: Urine Color Yellow 01/09/25: Urine Appearance Clear (Clear) 01/09/25 21: Urine pH 6.5 (4.5-7.5) 01/09/25 21: Ur Specific Britt 1.003 (1.000-1.030) 01/09/25: Urine Protein Negative (Negative) 01/09/25: Urine Glucose (UA) Negative (Negative) 01/09/25: Urine Ketones Negative (Negative) 01/09/25: Urine Blood Negative (Negative) 01/09/25: Urine Nitrite Negative (Negative) 01/09/25: Urine Bilirubin Negative (Negative) 01/09/25 21: Urine Urobilinogen Negative (Negative) 01/09/25: Ur Leukocyte Esterase Negative (Negative) 01/09/25: Urine Comment 01/09/25: Ethyl Alcohol mg/dL 283.3 mg/dl (<10.0) H 01/09/25 21: Impressions Abdomen/Pelvis CT 01/09/25 22:01 Exam(s): CT ABDOMEN + PELVIS With Contrast IV Amt: 93 ML OPTIRAY 320 EXAM: CT Abdomen and Pelvis With Intravenous Contrast CLINICAL HISTORY: Reason for exam: mid abd pain. TECHNIQUE: Axial computed tomography images of the abdomen and pelvis with intravenous contrast. CTDI is 14.688 mGy and DLP is 856.12 mGy-cm. Automated exposure control was utilized for the study. A dose lowering technique was utilized adhering to the principles of ALARA. CONTRAST: Patient received 93 ML OPTIRAY 320 of IV contrast COMPARISON: 08/13/2022 FINDINGS: Lung bases: There is elevation of the right hemidiaphragm with scarring or atelectasis in the right lung base.. ABDOMEN: Liver: The liver is enlarged and of decreased attenuation.. Gallbladder and bile ducts: Gallbladder is distended. There appears to be fluid around the gallbladder. No calcified stones. The common bile duct is dilated at 11 mm.. Pancreas: No mass. No ductal dilation. Spleen: The spleen is enlarged.. Adrenals: No mass. Kidneys and ureters: No solid mass. No hydronephrosis. Stomach and bowel: There is air and fluid within the stomach. There is air and stool noted in the colon. There is thickening of the juarez of the ascending colon, transverse colon and descending colon. There are distended loops of small bowel containing fluid and air. Some of these demonstrate wall thickening.. PELVIS: Appendix: No findings to suggest acute appendicitis. Bladder: No calculi are noted within the bladder.. Reproductive: Unremarkable as visualized. ABDOMEN and PELVIS: Intraperitoneal space: No free air. No significant fluid collection. Bones/joints: There are mild degenerative changes in the spine.. Soft tissues: There are bilateral breast implants noted.. Vasculature: No abdominal aortic aneurysm. Lymph nodes: No enlarged lymph nodes. IMPRESSION: There is thickening of the juarez of the ascending colon, transverse colon and descending colon. This most likely represents a nonspecific colitis. There are distended loops of small bowel containing fluid and air. Some of these demonstrate wall thickening. This may be related to an ileus. Cannot exclude a nonspecific enteritis. Gallbladder is distended. There appears to be fluid around the gallbladder. There is dilatation of the common bile duct. The liver is enlarged and of diffuse decreased attenuation which may be due to fatty infiltration. Splenomegaly Electronically signed by: Ludwin Zhou MD 01/09/25 23:44 PM Gallbladder Ultrasound 01/10/25 00:00 EXAM: US gallbladder CLINICAL HISTORY: upper abd pain, abnormal CT,eval for cholecystitis TECHNIQUE: Static ultrasound images with grayscale and Doppler of the right upper quadrant were submitted for review. COMPARISON: 06/05/2022 FINDINGS: The liver is enlarged in size, measuring approximately 22.7 cm. It appears echogenic and shows coarse texture. The examination is limited by coarse echotexture of the liver, reducing the depth of penetration. There is evidence of a hypoechoic region near the gallbladder?could be focal fatty sparing. The gallbladder is distended, with a tortuous and distended appearance of the neck of the gallbladder. No obvious calculi are detected. There is no abnormal wall thickening, with the wall measuring approximately 1.4 mm in thickness. There is evidence of echogenic sludge within. The common bile duct is dilated, measuring up to 9.7 mm. The pancreas is suboptimally visualized due to overlying bowel gas shadows. The aorta is normal in caliber. The right kidney is normal in size and echogenicity without evidence of nephrolithiasis or focal mass lesions. There is a prominent renal pelvis and collecting system in the lower pole. IMPRESSION: Hepatomegaly with altered liver echotexture?suggest laboratory correlation for possible chronic liver parenchymal disease and further evaluation with MRI for possible focal lesions. Evidence of a hyperechoic lesion in the liver near the gallbladder?could be focal fatty sparing. Gallbladder sludge and tortuous and distended appearance of the neck of the gallbladder. Dilated common bile duct. Advised MRCP for further evaluation. Prominent renal pelvis and collecting system in the lower pole of the right kidney?unchanged. Electronically signed by Jamar Maloney 01-10-2025 01:59 AM Diagnostic Findings EKG as per my interpretation :Rate 110, sinus tachycardia, normal axis, nonspecific T wave abnormalities
[2025-01-10] MEDS: CEFEPIME 2000MG 2,000 MG/20 ML SYR IV STA (02:33)
[2025-01-10] MEDS: POTASSIUM CHLORIDE CRTAB 20 MEQ TABCR PO STA (02:40)
[2025-01-10 02:53] LABS: Magnesium 1.4 mg/dl (1.7-2.4)
[2025-01-10] MEDS ORDERED: DOXEPIN HCL 50 MG CAPSULE PO PRN (02:58)
[2025-01-10] MEDS: THIAMINE HCL 100 MG in SYRINGE 9 ML IV STA (03:00)
[2025-01-10] MEDS: POTASSIUM CHLORIDE 20 MEQ in LACTATED RINGER'S 1,000 ML IV ONE (03:00)
[2025-01-10] MEDS ORDERED: ACETAMINOPHEN 500 MG TAB PO PRN (03:00)
[2025-01-10] MEDS: NICOTINE 21 MG/24 HR TDSY TD ONE (03:06)
--- NOTE | 2025-01-10 03:13 | Surgery Consultation ---
Date of Consultation January 10, 2025 Assessment & Plan (1) Abdominal pain: I discussed with the treating emergency room physician the patient is being admitted on the hospitalist service. Surgical recommendations are as follows Implement n.p.o. status Provide analgesics Provide antiemetics Hydrate with IV fluids Follow serial labs Patient is noted to have elevated LFTs which have been present in the past at times The patient is also noted to have some dilatation of her bile duct but this andres s been present on previous imaging as well Based on the trend of her LFTs we may consider getting an MRCP The patient should be monitored for alcohol withdrawal as she does admit to a history of heavy alcohol use in the past and she did have an elevated alcohol level prior to admission. Patient's abdominal pain and elevated LFTs may in fact be due to underlying alcoholic liver disease Based on the patient's clinical course (evolution of her abdominal pain, trend of her LFTs) a determination will be made if the patient requires any further imaging of her hepatobiliary system to determine if cholecystectomy is advised. Additional recommendations will be forthcoming based on her clinical course as it unfolds Supervising Physician Co-Signing Physician Notes Patient seen and examined, labs and imaging viewed, agree with above. 44-year-old female presented with right upper quadrant abdominal pain. History of alcohol use, GABRIEL on arrival 200s. Notes discomfort over the past few days, worsened with fatty greasy foods which she has avoided. Also with spicy foods. On exam she is afebrile stable vitals. Her abdomen is soft, tender to palpation in the right upper quadrant. WBC 3 platelets 74, INR 1.2, T. bili 1.5, AST 260, ALT 59. CT, ultrasound, and MRCP personally viewed and interpreted and agree with the assessment of mildly thickened gallbladder wall with sludge and likely small stones. No choledocholithiasis on MRCP. Discussed options to include HIDA scan to confirm cholecystitis versus cholecystectomy, she elects for surgery. plan for robotic assisted laparoscopic cholecystectomy with possible cholangiogram, hopefully today risks discussed to include but not limited to bleeding, infection, retained stone, bile leak, open surgery, damage to surrounding structures including bile duct, need for future or more extensive surgery, failure to treat symptoms, and risks of anesthesia. History of Present Illness Reason for Consultation: Abdominal pain History of Present Illness She notes that she has been having abdominal pain in her mid abdomen as well as right upper quadrant with associated nausea and vomiting. She says that she has been having the symptoms for between 3 to 5 days. She has not had any documented fevers but says she has had occasional chills. She does not report any other mitigating or modifying factors to her pain. She does admit to a history of heavy alcohol use in the pastthat she notes that she would drink at least 5 alcoholic beverages per day but notes that over the past several weeks she has tried to cut back. She does note that her most recent alcoholic beverage was earlier today. She has had alcoholic pancreatitis in the past. She does not report any other prior abdominal surgeries. I also asked the patient if she has been having postprandial pain over the past several weeks which she denied. This is a 44-year-old female who presented to the emergency department secondary to abdominal pain. Since arrival to hospital patient has had labs and imaging which independent reviewed. The patient had a gallbladder ultrasound that showed gallbladder sludge and a torturous/distended gallbladder neck. The patient's common bile duct was noted to be dilated. No gallstones were noted. The gallbladder wall was not noted to be thickened. She also had a CT scan of the abdomen pelvis that showed thickening of the juarez of the ascending/transverse/descending colon felt to likely represent a nonspecific colitis. There are also findings concerning for possible ileus or nonspecific enteritis. The patient was noted to have a distended gallbladder with some fluid surrounding the gallbladder and some dilatation of the common bile duct. Fatty infiltration was noted of the liver. Labs including CBC were white blood cell count and platelet count were normal. Hemoglobin and hematocrit were normal. Chemistry profile showed sodium and potassium are 135 and 3.1. BUN and creatinine were both not elevated. The patient was noted to have an elevated total bilirubin at 1.3 and elevated AST at 286, ALT of 80, and an elevated alkaline phosphatase of 291. Her lipase was not elevated and the test was negative. Urinalysis was not indicative of infection. Her ethyl alcohol level was elevated to 83.3. In addition, the patient had an EKG that showed sinus tachycardia. There is not appear to be changes indicative of acute ischemia. At the time of my interview she was resting comfortably in bed and she was in no distress. Allergies Allergy/AdvReac Type Severity Reaction Status Date / Time No Known Allergies Allergy Mild Verified 01/10/25 00:56 Home Medications Medication Instructions Recorded Confirmed Type omeprazole 40 mg capsule,delayed 40 mg PO HS 08/13/22 01/10/25 History release gabapentin 600 mg tablet 600 mg PO .2-4 X DAILY 05/09/23 01/10/25 History clonazepam 1 mg tablet 0.5 - 1 mg PO BID PRN Anxiety 01/10/25 01/10/25 History doxepin 100 mg capsule 100 mg PO HS PRN Sleep 01/10/25 01/10/25 History lamotrigine 25 mg tablet 25 mg PO HS 01/10/25 01/10/25 History vilazodone 40 mg tablet 40 mg PO DAILY 01/10/25 01/10/25 History Patient History Medical History Alcohol withdrawal Hx of drug abuse Sepsis Pyelonephritis Depression Surgical History No pertinent past surgical history Family History Mother Hypertension Cancer Sister Cancer Social History Smoking Status: Current every day smoker Tobacco Type: Cigarettes Cigarettes Per Day: 1/2 PPD; Second Hand Exposure: No; Do You Dip or Chew Tobacco: No; Tobacco Cessation Education Requested by Patient: No Hx Alcohol Use: Yes Alcohol type: hard liquor Alcohol Intake Frequency Comment: 2-3 drinks/day Hx Substance Use: No Preferred Language: Malay Communication Ability: Effective [employer] Required: No Beliefs That Will Affect Care: None Current Living Situation: Alone Current Living Situation Comment: lives in an apartment, alone Other Information That Helps Us Care for You: No Feels Safe at Home: Yes Safety Concerns: Feels Safe At This Time Assistive Devices: Glasses Review of Systems Review of Systems: All systems reviewed & are unremarkable except as noted in HPI & below Physical Exam Constitutional: WD/WN, vitals as above Eyes: Wears glasses ENMT: Ears: no hearing impairment and no external ear abnormality Mouth: no oropharynx abnormality Neck: trachea midline Respiratory: normal respiratory effort; no respiratory distress and no labored breathing Cardiovascular: Rate/Rhythm: regular rate and regular rhythm Gastrointestinal (Abdomen): Abdomen is soft without distention. There is no rebound tenderness or guarding. The patient did have pain with palpation in the epigastric area in the right upper quadrant Musculoskeletal: No calf tenderness Skin: no jaundice Neurologic: moves all extremities Psychiatric: A+Ox3, euthymic affect Results & Data Vital Signs (Past 12 Hours) Vital Signs Temp Pulse Pulse Resp BP BP Pulse Ox 01/10/25 00:56 89 17 105/78 92 01/09/25 21:58 107 H 01/09/25 21:23 36.6 C 118 H 18 136/91 95 O2 Del Method 01/10/25 00:56 Room Air 01/09/25 21:58 01/09/25 21:23 Room Air PG Care Time/CCT Total # of Minutes Spent Total Time Spent with Patient: Total time spent is greater than 50% in coordination of care (as documented) at patient's floor/unit and/or counseling patient: Coding Level of Care Code 80103 IN/OBS CONSULT LVL 5,80M Diagnoses Abdominal pain R10.9
[2025-01-10] MEDS: NICOTINE 21 MG/24 HR TDSY TD SCH (03:15)
[2025-01-10] MEDS: MAGNESIUM SULFATE / D5W 1 GM/100 ML BAG IV SCH (03:15)
[2025-01-10] MEDS: LORazepam Inj 1 MG in SYRINGE 0.5 ML IV PRN ×2 (04:57→12:32)
[2025-01-10] MEDS ORDERED: GABAPENTIN 1200MG ALCOHOL WITHDRAWAL LOAD PO SCH (05:51)
[2025-01-10] MEDS ORDERED: LORazepam Inj 3 MG in SYRINGE 1.5 ML IV PRN (05:51)
[2025-01-10] MEDS ORDERED: LORazepam Inj 2 MG in SYRINGE 1 ML IV PRN (05:51)
--- NOTE | 2025-01-10 05:56 | Magnetic Resonance Report ---
EXAM: MR MRCP CLINICAL HISTORY: abn lfts TECHNIQUE: Multiplanar, multisequence magnetic resonance imaging of the abdomen without intravenous contrast. COMPARISON: 01/09/2025 US and 05/10/2023 MRCP were reviewed. FINDINGS: Liver: The liver is enlarged in size, measuring approximately 23 cm. There is homogeneous signal intensity on T2-weighted images. There are no focal hepatic lesions. Gallbladder: The gallbladder is distended with a tortuous appearance of the neck. There is mild, uniform wall thickening. There is evidence of mild pericholecystic fluid and internal sludge within. Bile Ducts: There is mild dilatation of the intrahepatic and extrahepatic biliary tree. The common bile duct measures up to 11 mm in width; however, there is no evidence of an anatomically obstructing mass or choledocholithiasis. No evidence of choledocholithiasis. Pancreas: The pancreas is unremarkable. There are no masses or cystic lesions. Pancreatic Duct: The pancreatic duct is normal in caliber. There is no evidence of ductal dilatation or filling defects. Spleen: The spleen is normal in size and appearance. There is homogeneous signal intensity. Kidneys: The kidneys are normal in size, shape, and position. There is homogeneous signal intensity on T2-weighted images. There are no obstructing renal stones, masses, or hydronephrosis. Adrenal Glands: The adrenal glands are normal in size and morphology bilaterally. There are no adrenal masses. Surrounding Structures: There is minimal free fluid in the abdomen. The appearance of the visualized bowel loops is unremarkable. There are prominent jumana hepatis lymph nodes. IMPRESSION: 1. Gallbladder sludge, mild uniform wall thickening, and mild pericholecystic fluid (new when compared to previous MRCP). Findings may suggest acute cholecystitis or congestive cholecystopathy. Clinical and laboratory correlation are needed. 2. There is mild dilatation of the intrahepatic and extrahepatic biliary tree. The common bile duct measures up to 11 mm in width; however, there is no evidence of an anatomically obstructing mass or choledocholithiasis. This is rather unchanged. 3. Hepatomegaly with no gross focal lesions. 4. Minimal ascites. Electronically signed by Jean Pierre Broderick 01-10-2025 05:56 AM
[2025-01-10] MEDS: GABAPENTIN 600 MG TAB PO ONE (06:25)
[2025-01-10] MEDS: MoRPHine SULFATE 4 MG/ML 1 ML CARP\\VIAL IV PRN (06:29)
[2025-01-10 07:06] LABS: Base Excess VBG 2.5 mEq/L; HCO3 VBG 28 mmol/L; Oxygen Saturation VBG 98.4 %; PCO2 VBG 45 mmHg (38-50); PO2 VBG 95 mmHg; pH VBG 7.40 (7.36-7.41)
[2025-01-10 07:33] LABS: Alanine Aminotransferase 59.0 U/L (7-52); Albumin Globulin Ratio 1.1 (0.9-2); Albumin Level 3.3 gm/dl (3.4-5.0); Alkaline Phosphatase 186.0 U/L (34-104); Anion Gap 7.0 (3-11); Bilirubin,Total 1.5 mg/dl (0.2-1.0); Blood Urea Nitrogen 4.0 mg/dl (6-23); Calcium 7.4 mg/dl (8.6-10.3); Carbon Dioxide 28.0 mmol/L (21-32); Chloride 102.0 mmol/L (98-107); Creatinine Clr Calc Pharmacy 256.1 ml/min; Globulin 3.1 gm/dl (2.5-4.0); Glucose 99.0 mg/dl (70-99(Fasting)); Magnesium 1.7 mg/dl (1.7-2.4); Potassium 3.8 mmol/L (3.5-5.1); Sodium 137.0 mmol/L (136-145); Total Protein 6.4 gm/dl (6.0-8.3)
[2025-01-10 07:41] LABS: INR 1.2 (0.9-1.1); Prothrombin Time 12.3 Seconds (9.0-12.0)
[2025-01-10] MEDS: MULTIVITAMIN TAB PO SCH (08:02)
[2025-01-10] MEDS: FOLIC ACID 1 MG TAB PO SCH (08:02)
[2025-01-10] MEDS: GABAPENTIN 600 MG TAB PO SCH ×2 (08:03→12:31)
[2025-01-10 08:10] LABS: Hematocrit (blood only) 29.4 % (37.0-47.0); Hemoglobin 10.0 g/dl (12.0-16.0); Immature Granulocytes # (auto) 0.01 K/uL (0.01-0.20); Immature Granulocytes % (auto) 0.3 %; Mean Corpuscular Hemoglobin 34.5 pg (25.0-34.0); Mean Corpuscular Volume 101.4 fL (80.0-100.0); Platelet Count 74 K/uL (130-400); RDW Standard Deviation 55.3 fL (36.4-46.3); Red Blood Count 2.90 M/uL (4.20-5.40); White Blood Count 3.05 K/ul (4.8-10.8)
[2025-01-10] MEDS: clonazePAM 1 MG TAB PO PRN (08:59)
[2025-01-10] MEDS: CALCIUM GLUCONATE 1,000 MG/60 ML BAG IV SCH (10:32)
--- NOTE | 2025-01-10 11:49 | Communication Note ---
<Statement entered by Lito Mason, DO - 01/10/25 15:57> I have seen and examined the patient and have discussed the case with the advance practice provider. I have reviewed the advanced practitioner's documentation, and I agree with, and take responsibility for that plan of care. Patient withdrawal symptoms minimal so far. Over the last 12 hours only needed 2 doses of Ativan Continue to monitor for withdrawal Reviewing records, patient has had intermittent thrombocytopenia dating back to least 2022. Suspect due to her alcohol use. Would anticipate it improving if patient abstains from alcohol. Patient has pancytopenia. This has been present for appear to time as well again related to alcohol use. LFTs may be somewhat abnormal from cholecystitis, however also have been intermittently abnormal suspect this is also a component of alcohol liver disease. Will continue to intermittently check postprocedure Repleted calcium Continue antibiotics Anticipated cholecystectomy later today, patient today medically maximized for anticipated procedure. I spent a total of 14 minutes coordinating, documenting, and providing care for this patient excluding time spent by another provider/QHP. Date of Service: January 10, 2025 Ms. Lou is a 44y/o F with PMHx of macrocytic anemia, alcohol abuse, alcoholic fatty liver, abnormal LFTs and tobacco use who was admitted under service overnight for further evaluation of right upper quadrant abdominal pain and nausea x ongoing several days. RUQ pain, nausea C/f acute cholecystitis In ED, labs were notable for transaminitis and elevated T. bili. Lipase negative. CTAP: Distended gallbladder, fluid around the gallbladder, dilatation of the CBD, fatty infiltration. Gallbladder US: hepatomegaly, gallbladder sludge and torturous/distended appearance of the neck of the gallbladder, dilated CBD. General surgery was consulted, recommended obtaining MRCP. MRCP notable for gallbladder sludge, mild uniform wall thickening and mild pericholecystic fluid suggestive of acute cholecystitis or congestive cholecystopathy. It also noted mild dilatation of the intrahepatic and extrahepatic biliary tree however there was no evidence of obstructing mass or choledocholithiasis. Dr. Lugo spoke with the patient this morning. Offered HIDA scan to confirm cholecystitis vs. cholecystectomy. Patient elected for surgery. Tentative plan for robotic assisted laparoscopic cholecystectomy with possible cholangiogram later today if time allows. S/p IV cefepime dose in ED. No evidence of sepsis. Will cover with IV Rocephin/Flagyl for now pending operation. Other medical conditions: Alcohol use disorder Alcohol intoxication, at-risk of alcohol withdrawal Chronic issue of binge drinking per patient, has been drinking heavily for several days [employer]. Typical choice of beverage being vodka. Last consumed several glasses of wine on 01/09/25 before coming to ED. Patient reports history of alcohol withdrawal seizure "several years ago." EtOH level 283.3 upon arrival to ED >> at-risk of alcohol withdrawal. Started on gabapentin protocol with PRN Ativan. AWSS score downtrended overnight s/p dose of Ativan in ED. Not exhibiting any significant withdrawal sx at the time of my evaluation this morning >> continue to monitor. Alcoholic liver disease Thrombocytopenia Monitor LFT trend (not grossly unchanged from prior). No prior diagnosis of cirrhosis per patient or per chart review. Repeat labs notable for thrombocytopenia this morning, no s/sx of active bleeding >> continue to monitor, fall precautions. Hypocalcemia Repleted via IV x 2g calcium gluconate this morning. Continue to monitor and replete PRN. Disposition: Tentative plan for laparoscopic cholecystectomy today as per above. If not able to get on OR schedule today, will then plan on OR tomorrow. Patient seen in collaboration with Dr. Mason. Please see addendum. This chart was completed in part utilizing Speech Voice Recognition Software. Grammatical errors, random word insertions, pronoun errors, and incomplete sentences are an occasional consequence of this system due to software limitations, ambient noise, and hardware issues. Any formal questions or concerns about the content, text, or information contained within the body of this dictation should be directly addressed to the provider for clarification.
--- NOTE | 2025-01-10 12:41 | Electrocardiogram Report ---
Test Reason : Blood Pressure : */* mmHG Vent. Rate : 111 BPM Atrial Rate : 111 BPM P-R Int : 204 ms QRS Dur : 108 ms QT Int : 324 ms P-R-T Axes : 69 72 10 degrees QTcB Int : 440 ms Sinus tachycardia Low voltage QRS Nonspecific T wave abnormality Abnormal ECG When compared with ECG of 09-May-2023 20:28, Fusion complexes are no longer Present Nonspecific T wave abnormality, worse in Inferior leads T wave inversion now evident in Anterior leads Confirmed by Robert Haque ([id number]) on 01/10/2025 12:41:28 PM Referred By: REFERRED SELF Confirmed By: Robert Haque
[2025-01-10] MEDS: cefTRIAXone SODIUM 2,000 MG/50 ML BAG IV SCH (13:44)
[2025-01-10 14:12] LABS: Folate (Folic Acid),Ser orPlas > 22.30 ng/ml (>5.38)
[2025-01-10 14:13] LABS: Vitamin B12 261 pg/ml (180-914)
[2025-01-10] MEDS: metroNIDAZOLE 500 MG/100 ML BAG IV SCH (14:17)
--- NOTE | 2025-01-10 16:15 | Anesthesiology Progress Note ---
Date of Service January 10, 2025 Anesthesia Post Procedure Vital Signs Vital Signs: Temp Pulse Pulse Resp BP BP Pulse Ox 01/10/25 15:48 98.1 F 72 16 124/82 91 01/10/25 11:31 98.2 F 71 20 116/82 95 01/10/25 09:00 78 01/10/25 08:52 98.1 F 81 18 120/65 94 01/10/25 07:27 83 01/10/25 06:21 01/10/25 04:53 01/10/25 04:53 98.5 F 89 16 107/83 92 01/10/25 03:30 89 97 01/10/25 03:30 105/68 01/10/25 03:21 89 12 97 01/10/25 03:00 97 01/10/25 03:00 113/73 01/10/25 02:54 98 01/10/25 02:39 98 01/10/25 02:31 109/85 01/10/25 02:27 98 01/10/25 02:15 97 01/10/25 02:00 105/75 01/10/25 01:45 98 01/10/25 01:39 98 01/10/25 01:30 116/75 01/10/25 01:25 97 01/10/25 01:24 88 L 01/10/25 01:12 94 01/10/25 01:06 94 01/10/25 01:00 100/72 01/10/25 00:57 93 01/10/25 00:56 89 17 105/78 92 01/10/25 00:00 84 16 100 01/10/25 00:00 107/79 01/09/25 23:51 96 H 19 100 01/09/25 23:30 108/80 01/09/25 23:27 21 93 01/09/25 23:12 15 93 01/09/25 23:01 99/86 L 01/09/25 21:58 107 H 01/09/25 21:23 97.9 F 118 H 18 136/91 95 Pulse Ox O2 Del Method O2 Del Method O2 Flow Rate O2 Flow Rate 01/10/25 15:48 Room Air 01/10/25 11:31 Room Air 01/10/25 09:00 01/10/25 08:52 Room Air 01/10/25 07:27 01/10/25 06:21 98 Nasal Cannula 2 01/10/25 04:53 Nasal Cannula 2 01/10/25 04:53 Nasal Cannula 2 01/10/25 03:30 Nasal Cannula 2 01/10/25 03:30 01/10/25 03:21 Nasal Cannula 2 01/10/25 03:00 Nasal Cannula 2 01/10/25 03:00 01/10/25 02:54 Nasal Cannula 2 01/10/25 02:39 Nasal Cannula 2 01/10/25 02:31 01/10/25 02:27 Nasal Cannula 2 01/10/25 02:15 Nasal Cannula 2 01/10/25 02:00 01/10/25 01:45 Nasal Cannula 2 01/10/25 01:39 Nasal Cannula 2 01/10/25 01:30 01/10/25 01:25 Nasal Cannula 2 01/10/25 01:24 Room Air 01/10/25 01:12 Room Air 01/10/25 01:06 Room Air 01/10/25 01:00 01/10/25 00:57 Room Air 01/10/25 00:56 Room Air 01/10/25 00:00 Room Air 01/10/25 00:00 01/09/25 23:51 Room Air 01/09/25 23:30 01/09/25 23:27 Room Air 01/09/25 23:12 Room Air 01/09/25 23:01 01/09/25 21:58 01/09/25 21:23 Room Air Pain Intensity Right Upper Abdomen: Pain Intensity: 8 Transfer of Care Handoff Completed per policy Notes Mental Status: alert / awake / arousable and participated in evaluation Patient Amnestic to Procedure: Yes Nausea / Vomiting: adequately controlled Pain: adequately controlled Airway Patency, RR, SpO2: stable & adequate BP & HR: stable & adequate Hydration State: stable & adequate Anesthetic Complications: no major complications apparent and Pt Satisfied with anesthetic care
--- NOTE | 2025-01-10 16:25 | Anesthesiology Consultation ---
Date of Service January 10, 2025 Assessment & Plan (1) Encounter for pre-operative examination: Chart Review Chart Review: Acceptable Risk for Surgery and Patient NOT seen in Pre Admission Testing Consults Requested none History Surgery Operation Date: 01/10/25 07:45 Proposed Procedures p Robotic Laparoscopic Cholecystectomy - Pop Lugo DO, FACS Height/Weight Height: 5 ft 11 in Weight: 72.2 kg Allergies Allergy/AdvReac Type Severity Reaction Status Date / Time No Known Allergies Allergy Mild Verified 01/10/25 00:56 Medications Home Medications Medication Instructions Recorded Confirmed Last Taken omeprazole 40 mg capsule,delayed 40 mg PO HS 08/13/22 01/10/25 01/08/25 release gabapentin 600 mg tablet 600 mg PO .2-4 X DAILY 05/09/23 01/10/25 Unknown clonazepam 1 mg tablet 0.5 - 1 mg PO BID PRN Anxiety 01/10/25 01/10/25 Unknown doxepin 100 mg capsule 100 mg PO HS PRN Sleep 01/10/25 01/10/25 Unknown lamotrigine 25 mg tablet 25 mg PO HS 01/10/25 01/10/25 01/08/25 vilazodone 40 mg tablet 40 mg PO DAILY 01/10/25 01/10/25 01/09/25 Active Medications Generic Name Dose Route Start Last Admin Trade Name Freq PRN Reason Stop Dose Admin Clonazepam 1 mg 01/10/25 02:58 01/10/25 08:59 Clonazepam 1 Mg Tab PO 02/09/25 02:57 1 mg BID PRN Administration Anxiety Folic Acid 1 mg 01/10/25 09:00 01/10/25 08:02 Folic Acid 1 Mg Tab PO 02/09/25 08:59 1 mg QAM OSMIN Administration Gabapentin 600 mg 01/10/25 09:00 01/10/25 08:03 Gabapentin 600 Mg Tab PO 02/09/25 08:59 600 mg TID OSMIN Administration Gabapentin 600 mg 01/10/25 12:00 01/10/25 12:31 Gabapentin 600 Mg Tab PO 01/10/25 18:01 600 mg Q6H OSMIN Administration Protocol Lorazepam 1 mg/ Syringe 1 mls @ 2 mls/min 01/10/25 05:51 01/10/25 12:32 IV 02/09/25 05:50 2 mls/min UD PRN Administration EtOH Withdrawal AWSS Score 6,7 Protocol Ceftriaxone Sodium 2,000 mg in 50 mls @ 100 mls/hr 01/10/25 13:00 01/10/25 14:18 Rocephin IV 01/12/25 12:59 Infused Q24H OSMIN Infusion Metronidazole 500 mg in 100 mls @ 100 mls/hr 01/10/25 13:00 01/10/25 15:25 Flagyl IV 01/12/25 12:59 Infused Q8H OSMIN Infusion Protocol Miscellaneous 1 each 01/10/25 08:00 01/10/25 15:20 Vilazodone 40 Mg - Order Awaiting Action N/A 02/09/25 07:59 Not Given QS OSMIN Morphine Sulfate 4 mg 01/10/25 03:00 01/10/25 15:19 Morphine Sulfate 4 Mg/Ml 1 Ml Carp\\Vial IV 01/24/25 02:59 4 mg Q4H PRN Administration Pain Multivitamins 1 tab 01/10/25 09:00 01/10/25 08:02 Multivitamin Tab PO 02/09/25 08:59 1 tab QAM OSMIN Administration Nicotine 1 patch 01/10/25 02:55 01/10/25 03:15 Nicotine 21 Mg/24 Hr Tdsy TD 02/09/25 02:54 1 patch HS OSMIN Administration Oxycodone HCl 5 mg 01/10/25 03:00 01/10/25 13:51 Oxycodone Hcl Ir 5 Mg Tab (Immediate Release) PO 01/24/25 02:59 5 mg Q4H PRN Administration Pain Past Medical History Medical History Alcohol withdrawal Hx of drug abuse Sepsis Pyelonephritis Depression Past Family History Family History Mother Hypertension Cancer Sister Cancer Past Surgical History Surgical History No pertinent past surgical history Social History Smoking Status: Current every day smoker tobacco type: cigarettes Smoking cigarettes per day: 1/2 PPD Do You Dip or Chew Tobacco: No Hx Alcohol Use: Yes Alcohol type: hard liquor alcohol intake frequency: 3 or more drinks per day Hx Substance Use: No substance use type: does not use Last Used Substance: Unknown Last Used Substance Other:: "its been years" Physical Exam Vital Signs Last Vital Signs Temp 98.1 F 01/10/25 15:48 Pulse 72 01/10/25 15:48 Resp 16 01/10/25 15:48 BP 124/82 01/10/25 15:48 Pulse Ox 91 01/10/25 15:48 O2 Del Method Room Air 01/10/25 15:48 O2 Flow Rate 2 01/10/25 06:21 Testing Laboratory Results 01/10/25 06:57 01/10/25 06:57 PT 12.3 Seconds (9.0-12.0) H 01/10/25 06:57 INR 1.2 (0.9-1.1) H 01/10/25 06:57 Urine Color Yellow 01/09/25 21:32 Urine Appearance Clear (Clear) 01/09/25 21:32 Urine pH 6.5 (4.5-7.5) 01/09/25 21:32 Ur Specific Thompson 1.003 (1.000-1.030) 01/09/25 21:32 Urine Protein Negative (Negative) 01/09/25 21:32 Urine Glucose (UA) Negative (Negative) 01/09/25 21:32 Urine Ketones Negative (Negative) 01/09/25 21:32 Urine Nitrite Negative (Negative) 01/09/25 21:32 Ur Leukocyte Esterase Negative (Negative) 01/09/25 21:32 Blood Type O Positive 01/10/25 14:08 Antibody Screen NEGATIVE 01/10/25 14:08
[2025-01-10] MEDS ORDERED: ATROPINE SULFATE 0.1 MG/ML 10ML SYR IV PRN (16:26)
[2025-01-10] MEDS ORDERED: ONDANSETRON INJ 2 MG/ML 2 ML VIAL IV PRN (16:26)
--- NOTE | 2025-01-10 16:34 | History & Physical Bridge Note ---
Date of Service January 10, 2025 History & Physical Bridge Note I have examined the patient, reviewed the History & Physical and in the interval since the performance of the History & Physical I have noted the following changes of clinical significance: no changes noted
[2025-01-10] MEDS ORDERED: PROPOFOL IV EMULSION 10 MG/ML 20 ML VIAL IV ONE (16:38)
[2025-01-10] MEDS ORDERED: ONDANSETRON INJ 2 MG/ML 2 ML VIAL ONE (16:38)
[2025-01-10] MEDS ORDERED: DEXAMETHASONE SOD INJ 4 MG/ML VIAL ONE ×2 (16:38→16:39)
[2025-01-10] MEDS ORDERED: LIDOCAINE 2% 2 ML VIAL/AMP(20MG/ML) INFIL ONE (16:38)
[2025-01-10] MEDS ORDERED: ROCURONIUM BROMIDE 10 MG/ML 5 ML VIAL IV ONE ×2 (16:38→17:39)
[2025-01-10] MEDS: INDOCYANINE GREEN 25 MG VIAL INJ ONE (16:40)
[2025-01-10] MEDS ORDERED: MIDAZOLAM HCL 1 MG/ML 2ML VIAL ONE (16:44)
[2025-01-10] MEDS ORDERED: SUGAMMADEX SODIUM 200 MG/2 ML VIAL IV ONE (17:44)
[2025-01-10] MEDS: BUPIVACAINE 0.5 % 5 MG/1 ML MPF 30ML VIAL ONE (17:59)
[2025-01-10] MEDS ORDERED: PHENYLEPHRINE 100MCG/ML 5ML SYR ONE ×2 (18:13→18:45)
--- NOTE | 2025-01-10 19:03 | Operative Report ---
PG Post Operative Report Pre & Post Diagnosis Operation Date: 01/10/25 07:45 Pre-Op Diagnosis: Biliary Colic, Acute cholecystitis Post-Op Diagnosis: Biliary Colic, Acute cholecystitis, cirrhosis I identified the patient and participated in the time-out.: Yes Procedure Operation Date: 01/10/25 07:45 Actual Procedures p Robotic Laparoscopic Cholecystectomy(Not Applicable) - Pop Lugo DO, FACS Surgeon Pop Lugo DO, FACS Communications Advisor None Estimated Blood Loss 100 Findings Consistent with Post-Op Diagnosis Cirrhosis of the liver. Distended and inflamed gallbladder. Critical view of safety obtained, cystic duct and artery doubly clipped and divided. Nonfilling of the gallbladder with ICG. Bleeding from liver bed controlled with cautery. Specimens Gallbladder Anesthesia Type General Complications none Disposition Accompanied Patient To Recovery: No Disposition: Recovery Room Indications 44-year-old female presented to the emergency department overnight with signs and symptoms of biliary colic and possible acute cholecystitis. After discussion of her options, patient elected for laparoscopic cholecystectomy. The risks of the procedure were discussed, all questions were answered, and the patient agreed to proceed with surgery as planned. Description of Procedure The patient was properly identified, consented, and taken to the operating room where she was placed in the supine position. 2.5 mg of indocyanine green were administered IV approximately 45 min prior to the surgery. General endotracheal anesthesia was induced. SCDs and a safety belt were placed. Preoperative antibiotics were administered. The patient's abdomen was prepped and draped in the standard sterile fashion. A surgical timeout was performed and all parties were in agreement that this was the correct patient and procedure to be performed and we continued as planned. An incision was made just above the umbilicus and to the right of midline. Veress needle was inserted and saline drop test confirmed entry to the abdomen. The abdomen was insufflated with carbon dioxide which the patient tolerated incident. Veress needle was removed and the abdomen is entered using the Optiview technique and a 5 mm camera. The introducer was removed and the abdomen inspected. No damage from initial trocar placement or Veress needle placement was identified. There were no significant abnormalities to the 4 quadrants of the abdomen. 8 mm robotic ports were then placed in the right upper quadrant and the left upper quadrant x 2. The patient was placed in reverse Trendelenburg position and rotated towards the left. The robot was then docked and the camera and robotic instruments were inserted. The liver was cirrhotic. The gallbladder was distended and showed signs of moderate acute and chronic cholecystitis. The dome of the gallbladder was grasped and retracted towards the left upper quadrant and the infundibulum was retracted toward the right lower quadrant revealing Calot's triangle. Peritoneal attachments were taken down with electrocautery and blunt dissection. The cystic duct and artery were circumferentially dissected. A window of safety was obtained showing the cystic duct entering the gallbladder with no aberrant structures noted. The gallbladder did not fill with ICG confirming acute cholecystitis. I was able to identify the common bile duct. The cystic duct and artery were doubly clipped and divided. The gallbladder was then lifted off the gallbladder fossa with electrocautery. There was significant oozing from the liver bed which was controlled with electrocautery. The right upper quadrant was irrigated and hemostasis was found to be good. The gallbladder was placed in an Endo Catch bag and removed through the one of the port sites. The incision port site fascia had to be extended to accommodate the gallbladder. This was closed with a [id number] 0 Vicryl suture utilizing the Lane- Alvaro device. The instruments were removed and the robot was undocked. The trochars were removed and the abdomen was allowed to collapse. The skin of all ports was closed with 4-0 Monocryl subcuticular sutures. Dermabond was placed over the wounds. The patient was extubated in the operating room and taken to the PACU where she recovered without apparent incident. All sponge, instrument and needle counts were correct at the conclusion of the procedure. The patient tolerated the procedure well. I attest to the content of the Intraoperative Record and any orders documented therein. Any exceptions are noted below.
--- NOTE | 2025-01-10 19:50 | Anesthesiology Progress Note ---
Date of Service January 10, 2025 Anesthesia Post Procedure Vital Signs Vital Signs: Temp Pulse Pulse Pulse Resp BP BP 01/10/25 19:45 82 15 01/10/25 19:35 81 10 L 01/10/25 19:25 75 10 L 01/10/25 19:17 96.8 F L 87 14 01/10/25 16:15 98.8 F 70 18 01/10/25 15:48 98.1 F 72 16 124/82 01/10/25 11:31 98.2 F 71 20 116/82 01/10/25 09:00 78 01/10/25 08:52 98.1 F 81 18 120/65 01/10/25 07:27 83 01/10/25 06:21 01/10/25 04:53 01/10/25 04:53 98.5 F 89 16 107/83 01/10/25 03:30 89 01/10/25 03:30 105/68 01/10/25 03:21 89 12 01/10/25 03:00 01/10/25 03:00 113/73 01/10/25 02:54 01/10/25 02:39 01/10/25 02:31 109/85 01/10/25 02:27 01/10/25 02:15 01/10/25 02:00 105/75 01/10/25 01:45 01/10/25 01:39 01/10/25 01:30 116/75 01/10/25 01:25 01/10/25 01:24 01/10/25 01:12 01/10/25 01:06 01/10/25 01:00 100/72 01/10/25 00:57 01/10/25 00:56 89 17 105/78 01/10/25 00:00 84 16 01/10/25 00:00 107/79 01/09/25 23:51 96 H 19 01/09/25 23:30 108/80 01/09/25 23:27 21 01/09/25 23:12 15 01/09/25 23:01 99/86 L 01/09/25 21:58 107 H 01/09/25 21:23 97.9 F 118 H 18 136/91 BP Pulse Ox Pulse Ox O2 Del Method O2 Del Method O2 Flow Rate O2 Flow Rate 01/10/25 19:45 102/78 96 Nasal Cannula 2 01/10/25 19:35 108/71 100 Oxymask 6 01/10/25 19:25 107/68 100 Oxymask 6 01/10/25 19:17 100/62 100 Oxymask 6 01/10/25 16:15 131/84 95 Room Air 01/10/25 15:48 91 Room Air 01/10/25 11:31 95 Room Air 01/10/25 09:00 01/10/25 08:52 94 Room Air 01/10/25 07:27 01/10/25 06:21 98 Nasal Cannula 2 01/10/25 04:53 Nasal Cannula 2 01/10/25 04:53 92 Nasal Cannula 2 01/10/25 03:30 97 Nasal Cannula 2 01/10/25 03:30 01/10/25 03:21 97 Nasal Cannula 2 01/10/25 03:00 97 Nasal Cannula 2 01/10/25 03:00 01/10/25 02:54 98 Nasal Cannula 2 01/10/25 02:39 98 Nasal Cannula 2 01/10/25 02:31 01/10/25 02:27 98 Nasal Cannula 2 01/10/25 02:15 97 Nasal Cannula 2 01/10/25 02:00 01/10/25 01:45 98 Nasal Cannula 2 01/10/25 01:39 98 Nasal Cannula 2 01/10/25 01:30 01/10/25 01:25 97 Nasal Cannula 2 01/10/25 01:24 88 L Room Air 01/10/25 01:12 94 Room Air 01/10/25 01:06 94 Room Air 01/10/25 01:00 01/10/25 00:57 93 Room Air 01/10/25 00:56 92 Room Air 01/10/25 00:00 100 Room Air 01/10/25 00:00 01/09/25 23:51 100 Room Air 01/09/25 23:30 01/09/25 23:27 93 Room Air 01/09/25 23:12 93 Room Air 01/09/25 23:01 01/09/25 21:58 01/09/25 21:23 95 Room Air Pain Intensity Right Upper Abdomen: Pain Intensity: 8 Abdomen: Pain Intensity: 2 Transfer of Care Handoff Completed per policy Notes Mental Status: alert / awake / arousable and participated in evaluation Patient Amnestic to Procedure: Yes Nausea / Vomiting: adequately controlled Pain: adequately controlled Airway Patency, RR, SpO2: stable & adequate BP & HR: stable & adequate Hydration State: stable & adequate Anesthetic Complications: no major complications apparent and Pt Satisfied with anesthetic care
[2025-01-10 19:56] LABS: Hematocrit (blood only) 28.1 % (37.0-47.0); Hemoglobin 9.5 g/dl (12.0-16.0)
[2025-01-10] MEDS: lamoTRIgine 25 MG TAB PO SCH (21:00)
[2025-01-10] MEDS: REMOVE NICODERM PATCH SCH (21:00)
[2025-01-11] MEDS: GABAPENTIN 600 MG TAB PO SCH ×2 (01:33→17:29)
[2025-01-11 06:37] LABS: Hematocrit (blood only) 24.8 % (37.0-47.0); Hemoglobin 8.6 g/dl (12.0-16.0); Immature Granulocytes # (auto) 0.01 K/uL (0.01-0.20); Immature Granulocytes % (auto) 0.3 %; Mean Corpuscular Hemoglobin 35.1 pg (25.0-34.0); Mean Corpuscular Volume 101.2 fL (80.0-100.0); Platelet Count 66 K/uL (130-400); RDW Standard Deviation 50.2 fL (36.4-46.3); Red Blood Count 2.45 M/uL (4.20-5.40); White Blood Count 3.22 K/ul (4.8-10.8)
[2025-01-11 07:03] LABS: Alanine Aminotransferase 57.0 U/L (7-52); Albumin Globulin Ratio 1.1 (0.9-2); Albumin Level 3.3 gm/dl (3.4-5.0); Alkaline Phosphatase 195.0 U/L (34-104); Anion Gap 5.0 (3-11); Bilirubin,Total 2.3 mg/dl (0.2-1.0); Blood Urea Nitrogen 2.0 mg/dl (6-23); Calcium 8.2 mg/dl (8.6-10.3); Carbon Dioxide 29.0 mmol/L (21-32); Chloride 102.0 mmol/L (98-107); Creatinine Clr Calc Pharmacy 203.6 ml/min; Globulin 2.9 gm/dl (2.5-4.0); Glucose 132.0 mg/dl (70-99(Fasting)); Magnesium 1.7 mg/dl (1.7-2.4); Potassium 4.5 mmol/L (3.5-5.1); Sodium 136.0 mmol/L (136-145); Total Protein 6.2 gm/dl (6.0-8.3)
--- NOTE | 2025-01-11 09:17 | Hospitalist Progress Note ---
Date of Service January 11, 2025 Assessment & Plan (1) Abdominal pain: (2) Acute cholecystitis: (3) Alcoholic cirrhosis of liver: (4) Thrombocytopenia: (5) Hypocalcemia: (6) Hypomagnesemia: Plan Acute cholecystitis POD # 1, surgery 01/10/25 lap fernando - On presentation had transaminitis and elevated T. bili. Lipase negative. - T bili increased today to 2.3, AST 227, ALT 57 and alk phos 195 are elevated slightly as well - discussed with gen surg, MRCP was negative from 01/10, at this time will trend LFTs am labs - CTAP: Distended gallbladder, fluid around the gallbladder, dilatation of the CBD, fatty infiltration. - Gallbladder US: hepatomegaly, gallbladder sludge and torturous/distended appearance of the neck of the gallbladder, dilated CBD. 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 - GI follow up on dc to be scheduled - Plt 66, no s/sx of active bleeding - hgb 8.5 s/p surgery, notable ecchymosis over abdomen is developing, follow Hypocalcemia Hypomagnesemia -Repleted via IV x 2g calcium gluconate 01/10 - ca 8.2 01/11, follow. -Continue to monitor and replete PRN. - alcoholic liver disease as per records Chronic anemia - hemoglobin better than baseline secondary to hemoconcentration Traumatic right humeral fracture - patient follows with [facility] Chronic tobacco/alcohol abuse - Cessation to be encouraged throughout hospital stay - AWSS at risk protocol, DT precautions - Nicotine patch DVT ppx: teds, scds, ambulatory, no chemical ppx in the setting of thrombocytopenia Lines: PIV x 1 FEN/GI: advance diet per general surgery, low fat CODE: full code Dispo: From home, likely to remain in the hospital x 1-2 days I spent a total of 50 minutes with greater than 50% of that time face to face with the patient, personally reviewing all current laboratories, imaging studies, past medication reconciliation, outpatient chart review, and discussion with specialists to collaborate care for the patient excluding time spent in the performance of separately billed services or time spent by another provider/QHP. Please see attending documentation for corrections and/or additions. Admission and Anticipated Discharge Date Admission Date: January 10, 2025 Supervising Physician Co-Signing Physician Notes I have discussed the case with the collaborating advanced practitioner. I agree with the above PN. I have reviewed and confirmed the patients medical history, the findings on physical examination, and the patients diagnosis and treatment plan with Erica CEJA and agree with the information documented. Monitoring lfts and CBC for stabilizations of liver fx and hgb/platelets Subjective Patient was seen and examined this morning, POD # 1 lap fernando. No acute overnight events. She is complaining of abdominal pain, worsening on the left side trending across her umbilicus. She is not having any nausea. Tolerating p.o. diet, liquids at bedside. Reports had minimal sleep overnight due to abdominal pain, her pain meds are lasting approximately 1.5 hours and then wearing off. Afebrile overnight. 10 point ROS reviewed and otherwise negative. Physical Exam Physical Exam: General: awake, alert, no apparent distress Head: Normocephalic, atraumatic ENT: PERRL, EOMI, no pharyngeal exudate, mucous membranes moist Chest: Clear to auscultation, on room air, no adventitious breath sounds Cardiac: Regular rate and rhythm, no murmur, no JVD, normal peripheral pulses, good capillary refill Abdominal: NABS x 4 quadrants, soft, +distended,+ developing ecchymosis around incision sites from lap fernando, +tender to palpation, no rebound or guarding Extremities: Normal inspection, no peripheral edema or erythema, calfs nontender to palpation Psych: Normal mood and affect Neuro: AAO x 3, strength intact bilaterally and rated 5/5, no motor deficits, speech is clear, no peripheral sensory deficits Results & Data Results & Data Vital Signs (Past 12 Hours) Vital Signs Temp Pulse Pulse Resp BP Pulse Ox O2 Del Method 01/11/25 08:02 87 01/11/25 04:01 36.6 C 103 H 20 117/79 93 Room Air 01/11/25 02:00 36.9 C 92 H 20 111/78 95 Nasal Cannula 01/11/25 01:00 36.9 C 88 20 114/78 96 Nasal Cannula 01/11/25 00:00 36.8 C 87 16 117/76 97 Nasal Cannula 01/10/25 23:00 36.8 C 83 16 105/69 98 Nasal Cannula 01/10/25 22:00 36.7 C 99 H 20 153/73 H 96 Room Air, Nasal Cannula 01/10/25 21:45 87 01/10/25 21:30 36.8 C 82 18 118/80 98 Nasal Cannula O2 Flow Rate 01/11/25 08:02 01/11/25 04:01 01/11/25 02:00 2 01/11/25 01:00 2 01/11/25 00:00 2 01/10/25 23:00 2 01/10/25 22:00 2 01/10/25 21:45 01/10/25 21:30 2 Laboratory Results 01/10/25 02:29 Aerobic Blood Culture - Preliminary Blood No growth in Aerobic bottle after 24 hours. Anaerobic Blood Culture - Preliminary No growth in Anaerobic bottle after 24 hours. 01/10/25 02:12 Aerobic Blood Culture - Preliminary Blood No growth in Aerobic bottle after 24 hours. Anaerobic Blood Culture - Preliminary No growth in Anaerobic bottle after 24 hours. 01/11/25 01/10/25 01/10/25 06:06 19:37 14:08 WBC 3.22 L RBC 2.45 L Hgb 8.6 L 9.5 L Hct 24.8 L 28.1 L MCV 101.2 H MCH 35.1 H MCHC 34.7 RDW Std Deviation 50.2 H RDW Coeff of Ralph 13.7 Plt Count 66 L MPV 11.7 Immature Gran % (Auto) 0.3 Neut % (Auto) 84.2 Lymph % (Auto) 11.5 [place] % (Auto) 3.7 Eos % (Auto) 0.0 Baso % (Auto) 0.3 Neut # (Auto) 2.71 Lymph # (Auto) 0.37 L [place] # (Auto) 0.12 Eos # (Auto) 0.00 Baso # (Auto) 0.01 Immature Gran # (Auto) 0.01 Sodium 136 Potassium 4.5 Chloride 102 Carbon Dioxide 29 Anion Gap 5 BUN 2 L Creatinine 0.39 L Est Cr Clr Drug Dosing 203.6 eGFR 125.07 BUN/Creatinine Ratio 5.1 L Glucose 132 H Calcium 8.2 L Magnesium 1.7 Total Bilirubin 2.3 H D AST 227 H ALT 57 H Alkaline Phosphatase 195 H Total Protein 6.2 Albumin 3.3 L Globulin 2.9 Albumin/Globulin Ratio 1.1 Vitamin B12 Folate Blood Type O Positive Antibody Screen NEGATIVE 01/10/25 13:06 WBC RBC Hgb Hct MCV MCH MCHC RDW Std Deviation RDW Coeff of Ralph Plt Count MPV Immature Gran % (Auto) Neut % (Auto) Lymph % (Auto) [place] % (Auto) Eos % (Auto) Baso % (Auto) Neut # (Auto) Lymph # (Auto) [place] # (Auto) Eos # (Auto) Baso # (Auto) Immature Gran # (Auto) Sodium Potassium Chloride Carbon Dioxide Anion Gap BUN Creatinine Est Cr Clr Drug Dosing eGFR BUN/Creatinine Ratio Glucose Calcium Magnesium Total Bilirubin AST ALT Alkaline Phosphatase Total Protein Albumin Globulin Albumin/Globulin Ratio Vitamin B12 261 Folate > 22.30 Blood Type Antibody Screen Diagnostic Findings Abdomen/Pelvis CT 01/09/25 22:01 Exam(s): CT ABDOMEN + PELVIS With Contrast IV Amt: 93 ML OPTIRAY 320 EXAM: CT Abdomen and Pelvis With Intravenous Contrast CLINICAL HISTORY: Reason for exam: mid abd pain. TECHNIQUE: Axial computed tomography images of the abdomen and pelvis with intravenous contrast. CTDI is 14.688 mGy and DLP is 856.12 mGy-cm. Automated exposure control was utilized for the study. A dose lowering technique was utilized adhering to the principles of ALARA. CONTRAST: Patient received 93 ML OPTIRAY 320 of IV contrast COMPARISON: 08/13/2022 FINDINGS: Lung bases: There is elevation of the right hemidiaphragm with scarring or atelectasis in the right lung base.. ABDOMEN: Liver: The liver is enlarged and of decreased attenuation.. Gallbladder and bile ducts: Gallbladder is distended. There appears to be fluid around the gallbladder. No calcified stones. The common bile duct is dilated at 11 mm.. Pancreas: No mass. No ductal dilation. Spleen: The spleen is enlarged.. Adrenals: No mass. Kidneys and ureters: No solid mass. No hydronephrosis. Stomach and bowel: There is air and fluid within the stomach. There is air and stool noted in the colon. There is thickening of the juarez of the ascending colon, transverse colon and descending colon. There are distended loops of small bowel containing fluid and air. Some of these demonstrate wall thickening.. PELVIS: Appendix: No findings to suggest acute appendicitis. Bladder: No calculi are noted within the bladder.. Reproductive: Unremarkable as visualized. ABDOMEN and PELVIS: Intraperitoneal space: No free air. No significant fluid collection. Bones/joints: There are mild degenerative changes in the spine.. Soft tissues: There are bilateral breast implants noted.. Vasculature: No abdominal aortic aneurysm. Lymph nodes: No enlarged lymph nodes. IMPRESSION: There is thickening of the juarez of the ascending colon, transverse colon and descending colon. This most likely represents a nonspecific colitis. There are distended loops of small bowel containing fluid and air. Some of these demonstrate wall thickening. This may be related to an ileus. Cannot exclude a nonspecific enteritis. Gallbladder is distended. There appears to be fluid around the gallbladder. There is dilatation of the common bile duct. The liver is enlarged and of diffuse decreased attenuation which may be due to fatty infiltration. Splenomegaly Electronically signed by: Ludwin Zhou MD 01/09/25 23:44 PM Gallbladder Ultrasound 01/10/25 00:00 EXAM: US gallbladder CLINICAL HISTORY: upper abd pain, abnormal CT,eval for cholecystitis TECHNIQUE: Static ultrasound images with grayscale and Doppler of the right upper quadrant were submitted for review. COMPARISON: 06/05/2022 FINDINGS: The liver is enlarged in size, measuring approximately 22.7 cm. It appears echogenic and shows coarse texture. The examination is limited by coarse echotexture of the liver, reducing the depth of penetration. There is evidence of a hypoechoic region near the gallbladder?could be focal fatty sparing. The gallbladder is distended, with a tortuous and distended appearance of the neck of the gallbladder. No obvious calculi are detected. There is no abnormal wall thickening, with the wall measuring approximately 1.4 mm in thickness. There is evidence of echogenic sludge within. The common bile duct is dilated, measuring up to 9.7 mm. The pancreas is suboptimally visualized due to overlying bowel gas shadows. The aorta is normal in caliber. The right kidney is normal in size and echogenicity without evidence of nephrolithiasis or focal mass lesions. There is a prominent renal pelvis and collecting system in the lower pole. IMPRESSION: Hepatomegaly with altered liver echotexture?suggest laboratory correlation for possible chronic liver parenchymal disease and further evaluation with MRI for possible focal lesions. Evidence of a hyperechoic lesion in the liver near the gallbladder?could be focal fatty sparing. Gallbladder sludge and tortuous and distended appearance of the neck of the gallbladder. Dilated common bile duct. Advised MRCP for further evaluation. Prominent renal pelvis and collecting system in the lower pole of the right kidney?unchanged. Electronically signed by Jamar Maloney 01-10-2025 01:59 AM Cholangiopancreatography MRI 01/10/25 03:20 EXAM: MR MRCP CLINICAL HISTORY: abn lfts TECHNIQUE: Multiplanar, multisequence magnetic resonance imaging of the abdomen without intravenous contrast. COMPARISON: 01/09/2025 US and 05/10/2023 MRCP were reviewed. FINDINGS: Liver: The liver is enlarged in size, measuring approximately 23 cm. There is homogeneous signal intensity on T2-weighted images. There are no focal hepatic lesions. Gallbladder: The gallbladder is distended with a tortuous appearance of the neck. There is mild, uniform wall thickening. There is evidence of mild pericholecystic fluid and internal sludge within. Bile Ducts: There is mild dilatation of the intrahepatic and extrahepatic biliary tree. The common bile duct measures up to 11 mm in width; however, there is no evidence of an anatomically obstructing mass or choledocholithiasis. No evidence of choledocholithiasis. Pancreas: The pancreas is unremarkable. There are no masses or cystic lesions. Pancreatic Duct: The pancreatic duct is normal in caliber. There is no evidence of ductal dilatation or filling defects. Spleen: The spleen is normal in size and appearance. There is homogeneous signal intensity. Kidneys: The kidneys are normal in size, shape, and position. There is homogeneous signal intensity on T2-weighted images. There are no obstructing renal stones, masses, or hydronephrosis. Adrenal Glands: The adrenal glands are normal in size and morphology bilaterally. There are no adrenal masses. Surrounding Structures: There is minimal free fluid in the abdomen. The appearance of the visualized bowel loops is unremarkable. There are prominent jumana hepatis lymph nodes. IMPRESSION: 1. Gallbladder sludge, mild uniform wall thickening, and mild pericholecystic fluid (new when compared to previous MRCP). Findings may suggest acute cholecystitis or congestive cholecystopathy. Clinical and laboratory correlation are needed. 2. There is mild dilatation of the intrahepatic and extrahepatic biliary tree. The common bile duct measures up to 11 mm in width; however, there is no evidence of an anatomically obstructing mass or choledocholithiasis. This is rather unchanged. 3. Hepatomegaly with no gross focal lesions. 4. Minimal ascites. Electronically signed by Jean Pierre Broderick 01-10-2025 05:56 AM
[2025-01-11] MEDS: THIAMINE HCL 100 MG TAB PO SCH (09:25)
--- NOTE | 2025-01-11 09:45 | Surgery Progress Note ---
Date of Service January 11, 2025 Assessment & Plan (1) Acute cholecystitis: Plan: Patient is POD #1 status post robotic cholecystectomy by Dr. Lugo - Overall, having some postoperative pain but controlled with pain medication - Denies any worsening abdominal pain, nausea or vomiting. Tolerating clears thus far, can advance diet as tolerated - T. bili slightly elevated 2.3 today, MRCP yesterday negative. Will continue to trend for now -Continue abx for now Admission and Anticipated Discharge Date Admission Date: January 10, 2025 Supervising Physician Co-Signing Physician Notes Patient seen examined, labs reviewed, agree with above. POD #1 robotic cholecystectomy for acute cholecystitis. Sore from surgery, especially at extraction site, the right upper quadrant pain and ill feeling she had prior to surgery is improved. She is tolerating liquids. On exam she is afebrile with stable vitals. Her abdomen is soft, appropriately tender to palpation. Incisions with some ecchymosis especially at extraction site. WBC 3.2, H&H down slightly from immediately postop, expected given recent surgery. Platelets 66. Bilirubin 2.3, AST and ALT stable. Advance diet, continue antibiotics, monitor LFTs. She had a negative MRCP preoperatively and I doubt this is choledocholithiasis, more likely her cirrhosis. Would avoid Tylenol products. Subjective Patient seen and evaluated this morning, states that she is having some generalized pain, however is controlled with pain medication Denies N/V, tolerating clears without any issues Tbili elevated today at 2.3 from 1.5 yesterday VSS and afebrile Physical Exam Constitutional: WD/WN, vitals as above Respiratory: normal respiratory effort, lungs clear to auscultation Cardiovascular: Rate/Rhythm: regular rate Gastrointestinal (Abdomen): Abdomen soft, nondistended, appropriate TTP over surgical sites. Slight ecchymosis over incision sites, otherwise Dermabond in place and c/d/i Skin: no rashes, warm and dry Results & Data Vital Signs (Past 12 Hours) Vital Signs Temp Pulse Pulse Resp BP Pulse Ox O2 Del Method 01/11/25 08:02 87 01/11/25 04:01 36.6 C 103 H 20 117/79 93 Room Air 01/11/25 02:00 36.9 C 92 H 20 111/78 95 Nasal Cannula 01/11/25 01:00 36.9 C 88 20 114/78 96 Nasal Cannula 01/11/25 00:00 36.8 C 87 16 117/76 97 Nasal Cannula 01/10/25 23:00 36.8 C 83 16 105/69 98 Nasal Cannula 01/10/25 22:00 36.7 C 99 H 20 153/73 H 96 Room Air, Nasal Cannula 01/10/25 21:45 87 O2 Flow Rate 01/11/25 08:02 01/11/25 04:01 01/11/25 02:00 2 01/11/25 01:00 2 01/11/25 00:00 2 01/10/25 23:00 2 01/10/25 22:00 2 01/10/25 21:45 PG Care Time/CCT Total # of Minutes Spent Total Time Spent with Patient: Total time spent is greater than 50% in coordination of care (as documented) at patient's floor/unit and/or counseling patient: Coding [place] [address] Post Operative Follow-Up Patient Type Established Medical Decision Making Straight Forward Diagnoses Acute cholecystitis K81.0
[2025-01-11] MEDS: ACETAMINOPHEN 1,000 MG/100 ML VIAL IV PRN (09:46)
[2025-01-11] MEDS: MoRPHine SULFATE 4 MG/ML 1 ML CARP\\VIAL IV PRN (10:40)
[2025-01-11] MEDS: REMOVE NICODERM PATCH SCH (14:49)
[2025-01-11] MEDS: NICOTINE 21 MG/24 HR TDSY TD SCH (14:49)
[2025-01-11] MEDS: ADVANCED PROBIOTIC 625 MG CAPSULE PO SCH (17:33)
[2025-01-11 21:08] LABS: Cdiff Toxin B Gene (2yr or >) Negative Cdiff Gene (Neg)
[2025-01-12] MEDS: GABAPENTIN 600 MG TAB PO SCH (06:02)
[2025-01-12 08:00] LABS: Hematocrit (blood only) 24.3 % (37.0-47.0); Hemoglobin 8.2 g/dl (12.0-16.0); Mean Corpuscular Hemoglobin 34.9 pg (25.0-34.0); Mean Corpuscular Volume 103.4 fL (80.0-100.0); Platelet Count 58 K/uL (130-400); RDW Standard Deviation 51.8 fL (36.4-46.3); Red Blood Count 2.35 M/uL (4.20-5.40); White Blood Count 2.58 K/ul (4.8-10.8)
[2025-01-12 08:34] LABS: Alanine Aminotransferase 43.0 U/L (7-52); Albumin Globulin Ratio 1.1 (0.9-2); Albumin Level 3.2 gm/dl (3.4-5.0); Alkaline Phosphatase 179.0 U/L (34-104); Anion Gap 7.0 (3-11); Bilirubin,Total 0.8 mg/dl (0.2-1.0); Blood Urea Nitrogen 3.0 mg/dl (6-23); Calcium 8.0 mg/dl (8.6-10.3); Carbon Dioxide 29.0 mmol/L (21-32); Chloride 103.0 mmol/L (98-107); Creatinine Clr Calc Pharmacy 226.9 ml/min; Globulin 2.8 gm/dl (2.5-4.0); Glucose 101.0 mg/dl (70-99(Fasting)); Potassium 3.2 mmol/L (3.5-5.1); Sodium 139.0 mmol/L (136-145); Total Protein 6.0 gm/dl (6.0-8.3)
[2025-01-12 09:02] LABS: Magnesium 1.5 mg/dl (1.7-2.4)
[2025-01-12] MEDS: POTASSIUM CHLORIDE CRTAB 20 MEQ TABCR PO STA (09:32)
--- NOTE | 2025-01-12 10:04 | Hospitalist Progress Note ---
Date of Service January 12, 2025 Assessment & Plan (1) Abdominal pain: (2) Acute cholecystitis: (3) Alcoholic cirrhosis of liver: (4) Thrombocytopenia: (5) Hypocalcemia: (6) Hypomagnesemia: Plan Acute cholecystitis POD # 1, surgery 01/10/25 lap fernando - On presentation had transaminitis and elevated T. bili. Lipase negative. - LFTs are all slightly improved today , trend MRCP was negative from 01/10 - Concern for continued abd pain today with dropping hgb and plt count. Will check CT abd/pelvis w/wo contrast and will discuss with surgery. - CTAP: Distended gallbladder, fluid around the gallbladder, dilatation of the CBD, fatty infiltration. - Gallbladder US: hepatomegaly, gallbladder sludge and torturous/distended appearance of the neck of the gallbladder, dilated CBD. 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 Will need set up with PCP, GI after hospital stay and counseling possibly through [facility] as she already see's a provider for anxiety there. Alcoholic liver disease Thrombocytopenia -Monitor LFT trend -No prior diagnosis of cirrhosis however with hx of alcohol use, highly suspect this is an underlying issue. Hepatitis panel is negative. - GI follow up on dc to be scheduled - Plt 149--> 58 since admission, no s/sx of active bleeding. Discussed transfusion with pt if were to drop to 25 or have active signs of bleeding - hgb 13.4--> 8.2 s/p surgery, notable ecchymosis over abdomen is developing, follow - Pending abdominal imaging as above Hypocalcemia Hypomagnesemia -Repleted via IV x 2g calcium gluconate 01/10 - ca 8.2 01/11, follow. -Replace mag with IV and oral KCL 01/12 -Continue to monitor and replete PRN. - alcoholic liver disease as per records Chronic anemia - hemoglobin better than baseline secondary to hemoconcentration Traumatic right humeral fracture - patient [place] [facility] Chronic tobacco/alcohol abuse - Cessation to be encouraged throughout hospital stay - AWSS at risk protocol, DT precautions - Nicotine patch DVT ppx: teds, scds, ambulatory, no chemical ppx in the setting of thrombocytopenia Lines: PIV x 1 FEN/GI: advance diet per general surgery, low fat CODE: full code Dispo: From home, likely to remain in the hospital x 1-2 days I spent a total of 50 minutes with greater than 50% of that time face to face with the patient, personally reviewing all current laboratories, imaging studies, past medication reconciliation, outpatient chart review, and discussion with specialists to collaborate care for the patient excluding time spent in the performance of separately billed services or time spent by another provider/QHP. Please see attending documentation for corrections and/or additions. Admission and Anticipated Discharge Date Admission Date: January 10, 2025 Supervising Physician Co-Signing Physician Notes I have seen and discussed the case with the collaborating advanced practitioner. I agree with the above PN. I have reviewed and confirmed the patients medical history, the findings on physical examination, and the patients diagnosis and treatment plan with Erica CEJA and agree with the information documented. Evaluated patient 2/2 concerns of continued postop discomfort. Noted ecchymosis around RLQ incision extending to flank, as well as smaller areas of ecchymosis around the other two surgical incisions. Abdomen otherwise not peritonitic. No fluid shifts appreciated. Given thrombocytopenia, CT ap w/ con ordered and reviewed with hematoma, but with some edematous changes of pancreatitis. Lipase 25. Continue pain control. Monitor CBC and recovery of platelets. rest of plan as above. I spent a total of 15 minutes coordinating, documenting, and providing care for this patient excluding time spent in the performance of separately billed services. All of the aforementioned completed outside of collaborating with the assigned advanced practitioner for a full treatment plan. I have reviewed the advanced practitioner's documentation, and I agree with, and take responsibility for the plan of care Subjective Pt is in pain this morning, significant in the abdomen. She is having difficulty sitting up in bed without pain. Feels slightly distended. She is frustrated that overnight she couldnt get refill on water and her pain meds weren't given Q3H because nursing staff " would get to her when they could get to her". She is anxious and has not been getting her home medication of Viibryd as it is nonformulary here. We discussed decreasing hgb, platlets, and what cirrhosis is. In her case it is imperative that she stops drinking alcohol. Pt is agreeable to this, and is also agreeable to working with psychiatrist to help her quit drinking with other medication. Pt is agreeable to getting a PCP and seeing GI after going home. At this time she has not been out of the room since admission. May shower today. Encouraged ambulation about the humphrey. Pt is tolerating po intake. Having loose bowel movements without any signs of blood. 10 point ROS reviewed and otherwise negative. Physical Exam Physical Exam: General: awake, alert, no apparent distress, appears in pain Head: Normocephalic, atraumatic ENT: PERRL, EOMI, no pharyngeal exudate, mucous membranes moist Chest: Clear to auscultation, on room air, no adventitious breath sounds Cardiac: Regular rate and rhythm, no murmur, no JVD, normal peripheral pulses, good capillary refill Abdominal: NABS x 4 quadrants, soft, +distended,+ developing ecchymosis around incision sites from lap fernando, +tender to minimal palpation, no rebound or guarding Extremities: Normal inspection, no peripheral edema or erythema, calfs nontender to palpation Psych: Depressed mood and flat affect, tearful at times Neuro: AAO x 3, strength intact bilaterally and rated 5/5, no motor deficits, speech is clear, no peripheral sensory deficits Results & Data Results & Data Vital Signs (Past 12 Hours) Vital Signs Temp Pulse Pulse Resp BP BP Pulse Ox 01/12/25 07:30 80 01/12/25 04:00 36.9 C 87 18 109/75 96 01/11/25 23:00 36.9 C 82 18 113/76 96 01/11/25 22:02 91 H O2 Del Method 01/12/25 07:30 01/12/25 04:00 Room Air 01/11/25 23:00 Room Air 01/11/25 22:02
[2025-01-12] MEDS: POTASSIUM CHLORIDE 10 MEQ TABCR PO STA (10:23)
[2025-01-12] MEDS: IBUPROFEN 600 MG TAB PO SCH (10:23)
[2025-01-12] MEDS: HYDROmorphone INJ 0.5 MG/0.5 ML SYR IV PRN (10:46)
[2025-01-12] MEDS: MAGNESIUM SULFATE / D5W 1 GM/100 ML BAG IV ONE (10:46)
--- NOTE | 2025-01-12 11:32 | Surgery Progress Note ---
Date of Service January 12, 2025 Assessment & Plan (1) Acute cholecystitis: Plan Patient is POD #2 status post robotic cholecystectomy by Dr. Lugo. Patient continues to experience a moderate amount of abdominal pain, requiring frequent doses of IV morphine. We are trying to minimize [id number] Tylenol due to her history of liver disease, but would like to achieve better multimodal pain management regimen. Will start ibuprofen 600 mg every 8 [id number] and would encourage the patient to take oxycodone for better long-lasting pain control compared to morphine. Patient did have a mild drop in her H&H, however has remained hemodynamically stable, we are not concerned about any ongoing bleeding since her surgery, but we understand that the hospitalist team is obtaining a CAT scan of the pelvis and we will follow-up on this after this is done. Further plans may to be dependent on this. General surgery will continue to follow for now. Admission and Anticipated Discharge Date Admission Date: January 10, 2025 Supervising Physician Co-Signing Physician Notes Patient seen and examined, labs and imaging reviewed, agree with above. POD #2 robotic cholecystectomy, still with significant pain. Mostly epigastric and right upper quadrant. Afebrile, vital signs stable, abdomen soft, some ec chymosis around incisions, tender to palpation to light touch in epigastrium and right upper quadrant, no guarding or rebound. WBC normal, H&H stable from yesterday, LFTs normalizing, lipase normal. CT scan with normal postsurgical changes, no significant bleeding or hematoma. There was some suspicion for pancreatitis or postoperative edema over the pancreas. Expect her symptoms will resolve with time, no surgical invention necessary. Continue with pain control, avoid acetaminophen products due to cirrhosis. Dr. Collazo covering over the weekend. Subjective Patient currently complains of a moderate amount of abdominal pain, primarily in the left lower quadrant, worse with movement, much better at rest, well- tolerated with IV morphine. Patient states that she has been reluctant to get out of bed because of the abdominal pain when she moves and stands up. She otherwise states that she has been able to tolerate a low-fat diet without any nausea or vomiting, passing flatus and has had a bowel movement. Patient has remained hemodynamically stable, hemoglobin has drifted down slightly, today 8.2, down from yesterday at 8.6, but asymptomatic. Physical Exam Physical Exam: Gen: Drowsy but easily arousable, resting comfortably in bed in NAD CV: RRR PULM: non-labored breathing Abd: Abd soft, non-distended, mild generalized tenderness to palpation, seems worse in the left lower quadrant at one of the port sites. Port sites are well- approximated with skin glue in place, no surrounding erythema, warmth, or swelling, mild amount of ecchymosis around the left lower quadrant laparoscopic incision ext: no edema to bilateral lower ext, SCDs in place, non-tender, feet warm and well perfused Results & Data Vital Signs (Past 12 Hours) Vital Signs Temp Pulse Pulse Resp BP Pulse Ox O2 Del Method 01/12/25 11:17 36.5 C 84 16 105/70 93 Room Air 01/12/25 07:30 80 01/12/25 04:00 36.9 C 87 18 109/75 96 Room Air PG Care Time/CCT Total # of Minutes Spent Total Time Spent with Patient: Total time spent is greater than 50% in coordination of care (as documented) at patient's floor/unit and/or counseling patient: Coding Level of Care Code 42986 SUB INP/OBS CARE 2/35MIN Diagnoses Acute cholecystitis K81.0
[2025-01-12] MEDS: OPTIRAY 320 100ml IV ONE (12:56)
--- NOTE | 2025-01-12 13:22 | CT Scan Report ---
CT OF THE ABDOMEN AND PELVIS WITH AND WITHOUT CONTRAST CLINICAL HISTORY: Eval for bleed in abdomen, hematoma formation. COMPARISON STUDY: CT of the abdomen and pelvis and right upper quadrant ultrasound January 09, 2025. MRCP January 10, 2025. TECHNIQUE: Axial images of the abdomen and pelvis were obtained before and after intravenous administ ration of 94 cc of Optiray 320 IV. Automated exposure control was utilized for the study. A dose lo wering technique was utilized adhering to the principles of ALARA. CT DOSE: 2068.09 mGy.cm FINDINGS: Bilateral breast implants are partially imaged. Lower lung linear densities favor atelectas is. No pneumatosis, free air or portal venous gas is present. There is hepatic steatosis and hepatome bola. Liver contour is lobulated suggestive of cirrhosis. No hepatic lesions are identified. Caliber of the common bile duct is at the upper limits of normal following cholecystectomy, measuring 7 mm. T here is no pancreatic ductal dilatation. A small amount of fluid within the cholecystectomy bed is no geovanna without well-defined fluid collection. Of note, the pancreatic head and uncinate process appear e dematous, a new finding since prior CT. There is also small amount of fluid and stranding adjacent to the pancreatic tail. There is fluid adjacent to the second and third portions of the duodenum. There is no evidence for a bowel obstruction. A small amount of low-attenuation fluid within the pelvis is noted. This contains a small amount of layering hyperdense material. This suggests a small amount of blood products. No additional sites of hemorrhage are identified on this exam. Major vasculature is patent. Caliber and wall thickness of small and large bowel are normal. The main, left and right port al veins are patent. IMPRESSION: 1. Status post cholecystectomy. Small amount of fluid within the cholecystectomy bed, an expected fin ding in the early postoperative setting. Ascites within the pelvis which contains a small amount of b lood products. Findings discussed with Dr. Lugo at time of dictation. 2. Edematous-appearing pancreatic head and uncinate process with peripancreatic stranding and fluid. This raises the possibility of acute pancreatitis and could be correlated with serum lipase level. Fl uid adjacent to the proximal duodenum may be postsurgical or related to pancreatitis. 3. Hepatic steatosis, hepatomegaly and suspected cirrhosis. No hepatic lesions. ACT 112: Negative or not required by law. Electronically signed by: Flakito Rush M.D. 01/12/2025 1:20 PM
[2025-01-12 13:57] LABS: Lipase 25.0 U/L (11-82)
[2025-01-13 04:44] LABS: Hematocrit (blood only) 25.8 % (37.0-47.0); Hemoglobin 8.7 g/dl (12.0-16.0); Mean Corpuscular Hemoglobin 35.1 pg (25.0-34.0); Mean Corpuscular Volume 104.0 fL (80.0-100.0); Platelet Count 67 K/uL (130-400); RDW Standard Deviation 54.2 fL (36.4-46.3); Red Blood Count 2.48 M/uL (4.20-5.40); White Blood Count 2.46 K/ul (4.8-10.8)
[2025-01-13 04:59] LABS: Alanine Aminotransferase 39.0 U/L (7-52); Albumin Globulin Ratio 1.0 (0.9-2); Albumin Level 3.1 gm/dl (3.4-5.0); Alkaline Phosphatase 180.0 U/L (34-104); Anion Gap 6.0 (3-11); Bilirubin,Total 0.8 mg/dl (0.2-1.0); Blood Urea Nitrogen 2.0 mg/dl (6-23); Calcium 8.1 mg/dl (8.6-10.3); Carbon Dioxide 29.0 mmol/L (21-32); Chloride 102.0 mmol/L (98-107); Creatinine Clr Calc Pharmacy 176.5 ml/min; Globulin 3.2 gm/dl (2.5-4.0); Glucose 101.0 mg/dl (70-99(Fasting)); Iron 16.0 mcg/dl (35-150); Magnesium 1.6 mg/dl (1.7-2.4); Potassium 3.8 mmol/L (3.5-5.1); Sodium 137.0 mmol/L (136-145); Total Iron Binding Cap Calc 266.0 mcg/dl (250-450); Total Protein 6.3 gm/dl (6.0-8.3); Transferrin 190.0 mg/dl (200-360); Transferrin (FE) Percent Satur 6.0 % (15-50)
[2025-01-13 05:18] LABS: Ferritin 129.0 ng/ml (8-388)
[2025-01-13 05:20] LABS: Fibrinogen 229 mg/dl (184-400)
--- NOTE | 2025-01-13 09:53 | Hospitalist Progress Note ---
Date of Service January 13, 2025 Assessment & Plan (1) Abdominal pain: (2) Acute cholecystitis: (3) Alcoholic cirrhosis of liver: (4) Thrombocytopenia: (5) Hypocalcemia: (6) Hypomagnesemia: Plan Acute cholecystitis Admission CTAP: Distended gallbladder, fluid around the gallbladder, dilatation of the CBD, fatty infiltration. Admission Gallbladder US: hepatomegaly, gallbladder sludge and torturous/distended appearance of the neck of the gallbladder, dilated CBD. MRCP was negative from 01/10 POD # 3, surgery 01/10/[address] Lugo On presentation had AST: 286, ALT:80, Alk Phos: 291 and elevated T. bili:1.3. Lipase negative. LFTs improved today. T Bili: 0.8, AST: 118, ALT: 39 Had noted increased abdominal ecchymosis yesterday (01/12/25) 01/12/25 CT abd/pelvis: Status post cholecystectomy. Small amount of fluid within the cholecystectomy bed, an expected finding in the early postoperative setting. Ascites within the pelvis which contains a small amount of blood products. Findings discussed with Dr. Lugo at time of dictation. Edematous- appearing pancreatic head and uncinate process with peripancreatic stranding and fluid. This raises the possibility of acute pancreatitis and could be correlated with serum lipase level. Fluid adjacent to the proximal duodenum may be postsurgical or related to pancreatitis. 01/12/25 lipase WNL Continues with abdominal pain today. oxycodone, diluadid prn pain. Tylenol on hold secondary to liver disfunction Alcohol use disorder Alcohol intoxication, at-risk of alcohol withdrawal -Chronic issue of binge drinking , admitted to drinking heavily for several days [employer]CCUP[employer]IC[employer] PH[employer]ICIAN, vodka/wine - possible alcohol withdrawal seizure "several years ago." -EtOH level 283.3 upon arrival to ED , WASS protocol -Started on gabapentin protocol with PRN Ativan - she is on gabapentin at home, will hold home dose and transition to this once gabapentin tapers - No signs of withdrawal - Patient reports willing to quit etoh use. Will need set up with PCP, GI after hospital stay and counseling possibly through [place] as she already see's a provider for anxiety there. Alcoholic liver disease Thrombocytopenia Chronic anemia -Monitor LFT trend hx of alcohol use, Hepatitis panel is negative. CT abd/pelvis suggestive of cirrhosis - GI follow up on dc to be scheduled - Plt 149--> 58 since admission, Today Plt: 67 and stable - hgb 13.4--> 8.2 s/p surgery, notable ecchymosis over abdomen appears stable today. Hgb: 8.7 today and stable (baseline appears ~11) Hypocalcemia Hypomagnesemia -Repleted via IV x 2g calcium gluconate 01/10, follow. -Magnesium: 1.6 today, Replace and monitor Traumatic right humeral fracture - patient follows with [facility] Chronic tobacco/alcohol abuse - Cessation to be encouraged throughout hospital stay - AWSS at risk protocol, DT precautions - Nicotine patch DVT ppx: teds, scds, ambulatory, no chemical ppx in the setting of thrombo cytopenia Lines: PIV x 1 FEN/GI: advance diet per general surgery, low fat CODE: full code Dispo: From home, likely to remain in the hospital x 1-2 days I spent a total of 47 minutes with greater than 50% of that time face to face with the patient, personally reviewing all current laboratories, imaging studies, past medication reconciliation, outpatient chart review, and discussion with specialists to collaborate care for the patient excluding time spent in the performance of separately billed services or time spent by another provider/QHP. Please see attending documentation for corrections and/or additions. Admission and Anticipated Discharge Date Admission Date: January 10, 2025 Supervising Physician Co-Signing Physician Notes I have discussed the case with the collaborating advanced practitioner. I agree with the above PN. I have reviewed and confirmed the patients medical history, the findings on physical examination, and the patients diagnosis and treatment plan with Gabriela CEJA and agree with the information documented. I have reviewed the advanced practitioner's documentation, and I agree with, and take responsibility for the plan of care Subjective Patient seen and examined lying in bed. Patient reports continued abdominal pain across abdomen and bloating. She reports this morning ate toast, egg and reports thinks ate too much and having nausea and feels more bloated. Denies vomiting. She states yesterday the bruising across her abdomen had expanded to flank and she feels today bruising appears similar in location and color. She is requiring IV Dilaudid for pain. Tylenol has been limited secondary to her liver disease. States had small smear BM in brief last night but not had full BM. Denies fever/chills, SHEPHERD, dizziness, CP, SOB, palpitations, cough, extremity edema, rashes, urinary symptoms. Review of Systems Review of Systems: All systems reviewed & are unremarkable except as noted in HPI & below Physical Exam Physical Exam: General: appears in pain, without acute distress WDWN Head: normocephalic, atraumatic Eyes: conjunctiva non-injected, anicteric ENT: normal inspection external ears, nose, mucous membranes moist Neck: supple, trachea midline Lungs: clear, no respiratory distress, no wheezing/rhonchi/rales CV: RRR, no murmur, no pretibial edema Abd: +ecchymosis around RLQ incision extending to flank, +ecchymosis around the other two surgical incisions. normal BS, soft, +tenderness to palpation entire abdomen Ext: no cyanosis, no calf tenderness Neuro: A&O x 3, no focal deficits noted, normal affect Skin: warm, dry Results & Data Results & Data Vital Signs (Past 12 Hours) Vital Signs Temp Pulse Pulse Resp BP Pulse Ox O2 Del Method 01/13/25 08:23 36.6 C 80 18 101/69 93 Room Air 01/13/25 07:47 88 01/13/25 03:12 37.3 C 90 16 96/60 L 93 Room Air 01/12/25 23:14 37.1 C 90 16 99/65 L 93 Room Air Laboratory Results Short CBC 01/13/25 Range/Units 04:29 WBC 2.46 L (4.8-10.8) K/ul Hgb 8.7 L (12.0-16.0) g/dl Hct 25.8 L (37.0-47.0) % Plt Count 67 L (130-400) K/uL BMP 01/13/25 04:29 Sodium 137 Potassium 3.8 Chloride 102 Carbon Dioxide 29 BUN 2 L Creatinine 0.45 L Glucose 101 H Calcium 8.1 L Liver Function 01/13/25 Range/Units 04:29 Total Bilirubin 0.8 (0.2-1.0) mg/dl AST 118 H (13-39) U/L ALT 39 (7-52) U/L Alkaline Phosphatase 180 H (34-104) U/L Albumin 3.1 L (3.4-5.0) gm/dl
[2025-01-13] MEDS: PROMETHAZINE 6.25 MG/50.25 ML BAG IV PRN (10:44)
--- NOTE | 2025-01-13 11:51 | Surgery Progress Note ---
<Statement entered by Wilfredo Collazo MD - 01/13/25 13:56> I saw and examined the patient and I agree with the assessment and plan of care Date of Service January 13, 2025 Assessment & Plan (1) Acute cholecystitis: Plan Patient is POD #3 status post robotic cholecystectomy by Dr. Lugo. Reports continued abdominal pain, especially with movement. Need to limit Tylenol due to h/o liver disease. Hgb 8.7, Hct 25.8- have remained stable overnight. She is tolerating a low fat diet. Denies nausea. CT scan of abdomen/pelvis yesterday showing expected post-op changes. Scan questions possibility of acute pancreatitis- lipase 25 yesterday. General Surgery will continue to follow. Patient seen and examined with Dr. Collazo. Admission and Anticipated Discharge Date Admission Date: January 10, 2025 Subjective Patient resting in bed, eating breakfast. Reports that she continues to have pain at incision sites, especially if she moves. She denies nausea. Reports that she is passing flatus. Physical Exam Constitutional: WD/WN, vitals as above Respiratory: normal respiratory effort; no respiratory distress and no labored breathing Gastrointestinal (Abdomen): Inspection/Auscultation: + abdominal surgical incision (incision sites are healing well- all are CDI with surgical glue in place) generalized tenderness in abdomen. Results & Data Vital Signs (Past 12 Hours) Vital Signs Temp Pulse Pulse Resp BP Pulse Ox O2 Del Method 01/13/25 11:38 36.7 C 78 17 98/65 L 94 Room Air 01/13/25 08:23 36.6 C 80 18 101/69 93 Room Air 01/13/25 07:47 88 01/13/25 03:12 37.3 C 90 16 96/60 L 93 Room Air PG Care Time/CCT Total # of Minutes Spent Total Time Spent with Patient: Total time spent is greater than 50% in coordination of care (as documented) at patient's floor/unit and/or counseling patient: Coding Level of Care Code 84006 Post Operative Follow-Up Diagnoses Acute cholecystitis K81.0
[2025-01-13] MEDS ORDERED: ALUMINUM/MAGNESIUM SUSP 30 ML UDC PO PRN (12:20)
[2025-01-13] MEDS: MAGNESIUM SULFATE / D5W 1 GM/100 ML BAG IV ONE (12:35)
[2025-01-13] MEDS: GABAPENTIN 600 MG TAB PO SCH (17:11)
[2025-01-13] MEDS: DOCUSATE SODIUM 100 MG CAP PO SCH (19:24)
[2025-01-14] MEDS: LOPERAMIDE HCL 2 MG CAP PO STA (05:48)
[2025-01-14 08:35] LABS: Hematocrit (blood only) 27.6 % (37.0-47.0); Hemoglobin 9.0 g/dl (12.0-16.0); Immature Granulocytes # (auto) 0.01 K/uL (0.01-0.20); Immature Granulocytes % (auto) 0.3 %; Mean Corpuscular Hemoglobin 34.7 pg (25.0-34.0); Mean Corpuscular Volume 106.6 fL (80.0-100.0); Platelet Count 75 K/uL (130-400); RDW Standard Deviation 55.7 fL (36.4-46.3); Red Blood Count 2.59 M/uL (4.20-5.40); White Blood Count 2.95 K/ul (4.8-10.8)
[2025-01-14] MEDS: POLYETHYLENE (MIRALAX) 17 GM PACK PO SCH (08:39)
[2025-01-14 08:49] LABS: Alanine Aminotransferase 34.0 U/L (7-52); Albumin Globulin Ratio 1.1 (0.9-2); Albumin Level 3.4 gm/dl (3.4-5.0); Alkaline Phosphatase 175.0 U/L (34-104); Anion Gap 5.0 (3-11); Bilirubin,Total 0.9 mg/dl (0.2-1.0); Blood Urea Nitrogen 4.0 mg/dl (6-23); Calcium 8.2 mg/dl (8.6-10.3); Carbon Dioxide 30.0 mmol/L (21-32); Chloride 102.0 mmol/L (98-107); Creatinine Clr Calc Pharmacy 214.6 ml/min; Globulin 3.2 gm/dl (2.5-4.0); Glucose 104.0 mg/dl (70-99(Fasting)); Lipase 18.0 U/L (11-82); Magnesium 1.7 mg/dl (1.7-2.4); Potassium 3.7 mmol/L (3.5-5.1); Sodium 137.0 mmol/L (136-145); Total Protein 6.6 gm/dl (6.0-8.3)
--- NOTE | 2025-01-14 08:53 | XRay Report ---
KUB CLINICAL HISTORY: Evaluate for small bowel obstruction. COMPARISON STUDY: CT of the abdomen and pelvis January 12, 2025. FINDINGS: Elevation of the right hemidiaphragm is unchanged. The bowel gas pattern is normal. The siddhartha unt of stool is within normal limits. There is no radiographic evidence for free air, pneumatosis or portal venous gas. IMPRESSION: Normal bowel gas pattern. No evidence for a bowel obstruction. ACT 112: Negative or not required by law. Electronically signed by: Flakito Rush M.D. 01/14/2025 8:51 AM
--- NOTE | 2025-01-14 09:28 | Hospitalist Progress Note ---
Date of Service January 14, 2025 Assessment & Plan (1) Abdominal pain: (2) Acute cholecystitis: (3) Alcoholic cirrhosis of liver: (4) Thrombocytopenia: (5) Hypocalcemia: (6) Hypomagnesemia: Plan Acute cholecystitis Admission CTAP: Distended gallbladder, fluid around the gallbladder, dilatation of the CBD, fatty infiltration. Admission Gallbladder US: hepatomegaly, gallbladder sludge and torturous/distended appearance of the neck of the gallbladder, dilated CBD. MRCP was negative from 01/10 POD # 4, surgery 01/10/[address] Lugo On presentation had AST: 286, ALT:80, Alk Phos: 291 and elevated T. bili:1.3. Lipase negative. LFTs continue to improved. 01/14: T Bili: 0.9, AST: 102, ALT: 34, Alk Phos: 175. Lipase: 18 01/12/25: Had noted increased abdominal ecchymosis 01/12/25 CT abd/pelvis: Status post cholecystectomy. Small amount of fluid within the cholecystectomy bed, an expected finding in the early postoperative setting. Ascites within the pelvis which contains a small amount of blood products. Edematous-appearing pancreatic head and uncinate process with peripancreatic stranding and fluid. This raises the possibility of acute pancreatitis and could be correlated with serum lipase level. Fluid adjacent to the proximal duodenum may be postsurgical or related to pancreatitis. 01/14: Ecchymosis across abdomen stable and Hbg stable without signs active bleeding Lipase continues to be WNL Continues with abdominal pain today. Patient not getting up except for bathroom. Encouraged up to bedside chair and attempted ambulation. Will discontinue Dilaudid today and attempt to control with oxycodone. Tylenol on hold secondary to liver disfunction and NSAIDs were held secondary to ecchymosis and thrombocytopenia Loose Stools 01/14: Past 12 hours pt developed loose stools Held bowel regimen KUB: Normal bowel gas pattern. No evidence for a bowel obstruction C-diff obtained and negative Was on low fat diet but changed back to clear liquids evening 01/13 secondary to stools. Today transitioned to full liquid with plan to advance to low fat diet as tolerated Alcohol use disorder Alcohol intoxication, at-risk of alcohol withdrawal -Chronic issue of binge drinking , admitted to drinking heavily for several days [employer], vodka/wine - possible alcohol withdrawal seizure "several years ago." -EtOH level 283.3 upon arrival to ED , WASS protocol -Started on gabapentin protocol with PRN Ativan - she is on gabapentin at home, will hold home dose and transition to this once gabapentin tapers - Doing well - Patient reports willing to quit etoh use. Will need set up with PCP, GI after hospital stay and counseling possibly through [place] as she already see's a provider for anxiety there. Alcoholic liver disease Thrombocytopenia Chronic anemia Hx of alcohol use, Hepatitis panel is negative. CT abd/pelvis suggestive of cirrhosis LFTs improving Platelets stabilizing. 01/14: Plt: 75, Hgb: 9.0 GI follow up on dc to be scheduled - Plt 149--> 58 since admission, Today Plt: 67 and stable - hgb 13.4--> 8.2 s/p surgery, notable ecchymosis over abdomen appears stable today. Hgb: 8.7 today and stable (baseline appears ~11) Hypocalcemia Hypomagnesemia -Repleted via IV x 2g calcium gluconate 01/10, -Magnesium: 1.7 today Traumatic right humeral fracture - patient follows with [facility] Chronic tobacco/alcohol abuse - Cessation to be encouraged throughout hospital stay - AWSS at risk protocol, DT precautions - Nicotine patch DVT ppx: teds, scds in the setting of thrombocytopenia CODE: full code Dispo: From home, likely to remain in the hospital x 1-2 days I spent a total of 47 minutes with greater than 50% of that time face to face with the patient, personally reviewing all current laboratories, imaging studies, past medication reconciliation, outpatient chart review, and discussion with specialists to collaborate care for the patient excluding time spent in the performance of separately billed services or time spent by another provider/QHP. Please see attending documentation for corrections and/or additions. Admission and Anticipated Discharge Date Admission Date: January 10, 2025 Supervising Physician Co-Signing Physician Notes I have discussed the case with the collaborating advanced practitioner. I agree with the above PN. I have reviewed and confirmed the patients medical history, the findings on physical examination, and the patients diagnosis and treatment plan with Garbiela CEJA and agree with the information documented. I have reviewed the advanced practitioner's documentation, and I agree with, and take responsibility for the plan of care Subjective Patient seen and examined. Lying in bed eating Jello. Yesterday morning on regular diet and felt nauseated after eating. Last night for dinner back to clear liquids. States less nausea since back on clear liquids. Reports continued abdominal pain across abdomen especially over incision sites. reports ecchymosis on abdomen appears similar to yesterday. Previously not having good BM and started on miralax daily and colace yesterday. States several episodes of green liquid stool overnight and this morning and while sleeping had episode bowel incontinence. During day was able to get to bathroom without bowel incontinence. States history of c-diff in past and states this doesn't smell like c-diff but has similar coloration. States ambulating to bathroom only. Not getting up to bedside chair or ambulating as she worried about pain. Denies fever/chills, melena, hematochezia, SHEPHERD, dizziness, CP, SOB, extremity weakness, extremity edema, rashes, urinary symptoms. Review of Systems Review of Systems: All systems reviewed & are unremarkable except as noted in HPI & below Physical Exam Physical Exam: General: No acute acute distress WDWN Head: normocephalic, atraumatic Eyes: conjunctiva non-injected, anicteric ENT: normal inspection external ears, nose, mucous membranes moist Neck: supple, trachea midline Lungs: clear, no respiratory distress, no wheezing/rhonchi/rales CV: RRR, no murmur, no pretibial edema Abd: +ecchymosis around RLQ incision extending to flank, +ecchymosis around the other two surgical incisions and left abdomen. normal BS, soft, +tenderness to palpation entire abdomen, worse over incision sites Ext: no cyanosis, no calf tenderness Neuro: A&O x 3, no focal deficits noted, normal affect Skin: warm, dry Results & Data Results & Data Vital Signs (Past 12 Hours) Vital Signs Temp Pulse Pulse Resp BP Pulse Ox O2 Del Method 01/14/25 08:00 77 18 105/73 93 Room Air 01/14/25 07:20 73 01/14/25 04:16 36.9 C 85 18 105/67 94 Room Air 01/13/25 23:17 36.6 C 78 16 99/63 L 96 Room Air 01/13/25 21:48 81 Laboratory Results Short CBC 01/14/25 Range/Units 07:55 WBC 2.95 L (4.8-10.8) K/ul Hgb 9.0 L (12.0-16.0) g/dl Hct 27.6 L (37.0-47.0) % Plt Count 75 L (130-400) K/uL BMP 01/14/25 07:55 Sodium 137 Potassium 3.7 Chloride 102 Carbon Dioxide 30 BUN 4 L Creatinine 0.37 L Glucose 104 H Calcium 8.2 L Liver Function 01/14/25 Range/Units 07:55 Total Bilirubin 0.9 (0.2-1.0) mg/dl AST 102 H (13-39) U/L ALT 34 (7-52) U/L Alkaline Phosphatase 175 H (34-104) U/L Albumin 3.4 (3.4-5.0) gm/dl
--- NOTE | 2025-01-14 11:29 | Surgery Progress Note ---
<Statement entered by Wilfredo Collazo MD - 01/14/25 15:45> I independently saw the patient, and I agree with the assessment and plan of care. Date of Service January 14, 2025 Assessment & Plan (1) Acute cholecystitis: Plan: POD#4 status post robotic cholecystectomy by Dr. Lugo. Reports continued abdominal pain, especially with movement. Need to limit Tylenol due to h/o liver disease. Hbg 9, wbc 2.9. lipase 18. vitals stable A KUB was ordered today, no obstruction or acute findings May continue low fat diet from our standpoint at tolerates Encouraged patient to try to get OOB more or at least sit up in chair Likely post surgical discomfort, question of pancreatitis on recent CT scan but lipase 18 Admission and Anticipated Discharge Date Admission Date: January 10, 2025 Subjective Pt remains with upper abdominal discomfort that is worse with movement. she feels it more "deep" inside rather than at her incisions. this limits her ability to get up and move around. No n/v. + BMs Physical Exam Physical Exam: awake/alert, no distress Gastrointestinal (Abdomen): Inspection/Auscultation: + abdominal surgical incision (c/d/i with dermabond, some ecchymosis, no infection); abdomen not distended Percussion/Palpation: + abdomen tender (ttp upper abdomen) and abdomen soft Results & Data Vital Signs (Past 12 Hours) Vital Signs Temp Pulse Pulse Resp BP Pulse Ox O2 Del Method 01/14/25 08:00 77 18 105/73 93 Room Air 01/14/25 07:20 73 01/14/25 04:16 98.4 F 85 18 105/67 94 Room Air PG Care Time/CCT Total # of Minutes Spent Total Time Spent with Patient: Total time spent is greater than 50% in coordination of care (as documented) at patient's floor/unit and/or counseling patient: Coding Level of Care Code 99499 Post Operative Follow-Up Diagnoses Acute cholecystitis K81.0
[2025-01-14 11:40] LABS: Cdiff Toxin B Gene (2yr or >) Negative Cdiff Gene (Neg)
[2025-01-14] MEDS: GABAPENTIN 600 MG TAB PO SCH (17:02)
[2025-01-14] MEDS: LORazepam 0.5 MG TAB PO STA (22:02)
[2025-01-15 08:10] LABS: Hematocrit (blood only) 30.7 % (37.0-47.0); Hemoglobin 10.0 g/dl (12.0-16.0); Mean Corpuscular Hemoglobin 34.6 pg (25.0-34.0); Mean Corpuscular Volume 106.2 fL (80.0-100.0); Platelet Count 86 K/uL (130-400); RDW Standard Deviation 54.5 fL (36.4-46.3); Red Blood Count 2.89 M/uL (4.20-5.40); White Blood Count 2.82 K/ul (4.8-10.8)
[2025-01-15 08:31] LABS: Immature Granulocytes # (auto) 0.01 K/uL (0.01-0.20); Immature Granulocytes % (auto) 0.4 %
[2025-01-15 09:10] LABS: Alanine Aminotransferase 31.0 U/L (7-52); Albumin Globulin Ratio 1.0 (0.9-2); Albumin Level 3.6 gm/dl (3.4-5.0); Alkaline Phosphatase 188.0 U/L (34-104); Anion Gap 4.0 (3-11); Bilirubin,Total 0.8 mg/dl (0.2-1.0); Blood Urea Nitrogen 3.0 mg/dl (6-23); Calcium 8.4 mg/dl (8.6-10.3); Carbon Dioxide 30.0 mmol/L (21-32); Chloride 102.0 mmol/L (98-107); Creatinine Clr Calc Pharmacy 203.6 ml/min; Globulin 3.5 gm/dl (2.5-4.0); Glucose 116.0 mg/dl (70-99(Fasting)); Lipase 18.0 U/L (11-82); Magnesium 1.8 mg/dl (1.7-2.4); Potassium 3.5 mmol/L (3.5-5.1); Sodium 136.0 mmol/L (136-145); Total Protein 7.1 gm/dl (6.0-8.3)
[2025-01-15] MEDS ORDERED: ACETAMINOPHEN 500 MG TAB PO PRN (09:41)
--- NOTE | 2025-01-15 10:17 | Surgery Progress Note ---
Date of Service January 15, 2025 Assessment & Plan (1) Acute cholecystitis: Plan POD#5 status post robotic cholecystectomy by Dr. Lugo. Patient seems to be recovering well, does still have a moderate amount of abdominal pain, worse with movement, but somewhat better at rest. Unfortunately, we are somewhat limited with respect to our normal multimodal pain management regimen since she does have alcoholic liver disease as well as mild bleeding after surgery. For this, we must limit Tylenol to no more than 2 g in 24-hour period and should avoid NSAIDs, but continue with oxycodone 5 to 10 mg as needed for moderate to severe pain. Continue her home dose gabapentin. We expect that her abdominal pain should improve over time and believe that the patient is stable from a surgical standpoint for discharge home. Patient has expressed concerns about being discharged home since she lives alone and is concerned about needing extra assistance. She does mention that her mother can drive up from [place] to stay with her and she does have friends that can help at home as well. The surgery team will follow peripherally, but are available at any time for any questions or concerns. Admission and Anticipated Discharge Date Admission Date: January 10, 2025 Supervising Physician Co-Signing Physician Notes Patient seen and examined, labs reviewed, agree with above. Status post robotic cholecystectomy for acute cholecystitis in setting of cirrhosis. Overall she is doing well, sleeping on my arrival to the room. She has been having continued pain in her right upper quadrant and epigastrium which was present prior to and since the surgery. It does appear that is improved some though she still feels like it is fairly intense. Pain medication seem to take the edge off. She is tolerating a diet. Abdomen is soft, incisions without infection, tender to palpation to light touch in the upper abdomen, no guarding or rebound. WBC low at 2.82, H&H stable to increased. Unclear etiology of her pain, her imaging on Wednesday was unremarkable. This may be postsurgical, or some of her symptoms may not been related to her gallbladder. Subjective Patient currently complains of a moderate amount of abdominal pain, primarily on the right flank as well as the left side of abdomen at the site of incisions, worse with movement, somewhat better at rest, only mildly tolerated with frequent use of oxycodone. Patient states that she has a significant amount of pain when getting up out of bed and trying to ambulate and is concerned about going home without support as she lives at home alone. She states that she has been tolerating a low-fat diet without any nausea or vomiting, has been passing gas and has had frequent loose stools. Denies fevers or chills. Physical Exam Physical Exam: Gen: Drowsy but easily arousable, resting comfortably in bed in NAD CV: RRR PULM: non-labored breathing Abd: Abd soft, non-distended, mild generalized tenderness to palpation, seems worse in the left lower quadrant at one of the port sites. Port sites are well- approximated with skin glue in place, no surrounding erythema, warmth, or swelling, mild amount of ecchymosis around the left sided laparoscopic incisions. there is a moderate amount of ecchymosis to the right flank, mildly tender to palpation, but no warmth or swelling noted. ext: no edema to bilateral lower ext, SCDs in place, non-tender, feet warm and well perfused Results & Data Vital Signs (Past 12 Hours) Vital Signs Temp Pulse Pulse Resp BP BP Pulse Ox 01/15/25 07:43 36.8 C 93 H 16 107/69 96 01/15/25 07:17 93 H 01/15/25 04:09 83 01/15/25 03:44 37.1 C 72 16 114/73 94 01/14/25 23:24 37 C 84 18 116/77 96 O2 Del Method 01/15/25 07:43 Room Air 01/15/25 07:17 01/15/25 04:09 01/15/25 03:44 Room Air 01/14/25 23:24 Room Air PG Care Time/CCT Total # of Minutes Spent Total Time Spent with Patient: Total time spent is greater than 50% in coordination of care (as documented) at patient's floor/unit and/or counseling patient: [place] [address] Post Operative Follow-Up Patient Type Established Diagnoses Acute cholecystitis K81.0
--- NOTE | 2025-01-15 12:37 | Hospitalist Progress Note ---
Date of Service January 15, 2025 Assessment & Plan (1) Abdominal pain: (2) Acute cholecystitis: (3) Alcoholic cirrhosis of liver: (4) Thrombocytopenia: (5) Hypocalcemia: (6) Hypomagnesemia: Plan Acute cholecystitis Admission CTAP: Distended gallbladder, fluid around the gallbladder, dilatation of the CBD, fatty infiltration. Admission Gallbladder US: hepatomegaly, gallbladder sludge and torturous/distended appearance of the neck of the gallbladder, dilated CBD. MRCP was negative from 01/10 POD # 5, s/p 01/10/[address] Lugo On presentation had AST: 286, ALT:80, Alk Phos: 291 and elevated T. bili:1.3. Lipase negative. LFTs continue to improved. 01/15: T Bili: 0.8, AST: 99, ALT: 31, Alk Phos: 188. Lipase: 18 01/12/25: Had noted increased abdominal ecchymosis 01/12/25 CT abd/pelvis: Status post cholecystectomy. Small amount of fluid within the cholecystectomy bed, an expected finding in the early postoperative setting. Ascites within the pelvis which contains a small amount of blood products. Edematous-appearing pancreatic head and uncinate process with peripancreatic stranding and fluid. This raises the possibility of acute pancreatitis and could be correlated with serum lipase level. Fluid adjacent to the proximal duodenum may be postsurgical or related to pancreatitis. 01/15: Ecchymosis across abdomen stable and Hbg stable without signs active bleeding. Hgb 10.0 Continues with abdominal pain today. Patient not getting up except for bathroom. Encouraged up to bedside chair and attempted ambulation. Dilaudid d/c'd on 01/14 -> PO oxycodone. Offered tramadol and lidoderm patch but patient declines. Will try topical Voltaren and added low dose Tylenol (max 2gm/day) due to underlying liver disease. Avoiding NSAIDS due to ecchymosis and thrombocytopenia. PT/OT evals, hopeful d/c tomorrow Loose Stools 01/14: Past 12 hours pt developed loose stools Held bowel regimen KUB: Normal bowel gas pattern. No evidence for a bowel obstruction C-diff obtained and negative Was on low fat diet but changed back to clear liquids evening 01/13 secondary to stools -- now tolerating low fat diet Alcohol use disorder Alcohol intoxication, at-risk of alcohol withdrawal Chronic issue of binge drinking , admitted to drinking heavily for several days [employer], vodka/wine Possible alcohol withdrawal seizure "several years ago." EtOH level 283.3 upon arrival to ED WASS protocol with PRN lorazepam Continue [employer] gabapentin Patient reports willing to quit etoh use. Will need set up with PCP, GI after hospital stay and counseling possibly through [place] as she already see's a provi tonya for anxiety there. Alcoholic liver disease Thrombocytopenia Chronic anemia Hx of alcohol use, Hepatitis panel is negative. CT abd/pelvis suggestive of cirrhosis LFTs improving Platelets stabilizing. 01/15: Plt: 86K, Hgb: 10 GI follow up on dc to be scheduled hgb 13.4--> 8.2 s/p surgery -> 10.0 today, notable ecchymosis over abdomen appears stable, (baseline ~11) Hypocalcemia Hypomagnesemia Repleted via IV x 2g calcium gluconate 01/10, Magnesium: 1.8 today Traumatic right humeral fracture Patient follows with [facility] Chronic tobacco/alcohol abuse Cessation to be encouraged throughout hospital stay WASS at risk protocol, DT precautions Nicotine patch DVT PROPHYLAXIS JESI/SCDs due to thrombocytopenia and ecchymosis Patient seen in collaboration with Dr. Mckinney. I spent a total of 40 minutes coordinating, documenting, and providing care for this patient excluding time spent in the performance of separately billed services. This included personally reviewing all current laboratories and marley ging studies, medication reconciliation, outpatient chart review, and discussion with specialists. Admission and Anticipated Discharge Date Admission Date: January 10, 2025 Supervising Physician Co-Signing Physician Notes I have discussed the case with the collaborating advanced practitioner. I agree with the above PN. I have reviewed and confirmed the patients medical history, the findings on physical examination, and the patients diagnosis and treatment plan with Gabriela CEJA and agree with the information documented. I have reviewed the advanced practitioner's documentation, and I agree with, and take responsibility for the plan of care Subjective Follow-up for acute cholecystitis s/p cholecystectomy. Patient seen and examined. Resting in bed. Reports ongoing right sided abdominal pain and feeling bloated. States the oxycodone takes the edge off. Denies nausea. Physical Exam Constitutional: WD/WN, vitals as above no acute distress Respiratory: normal respiratory effort, lungs clear to auscultation Cardiovascular: Rate/Rhythm: regular rate and regular rhythm Vessels: normal peripheral pulses Extremities: no edema Gastrointestinal (Abdomen): Percussion/Palpation: + abdomen tender (globally tender) and abdomen soft Skin: no rashes, warm and dry + ecchymosis (right sided abdominal bruising) Neurologic: no focal motor deficits Psychiatric: A+Ox3, euthymic affect Results & Data Results & Data Vital Signs (Past 12 Hours) Vital Signs Temp Pulse Pulse Resp BP BP Pulse Ox 01/15/25 11:13 36.4 C L 82 16 102/68 94 01/15/25 07:43 36.8 C 93 H 16 107/69 96 01/15/25 07:17 93 H 01/15/25 04:09 83 01/15/25 03:44 37.1 C 72 16 114/73 94 O2 Del Method 01/15/25 11:13 Room Air 01/15/25 07:43 Room Air 01/15/25 07:17 01/15/25 04:09 01/15/25 03:44 Room Air Laboratory Results Short CBC 01/15/25 Range/Units 07:57 WBC 2.82 L (4.8-10.8) K/ul Hgb 10.0 L (12.0-16.0) g/dl Hct 30.7 L (37.0-47.0) % Plt Count 86 L (130-400) K/uL BMP 01/15/25 07:57 Sodium 136 Potassium 3.5 Chloride 102 Carbon Dioxide 30 BUN 3 L Creatinine 0.39 L Glucose 116 H Calcium 8.4 L Liver Function 01/15/25 Range/Units 07:57 Total Bilirubin 0.8 (0.2-1.0) mg/dl AST 99 H (13-39) U/L ALT 31 (7-52) U/L Alkaline Phosphatase 188 H (34-104) U/L Albumin 3.6 (3.4-5.0) gm/dl
[2025-01-15] MEDS: DICLOFENAC SOD 1% GEL 100 GM TUBE EXT SCH (14:48)
[2025-01-15] MEDS: LORazepam 0.5 MG TAB PO STA (22:03)
[2025-01-16 06:50] LABS: Hematocrit (blood only) 30.7 % (37.0-47.0); Hemoglobin 10.2 g/dl (12.0-16.0); Mean Corpuscular Hemoglobin 34.5 pg (25.0-34.0); Mean Corpuscular Volume 103.7 fL (80.0-100.0); Platelet Count 118 K/uL (130-400); RDW Standard Deviation 53.8 fL (36.4-46.3); Red Blood Count 2.96 M/uL (4.20-5.40); White Blood Count 3.19 K/ul (4.8-10.8)
[2025-01-16 07:02] LABS: Alanine Aminotransferase 32.0 U/L (7-52); Albumin Globulin Ratio 1.0 (0.9-2); Albumin Level 3.7 gm/dl (3.4-5.0); Alkaline Phosphatase 160.0 U/L (34-104); Anion Gap 6.0 (3-11); Bilirubin,Total 1.1 mg/dl (0.2-1.0); Blood Urea Nitrogen 5.0 mg/dl (6-23); Calcium 9.1 mg/dl (8.6-10.3); Carbon Dioxide 30.0 mmol/L (21-32); Chloride 99.0 mmol/L (98-107); Creatinine Clr Calc Pharmacy 209.0 ml/min; Globulin 3.7 gm/dl (2.5-4.0); Glucose 106.0 mg/dl (70-99(Fasting)); Potassium 3.9 mmol/L (3.5-5.1); Sodium 135.0 mmol/L (136-145); Total Protein 7.4 gm/dl (6.0-8.3)
[2025-01-16 07:41] LABS: Cdiff Toxin B Gene (2yr or >) Negative Cdiff Gene (Neg)
[2025-01-16] MEDS: LOPERAMIDE HCL 2 MG CAP PO ONE (11:29)
--- NOTE | 2025-01-16 14:09 | Surgery Progress Note ---
Date of Service January 16, 2025 Assessment & Plan (1) Acute cholecystitis: Plan: POD#6 status post robotic cholecystectomy by Dr. Lugo WBC 3.1, Hbg 10.2 (10). SBPs 90-100, HRs 90-100s Resting upon arrival, when wakens is alert/oriented and no distress Abdomen soft, tender in upper abdominal incision site and along R flank w/ noted ecchymosis Reports relief in pain with the oxycodone. Is on a multi-modal pain regimen with oxy, gabapentin, prn tylenol (limited as able for history of cirrhosis) Hbg is trending upwards which is reassuring and abdominal exam stable to improving overall She has been getting out of bed to use the restroom multiple times Discussed plan of care with patient and mother (on the phone). mother has questions regarding stage of cirrhosis and resources for alcohol cessation counseling. Mother is on her way in to be with patient this afternoon and will spend night in motel From our standpoint may consider discharge as early as today. If any clinical concerns may consider repeat CT scan and/or HIDA scan, although CT scan last Wednesday was reassuring and patient has been stable since Will need follow up in the office with Dr. Lugo in 1-2 weeks Admission and Anticipated Discharge Date Admission Date: January 10, 2025 Subjective Patient sleeping in bed upon evaluation. She reports + loose stools and requested imodium for this. Has been up and out of bed multiple times to use the restroom. Complaints of lack of sleep/rest, especially overnight. Abdomen remains sore mostly in the upper lap site and off to the right side/flank area where bruising is noted. Feels the oxycodone does help her to have relief and get some rest. Physical Exam Physical Exam: sleeping on arrival, but awakens and is communicative and alert, no distress Respiratory: normal respiratory effort Gastrointestinal (Abdomen): Percussion/Palpation: + abdomen tender (tender to upper lap incision and R flank regions) and abdomen soft incisions are c/d/i with dermabond, surrounding ecchymosis of each incision and moderate amount in the R flank region Results & Data Vital Signs (Past 12 Hours) Vital Signs Temp Pulse Pulse Resp BP BP Pulse Ox 01/16/25 11:28 98.1 F 99 H 20 91/55 L 92 01/16/25 10:17 98.2 F 101 H 16 98/67 L 94 01/16/25 07:57 98.6 F 95 H 18 100/66 93 01/16/25 07:20 112 H 01/16/25 05:19 97.5 F L 102 H 20 111/79 96 O2 Del Method 01/16/25 11:28 Room Air 01/16/25 10:17 Room Air 01/16/25 07:57 Room Air 01/16/25 07:20 01/16/25 05:19 Room Air PG Care Time/CCT Total # of Minutes Spent Total Time Spent with Patient: Total time spent is greater than 50% in coordination of care (as documented) at patient's floor/unit and/or counseling patient: Coding Level of Care Code 24132 Post Operative Follow-Up Diagnoses Acute cholecystitis K81.0
--- NOTE | 2025-01-16 16:24 | Hospitalist Progress Note ---
Date of Service January 16, 2025 Assessment & Plan (1) Abdominal pain: (2) Acute cholecystitis: (3) Acute blood loss anemia: (4) Alcoholic cirrhosis of liver: (5) Thrombocytopenia: Plan 44 year old female with PMH significant for alcoholic liver disease as per records, chronic anemia (baseline hemoglobin 10-11), chronic pain, traumatic right humeral fracture, ongoing tobacco/alcohol abuse who presented to the ED on 01/10/2025 with abdominal pain and was found to have acute cholecystitis. Acute cholecystitis Admission CTAP: Distended gallbladder, fluid around the gallbladder, dilatation of the CBD, fatty infiltration. Admission Gallbladder US: hepatomegaly, gallbladder sludge and torturous/distended appearance of the neck of the gallbladder, dilated CBD. MRCP was negative from 01/10 POD #[address] Lugo on 01/10/2025 01/12/25 CTAP: Status post cholecystectomy. Small amount of fluid within the cholecystectomy bed, an expected finding in the early postoperative setting. Ascites within the pelvis which contains a small amount of blood products. Edematous-appearing pancreatic head and uncinate process with peripancreatic stranding and fluid. This raises the possibility of acute pancreatitis and could be correlated with serum lipase level. Fluid adjacent to the proximal duodenum may be postsurgical or related to pancreatitis Lipase negative 01/16/2025: -Continues with abdominal pain with movement and concern about caring for self at home -PT/OT consults today recommending dc to home -Pain control with tylenol prn (max 2g/24 hrs), prn oxycodone, voltaren gel -Hopeful dc tomorrow Acute blood loss anemia Hgb 13.4-> 8.2 s/p surgery -> 10.2 today Notable ecchymosis over abdomen appears stable Monitor CBC Diarrhea 01/14/2025 KUB: Normal bowel gas pattern. No evidence for a bowel obstruction C-diff obtained and negative Tolerating low fat diet Immodium x1 today Alcohol use disorder Alcohol intoxication, at-risk of alcohol withdrawal Chronic issue of binge drinking, admitted to drinking heavily for several days [employer], vodka/wine Possible alcohol withdrawal seizure "several years ago." EtOH level 283.3 upon arrival to ED WASS protocol with PRN lorazepam Continue gabapentin Patient reports willing to quit etoh use Alcohol counseling resources provided in mental health resource book Alcoholic cirrhosis Thrombocytopenia Hx of alcohol use as above, Hepatitis panel is negative CT abd/pelvis suggestive of cirrhosis LFTs improving from admission Platelets stable Ammonia normal today Outpatient GI follow up needed DVT Prophylaxis: TEDs/SCDs Code Status: FULL CODE PCP: None Disposition: anticipate dc to home tomorrow Patient seen in collaboration with Dr. Mckinney. Please see addendum. I spent a total of 50 minutes coordinating, documenting and providing care for this patient excluding time spent in the performance of separately billed services or time spent by another provider/QHP. Admission and Anticipated Discharge Date Admission Date: January 10, 2025 Supervising Physician Co-Signing Physician Notes I have seen and discussed the case with the collaborating advanced practitioner. I agree with the above PN I have reviewed and confirmed the patients medical history, the findings on physical examination, and the patients diagnosis and treatment plan with Ceasar DIEGO and agree with the information documented. Evaluated patient at bedside. Reports continued pain, no change in quality over course of admission. Bruising appears stable. Hgb stable and platelets uptrending. Ammonia ordered to asses for any decompensation, which was 48. ALP down trending, bili mildly elevated. Discussed with surgery, nothing further to add, however, could consider HIDA. Trend labs. Given prolonged pain 2/2 postop in relatively uncomplicated procedure, will consult GI to determine if further imaging necessary in light of AST relatively elevated and t bili. If negative, will need to offer continued reassurance and discharge.rest of plan as above I spent a total of 20 minutes coordinating, documenting, and providing care for this patient excluding time spent in the performance of separately billed services. All of the aforementioned completed outside of collaborating with the assigned advanced practitioner for a full treatment plan. I have reviewed the advanced practitioner's documentation, and I agree with, and take responsibility for the plan of care Subjective Patient seen resting in bed Reports worsening pain of right abdomen/back and left upper abdomen at surgical incision site Concerned about worsening ecchymosis Denies chest pain, SOB, abdominal pain Notes loose stools Review of Systems Review of Systems: All systems reviewed & are unremarkable except as noted in HPI & below Physical Exam Physical Exam: General/Psych: WD/WN, sitting up in bed, NAD, conversing easily Head: normocephalic, atraumatic Eyes: normal inspection, PERRL, conjunctivae pink ENT: external ear and nose normal, oropharynx normal Neck: normal visual inspection, trachea midline Respiratory: normal respiratory effort, lungs clear to auscultation, no wheeze/rales/rhonchi, no accessory muscle use Cardiovascular: regular rate and rhythm, no murmur/rub/gallop Extremities: no cyanosis or clubbing, normal peripheral pulses, no BLE edema Abdomen/GI: normal bowel sounds, soft, slightly tender on palpation Neurologic/MSK: A+Ox3, motor strength 5/5, moves all extremities Skin: no rashes, normal color, warm and dry, x3 surgical incisions with glue c/d/i with surrounding ecchymosis, ecchymosis of right abdomen/back Results & Data Results & Data Vital Signs (Past 12 Hours) Vital Signs Temp Pulse Pulse Resp BP BP Pulse Ox 01/16/25 14:50 36.5 C 119 H 18 101/69 94 01/16/25 14:43 100 H 01/16/25 11:28 36.7 C 99 H 20 91/55 L 92 01/16/25 10:17 36.8 C 101 H 16 98/67 L 94 01/16/25 07:57 37.0 C 95 H 18 100/66 93 01/16/25 07:20 112 H 01/16/25 05:19 36.4 C L 102 H 20 111/79 96 O2 Del Method 01/16/25 14:50 Room Air 01/16/25 14:43 01/16/25 11:28 Room Air 01/16/25 10:17 Room Air 01/16/25 07:57 Room Air 01/16/25 07:20 01/16/25 05:19 Room Air Laboratory Results Short CBC 01/16/25 Range/Units 06:22 WBC 3.19 L (4.8-10.8) K/ul Hgb 10.2 L (12.0-16.0) g/dl Hct 30.7 L (37.0-47.0) % Plt Count 118 L (130-400) K/uL BMP 01/16/25 06:22 Sodium 135 L Potassium 3.9 Chloride 99 Carbon Dioxide 30 BUN 5 L Creatinine 0.38 L Glucose 106 H Calcium 9.1 Liver Function 01/16/25 Range/Units 06:22 Total Bilirubin 1.1 H (0.2-1.0) mg/dl AST 113 H (13-39) U/L ALT 32 (7-52) U/L Alkaline Phosphatase 160 H (34-104) U/L Albumin 3.7 (3.4-5.0) gm/dl I have independently reviewed and interpreted patient's labs including CBC, CMP. Medications Administered Current Inpatient Medications Acetaminophen (Acetaminophen 500 Mg Tab) 1,000 mg PO Q12H PRN PRN Reason: mild Pain 1-3 Stop: 02/14/25 09:40 Al Hydrox/Mg Hydrox/Simethicone (Aluminum/Magnesium Susp 30 Ml Udc) 15 ml PO Q4H PRN PRN Reason: Dyspepsia Stop: 02/12/25 12:19 Clonazepam (Clonazepam 1 Mg Tab) 1 mg PO BID PRN PRN Reason: Anxiety Stop: 02/09/25 02:57 Last Admin: 01/16/25 08:42 Dose: 1 mg Diclofenac Sodium (Diclofenac Sod 1% Gel 100 Gm Tube) 4 gm EXT BID [facility]; Protocol Stop: 02/14/25 12:44 Last Admin: 01/16/25 08:43 Dose: 4 gm Docusate Sodium (Docusate Sodium 100 Mg Cap) 100 mg PO BID [facility] Stop: 02/12/25 20:59 Last Admin: 01/14/25 08:39 Dose: 100 mg Doxepin HCl (Doxepin Hcl 50 Mg Capsule) 100 mg PO HS PRN PRN Reason: Sleep Stop: 02/09/25 02:57 Folic Acid (Folic Acid 1 Mg Tab) 1 mg PO QAM [facility] Stop: 02/09/25 08:59 Last Admin: 01/16/25 08:43 Dose: 1 mg Gabapentin (Gabapentin 600 Mg Tab) 600 mg PO TID [facility] Stop: 02/13/25 16:29 Last Admin: 01/16/25 14:08 Dose: 600 mg Promethazine HCl (Phenergan) 6.25 mg in 50.25 mls @ 201 mls/hr IV Q6H PRN PRN Reason: Nausea And Vomiting Stop: 02/09/25 02:59 Last Infusion: 01/13/25 11:01 Dose: Infused Lorazepam 1 mg/ Syringe 1 mls @ 2 mls/min IV UD PRN; Protocol PRN Reason: EtOH Withdrawal AWSS Score 6,7 Stop: 02/09/25 05:50 Last Admin: 01/13/25 21:40 Dose: 2 mls/min Lorazepam 2 mg/ Syringe 2 mls @ 2 mls/min IV UD PRN; Protocol PRN Reason: EtOH Withdrawal AWSS Score 8,9 Stop: 02/09/25 05:50 Lorazepam 3 mg/ Syringe 3 mls @ 2 mls/min IV ONCE PRN; Protocol PRN Reason: EtOH Withdrawal AWSS Score 10+ Lactobacillus Acidophilus (Advanced Probiotic 625 Mg Capsule) 1,250 mg PO DAILY [facility] Stop: 02/10/25 15:59 Last Admin: 01/16/25 08:42 Dose: 1,250 mg Lamotrigine (Lamotrigine 25 Mg Tab) 25 mg PO HS [facility]; Protocol Stop: 02/09/25 20:59 Last Admin: 01/15/25 20:06 Dose: 25 mg Miscellaneous (Vilazodone 40 Mg - Order Awaiting Action) 1 each N/A QS [facility] Stop: 02/09/25 07:59 Last Admin: 01/16/25 10:05 Dose: Not Given Miscellaneous (Remove Nicoderm Patch) 1 each N/A DAILY@0859 [facility] Stop: 02/10/25 14:39 Last Admin: 01/16/25 08:45 Dose: 1 each Multivitamins (Multivitamin Tab) 1 tab PO QAM [facility] Stop: 02/09/25 08:59 Last Admin: 01/16/25 08:43 Dose: 1 tab Nicotine (Nicotine 21 Mg/24 Hr Tdsy) 1 patch TD QAM [facility] Stop: 02/10/25 14:44 Last Admin: 01/16/25 08:43 Dose: 1 patch Oxycodone HCl (Oxycodone Hcl Ir 5 Mg Tab (Immediate Release)) 5 mg PO Q4H PRN PRN Reason: MODERATE Pain (4,5,6) & Pre PT Stop: 01/28/25 13:23 Last Admin: 01/14/25 22:01 Dose: 5 mg Oxycodone HCl (Oxycodone Hcl Ir 5 Mg Tab (Immediate Release)) 10 mg PO Q4H PRN PRN Reason: SEVERE Pain (7,8,9,10) Stop: 01/28/25 13:23 Last Admin: 01/16/25 14:50 Dose: 10 mg Pantoprazole Sodium (Pantoprazole 40 Mg Tab) 40 mg PO HS [facility] Stop: 02/09/25 20:59 Last Admin: 01/15/25 20:04 Dose: 40 mg Polyethylene Glycol (Polyethylene (Miralax) 17 Gm Pack) 17 gm PO DAILY [facility] Stop: 02/13/25 08:59 Last Admin: 01/14/25 08:39 Dose: 17 gm Thiamine HCl (Thiamine Hcl 100 Mg Tab) 100 mg PO QAM [facility] Stop: 02/10/25 08:59 Last Admin: 01/16/25 08:43 Dose: 100 mg
[2025-01-16] MEDS: LOPERAMIDE HCL 2 MG CAP PO PRN (20:12)
[2025-01-17 03:40] VITALS: RESP 20
[2025-01-17 08:08] VITALS: PULSE 99; TEMP 98.2; O2SAT 92
[2025-01-17 08:28] LABS: Hematocrit (blood only) 29.0 % (37.0-47.0); Hemoglobin 9.7 g/dL (12.0-16.0); Mean Corpuscular Hemoglobin 34.5 pg (25.0-34.0); Mean Corpuscular Volume 103.2 fL (80.0-100.0); Platelet Count 135 K/uL (130-400); RDW Standard Deviation 53.7 fL (36.4-46.3); Red Blood Count 2.81 M/uL (4.20-5.40); White Blood Count 3.13 K/ul (4.8-10.8)
[2025-01-17 08:48] LABS: Alanine Aminotransferase 28.0 U/L (7-52); Albumin Globulin Ratio 1.0 (0.9-2); Albumin Level 3.6 gm/dl (3.4-5.0); Alkaline Phosphatase 144.0 U/L (34-104); Anion Gap 5.0 (3-11); Bilirubin,Total 0.9 mg/dl (0.2-1.0); Blood Urea Nitrogen 7.0 mg/dl (6-23); Calcium 8.9 mg/dl (8.6-10.3); Carbon Dioxide 29.0 mmol/L (21-32); Chloride 99.0 mmol/L (98-107); Creatinine Clr Calc Pharmacy 189.1 ml/min; Globulin 3.6 gm/dl (2.5-4.0); Glucose 107.0 mg/dl (70-99(Fasting)); Magnesium 1.6 mg/dl (1.7-2.4); Potassium 4.0 mmol/L (3.5-5.1); Sodium 133.0 mmol/L (136-145); Total Protein 7.2 gm/dl (6.0-8.3)
[2025-01-17] MEDS: MAGNESIUM SULFATE / D5W 1 GM/100 ML BAG IV SCH (09:44)
--- NOTE | 2025-01-17 12:13 | Communication Note ---
Date of Service: January 17, 2025 GI was consulted for RUQ post cholecystectomy. An MRCP was ordered. Attempted to see patient multiple times in her room, however she was in the bathroom. Received communication from the primary team that the patient no longer wanted to do further testing and she would be discharged. Thus no formal GI consult/recommendations have been provided for this patient during this hospitalization.
[2025-01-17 12:29] VITALS: BP 93/58
--- NOTE | 2025-01-17 12:59 | Discharge Summary ---
<Statement entered by Lito Mason DO - 01/17/25 13:43> I have seen and examined the patient and have discussed the case with the advance practice provider. I have reviewed the advanced practitioner's documentation, and I agree with, and take responsibility for that plan of care. Patient seen and evaluated at bedside with ADRIANA. Reaffirmed and re-educated patient again that her bruising on her abdomen that is to be expected with her low platelets. This would be much more significant when compared to somebody else who has undergone cholecystectomy with normal platelet levels. I also suspect her ongoing pain is just her slow to heal and improve with her history of recovering from alcohol misuse. Encouraged her and reassured her that her pain will continue to improve over the next week. Anticipate it significantly improving as she starts to return to more normal activities and her more normal routine. Encouraging abstinence from alcohol, agree with recommendations for acamprosate or naltrexone outpatient if she so desires Recommend outpatient GI consultation for monitoring of liver disease. Follow-up with surgery as coordinated I spent a total of 19 minutes coordinating, documenting, and providing care for this patient excluding time spent by another provider/QHP. Discharge Summary Date of Service January 17, 2025 Principal Dx & Hospital Course #1 = Principal Diagnosis (1) Abdominal pain: (2) Acute cholecystitis: (3) Acute blood loss anemia: (4) Alcoholic cirrhosis of liver: (5) Thrombocytopenia: Plan 44 year old female with PMH significant for alcoholic liver disease as per records, chronic anemia (baseline hemoglobin 10-11), chronic pain, traumatic right humeral fracture, ongoing tobacco/alcohol abuse who presented to the ED on 01/10/2025 with abdominal pain and was found to have acute cholecystitis. Acute cholecystitis Admission CTAP: Distended gallbladder, fluid around the gallbladder, dilatation of the CBD, fatty infiltration. Gallbladder US: hepatomegaly, gallbladder sludge and torturous/distended appearance of the neck of the gallbladder, dilated CBD. MRCP without choledocholithiasis s/p lap cholecystectomy by Dr Lugo on 01/10/2025 01/12/25 CTAP: Status post cholecystectomy. Small amount of fluid within the cholecystectomy bed, an expected finding in the early postoperative setting. Ascites within the pelvis which contains a small amount of blood products. Edematous-appearing pancreatic head and uncinate process with peripancreatic stranding and fluid. This raises the possibility of acute pancreatitis and could be correlated with serum lipase level. Fluid adjacent to the proximal duodenum may be postsurgical or related to pancreatitis-> lipase negative and patient tolerating low fat diet PT/OT consults recommending dc to home Recommend pain control with tylenol prn (max 2g/24 hrs), prn oxycodone, voltaren gel Follow up with Dr. Lugo in 1-2 weeks - patient instructed to call to make appointment Acute blood loss anemia Hgb 13.4-> stabilized around 10 post operatively Notable ecchymosis over abdomen appears stable Vitals stable and patient asymptomatic Diarrhea 01/14/2025 KUB: Normal bowel gas pattern. No evidence for a bowel obstruction C-diff obtained and negative Tolerating low fat diet Improved with loperamide Alcohol use disorder Chronic issue of binge drinking with gradual increase over last year up to 2-10 drinks daily (vodka, wine) Has attended rehab in the past and did not find it beneficial EtOH level 283.3 upon arrival to ED Patient notes desire to quit drinking after this hospitalization Alcohol counseling resources provided in mental health resource book Recommend consideration for acamprosate or naltrexone outpatient Alcoholic cirrhosis LFTs increased on admission and stabilized by discharge Total bili 1.3->0.9, AST 286->103, ALT 80->28, alk phos 291->144 CT abdomen/pelvis consistent with cirrhosis Ammonia level normal Referral placed to GI for outpatient follow up Thrombocytopenia Platelets as low as 58 during admission Likely secondary to cirrhosis Stable at 135 on day of discharge Advised to avoid NSAIDs for pain control post operatively Patient seen in collaboration with Dr. Mason. Please see addendum. Notes For Next Care Provider 44 year old female with significant PMH who was admitted at [facility] from 01/10- 01/17/2025 for acute cholecystitis s/p lap cholecystectomy. Incidental finding of cirrhosis secondary to alcohol use with elevated LFTs and thrombocytopenia that improved by time of discharge. Challenging pain control in setting of cirrhosis and thrombocytopenia. Follow up with Dr. Lugo of Surgery in 1-2 weeks. Referral placed to GI for ongoing mangement of cirrhosis. Patient desires to quit drinking and was provided with alcohol counseling resources. Medication Changes From Visit Voltaren gel and oxycodone as needed for pain Admission HPI Per Admitting Provider History obtained from patient, family, and records. Medical history significant for alcoholic liver disease as per records, chronic anemia (baseline hemoglobin 10-11), chronic pain, traumatic right humeral fracture, ongoing tobacco/alcohol abuse. Last confinement 2023 for alcoholic pancreatitis. Few days history of mid abdominal pain somewhat worse on eating. Abdominal pain going to the back. Some nausea, no emesis. No fever, no chills. Denies chest pain, SOB. IV cefepime administered at the ER. 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 Exam General/Psych: WD/WN, sitting up in bed, NAD, conversing easily Head: normocephalic, atraumatic Eyes: normal inspection, PERRL, conjunctivae pink ENT: external ear and nose normal, oropharynx normal Neck: normal visual inspection, trachea midline Respiratory: normal respiratory effort, lungs clear to auscultation, no wheeze/rales/rhonchi, no accessory muscle use Cardiovascular: regular rate and rhythm, no murmur/rub/gallop Extremities: no cyanosis or clubbing, normal peripheral pulses, no BLE edema Abdomen/GI: normal bowel sounds, soft, slightly tender on palpation Neurologic/MSK: A+Ox3, motor strength 5/5, moves all extremities Skin: no rashes, normal color, warm and dry, x3 surgical incisions with glue c/d/i with surrounding ecchymosis, ecchymosis of right abdomen/back is stable Updated Medication List Medication Instructions Recorded Confirmed Type omeprazole 40 mg capsule,delayed 40 mg PO HS 08/13/22 01/10/25 History release gabapentin 600 mg tablet 600 mg PO .2-4 X DAILY 05/09/23 01/10/25 History clonazepam 1 mg tablet 0.5 - 1 mg PO BID PRN Anxiety 01/10/25 01/10/25 History doxepin 100 mg capsule 100 mg PO HS PRN Sleep 01/10/25 01/10/25 History lamotrigine 25 mg tablet 25 mg PO HS 01/10/25 01/10/25 History vilazodone 40 mg tablet 40 mg PO DAILY 01/10/25 01/10/25 History diclofenac sodium 1 % topical gel 4 g EXT BID #100 grams 01/17/25 Rx (Voltaren Arthritis Pain) oxycodone 5 mg tablet 10 mg (2 x 5 mg) PO Q4H PRN severe 01/17/25 Rx pain (scale score 7-10) #30 tabs Hospital Stay Data Consultations 01/10/25 02:02 Consult General Surgery Routine 01/10/25 02:15 ED Decision to Admit Stat 01/12/25 16:19 Consult Behavioral Health Liaison Routine 01/15/25 01:19 Consult Patient Services Routine Procedures Performed Operation Date: 01/10/25 07:45 Actual Procedures p Robotic Laparoscopic Cholecystectomy(Not Applicable) - Pop Lugo DO, FACS Diagnostic Imagining Performed Abdomen/Pelvis CT 01/09/25 22:01 Exam(s): CT ABDOMEN + PELVIS With Contrast IV Amt: 93 ML OPTIRAY 320 EXAM: CT Abdomen and Pelvis With Intravenous Contrast CLINICAL HISTORY: Reason for exam: mid abd pain. TECHNIQUE: Axial computed tomography images of the abdomen and pelvis with intravenous contrast. CTDI is 14.688 mGy and DLP is 856.12 mGy-cm. Automated exposure control was utilized for the study. A dose lowering technique was utilized adhering to the principles of ALARA. CONTRAST: Patient received 93 ML OPTIRAY 320 of IV contrast COMPARISON: 08/13/2022 FINDINGS: Lung bases: There is elevation of the right hemidiaphragm with scarring or atelectasis in the right lung base.. ABDOMEN: Liver: The liver is enlarged and of decreased attenuation.. Gallbladder and bile ducts: Gallbladder is distended. There appears to be fluid around the gallbladder. No calcified stones. The common bile duct is dilated at 11 mm.. Pancreas: No mass. No ductal dilation. Spleen: The spleen is enlarged.. Adrenals: No mass. Kidneys and ureters: No solid mass. No hydronephrosis. Stomach and bowel: There is air and fluid within the stomach. There is air and stool noted in the colon. There is thickening of the juarez of the ascending colon, transverse colon and descending colon. There are distended loops of small bowel containing fluid and air. Some of these demonstrate wall thickening.. PELVIS: Appendix: No findings to suggest acute appendicitis. Bladder: No calculi are noted within the bladder.. Reproductive: Unremarkable as visualized. ABDOMEN and PELVIS: Intraperitoneal space: No free air. No significant fluid collection. Bones/joints: There are mild degenerative changes in the spine.. Soft tissues: There are bilateral breast implants noted.. Vasculature: No abdominal aortic aneurysm. Lymph nodes: No enlarged lymph nodes. IMPRESSION: There is thickening of the juarez of the ascending colon, transverse colon and descending colon. This most likely represents a nonspecific colitis. There are distended loops of small bowel containing fluid and air. Some of these demonstrate wall thickening. This may be related to an ileus. Cannot exclude a nonspecific enteritis. Gallbladder is distended. There appears to be fluid around the gallbladder. There is dilatation of the common bile duct. The liver is enlarged and of diffuse decreased attenuation which may be due to fatty infiltration. Splenomegaly Electronically signed by: Ludwin Zhou MD 01/09/25 23:44 PM Gallbladder Ultrasound 01/10/25 00:00 EXAM: US gallbladder CLINICAL HISTORY: upper abd pain, abnormal CT,eval for cholecystitis TECHNIQUE: Static ultrasound images with grayscale and Doppler of the right upper quadrant were submitted for review. COMPARISON: 06/05/2022 FINDINGS: The liver is enlarged in size, measuring approximately 22.7 cm. It appears echogenic and shows coarse texture. The examination is limited by coarse echotexture of the liver, reducing the depth of penetration. There is evidence of a hypoechoic region near the gallbladder?could be focal fatty sparing. The gallbladder is distended, with a tortuous and distended appearance of the neck of the gallbladder. No obvious calculi are detected. There is no abnormal wall thickening, with the wall measuring approximately 1.4 mm in thickness. There is evidence of echogenic sludge within. The common bile duct is dilated, measuring up to 9.7 mm. The pancreas is suboptimally visualized due to overlying bowel gas shadows. The aorta is normal in caliber. The right kidney is normal in size and echogenicity without evidence of nephrolithiasis or focal mass lesions. There is a prominent renal pelvis and collecting system in the lower pole. IMPRESSION: Hepatomegaly with altered liver echotexture?suggest laboratory correlation for possible chronic liver parenchymal disease and further evaluation with MRI for possible focal lesions. Evidence of a hyperechoic lesion in the liver near the gallbladder?could be focal fatty sparing. Gallbladder sludge and tortuous and distended appearance of the neck of the gallbladder. Dilated common bile duct. Advised MRCP for further evaluation. Prominent renal pelvis and collecting system in the lower pole of the right kidney?unchanged. Electronically signed by Jamar Maloney 01-10-2025 01:59 AM Cholangiopancreatography MRI 01/10/25 03:20 EXAM: MR MRCP CLINICAL HISTORY: abn lfts TECHNIQUE: Multiplanar, multisequence magnetic resonance imaging of the abdomen without intravenous contrast. COMPARISON: 01/09/2025 US and 05/10/2023 MRCP were reviewed. FINDINGS: Liver: The liver is enlarged in size, measuring approximately 23 cm. There is homogeneous signal intensity on T2-weighted images. There are no focal hepatic lesions. Gallbladder: The gallbladder is distended with a tortuous appearance of the neck. There is mild, uniform wall thickening. There is evidence of mild pericholecystic fluid and internal sludge within. Bile Ducts: There is mild dilatation of the intrahepatic and extrahepatic biliary tree. The common bile duct measures up to 11 mm in width; however, there is no evidence of an anatomically obstructing mass or choledocholithiasis. No evidence of choledocholithiasis. Pancreas: The pancreas is unremarkable. There are no masses or cystic lesions. Pancreatic Duct: The pancreatic duct is normal in caliber. There is no evidence of ductal dilatation or filling defects. Spleen: The spleen is normal in size and appearance. There is homogeneous signal intensity. Kidneys: The kidneys are normal in size, shape, and position. There is homogeneous signal intensity on T2-weighted images. There are no obstructing renal stones, masses, or hydronephrosis. Adrenal Glands: The adrenal glands are normal in size and morphology bilaterally. There are no adrenal masses. Surrounding Structures: There is minimal free fluid in the abdomen. The appearance of the visualized bowel loops is unremarkable. There are prominent jumana hepatis lymph nodes. IMPRESSION: 1. Gallbladder sludge, mild uniform wall thickening, and mild pericholecystic fluid (new when compared to previous MRCP). Findings may suggest acute cholecystitis or congestive cholecystopathy. Clinical and laboratory correlation are needed. 2. There is mild dilatation of the intrahepatic and extrahepatic biliary tree. The common bile duct measures up to 11 mm in width; however, there is no evidence of an anatomically obstructing mass or choledocholithiasis. This is rather unchanged. 3. Hepatomegaly with no gross focal lesions. 4. Minimal ascites. Electronically signed by Jean Pierre Broderick 01-10-2025 05:56 AM Abdomen/Pelvis CT 01/12/25 10:20 CT OF THE ABDOMEN AND PELVIS WITH AND WITHOUT CONTRAST CLINICAL HISTORY: Eval for bleed in abdomen, hematoma formation. COMPARISON STUDY: CT of the abdomen and pelvis and right upper quadrant ultrasound January 09, 2025. MRCP January 10, 2025. TECHNIQUE: Axial images of the abdomen and pelvis were obtained before and after intravenous administration of 94 cc of Optiray 320 IV. Automated exposure control was utilized for the study. A dose lowering technique was utilized adhering to the principles of ALARA. CT DOSE: 2068.09 mGy.cm FINDINGS: Bilateral breast implants are partially imaged. Lower lung linear dens ities favor atelectasis. No pneumatosis, free air or portal venous gas is present. There is hepatic steatosis and hepatomegaly. Liver contour is lobulated suggestive of cirrhosis. No hepatic lesions are identified. Caliber of the common bile duct is at the upper limits of normal following cholecystectomy, measuring 7 mm. There is no pancreatic ductal dilatation. A small amount of fluid within the cholecystectomy bed is noted without well-defined fluid collection. Of note, the pancreatic head and uncinate process appear edematous, a new finding since prior CT. There is also small amount of fluid and stranding adjacent to the pancreatic tail. There is fluid adjacent to the second and third portions of the duodenum. There is no evidence for a bowel obstruction. A small amount of low-attenuation fluid within the pelvis is noted. This contains a small amount of layering hyperdense material. This suggests a small amount of blood products. No additional sites of hemorrhage are identified on this exam. Major vasculature is patent. Caliber and wall thickness of small and large bowel are normal. The main, left and right portal veins are patent. IMPRESSION: 1. Status post cholecystectomy. Small amount of fluid within the cholecystectomy bed, an expected finding in the early postoperative setting. Ascites within the pelvis which contains a small amount of blood products. Findings discussed with Dr. Lugo at time of dictation. 2. Edematous-appearing pancreatic head and uncinate process with peripancreatic stranding and fluid. This raises the possibility of acute pancreatitis and could be correlated with serum lipase level. Fluid adjacent to the proximal duodenum may be postsurgical or related to pancreatitis. 3. Hepatic steatosis, hepatomegaly and suspected cirrhosis. No hepatic lesions. ACT 112: Negative or not required by law. Electronically signed by: Flakito Rush M.D. 01/12/2025 1:20 PM KUB X-Ray 01/14/25 08:09 KUB CLINICAL HISTORY: Evaluate for small bowel obstruction. COMPARISON STUDY: CT of the abdomen and pelvis January 12, 2025. FINDINGS: Elevation of the right hemidiaphragm is unchanged. The bowel gas pattern is normal. The amount of stool is within normal limits. There is no radiographic evidence for free air, pneumatosis or portal venous gas. IMPRESSION: Normal bowel gas pattern. No evidence for a bowel obstruction. ACT 112: Negative or not required by law. Electronically signed by: Flakito Rush M.D. 01/14/2025 8:51 AM Pending Results Patient Have Any Pending Studies at Discharge: Yes Discharge Instructions Given to Patient (Per Discharging Provider) You presented to the hospital with abdominal pain and were found to have inflammation of your gallbladder. You underwent surgery to have your gallbladder removed. You had a CT scan of your abdomen after surgery which showed expected post operative changes. You also had an x-ray of your abdomen which showed no bowel obstruction or acute complications. The surgery team feels that your pain with moving and bruising are both expected post operatively. Your vital signs and labs are also reassuring. You worked with Physical Therapy and Occupational Therapy who felt you were safe to return home. You are going to be discharged home and your mom is going to help you with the rest of your recovery. You will need to call the number below to schedule a follow up appointment with Dr. Diane ruiz in the next 1-2 weeks. On your initial CT scan of your abdomen, it was discovered that you have cirrhosis, or scarring of the liver. This is likely from your history of alcohol use. You spoke with a psych liaison and were provided with alcohol counseling resources to pursue outpatient. We strongly advise that you abstain from drinking alcohol to prevent worsening of your cirrhosis. You should follow up with Gastroenterology for your cirrhosis - we placed a referral and they should be contacting you for an appointment. We also recommend that you consider talking with psych or your PCP about starting acamprosate or naltrexone for alcohol abstinence. For pain control, you should limit your tylenol use to a max of 2g per day because of your cirrhosis. You should avoid NSAIDs like ibuprofen or motrin or advil because of your bruising and low platelets. You can continue to use the Voltaren gel and oxycodone as needed for pain. SPECIAL CARE INSTRUCTIONS: * You have skin glue over your incisions called dermabond. you may shower with this on. It will tend to dissolve and fall off within a couple weeks. Do not pick at the skin glue * You may shower 01/11 . NO soaking in pools or baths for 2 weeks * No lifting greater than 10lbs. No strenuous exercise until cleared by surgeon. Light walking is accepted. * No driving while taking narcotic pain medication; wait at least 3 days * No drinking alcohol while taking narcotic pain medication * May use Ibuprofen over the counter for pain as tolerated. Do not exceed 2 grams of Tylenol per 24 hours * Expect some swelling and bruising. * Diet- you may resume your regular diet Call your doctor if: * Temperature above 101 degrees, nausea/vomiting, fever/chills * Pain not relieved by pain medicine ordered * There is increased drainage or redness from any incision * You have any unanswered questions or concerns [phone]. FOLLOW UP VISIT: If not already scheduled, please call the office for a follow-up visit. Office Total Time Total Time Spent Total Time Spent (In Minutes): I spent a total of 35 minutes coordinating, documenting and providing care for this patient excluding time spent in the performance of separately billed services or time spent by another provider/QHP.
== END 2025-01-17 13:15 | disposition home or self-care (01) | DRG 418 ==
LOC: ED 21:18 → EDINP 01-10 02:57 → SUATTDRO 01-10 02:57 → 2N 01-10 06:22